=== PATIENT | male | born 1965 | race Caucasian/White ===

== ENCOUNTER → 2018-12-25 08:14 | Outpatient (CLI) | payer OTHER, MEDICAID, SELFPAY ==
--- NOTE | 2018-12-25 08:19 | DI.US.S_ITS ---
PROCEDURE: US ABDOMEN COMPLETE INDICATIONS: HEPATITIS C,CIRRHOSIS,CURRENT DRINKER,LIVER FUNCTI TECHNIQUE: Real-time scanning was performed of the abdominal and retroperitoneal organs, with image documentation. COMPARISON: None. FINDINGS: Liver: Liver is coarse in echotexture and slightly increased in echogenicity. There is mild irregularity of the hepatic capsule. Gallbladder: No gallstones identified. Normal gallbladder wall. No pericholecystic fluid. Negative sonographic Lee sign. Biliary ducts: Intrahepatic bile ducts are non-dilated. Extrahepatic bile duct caliber measures 5.7 mm. Normal is 6-7 mm or less in diameter, or 10 mm or less post-cholecystectomy. Pancreas: Visualized portions of the pancreas are sonographically normal. Spleen: Spleen is enlarged in size at 15.4 cm and homogeneous in echotexture. Kidneys: Kidneys are normal in size and echotexture. Right kidney measures 11.4 cm long; left kidney measures 10.5 cm long. No hydronephrosis or nephrolithiasis. No solid masses. Aorta: Visualized aorta is normal in caliber at less than 3 cm. Iliacs: Proximal common iliac arteries are normal in caliber at less than 2.5 cm. IVC: Intrahepatic inferior vena cava is patent. Miscellaneous: No free abdominal fluid. IMPRESSION: 1. Coarse appearance of the liver with increase in hepatic parenchymal echogenicity and mild irregularity of the hepatic capsule suggesting hepatic cirrhosis. Correlate clinically. 2. Sonographic splenomegaly. Portal hypertension cannot be excluded. Dictated by: Amrit MCRAE Interpreted: Dara Ulloa MD on 12/25/2018 at 13:05 Approved by: Dara Ulloa M.D. on 12/25/2018 at 14:01
[2018-12-25 12:29] LABS: Add Manual Diff / Slide Review NO; Basophils Absolute Auto 0 /uL (0-100); Basophils Percent Auto 0.6 % (0-2); Eosinophils Absolute Auto 100 /uL (0-450); Eosinophils Percent Auto 1.9 % (2-4); Hematocrit 41.7 % (41-53); Hemoglobin 14.1 g/dL (13.5-17.5); Lymphocytes Absolute Auto 2000 /uL (1100-4500); Lymphocytes Percent Auto 30.9 % (25-40); Mean Corpuscular HGB Conc 33.7 % (30-36); Mean Corpuscular Volume 97.7 fL (80-100); Monocytes Absolute Auto 700 /uL (0-900); Monocytes Percent Auto 11.5 % (3-14); Neutrophils Absolute Auto 3500 /uL (1500-7000); Neutrophils Percent Auto 55.1 % (50-75); Platelet Count 97 X10^3/uL (150-400); Red Blood Cell Count 4.27 X10^6/uL (4.5-5.9); Red Cell Distribution Width 14.9 % (11.6-14.8); White Blood Cell Count 6.4 X10^3/uL (4.5-11.0)
[2018-12-25 13:07] LABS: INR 1.2 (0.9-1.3); Prothrombin Time 13.5 SECONDS (10.1-12.7)
[2018-12-25 14:11] LABS: Alanine Aminotransferase 25 IU/L (21-72); Albumin 4.1 g/dL (3.5-5.0); Albumin Globulin Ratio 0.9 (1.0-2.8); Alkaline Phosphatase 95 U/L (38-126); Aspartate Aminotransferase 58 IU/L (17-59); BUN Creatinine Ratio 6.3 (6-22); Blood Urea Nitrogen 5 mg/dL (9-20); Carbon Dioxide 28 mmol/L (22-32); Chloride 107 mmol/L (98-107); Estimated Glomerular Filt Rate > 60.0 mL/min (>60); Globulin 4.4 g/dL (1.7-4.1); Glucose 103 mg/dL (70-100); HEMOLYSIS < 15 (0-50); Sodium 146 mmol/L (137-145); Total Protein 8.5 g/dL (6.3-8.2)
[2018-12-25 14:23] LABS: Potassium 4.2 mmol/L (3.4-5.1)
[2018-12-29 17:24] LABS: Alpha Fetoprotein 15.1 ng/mL (< 6.1)
== END ==
PROVIDERS: PCP Internal Medicine
DX: B18.2 Chronic viral hepatitis C (principal); K74.60 Unspecified cirrhosis of liver; R94.5 Abnormal results of liver function studies; R16.1 Splenomegaly, not elsewhere classified; D69.6 Thrombocytopenia, unspecified; Z72.89 Other problems related to lifestyle
CPT/HCPCS: 36415; 76700; 80053; 82105; 85025; 85610; 87522

== ENCOUNTER → 2019-11-28 12:33 | Outpatient (CLI) | payer OTHER, MEDICAID, SELFPAY ==
--- NOTE | 2019-11-28 13:38 | DI.CT.S_ITS ---
PROCEDURE: CT ABDOMEN PELVIS W CON INDICATIONS: Unspecified cirrhosis of liver TECHNIQUE: After the administration of oral and intravenous contrast, 5 mm thick sections acquired from the diaphragms to the symphysis. 5 mm thick coronal and sagittal reformats were performed. For radiation dose reduction, the following was used: automated exposure control, adjustment of mA and/or kV according to patient size. COMPARISON: None. FINDINGS: Image quality: Excellent. ABDOMEN: Lung bases: There is mild dependent atelectasis bilaterally. Heart size is normal. There is a small hiatal hernia. There are small gastroesophageal varices. Solid organs: The liver is nodular in contour with heterogeneity of hepatic parenchyma consistent with cirrhosis. No discrete hepatic mass is identified on this single phase of imaging. There is a small focal hyperdensity in the region of the gallbladder neck suggestive of a small gallstone. There is mild nonspecific gallbladder wall thickening and enhancement. No pericholecystic fluid. Biliary system is non-dilated. Pancreas enhances normally. Spleen is enlarged, measuring up to 14.6 cm. No adrenal nodules. Kidneys demonstrate hydronephrosis. Peritoneum and bowel: Stomach, small bowel, and colon loops are normal in caliber and wall thickness. No free fluid or air. Nodes and vessels: No retroperitoneal or mesenteric adenopathy. Aorta and inferior vena cava are normal in caliber. There is small splenic varices. Miscellaneous: No ventral hernias. PELVIS: Genitourinary: Bladder wall thickness is normal. Miscellaneous: No inguinal hernias or adenopathy. Bones: No suspicious bony lesions. No vertebral body compression fractures. IMPRESSION: 1. Cirrhotic liver demonstrated without a discrete mass identified on this single phase of imaging. If clinical concern persists, further evaluation may be obtained with a liver protocol MRI or CT. 2. Mild splenomegaly with small gastroesophageal and splenic varices suggestive of portal hypertension. 3. Suggestion of a small calcified gallstone in the gallbladder neck. Mild gallbladder wall thickening is also demonstrated. The findings are nonspecific in the context of cirrhosis and correlation is recommended clinically. Further evaluation may be obtained with ultrasound. Dictated by: Antonio Rand M.D. on 11/28/2019 at 16:58 Approved by: Antonio Rand M.D. on 11/28/2019 at 17:02
== END ==
PROVIDERS: PCP Internal Medicine; Referring Provider Internal Medicine Gastroenterology; Visit Provider Internal Medicine Gastroenterology
DX: K74.60 Unspecified cirrhosis of liver (principal); B18.2 Chronic viral hepatitis C; R94.5 Abnormal results of liver function studies; K44.9 Diaphragmatic hernia without obstruction or gangrene; J98.11 Atelectasis; I86.4 Gastric varices; I86.8 Varicose veins of other specified sites; R16.1 Splenomegaly, not elsewhere classified
CPT/HCPCS: 74177; Q9967

== ENCOUNTER → 2020-02-11 12:47 | Outpatient (CLI) | payer MEDICARE, SELFPAY | PROVIDERS: PCP Internal Medicine; Visit Provider Physician Assistant | DX: S91.302A Unspecified open wound, left foot, initial encounter (principal) | CPT/HCPCS: 87070; 87075; 87077; 87147; 87205 ==

== ENCOUNTER → 2020-02-15 10:41 | Outpatient (CLI) | payer MEDICARE, SELFPAY ==
--- NOTE | 2020-02-15 10:46 | DI.RAD.S_ITS ---
PROCEDURE: XR FOOT LT MIN 3V INDICATIONS: Pain and swelling. Clinical concern for osteomyelitis TECHNIQUE: 3 views of the foot were acquired. COMPARISON: None. FINDINGS: Bones: No fractures or dislocations. No suspicious bony lesions. Degenerative changes are seen, particularly involving the Lisfranc joint. Soft tissues: Generalized soft tissue swelling is seen, particularly distally. There is a potential radiopaque foreign body seen between the 3rd and 4th metatarsals measuring 6 mm. However, this may be simply related to artifact. IMPRESSION: Soft tissue swelling and degenerative changes, without a focal bony abnormality seen by plain film to suggest osteomyelitis. If there is strong suspicion for developing osteomyelitis, please consider a dedicated MRI without and with contrast for further evaluation (assuming that there is no contraindication to MRI). Dictated by: Jeremias Hi M.D. on 02/15/2020 at 10:09 Approved by: Jeremias Hi M.D. on 02/15/2020 at 10:11
== END ==
PROVIDERS: PCP Internal Medicine; Referring Provider Nurse Practitioner; Visit Provider Nurse Practitioner
DX: M79.672 Pain in left foot (principal); S91.302A Unspecified open wound, left foot, initial encounter; M79.89 Other specified soft tissue disorders
CPT/HCPCS: 73630

== ENCOUNTER → 2020-02-25 09:56 | Outpatient (CLI) | payer MEDICARE, SELFPAY | PROVIDERS: PCP Internal Medicine; Referring Provider Nurse Practitioner; Visit Provider Family Medicine | DX: I87.2 Venous insufficiency (chronic) (peripheral) (principal); L97.421 Non-pressure chronic ulcer of left heel and midfoot limited to breakdown of skin; F10.20 Alcohol dependence, uncomplicated; K74.60 Unspecified cirrhosis of liver | CPT/HCPCS: 11042; 87070; 87075; 87205; 93922; 99203; 99213 ==

== ENCOUNTER → 2020-02-27 11:51 | Outpatient (CLI) | payer MEDICARE, SELFPAY | PROVIDERS: PCP Internal Medicine; Referring Provider Internal Medicine; Visit Provider Family Medicine | DX: I87.2 Venous insufficiency (chronic) (peripheral) (principal); L97.421 Non-pressure chronic ulcer of left heel and midfoot limited to breakdown of skin | CPT/HCPCS: 29581 ==

== ENCOUNTER → 2020-03-05 08:50 | Outpatient (CLI) | payer MEDICARE, SELFPAY | PROVIDERS: PCP Internal Medicine; Referring Provider Internal Medicine; Visit Provider Family Medicine | DX: I87.2 Venous insufficiency (chronic) (peripheral) (principal); L97.421 Non-pressure chronic ulcer of left heel and midfoot limited to breakdown of skin; F10.20 Alcohol dependence, uncomplicated; K74.60 Unspecified cirrhosis of liver | CPT/HCPCS: 97597 ==

== ENCOUNTER → 2020-03-12 09:47 | Outpatient (CLI) | payer MEDICARE, SELFPAY | PROVIDERS: PCP Internal Medicine; Referring Provider Internal Medicine; Visit Provider Family Medicine | DX: I87.2 Venous insufficiency (chronic) (peripheral) (principal); L97.421 Non-pressure chronic ulcer of left heel and midfoot limited to breakdown of skin; F10.20 Alcohol dependence, uncomplicated; K74.60 Unspecified cirrhosis of liver; L08.9 Local infection of the skin and subcutaneous tissue, unspecified | CPT/HCPCS: 11042; 87070; 87075; 87077; 87147; 87186; 87205; 99214 ==

== ENCOUNTER → 2020-03-19 10:33 | Outpatient (CLI) | payer MEDICARE, SELFPAY | PROVIDERS: PCP Internal Medicine; Referring Provider Internal Medicine; Visit Provider Family Medicine | DX: I87.2 Venous insufficiency (chronic) (peripheral) (principal); L97.421 Non-pressure chronic ulcer of left heel and midfoot limited to breakdown of skin | CPT/HCPCS: 29581 ==

== ENCOUNTER → 2020-03-26 10:40 | Outpatient (CLI) | payer MEDICARE, SELFPAY | PROVIDERS: PCP Internal Medicine; Referring Provider Internal Medicine; Visit Provider Family Medicine | DX: I87.333 Chronic venous hypertension (idiopathic) with ulcer and inflammation of bilateral lower extremity (principal); L97.421 Non-pressure chronic ulcer of left heel and midfoot limited to breakdown of skin | CPT/HCPCS: 29581 ==

== ENCOUNTER → 2020-04-07 11:25 | Outpatient (CLI) | payer MEDICARE, SELFPAY | PROVIDERS: PCP Internal Medicine; Referring Provider Internal Medicine; Visit Provider Family Medicine | DX: I87.2 Venous insufficiency (chronic) (peripheral) (principal); L97.421 Non-pressure chronic ulcer of left heel and midfoot limited to breakdown of skin; F10.20 Alcohol dependence, uncomplicated; K74.60 Unspecified cirrhosis of liver; L08.9 Local infection of the skin and subcutaneous tissue, unspecified | CPT/HCPCS: 97597 ==

== ENCOUNTER → 2020-04-14 11:40 | Outpatient (CLI) | payer MEDICARE, SELFPAY | PROVIDERS: PCP Internal Medicine; Referring Provider Internal Medicine; Visit Provider Family Medicine | DX: I87.2 Venous insufficiency (chronic) (peripheral) (principal); L97.421 Non-pressure chronic ulcer of left heel and midfoot limited to breakdown of skin | CPT/HCPCS: 99213 ==

== ENCOUNTER → 2020-04-22 11:26 | Outpatient (CLI) | payer MEDICARE, SELFPAY | PROVIDERS: PCP Internal Medicine; Referring Provider Internal Medicine; Visit Provider Family Medicine | DX: I87.2 Venous insufficiency (chronic) (peripheral) (principal); F10.20 Alcohol dependence, uncomplicated; K74.60 Unspecified cirrhosis of liver; R60.0 Localized edema | CPT/HCPCS: 99213 ==

== ENCOUNTER → 2020-05-19 10:47 | Outpatient (CLI) | payer MEDICARE, SELFPAY ==
--- NOTE | 2020-05-19 | DI.US.S_ITS ---
PROCEDURE: US ABDOMEN COMPLETE INDICATIONS: CIRRHOSIS TECHNIQUE: Real-time scanning was performed of the abdominal and retroperitoneal organs, with image documentation. COMPARISON: [facility], US, US ABDOMEN COMPLETE, 12/25/2018, 9:07. FINDINGS: Liver: Liver is normal in size and homogeneous in echotexture, mildly coarse and echogenic likely reflecting a combination of reported cirrhosis and fatty infiltration. Gallbladder: The gallbladder appears normal Biliary ducts: 5.6 Pancreas: Visualized portions of the pancreas are sonographically normal. Spleen: Spleen is normal in size and homogeneous in echotexture. Kidneys: Kidneys are normal in size and echotexture. Right kidney measures 10.8 cm long; left kidney measures 12.0 cm long. No hydronephrosis or nephrolithiasis. No solid masses. Aorta: Visualized aorta is normal in caliber at less than 3 cm. Iliacs: Proximal common iliac arteries are normal in caliber at less than 2.5 cm. IVC: Intrahepatic inferior vena cava is patent. Miscellaneous: No free abdominal fluid. IMPRESSION: Increased echotexture of the liver, consistent with a combination of hepatic cirrhosis and mild fatty infiltration. No focal liver lesion seen. No biliary distension. No evidence of ascites or varices is found. Dictated by: Marco Anaya M.D. on 05/19/2020 at 12:27 Approved by: Marco Anaya M.D. on 05/19/2020 at 12:30
[2020-05-19 12:45] LABS: Hematocrit 41.5 % (41-53); Hemoglobin 14.5 g/dL (13.5-17.5); Mean Corpuscular Hemoglobin 34.4 PG (26-34); Mean Corpuscular Volume 98.5 fL (80-100); Red Blood Cell Count 4.21 X10^6/uL (4.5-5.9); Red Cell Distribution Width 13.8 % (11.6-14.8); White Blood Cell Count 4.2 X10^3/uL (4.5-11.0)
[2020-05-19 12:55] LABS: INR 1.2 (0.9-1.3)
[2020-05-19 13:05] LABS: Alanine Aminotransferase 71 IU/L (<50); Albumin 4.1 g/dL (3.5-5.0); Albumin Globulin Ratio 0.8 (1.0-2.8); Alkaline Phosphatase 172 U/L (38-126); Aspartate Aminotransferase 205 IU/L (17-59); BUN Creatinine Ratio 5.7 (6-22); Blood Urea Nitrogen 4 mg/dL (9-20); Carbon Dioxide 26 mmol/L (22-32); Chloride 102 mmol/L (98-107); Estimated Glomerular Filt Rate > 60.0 mL/min (>60); Globulin 5.4 g/dL (1.7-4.1); Glucose 124 mg/dL (70-100); HEMOLYSIS < 15 (0-50); Potassium 3.8 mmol/L (3.4-5.1); Sodium 138 mmol/L (137-145); Total Protein 9.5 g/dL (6.3-8.2)
[2020-05-19 13:22] LABS: Add Manual Diff / Slide Review YES; Platelet Count 35 X10^3/uL (150-400)
[2020-05-19 14:08] LABS: Neutrophils Absolute Manual 2142 /uL (3000-5900); Total Cells Counted 100
[2020-05-19 14:09] LABS: Platelet Estimate Decreased on smear; RBC Morphology Normal Morphology
== END ==
PROVIDERS: PCP Internal Medicine; Referring Provider Internal Medicine Gastroenterology; Visit Provider Internal Medicine Gastroenterology
DX: K74.60 Unspecified cirrhosis of liver (principal); B18.2 Chronic viral hepatitis C; R94.5 Abnormal results of liver function studies
CPT/HCPCS: 36415; 76700; 80053; 82105; 85007; 85025; 85610

== ENCOUNTER 2020-09-01 19:04 | Emergency (ER) | payer MEDICARE, SELFPAY ==
[2020-09-01] VITALS (9 sets, daily range): BP systolic 124–159; BP diastolic 60–93; PULSE 65–86; RESP 14–20; TEMP 35.9–36.9; O2SAT 93–97; BMI 39.0
--- NOTE | 2020-09-01 19:18 | ED_ITS ---
HPI - General Adult General Chief complaint: Fall Stated complaint: Fall, ankle injury Time Seen by Provider: 09/01/20 19:13 Source: patient Mode of arrival: EMS Limitations: no limitations History of Present Illness HPI narrative: Patient is a 55-year-old male who arrived by EMS for evaluation of alcohol intoxication, fall and left ankle deformity. Patient arrived in a cervical collar but not on a backboard. He did admit to drinking alcohol and having a couple shots and drinking marijuana. He is unsure exactly how he fell. A neighbor heard him calling out for help. Modified trauma called by EMS prior to arrival Related Data Home Medications Medication Instructions Recorded Confirmed cetirizine 10 mg capsule 10 mg PO DAILY 08/10/18 02/20/20 fluticasone propionate 50 1 spray NASAL DAILY 08/10/18 02/20/20 mcg/actuation nasal spray,suspension gabapentin 600 mg tablet 600 mg PO TID 11/30/18 02/20/20 naltrexone microspheres 380 mg 380 mg IM Q4W 11/30/18 02/20/20 intramuscular suspension,extended release Previous Rx's Medication Instructions Recorded ibuprofen 800 mg tablet 800 mg PO TID PRN #90 tab 12/25/18 mupirocin 2 % topical ointment 1 applic TOP BID #30 gram 02/11/20 ketorolac 10 mg tablet 5 mg PO BID PRN #4 tab 02/15/20 Allergies Allergy/AdvReac Type Severity Reaction Status Date / Time nadolol Allergy Verified 09/01/20 19:14 propranolol Allergy Verified 09/01/20 19:14 Review of Systems Constitutional Constitutional: Denies headache(s) ENT Ears, Nose, Mouth, and Throat: Denies headache(s) Cardiovascular Cardiovascular: Denies chest pain and Denies dyspnea Respiratory Respiratory: Denies dyspnea Gastrointestinal Gastrointestinal: Denies abdominal pain Musculoskeletal Comments: Left ankle pain Integumentary/Breasts Skin/Breast: Denies lesions and Denies rash Neurologic Neurologic: Reports confusion and Denies headache(s) Comments: Intoxicated Psychiatric Psychiatric: Reports confusion Hematologic/Lymphatic On Anticoagulants: No Allergic/Immunologic Allergic/Immunologic: Denies urticaria Patient History Medical History Alcoholism Ankle pain Anxiety Blindness Cataracts, bilateral Cirrhosis Foot pain H/O deep venous thrombosis Hearing loss Hepatitis C Peripheral vascular disease Shoulder pain Skin problem Sleep apnea Venous stasis Vertigo Vision disorder Wound infection Surgical History Anesthesia H/O neck surgery History of surgery History of surgery of liver (~2018) S/P cataract extraction Family History Mother Cancer Hyperlipidemia Grandfather CVA (cerebral vascular accident) Grandfather Cancer Father Heart disease Hypertension Brother Hyperlipidemia Grandmother Liver disease Social History Smoking Status: Current every day smoker quit status: not considering quitting alcohol intake: current (daily w/cirrhosis/hepatitis C) Smoking Status: Current every day smoker Exam Initial Vital Signs Initial Vital Signs: Vital Signs Pulse Rate 80 09/01/20 19:09 Pulse Oximetry 93 09/01/20 19:09 Const General: disheveled and No ill appearing Limitations: other limitations (Intoxicated) HENMT Head: normal to inspection and normocephalic Ears: hearing grossly normal bilaterally Eyes General: appearance normal, both eyes and all related structures Resp Effort & Inspection: normal respiratory effort Auscultation: clear to auscultation bilaterally Cardio Rate: regular rate Rhythm: regular rhythm Pulses: dorsalis pedis present on the left GI Inspection: non-distended Palpation: soft Back/Spine/Pelvis Cervical Spine: collar present Skin Lesions: no lesions Rashes: no rashes Neuro General: patient alert and patient awake Sensory Exam: no sensory deficits noted Extrem Other: No tenderness to palpation of the hips Left knee is unremarkable, does have tenderness to palpation along the proximal fibula. Has deformity left ankle. Psych Appearance: disheveled Procedures Orthopedic Fracture Reduction Fracture #1: Time Out Performed: No Side: left Fracture Reduction Location: other (Left ankle) Technique: direct manipulation Post Reduction X-rays Demonstrate: acceptable reduction Post-reduction neuro exam: intact Post-reduction vascular exam: intact Splint Applied: Yes Patient Tolerated Procedure: Well and No complications Orthopedic Splinting/Casting Injury #1: Side: left Lower Extremity Injury Location: ankle Lower Extremity Immobilizer: posterior splint and stirrup splint Other Orthopedic Equipment: crutches Post splinting neuro exam: no change Post splinting vascular exam: no change Placed by: Provider Scores Nexus Score for C-Spine Focal Neurologic deficit present: No Midline spinal tenderness present: Yes Altered level of conciousness present: No Intoxication present: Yes Distracting Injury Present: No Nexus Criteria for C-spine: 2 Course Orders Ordered: ED Orders 09/01/20 19:28 CT cervical spine wo con Stat CT head/brain wo con Stat XR ankle LT min 3V Stat XR tibia fibula LT 2V Stat 09/01/20 20:10 Basic Metabolic Panel Stat Complete Blood Count AUTO DIFF Stat Vital Signs Vital signs: Vital Signs - 8 hr 09/01/20 19:09 09/01/20 19:10 09/01/20 19:30 Temperature 96.6 F L Pulse Rate 80 75 69 Respiratory Rate 14 Blood Pressure 156/91 H Pulse Oximetry 93 93 96 09/01/20 19:31 09/01/20 19:48 09/01/20 20:00 Temperature Pulse Rate 65 70 73 Respiratory Rate Blood Pressure 154/76 H 159/93 H Pulse Oximetry 95 96 96 09/01/20 20:29 09/01/20 20:30 09/01/20 22:12 Temperature 98.4 F Pulse Rate 72 71 86 Respiratory Rate 16 20 Blood Pressure 150/91 H 140/89 124/60 Pulse Oximetry 97 97 96 Medical Decision Making Medical Records Medical records reviewed: Yes I reviewed the patient's medical records. Lab Data Lab results reviewed: Yes I reviewed the patient's lab results. Result diagrams: 09/01/20 20:10 09/01/20 20:10 Labs: Lab Results 09/01/20 09/01/20 Range/Units 20:10 20:10 WBC 4.6 (4.5-11.0) X10^3/uL RBC 3.87 L (4.5-5.9) X10^6/uL Hgb 13.9 (13.5-17.5) g/dL Hct 40.9 L (41-53) % MCV 105.7 H (80-100) fL MCH 35.8 H (26-34) PG MCHC 33.8 (30-36) % RDW 15.4 H (11.6-14.8) % Plt Count 42 L (150-400) X10^3/uL Neut % (Auto) 48.9 L (50-75) % Lymph % (Auto) 37.1 (25-40) % [place] % (Auto) 11.7 (3-14) % Eos % (Auto) 1.3 L (2-4) % Baso % (Auto) 1.0 (0-2) % Neut # (Auto) 2300 (2767-5404) /uL Lymph # (Auto) 1700 (2400-4401) /uL [place] # (Auto) 500 (0-900) /uL Eos # (Auto) 100 (0-450) /uL Baso # (Auto) 0 (0-100) /uL Sodium 138 (137-145) mmol/L Potassium 5.1 (3.4-5.1) mmol/L Chloride 104 (98-107) mmol/L Carbon Dioxide 23 (22-32) mmol/L BUN 4 L (9-20) mg/dL Creatinine 0.66 (0.66-1.25) mg/dL Estimated GFR > 60.0 (>60) mL/min BUN/Creatinine Ratio 6.1 (6-22) Glucose 127 H (70-100) mg/dL Calcium 8.7 (8.4-10.2) mg/dL Urine Dip Bedside Urine Glucose Negative Bedside Urine Bilirubin - Negative Bedside Urine Ketone - Negative Urine Specific [place] 1.015 Bedside Urine Occult Blood - Negative Bedside Urine pH 6 Bedside Urine Protein - Negative Bedside Urine Urobilinogen - Negative Bedside Urine Nitrite - Negative Bedside Urine Leukocytes - Negative Esterase Point of care testing: Urine Dip Bedside Urine Glucose Negative Bedside Urine Bilirubin - Negative Bedside Urine Ketone - Negative Urine Specific [place] 1.015 Bedside Urine Occult Blood - Negative Bedside Urine pH 6 Bedside Urine Protein - Negative Bedside Urine Urobilinogen - Negative Bedside Urine Nitrite - Negative Bedside Urine Leukocytes - Negative Esterase Imaging Data CT scan - head: Radiologist's Impression: [address] [id number] Scan ReportSigned Patient: Santi Colindres KMR#: [id number]: [id number]:[id number]/Sex: 55 / MDate of Service: 09/01/20Loc: EDAccession Number: [id number] Procedure: CT head/brain wo con Ordering Provider: Wayne Land D.O. PROCEDURE: CT HEAD/BRAIN WO CON INDICATIONS: fall and drunk TECHNIQUE: Noncontrast 4.5 mm thick angled axial sections acquired from the foramen magnum to the vertex, with coronal and sagittal reformats. For radiation dose reduction, the following was used: automated exposure control, adjustment of mA and/or kV according to patient size. COMPARISON: None. FINDINGS: Image quality: Excellent. CSF spaces: Basal cisterns are patent. No extra-axial fluid collections. Ventricles are normal in size and shape. Brain: No midline shift. No intracranial masses or hemorrhage. Diallo-white ma tter interface is normal. Skull and face: Calvarium is intact, without suspicious lesions. There is irregularity of the nasal bones without appreciable overlying edema. Sinuses: Visualized sinuses demonstrate a left maxillary sinus mucous retention cysts, with smaller similar foci noted within the right maxillary sinus. IMPRESSION: 1. No acute intracranial process. 2. Irregularity of the nasal bones as above. Chronicity is considered indeterminate and recommend correlation to point tenderness of pain as subacute fracture cannot be excluded given history of trauma. Dictated by: Dara Ulloa M.D. on 09/01/2020 at 20:20 Approved by: Dara Ulloa M.D. on 09/01/2020 at 20:21 CT - cervical spine: Radiologist's Impression: [address] [id number] Scan ReportSigned Patient: Santi Colindres R#: [id number]: 1965Acct:[id number]/Sex: 55 / MDate of Service: 09/01/20Loc: EDAccession Number: [id number] Procedure: CT cervical spine wo con Ordering Provider: Wayne Land D.O. PROCEDURE: CT CERVICAL SPINE WO CON INDICATIONS: fall and drunk TECHNIQUE: Noncontrast 3 mm thick sections acquired from the skull base to the T4 level. Sagittal and coronal reformats were then constructed. For radiation dose reduction, the following was used: automated exposure control, adjustment of mA and/or kV according to patient size. COMPARISON: None. FINDINGS: Image quality: Excellent. Bones: No fractures or dislocations. Visualized superior ribs are intact. Prominent multilevel degenerative changes are present. Soft tissues: Prevertebral soft tissues are normal in thickness. No paravertebral hematomas. No apical pneumothoraces. IMPRESSION: No visualized fracture. Dictated by: Dara Ulloa M.D. on 09/01/2020 at 20:18 Approved by: Daar Ulloa M.D. on 09/01/2020 at 20:20 X-ray tib-fib: Radiologist's Impression: [address] [id number] ReportSigned Patient: Santi Colindres R#: [id number]: 1965Acct:[id number]/Sex: 55 / MDate of Service: 09/01/20Loc: EDAccession Number: [id number] Procedure: XR tibia fibula LT 2V Ordering Provider: Wayne Land D.O. PROCEDURE: XR TIBIA FIBULA LT 2V INDICATIONS: fall and prox fibula tenderness TECHNIQUE: 2 views of the tibia and fibula were acquired. COMPARISON: [facility], CR, XR ANKLE LT MIN 3V, 09/01/2020, 19:29. FINDINGS: Bones: There is a mildly displaced distal fibular fracture. In addition, mildly displaced medial malleolar fracture is present. There is slight irregularity of the lateral cortical margin of the fibular head. Posterior malleolar fracture is present. Soft tissues: No suspicious soft tissue calcifications or masses. IMPRESSION: 1. Mildly displaced distal fibular fracture as well as medial malleolar fracture. Posterior malleolar fracture is present. 2. Irregularity of the cortex of the lateral fibular head suggestive of fracture. Dictated by: Dara Ulloa M.D. on 09/01/2020 at 20:16 Approved by: Dara Ulloa M.D. on 09/01/2020 at 20:17 X-ray ankle: Radiologist's Impression: [address] [id number] ReportSigned Patient: Santi Colindres R#: [id number]: 1965Acct:[id number]/Sex: 55 / MDate of Service: 09/01/20Loc: DANIEL ccession Number: [id number] Procedure: XR ankle LT min 3V Ordering Provider: Wayne Land D.O. PROCEDURE: XR ANKLE LT MIN 3V INDICATIONS: fall and deformity. has splint on TECHNIQUE: 3 views of the ankle were acquired. COMPARISON: [facility], CR, XR TIBIA FIBULA LT 2V, 09/01/2020, 19:29. FINDINGS: Bones: Mildly displaced distal fibular fracture. Mildly displaced medial malleolar fracture. Posterior malleolar fracture is also present. Soft tissues: Ankle effusion. Achilles tendon appears normal. IMPRESSION: Trimalleolar fracture. Dictated by: Dara Ulloa M.D. on 09/01/2020 at 20:18 Approved by: Dara Ulloa M.D. on 09/01/2020 at 20:18 [facility] Narrative Medical decision making narrative: Head CT and cervical spine CT were negative. Cervical spinous removed with a resulting negative C-spine CT. He is neurovascular intact his left lower extremity. Splint was placed as described above. X-rays do show a trimalleolar fracture. This is a closed fracture. I did discuss the case with Dr. Pelletier with orthopedics who stated that the patient could follow-up this week. Patient was given care instructions and return precautions with the splint. He was given crutches. He expressed understanding of this. He was picked up by his mother. He was given information to follow-up with orthopedics and also his primary provider. He expressed understanding and agreement. Discharge Plan Departure Patient Disposition: Home Clinical Impression: Ankle fracture, left, Alcohol intoxication Instructions: How to Use Crutches, DI for Ankle Fracture, How to Take Care of Your Splint Activity Restrictions/Additional Instructions: You do have a left ankle fracture. This means that the splint that was placed here in the emergency department needs to stay on an stay clean and stay dry. You need to treat it like a cast. Do not walk on your left leg. Use the crutches. Tomorrow I recommend you contact your primary provider for follow-up. I also recommend you contact the [facility] group at [phone]. The injury that you have sustained will require surgery. Keep your foot elevated as this will help with the discomfort and the swelling. Return to the emergency department for any new symptoms. Prescriptions: No Action mupirocin 2 % ointment 1 applic TOP BID Qty: 30 RF: 0 ketorolac 10 mg tablet 5 mg PO BID PRN (Reason: pain) Qty: 4 RF: 0 fluticasone propionate 50 mcg/actuation spray,suspension 1 spray NASAL DAILY RF: 0 cetirizine 10 mg capsule 10 mg PO DAILY RF: 0 gabapentin 600 mg tablet 600 mg PO TID RF: 0 Vivitrol 380 mg suspension,extended rel recon 380 mg IM Q4W RF: 0 ibuprofen 800 mg tablet 800 mg PO TID PRN (Reason: pain) Qty: 90 RF: 0 Referrals: Santi Chan MD [Primary Care Provider] - Guru Pelletier MD [Physician] -
--- NOTE | 2020-09-01 19:28 | DI.CT.S_ITS ---
PROCEDURE: CT CERVICAL SPINE WO CON INDICATIONS: fall and drunk TECHNIQUE: Noncontrast 3 mm thick sections acquired from the skull base to the T4 level. Sagittal and coronal reformats were then constructed. For radiation dose reduction, the following was used: automated exposure control, adjustment of mA and/or kV according to patient size. COMPARISON: None. FINDINGS: Image quality: Excellent. Bones: No fractures or dislocations. Visualized superior ribs are intact. Prominent multilevel degenerative changes are present. Soft tissues: Prevertebral soft tissues are normal in thickness. No paravertebral hematomas. No apical pneumothoraces. IMPRESSION: No visualized fracture. Dictated by: Dara Ulloa M.D. on 09/01/2020 at 20:18 Approved by: Dara Ulloa M.D. on 09/01/2020 at 20:20
--- NOTE | 2020-09-01 19:28 | DI.CT.S_ITS ---
PROCEDURE: CT HEAD/BRAIN WO CON INDICATIONS: fall and drunk TECHNIQUE: Noncontrast 4.5 mm thick angled axial sections acquired from the foramen magnum to the vertex, with coronal and sagittal reformats. For radiation dose reduction, the following was used: automated exposure control, adjustment of mA and/or kV according to patient size. COMPARISON: None. FINDINGS: Image quality: Excellent. CSF spaces: Basal cisterns are patent. No extra-axial fluid collections. Ventricles are normal in size and shape. Brain: No midline shift. No intracranial masses or hemorrhage. Diallo-white matter interface is normal. Skull and face: Calvarium is intact, without suspicious lesions. There is irregularity of the nasal bones without appreciable overlying edema. Sinuses: Visualized sinuses demonstrate a left maxillary sinus mucous retention cysts, with smaller similar foci noted within the right maxillary sinus. IMPRESSION: 1. No acute intracranial process. 2. Irregularity of the nasal bones as above. Chronicity is considered indeterminate and recommend correlation to point tenderness of pain as subacute fracture cannot be excluded given history of trauma. Dictated by: Dara Ulloa M.D. on 09/01/2020 at 20:20 Approved by: Dara Ulloa M.D. on 09/01/2020 at 20:21
--- NOTE | 2020-09-01 19:28 | DI.RAD.S_ITS ---
PROCEDURE: XR TIBIA FIBULA LT 2V INDICATIONS: fall and prox fibula tenderness TECHNIQUE: 2 views of the tibia and fibula were acquired. COMPARISON: [facility], CR, XR ANKLE LT MIN 3V, 09/01/2020, 19:29. FINDINGS: Bones: There is a mildly displaced distal fibular fracture. In addition, mildly displaced medial malleolar fracture is present. There is slight irregularity of the lateral cortical margin of the fibular head. Posterior malleolar fracture is present. Soft tissues: No suspicious soft tissue calcifications or masses. IMPRESSION: 1. Mildly displaced distal fibular fracture as well as medial malleolar fracture. Posterior malleolar fracture is present. 2. Irregularity of the cortex of the lateral fibular head suggestive of fracture. Dictated by: aDra Ulloa M.D. on 09/01/2020 at 20:16 Approved by: Dara Ulloa M.D. on 09/01/2020 at 20:17
--- NOTE | 2020-09-01 19:28 | DI.RAD.S_ITS ---
PROCEDURE: XR ANKLE LT MIN 3V INDICATIONS: fall and deformity. has splint on TECHNIQUE: 3 views of the ankle were acquired. COMPARISON: [facility], MICHAEL, XR TIBIA FIBULA LT 2V, 09/01/2020, 19:29. FINDINGS: Bones: Mildly displaced distal fibular fracture. Mildly displaced medial malleolar fracture. Posterior malleolar fracture is also present. Soft tissues: Ankle effusion. Achilles tendon appears normal. IMPRESSION: Trimalleolar fracture. Dictated by: Dara Ulloa M.D. on 09/01/2020 at 20:18 Approved by: Dara Ulloa M.D. on 09/01/2020 at 20:18
[2020-09-01 20:22] LABS: Add Manual Diff / Slide Review NO; Basophils Absolute Auto 0 /uL (0-100); Eosinophils Absolute Auto 100 /uL (0-450); Eosinophils Percent Auto 1.3 % (2-4); Hematocrit 40.9 % (41-53); Hemoglobin 13.9 g/dL (13.5-17.5); Lymphocytes Absolute Auto 1700 /uL (1100-4500); Lymphocytes Percent Auto 37.1 % (25-40); Mean Corpuscular HGB Conc 33.8 % (30-36); Mean Corpuscular Hemoglobin 35.8 PG (26-34); Mean Corpuscular Volume 105.7 fL (80-100); Monocytes Absolute Auto 500 /uL (0-900); Monocytes Percent Auto 11.7 % (3-14); Neutrophils Absolute Auto 2300 /uL (1500-7000); Neutrophils Percent Auto 48.9 % (50-75); Platelet Count 42 X10^3/uL (150-400); Red Blood Cell Count 3.87 X10^6/uL (4.5-5.9); Red Cell Distribution Width 15.4 % (11.6-14.8); White Blood Cell Count 4.6 X10^3/uL (4.5-11.0)
[2020-09-01 20:31] LABS: BUN Creatinine Ratio 6.1 (6-22); Blood Urea Nitrogen 4 mg/dL (9-20); Calcium 8.7 mg/dL (8.4-10.2); Carbon Dioxide 23 mmol/L (22-32); Chloride 104 mmol/L (98-107); Estimated Glomerular Filt Rate > 60.0 mL/min (>60); Glucose 127 mg/dL (70-100); Potassium 5.1 mmol/L (3.4-5.1); Sodium 138 mmol/L (137-145)
[2020-09-01 20:42] LABS: HEMOLYSIS 113 (0-50)
--- NOTE | 2020-09-01 20:59 | PC.NURSE ---
Addendum entered by Trisha Berry R.N. 09/01/20 21:14: RN tried to contact Praveen; this number does not work. Original Note: Pts friend Praveen called for an update; RN asked Praveen to assist in obtaining a ride home for the patient. Praveen's number is [phone]
--- NOTE | 2020-09-01 21:00 | PC.NURSE ---
Crutch training was challenging d/t patient's ams. He was uncooperative and uncoordinated. RN encouraged patient to remain seated to urinate and to remain in bed until his ride arrives.
--- NOTE | 2020-09-01 21:21 | PC.NURSE ---
Patient's mother is coming to pick him up @ 2200.
== END 2020-09-01 22:15 | disposition home or self-care (01) ==
PROVIDERS: Emergency Provider Emergency Medicine; PCP Internal Medicine
DX: S82.892A Other fracture of left lower leg, initial encounter for closed fracture (principal); F10.129 Alcohol abuse with intoxication, unspecified; S09.90XA Unspecified injury of head, initial encounter; R41.0 Disorientation, unspecified; W19.XXXA Unspecified fall, initial encounter
CPT/HCPCS: 27788; 29515; 36415; 70450; 72125; 73590; 73610; 80048; 81003; 85025; 99284

== ENCOUNTER → 2020-09-07 14:20 | Outpatient (CLI) | payer MEDICARE, SELFPAY ==
[2020-09-07 16:22] LABS: Add Manual Diff / Slide Review NO; Basophils Absolute Auto 0 /uL (0-100); Basophils Percent Auto 0.6 % (0-2); Eosinophils Absolute Auto 0 /uL (0-450); Eosinophils Percent Auto 0.6 % (2-4); Hematocrit 36.7 % (41-53); Hemoglobin 12.5 g/dL (13.5-17.5); Lymphocytes Absolute Auto 900 /uL (1100-4500); Mean Corpuscular Hemoglobin 36.8 PG (26-34); Monocytes Absolute Auto 1000 /uL (0-900); Monocytes Percent Auto 15.6 % (3-14); Neutrophils Absolute Auto 4500 /uL (1500-7000); Neutrophils Percent Auto 69.2 % (50-75); Platelet Count 50 X10^3/uL (150-400); Red Cell Distribution Width 15.2 % (11.6-14.8); White Blood Cell Count 6.4 X10^3/uL (4.5-11.0)
[2020-09-07 16:37] LABS: BUN Creatinine Ratio 16.3 (6-22); Blood Urea Nitrogen 13 mg/dL (9-20); Calcium 9.1 mg/dL (8.4-10.2); Carbon Dioxide 26 mmol/L (22-32); Chloride 102 mmol/L (98-107); Estimated Glomerular Filt Rate > 60.0 mL/min (>60); Glucose 107 mg/dL (70-100); HEMOLYSIS < 15 (0-50); Potassium 3.6 mmol/L (3.4-5.1); Sodium 135 mmol/L (137-145)
== END ==
PROVIDERS: PCP Internal Medicine; Referring Provider Orthopaedic Surgery; Visit Provider Orthopaedic Surgery
DX: Z01.818 Encounter for other preprocedural examination (principal); Z01.812 Encounter for preprocedural laboratory examination
CPT/HCPCS: 36415; 80048; 85025; 93005; 93010

== ENCOUNTER 2020-09-25 19:30 | Inpatient (IN) | payer MEDICARE, SELFPAY ==
[2020-09-25 19:35] VITALS: BP 126/85; PULSE 78; RESP 15; TEMP 36.9; O2SAT 99; BMI 32.8
[2020-09-25 20:09] VITALS: BP 171/81; PULSE 70; RESP 18; O2SAT 93
[2020-09-25 21:04] LABS: Add Manual Diff / Slide Review SLIDE REVIEW; Basophils Absolute Auto 100 /uL (0-100); Basophils Percent Auto 1.3 % (0-2); Eosinophils Absolute Auto 200 /uL (0-450); Eosinophils Percent Auto 5.3 % (2-4); Hematocrit 37.3 % (41-53); Lymphocytes Absolute Auto 1600 /uL (1100-4500); Lymphocytes Percent Auto 37.4 % (25-40); Mean Corpuscular HGB Conc 34.8 % (30-36); Mean Corpuscular Hemoglobin 36.8 PG (26-34); Mean Corpuscular Volume 105.8 fL (80-100); Monocytes Absolute Auto 600 /uL (0-900); Monocytes Percent Auto 13.2 % (3-14); Neutrophils Absolute Auto 1800 /uL (1500-7000); Neutrophils Percent Auto 42.8 % (50-75); Platelet Count 43 X10^3/uL (150-400); Red Blood Cell Count 3.53 X10^6/uL (4.5-5.9); White Blood Cell Count 4.2 X10^3/uL (4.5-11.0)
[2020-09-25 21:11] LABS: Alanine Aminotransferase 32 IU/L (<50); Albumin 3.4 g/dL (3.5-5.0); Albumin Globulin Ratio 0.7 (1.0-2.8); Alkaline Phosphatase 203 U/L (38-126); Aspartate Aminotransferase 93 IU/L (17-59); BUN Creatinine Ratio 6.6 (6-22); Bilirubin Total 1.6 mg/dL (0.2-1.3); Blood Urea Nitrogen 5 mg/dL (9-20); Calcium 8.6 mg/dL (8.4-10.2); Carbon Dioxide 28 mmol/L (22-32); Chloride 103 mmol/L (98-107); Estimated Glomerular Filt Rate > 60.0 mL/min (>60); Globulin 4.9 g/dL (1.7-4.1); Glucose 108 mg/dL (70-100); HEMOLYSIS < 15 (0-50); Potassium 4.1 mmol/L (3.4-5.1); Sodium 138 mmol/L (137-145); Total Protein 8.3 g/dL (6.3-8.2)
[2020-09-25 21:26] LABS: Macrocytosis 1+; Platelet Estimate Decreased on smear
--- NOTE | 2020-09-25 21:35 | ED_ITS ---
HPI - Wound/Laceration General Chief Complaint: Wound/Laceration Stated Complaint: left left surgery wound draining green stuff Time Seen by Provider: 09/25/20 21:35 Source: patient Mode of arrival: Wheelchair Limitations: no limitations History of Present Illness HPI narrative: 55-year-old male comes to the emergency department with concern for infection in his ankle. Patient states that Dr. Pelletier performed his surgery 3-4 weeks ago in [place]. By his description likely their outpatient surgical site. Patient states since then he followed up on Monday. He was told that they may need to take him to the OR for surgery to wash it out. They put him on Keflex orally. Patient comes in this evening, he states that there is a wound on the side of his foot that is been draining fluid. Patient denies fe vers, no chills. No chest pain or shortness of breath, no nausea or vomiting. No other GI or urinary symptoms. He is unclear if the redness of his lower extremity is increasing over time but I suspect it is. He states he did have a DVT in that lower extremity, he had an ultrasound in June which was negative of that area. He has some persistent numbness over the dorsum of his foot, he is unsure if that was immediately post surgical or new. He is able to wiggle his toes and has been weight-bearing in a walking boot. He has a wound on the inner foot, there is some drainage. Patient states he does continue to drink alcohol, he states he has been treated for his hepatitis-C and has been cured. Related Data Home Medications Medication Instructions Recorded Confirmed fluticasone propionate 50 1 spray NASAL DAILY 08/10/18 09/26/20 mcg/actuation nasal spray,suspension gabapentin 300 mg capsule 300 mg PO BID cap 09/21/20 09/26/20 ibuprofen 400 mg PO TID PRN 09/26/20 09/26/20 Allergies Allergy/AdvReac Type Severity Reaction Status Date / Time nadolol Allergy Verified 09/25/20 19:54 propranolol Allergy Verified 09/25/20 19:54 Review of Systems Review of Systems ROS Unobtainable: All systems reviewed & are unremarkable except as noted in HPI and below Patient History Medical History Alcoholism Ankle pain Anxiety Blindness Cataracts, bilateral Cirrhosis Closed left ankle fracture Foot pain H/O deep venous thrombosis Hearing loss Hepatitis C Peripheral vascular disease Postoperative wound infection Shoulder pain Skin problem Sleep apnea Venous stasis Vertigo Vision disorder Wound infection Surgical History Anesthesia H/O neck surgery History of surgery History of surgery of liver (~2018) S/P cataract extraction Family History Mother Cancer Hyperlipidemia Grandfather CVA (cerebral vascular accident) Grandfather Cancer Father Heart disease Hypertension Brother Hyperlipidemia Grandmother Liver disease Social History household members: significant other Smoking Status: Current every day smoker Tobacco: How many years used: 42 quit status: not considering quitting alcohol intake: current substance use type: does not use Smoking Status: Current every day smoker alcohol intake frequency: 3 or more drinks per day Substance Use Type: marijuana Exam Narrative Exam Narrative: GENERAL: Alert and oriented x three, male appearing older than stated age. HEENT: Head normocephalic, atraumatic, EOMI, pupils reactive, face symmetric, m oist mucous membranes NECK: Supple, full range of motion CARDIOVASCULAR: Regular rate and rhythm without murmurs, rubs or gallops. RESPIRATORY: Breath sounds equal bilaterally, no wheezes rales or rhonchi. ABDOMEN: Soft, nontender. Normoactive bowel sounds all 4 quadrants. No guarding or rebound, rigidity, no mass : No CVA tenderness EXTREMITIES: Normal range of motion. Patient has an incision on the medial ankle, shelley are still present. Wound Um does not have active drainage but does not appear well healed. There is a on the medial calcaneal region with yellowish drainage. Patient has erythema extending from the toes to just below the knee. Patient has some mild to moderate swelling. No acute tenderness with palpation. Neurovascularly intact NEUROLOGICAL: Cranial nerves II through XII grossly intact. Moving all extremities SKIN: Warm, dry, no petechiae, no rashes or lesions other than noted. Initial Vital Signs Initial Vital Signs: Vital Signs Temperature 98.5 F 09/25/20 19:35 Pulse Rate 78 09/25/20 19:35 Respiratory Rate 15 09/25/20 19:35 Blood Pressure 126/85 09/25/20 19:35 Pulse Oximetry 99 09/25/20 19:35 Course Orders Ordered: ED Orders 09/25/20 21:46 US periph venous low extrem lt Stat XR ankle LT min 3V Stat 09/25/20 21:48 Blood Culture Stat 09/25/20 22:15 COVID19 - ADMIT (OVEN STRIPPER swab/PCR) Stat Acetaminophen (Acetaminophen 325 Mg Tablet) 650 mg PO Q4HR PRN PRN Reason: Fever/Mild Pain (1-3) Docusate Sodium (Docusate 100 Mg Capsule) 100 mg PO BID [facility] Folic Acid (Folic Acid 1 Mg Tablet) 1 mg PO DAILY [facility] Gabapentin (Gabapentin 300 Mg Capsule) 300 mg PO BID [facility] Haloperidol (Haloperidol 5 Mg/Ml Vial) 5 mg IV Q1HR PRN PRN Reason: Hallucinations Sodium Chloride (Normal Saline 0.9%) 1,000 mls @ 100 mls/hr IV CONT [facility] Last Admin: 09/26/20 01:07 Dose: 100 mls/hr Documented by: CECILIA Vancomycin HCl/Dextrose (Vancomycin) 1,500 mg in 300 mls @ 150 mls/hr IV Q8H [facility] Lorazepam (Lorazepam 2 Mg/Ml Inj) 4 mg IV CIWAPRN PRN; Protocol PRN Reason: Alcohol Withdrawal Multivitamins (Multivitamin 1 Tablet) 1 tab PO DAILY [facility] Naloxone HCl (Naloxone 0.4 Mg/Ml Vial) 0.2 mg IV Q2MIN PRN PRN Reason: Opiate Reversal Ondansetron HCl (Ondansetron 4 Mg/2 Ml Inj) 4 mg IV Q6HR PRN PRN Reason: Nausea And Vomiting Pantoprazole Sodium (Pantoprazole 20 Mg Tablet) 20 mg PO 0600 [facility] Sennosides (Sennosides 8.6 Mg Tablet) 17.2 mg PO BEDTIME [facility] Thiamine HCl (Thiamine 100 Mg Tablet) 100 mg PO DAILY [facility] Stop: 09/29/20 09:01 Vancomycin HCl (Vancomycin Per Pharmacy) 1 request MISC NOW ONE Stop: 09/26/20 04:29 Discontinued Medications Haloperidol (Haloperidol 5 Mg/Ml Vial) 5 mg IV NOW ONE Stop: 09/25/20 23:40 Last Admin: 09/26/20 00:31 Dose: 5 mg Documented by: KARMEN Vancomycin HCl/Dextrose (Vancomycin) 1,500 mg in 300 mls @ 200 mls/hr IV NOW ONE Stop: 09/25/20 23:15 Last Infusion: 09/25/20 23:30 Dose: 0 mls/hr Documented by: Admin: 09/25/20 21:59 Dose: 200 mls/hr Documented by: PAOLA Ketorolac Tromethamine (Ketorolac 60 Mg/2 Ml Vial) 15 mg IV NOW ONE Stop: 09/25/20 21:49 Last Admin: 09/25/20 21:59 Dose: 15 mg Documented by: PAOLA Nicotine (Nicotine 21 Mg Patch) 21 mg TOP NOW ONE Stop: 09/25/20 22:58 Last Admin: 09/25/20 23:23 Dose: 21 mg Documented by: PAOLA Consultations Consultation #1: Dr. Yoon is happy to see patient but asks that we admit to medicine for help with inevitable withdrawl from alcohol. She plans for OR in the am. She was well aware of patient prior to his arrival in the ER. Time: 23:15 Consultation #2: DANA Byers accepts for admission. Patient is likely to go into withdrawl. We discussed Phenobarb but she elects to use Haldol and ativan for treatment. First dose of Haldol given in department. Time: 23:39 Vital Signs Vital signs: Vital Signs - 8 hr 09/25/20 19:35 09/25/20 20:09 Temperature 98.5 F Pulse Rate 78 70 Respiratory Rate 15 18 Blood Pressure 126/85 171/81 H Pulse Oximetry 99 93 MDM - Wound/Laceration Lab Data Attestation: I reviewed the patient's lab results. Result diagrams: 09/26/20 04:43 09/26/20 04:43 Labs: Lab Results 09/25/20 09/25/20 09/25/20 Range/Units 20:45 20:45 20:45 WBC 4.2 L (4.5-11.0) X10^3/uL RBC 3.53 L (4.5-5.9) X10^6/uL Hgb 13.0 L (13.5-17.5) g/dL Hct 37.3 L (41-53) % MCV 105.8 H (80-100) fL MCH 36.8 H (26-34) PG MCHC 34.8 (30-36) % RDW 14.0 (11.6-14.8) % Plt Count 43 L (150-400) X10^3/uL Neut % (Auto) 42.8 L (50-75) % Lymph % (Auto) 37.4 (25-40) % [place] % (Auto) 13.2 (3-14) % Eos % (Auto) 5.3 H (2-4) % Baso % (Auto) 1.3 (0-2) % Neut # (Auto) 1800 (9650-8329) /uL Lymph # (Auto) 1600 (5358-8196) /uL [place] # (Auto) 600 (0-900) /uL Eos # (Auto) 200 (0-450) /uL Baso # (Auto) 100 (0-100) /uL Platelet Estimate Decreased on smear RBC Morphology See below Macrocytosis 1+ H ESR 59 H (0-15) MM/HR Sodium 138 (137-145) mmol/L Potassium 4.1 (3.4-5.1) mmol/L Chloride 103 (98-107) mmol/L Carbon Dioxide 28 (22-32) mmol/L BUN 5 L (9-20) mg/dL Creatinine 0.76 (0.66-1.25) mg/dL Estimated GFR > 60.0 (>60) mL/min BUN/Creatinine Ratio 6.6 (6-22) Glucose 108 H (70-100) mg/dL Hemoglobin A1c (4.0-6.0) % Calcium 8.6 (8.4-10.2) mg/dL Phosphorus (2.5-4.5) mg/dL Magnesium (1.6-2.3) mg/dL Total Bilirubin 1.6 H (0.2-1.3) mg/dL AST 93 H (17-59) IU/L ALT 32 (<50) IU/L Alkaline Phosphatase 203 H (38-126) U/L Total Protein 8.3 H (6.3-8.2) g/dL Albumin 3.4 L (3.5-5.0) g/dL Globulin 4.9 H (1.7-4.1) g/dL Albumin/Globulin Ratio 0.7 L (1.0-2.8) Procalcitonin (<0.5) ng/mL SARS-CoV-2 (PCR) (Negative) 09/25/20 09/25/20 09/25/20 Range/Units 20:45 21:48 21:48 WBC (4.5-11.0) X10^3/uL RBC (4.5-5.9) X10^6/uL Hgb (13.5-17.5) g/dL Hct (41-53) % MCV (80-100) fL MCH (26-34) PG MCHC (30-36) % RDW (11.6-14.8) % Plt Count (150-400) X10^3/uL Neut % (Auto) (50-75) % Lymph % (Auto) (25-40) % [place] % (Auto) (3-14) % Eos % (Auto) (2-4) % Baso % (Auto) (0-2) % Neut # (Auto) (9187-7681) /uL Lymph # (Auto) (1179-5940) /uL [place] # (Auto) (0-900) /uL Eos # (Auto) (0-450) /uL Baso # (Auto) (0-100) /uL Platelet Estimate RBC Morphology Macrocytosis ESR (0-15) MM/HR Sodium (137-145) mmol/L Potassium (3.4-5.1) mmol/L Chloride (98-107) mmol/L Carbon Dioxide (22-32) mmol/L BUN (9-20) mg/dL Creatinine (0.66-1.25) mg/dL Estimated GFR (>60) mL/min BUN/Creatinine Ratio (6-22) Glucose (70-100) mg/dL Hemoglobin A1c 5.6 (4.0-6.0) % Calcium (8.4-10.2) mg/dL Phosphorus 3.8 (2.5-4.5) mg/dL Magnesium 1.7 (1.6-2.3) mg/dL Total Bilirubin (0.2-1.3) mg/dL AST (17-59) IU/L ALT (<50) IU/L Alkaline Phosphatase (38-126) U/L Total Protein (6.3-8.2) g/dL Albumin (3.5-5.0) g/dL Globulin (1.7-4.1) g/dL Albumin/Globulin Ratio (1.0-2.8) Procalcitonin 0.06 (<0.5) ng/mL SARS-CoV-2 (PCR) (Negative) 09/25/20 Range/Units 22:15 WBC (4.5-11.0) X10^3/uL RBC (4.5-5.9) X10^6/uL Hgb (13.5-17.5) g/dL Hct (41-53) % MCV (80-100) fL MCH (26-34) PG MCHC (30-36) % RDW (11.6-14.8) % Plt Count (150-400) X10^3/uL Neut % (Auto) (50-75) % Lymph % (Auto) (25-40) % [place] % (Auto) (3-14) % Eos % (Auto) (2-4) % Baso % (Auto) (0-2) % Neut # (Auto) (8593-8657) /uL Lymph # (Auto) (2829-3640) /uL [place] # (Auto) (0-900) /uL Eos # (Auto) (0-450) /uL Baso # (Auto) (0-100) /uL Platelet Estimate RBC Morphology Macrocytosis ESR (0-15) MM/HR Sodium (137-145) mmol/L Potassium (3.4-5.1) mmol/L Chloride (98-107) mmol/L Carbon Dioxide (22-32) mmol/L BUN (9-20) mg/dL Creatinine (0.66-1.25) mg/dL Estimated GFR (>60) mL/min BUN/Creatinine Ratio (6-22) Glucose (70-100) mg/dL Hemoglobin A1c (4.0-6.0) % Calcium (8.4-10.2) mg/dL Phosphorus (2.5-4.5) mg/dL Magnesium (1.6-2.3) mg/dL Total Bilirubin (0.2-1.3) mg/dL AST (17-59) IU/L ALT (<50) IU/L Alkaline Phosphatase (38-126) U/L Total Protein (6.3-8.2) g/dL Albumin (3.5-5.0) g/dL Globulin (1.7-4.1) g/dL Albumin/Globulin Ratio (1.0-2.8) Procalcitonin (<0.5) ng/mL SARS-CoV-2 (PCR) Negative (Negative) Imaging Data US - DVT: Radiologist's Impression: negative for DVT. Prominent morphologically normal left inguinal lymph nodes measuring 4.5 x 1.7 x 1.3 cm, probable reactive left inguinal lymph nodes. Left lower extremity soft tissue edema. Extremity x-ray #1: Radiologist's Impression: diffuse soft tissue swelling, which could be due to cellulitis. post surgical changes. status post distal fibula and medial malleolus ORIF. Hardware appears intact. Alignment in near anatomic. No acute fracture or dislocation, no visible cortical disruptino or periosteal reaction. medial and lateral skin shelley in place. MDM Narrative Medical decision making narrative: This is a 55-year-old male who had ORIF on his left ankle approximately 3-4 weeks ago. He was seen yesterday in the orthopedic office there was concern for infection he was started on oral antibiotics. Today he was encouraged to come to the emergency department to be admitted for surgical washout. Patient's left lower extremity does look infecte d, there is erythema extending all the way from the toes almost to the knee. There is warmth. There is swelling although both lower extremities have some swelling present. Patient shelley are still present and while at his wound has not dehisced it does not appear like the skin has been healing. He also has a wound on the medial portion of the heel. X-ray does not show obvious osteomyelitis although we discussed this is still a concern. He was given a dose of IV vancomycin here in the department. Labs are concerning for infection. He has a history of DVT so ultrasound was obtained which is negative he does have enlarged lymph nodes which are suspicious for being related to infection. Patient was very reluctant to be admitted likely about concern for withdrawals from alcohol as well as nicotine. I did discuss with him multiple times and eventually with the patient and his mother on speaker phone. His mother encouraged him to stay which is our recommendation and he acquiesced. Discussed with DANA Byers, plan is for OR in the morning but orthopedic surgery requests assistance in managing patient's likely alcohol withdrawals overnight. Patient was given Haldol as per [facility] protocol which seems to be quite helpful at this time. He also had a nicotine patch placed. Cultures was obtained prior to antibiotics from the ankle and blood culture was obtained. Discharge Plan Departure Patient Disposition: Admitted as Observation Clinical Impression: History of ankle surgery, Post-operative infection, Alcohol abuse Admit Date/Time: 09/25/20 23:46 Admit Provider: Daily Byers
--- NOTE | 2020-09-25 21:46 | DI.US.S_ITS ---
PROCEDURE: US PERIPH VENOUS LOW EXTREM LT INDICATIONS: hx dvt, s/p ankle surgery August. TECHNIQUE: Real-time imaging, as well as color and pulse Doppler interrogation, were performed of the lower extremity deep veins from the inguinal ligament to the popliteal fossa. COMPARISON: None. FINDINGS: The common femoral, femoral and popliteal veins are normally compressible, and free of intraluminal thrombus. Color and pulse Doppler demonstrate normal phasic intraluminal flow. There is normal augmentation response to distal compression maneuver. Multiple prominent morphologically normal lymph nodes are seen in the left groin condyle which are pathologically enlarged. The largest short axis measures 1.3 centimeter. There is soft tissue edema in the lower thigh. IMPRESSION: No evidence of deep venous thrombosis in the left lower extremity. Soft tissue edema. Dictated by: Jayme Burdick M.D. on 09/25/2020 at 23:36 Approved by: Jayme Burdick M.D. on 09/25/2020 at 23:37
--- NOTE | 2020-09-25 21:46 | DI.RAD.S_ITS ---
PROCEDURE: XR ANKLE LT MIN 3V INDICATIONS: s/p surgery, infected TECHNIQUE: Three views of the left ankle without weight-bearing COMPARISON: [facility], [facility], XR ANKLE LT MIN 3V, 09/01/2020, 19:29. FINDINGS: Bones: Open reduction internal fixation of the distal fibula and lateral malleolus. Distal fibular fracture is in near anatomic alignment currently. Additionally, the medial malleolar fracture is also in near anatomic alignment. Soft tissues: No tibiotalar joint effusion. Achilles tendon appears normal. Skin shelley overlie the ankle. IMPRESSION: Trimalleolar fracture, status post open reduction internal fixation of the fibula and medial malleolus. Dictated by: Jayme Burdick M.D. on 09/25/2020 at 23:26 Approved by: Jayme Burdick M.D. on 09/25/2020 at 23:29
[2020-09-25] MEDS: VANCOMYCIN 1,500 MG/300 ML PIGGYBACK 200 MG IV (21:59)
[2020-09-25] MEDS: KETOROLAC 60 MG/2 ML VIAL 15 MG IV (21:59)
[2020-09-25 22:24] LABS: Erythrocyte Sedimentation Rate 59 MM/HR (0-15)
[2020-09-25 22:28] LABS: Procalcitonin 0.06 ng/mL (<0.5)
[2020-09-25 23:07] LABS: COVID19 - ADMIT (NP swab/PCR) Negative (Negative)
[2020-09-25] MEDS: NICOTINE 21 MG PATCH TOP (23:23)
[2020-09-26] VITALS (14 sets, daily range): BP systolic 110–161; BP diastolic 62–81; PULSE 75–101; RESP 16–22; TEMP 36.3–38.3; O2SAT 95–97; BMI 35.2
[2020-09-26 00:25] LABS: Magnesium 1.7 mg/dL (1.6-2.3); Phosphorous 3.8 mg/dL (2.5-4.5)
[2020-09-26] MEDS: HALOPERIDOL 5 MG/ML VIAL IV (00:31)
[2020-09-26] MEDS: SODIUM CHLORIDE 0.9% 1,000 ML 100 ML IV (01:07)
[2020-09-26 01:26] LABS: Hemoglobin A1C% w Est Avg Glu 5.6 % (4.0-6.0)
--- NOTE | 2020-09-26 02:22 | PC.NURSE ---
Pt. admitted for left ankle wound infection. Pt. arrived to the unit via stretcher, able to transfer from stretcher to bed. Pt. is alert and oriented, c/o 7/10 left ankle pain, offered Tylenol but declined, stated they already took care of it downstairs. Noted left ankle incision with shelley and small amt. serous drainage to wound with dry flaky skin noted as well. Both legs are reddened and edematous with hemosiderin noted. Noted also bilateral thighs red with induration on left inner thigh and is tender to touch. Pictures taken. Informed pt. that he will be NPO for plan of wound washout in the morning and that he is also on seizure precaution for ETOH withdrawal. Instructed pt. not to get OOB without any assistance for safety. Urinal provided, bed alarm on, and call light within reach.
--- NOTE | 2020-09-26 02:42 | P.HP_ITS ---
History of Present Illness History of Present Illness Date Patient Seen: 09/26/20 Time Patient Seen: 00:09 Chief complaint: left left surgery wound draining green stuff Narrative: Patient is a 55-year-old male Santi Colindres presented to the ED with a chief complaint of infection in his ankle left ankle. Patient states that Dr. Pelletier performed his surgery 3-4 weeks ago in [place] left ankle fracture repair. By his description likely their outpatient surgical site. Patient states since then he followed up on Monday. He was told that they may need to take him to the OR for surgery to wash it out. They put him on Keflex orally. Patient comes in this evening, he states that there is a wound on the side of his foot that is been draining fluid. Patient denies fevers, body aches, chills, chest pain, shortness of breath, nausea vomiting. No other GI or urinary symptoms. He is unclear if the redness of his lower extremity is increasing over time but I suspect it is. He states he did have a DVT in that lower extremity, he had an ultrasound in June which was negative for DVT. He has some persistent numbness over the dorsum of his foot, he is unsure if that was immediately post surgical or new. He is able to wiggle his toes and has been weight-bearing in a walking boot. He has a wound on the inner foot, there is some drainage. Patient states he does continue to drink alcohol, he states he has been treated for his hepatitis-C and has been cured. Patient has a history bilateral cataracts, blindness, alcoholic cirrhosis, hep C-treated?, peripheral vascular disease, venous stasis, history of DVT and sleep apnea. Patient's vitals upon admit 98.5, BP 171/81, HR 70, RR is 18, 93% on room air. Labs WBC 4.2, RBC 3.53, HGB 13, HCT 37.3, PLT 43, +1 microcytosis, BUN 5, glucose 108, bili 1.6, AST 93, alk-phos 203, ESR 59, total protein 8.3, albumin 3.4. Vascular ultrasound:No evidence of deep venous thrombosis in the left lower extremity Soft tissue edema. Left ankle x-ray:Trimalleolar fracture, status post open reduction internal fixation of the fibula and medial malleolus. Patient History Medical History Alcoholism Ankle pain Anxiety Blindness Cataracts, bilateral Cirrhosis Closed left ankle fracture Foot pain H/O deep venous thrombosis Hearing loss Hepatitis C Peripheral vascular disease Postoperative wound infection Shoulder pain Skin problem Sleep apnea Venous stasis Vertigo Vision disorder Wound infection Surgical History Anesthesia H/O neck surgery History of surgery History of surgery of liver (~2017) S/P cataract extraction Family & Social History Family History Mother Cancer Hyperlipidemia Grandfather CVA (cerebral vascular accident) Grandfather Cancer Father Heart disease Hypertension Brother Hyperlipidemia Grandmother Liver disease Social History: household members significant other Prior Living Arrangements RV Safety & Behavioral: Feels Safe in Current Yes Environment Been Physically Hurt or No Threatened By a Person Suicidal Ideation Description None Suicide Plan Description No Plan Tobacco & Substance use: Tobacco type cigarettes Smoking Status Current every day smoker Smoking packs per day 1 alcohol intake current alcohol intake frequency 3 or more drinks per day Substance Use Type marijuana Meds Home Medications and Allergies Home Medications Medication Instructions Recorded Confirmed Type fluticasone propionate 50 1 spray NASAL DAILY 08/10/18 09/26/20 History mcg/actuation nasal spray,suspension gabapentin 300 mg capsule 300 mg PO BID cap 09/21/20 09/26/20 History ibuprofen 400 mg PO TID PRN 09/26/20 09/26/20 History Allergies Allergy/AdvReac Type Severity Reaction Status Date / Time nadolol Allergy Verified 09/25/20 19:54 propranolol Allergy Verified 09/25/20 19:54 Review of Systems Review of Systems ROS: Yes All systems reviewed with the patient and are negative except as otherwise documented Musculoskeletal Musculoskeletal: Reports abnormal gait, Reports arthralgias, Reports joint swelling, Reports limited range of motion and Reports numbness Neurologic Neurologic: Reports abnormal gait and Reports numbness Exam Vital Signs (past 8 hours): - 09/25/20 19:35 09/25/20 20:09 09/26/20 00:47 Temperature 98.5 F Pulse Rate 78 70 78 Respiratory Rate 15 18 16 Blood Pressure 126/85 171/81 H 110/66 Pulse Oximetry 99 93 96 09/26/20 01:19 09/26/20 02:09 Temperature 97.8 F Pulse Rate 76 Respiratory Rate 18 Blood Pressure 112/63 Pulse Oximetry 97 97 Oxygen Delivery Method Room Air Oxygen Flow Rate 0 Narrative Exam Narrative: General: Patient is a well-developed, appears poorly-nourished in no distress at this time. Heavy tobacco odorous HEENT: Normocephalic, atraumatic, extraocular muscles intact, oral pharynx is clear and mucous membranes are moist. Neck is supple and symmetric, trachea is midline, no adenopathy, no thyroid enlargement, nontender, no masses palpated. Negative for JVD Chest: Normal AP diameter and contour without kyphoscoliosis, no nasal flaring, retractions, or tachypneic labored Lungs: Auscultation of all lung bower gross diffuse wheezing throughout, lung sounds decrease the equal. Cardio: S1 & S2 with regular rate and rhythm without murmur, rubs, or gallops, no carotid bruit, no cardiac pulsations present. Abdomen: Soft nontender, negative for organomegaly, or masses. Bowel sounds are present in all 4 quadrants without guarding or rebound, no CVA tenderness. Musculoskeletal: Normal range of motion. Patient has an incision on the medial ankle, shelley are still present. Drainage noted, with delayed wound healing, increasing erythema/cellulitis from the patient's toes to induration up to the left inner thigh. There is a on the medial calcaneal region with yellowish drainage. Patient has some mild to moderate swelling. It should be noted that patient has longstanding bilateral peripheral edema, although gross advanced pigment changes are greater on the left in comparison to right, left has poor capillary refill and decreased pedal pulse. No acute tenderness with palpation. Neurovascularly intact. Neuro: Alert and orientated x3, strength is +5/5 in all extremities, sensation to touch intact, no gross deficits noted of cranial nerves. Psych: Patient has a poorly kept appearance, aggitated affect, mental status attitude thought context and judgment are inappropriate for situation. The patient in the ED was very agitated and asking to go home, and did not want p.m. admitted to address his infection, and delayed seeking advanced medical care after being instructed to do so by Orthopedics. Objective Labs Result Diagrams: 09/25/20 20:45 04/02/21 20:45 Labs: Laboratory Results - last 24 hr 09/25/20 09/25/20 09/25/20 20:45 20:45 20:45 WBC 4.2 L RBC 3.53 L Hgb 13.0 L Hct 37.3 L MCV 105.8 H MCH 36.8 H MCHC 34.8 RDW 14.0 Plt Count 43 L Neut % (Auto) 42.8 L Lymph % (Auto) 37.4 [place] % (Auto) 13.2 Eos % (Auto) 5.3 H Baso % (Auto) 1.3 Neut # (Auto) 1800 Lymph # (Auto) 1600 [place] # (Auto) 600 Eos # (Auto) 200 Baso # (Auto) 100 Platelet Estimate Decreased on smear RBC Morphology See below Macrocytosis 1+ H ESR 59 H Sodium 138 Potassium 4.1 Chloride 103 Carbon Dioxide 28 BUN 5 L Creatinine 0.76 Estimated GFR > 60.0 BUN/Creatinine Ratio 6.6 Glucose 108 H Hemoglobin A1c Calcium 8.6 Phosphorus Magnesium Total Bilirubin 1.6 H AST 93 H ALT 32 Alkaline Phosphatase 203 H Total Protein 8.3 H Albumin 3.4 L Globulin 4.9 H Albumin/Globulin Ratio 0.7 L Procalcitonin SARS-CoV-2 (PCR) 09/25/20 09/25/20 09/25/20 20:45 21:48 21:48 WBC RBC Hgb Hct MCV MCH MCHC RDW Plt Count Neut % (Auto) Lymph % (Auto) [place] % (Auto) Eos % (Auto) Baso % (Auto) Neut # (Auto) Lymph # (Auto) [place] # (Auto) Eos # (Auto) Baso # (Auto) Platelet Estimate RBC Morphology Macrocytosis ESR Sodium Potassium Chloride Carbon Dioxide BUN Creatinine Estimated GFR BUN/Creatinine Ratio Glucose Hemoglobin A1c 5.6 Calcium Phosphorus 3.8 Magnesium 1.7 Total Bilirubin AST ALT Alkaline Phosphatase Total Protein Albumin Globulin Albumin/Globulin Ratio Procalcitonin 0.06 SARS-CoV-2 (PCR) 09/25/20 22:15 WBC RBC Hgb Hct MCV MCH MCHC RDW Plt Count Neut % (Auto) Lymph % (Auto) [place] % (Auto) Eos % (Auto) Baso % (Auto) Neut # (Auto) Lymph # (Auto) [place] # (Auto) Eos # (Auto) Baso # (Auto) Platelet Estimate RBC Morphology Macrocytosis ESR Sodium Potassium Chloride Carbon Dioxide BUN Creatinine Estimated GFR BUN/Creatinine Ratio Glucose Hemoglobin A1c Calcium Phosphorus Magnesium Total Bilirubin AST ALT Alkaline Phosphatase Total Protein Albumin Globulin Albumin/Globulin Ratio Procalcitonin SARS-CoV-2 (PCR) Negative Assessment & Plan Assessment & Plan narrative: This patient requires acute care inpatient hospital management for post op ORIF repair with plate placement cellulitis, after failing to comply with outpatient management. The patient is at much higher risk for medical and surgical complications because of his chronic alcohol and tobacco abuse that has resulted in alcoholic cirrhosis and viral hepatitis which is also led to the development of patient's peripheral vascular disease and chronic venous stasis which ultimately resulted in a history of a DVT. These factors increase the difficulty and complexity of medical and surgical interventions and increases the chances of poor outcomes such as morbidity and mortality. The patient's tobacco abuse will impact his oxygenation, which will likely contribute to complications related to anesthesia for surgery and impaired Wound Healing. 1. Cellulitis of left ankle postop, acute, present on admission secondary to trimalleolar fracture with ORIF repair with plate placement on 09/09/2019. Patient was seen by Dr. Dumont at [facility] on 09/13/2020 and was informed that he would likely need a secondary surgical procedure to clean wash out the wound. ED Consult:Consultation #1: Dr. Yoon is happy to see patient but asks that we admit to medicine for help with inevitable withdrawl from alcohol. She plans for OR in the am. Patient's vitals upon admit 98.5, BP 171/81, HR 70, RR is 18, 93% on room air. Labs WBC 4.2, RBC 3.53, HGB 13, HCT 37.3, PLT 43, +1 microcytosis, BUN 5, glucose 108, bili 1.6, AST 93, alk-phos 203, ESR 59, total protein 8.3, albumin 3.4. Vascular ultrasound:No evidence of deep venous thrombosis in the left lower extremity Soft tissue edema. Left ankle x-ray:Trimalleolar fracture, status post open reduction internal fixation of the fibula and medial malleolus. -patient to be monitored on tele medicine, vital signs q.4 hours, intake and output monitored Q shift, weight measure daily, diet:NPO -labs ordered: CBC, CMP, PTT/PT INR daily -medications: Vancomycin -orthopedic surgery consult. Dr. Dumont and Dr. Yoon -consults ordered physical therapy, occupational therapy. 2. Alcoholic cirrhosis, acute on chronic, as evidence by patient's chronic alcohol abuse, present on admission, uncontrolled -bili 1.6, AST 93, alk-phos 203, HGB 13, HCT 37.3, PLT 43, albumin 3.4 albumin globulin 0.7, globulin 4.9 -patient admitted under CIWA protocol -medical risk factors of uncontrolled seizure which inhibits his ability to be medically cleared for surgery. CIWA 0 on admission to the floor -patient to be monitored on tele medicine, vital signs q.4 hours, intake and output monitored, seizure precaution -monitor patient for withdrawal symptoms -patient education regarding alcohol cessation 3. Peripheral vascular disease as evidence by venous stasis, resulting in chronic leg pain, acute on chronic, present on admission -continue patient's gabapentin 4. Tobacco abuse, acute on chronic, present on admission, uncontrolled -patient Education regarding smoking cessation Code status: Full Surrogate/plan of care:Mother COVID PCR: Negative VTE prophylaxis: Contraindicated due to OR tomorrow Quality VTE Deep Vein Thrombosis/Pulmonary Embolism Present on Admission: Yes
[2020-09-26 05:15] LABS: Add Manual Diff / Slide Review NO; Basophils Absolute Auto 0 /uL (0-100); Eosinophils Absolute Auto 100 /uL (0-450); Eosinophils Percent Auto 3.5 % (2-4); Hematocrit 32.9 % (41-53); Hemoglobin 11.2 g/dL (13.5-17.5); Lymphocytes Absolute Auto 1200 /uL (1100-4500); Lymphocytes Percent Auto 38.3 % (25-40); Mean Corpuscular Hemoglobin 35.9 PG (26-34); Mean Corpuscular Volume 105.7 fL (80-100); Monocytes Absolute Auto 400 /uL (0-900); Neutrophils Absolute Auto 1400 /uL (1500-7000); Neutrophils Percent Auto 45.2 % (50-75); Red Blood Cell Count 3.11 X10^6/uL (4.5-5.9); Red Cell Distribution Width 14.1 % (11.6-14.8); White Blood Cell Count 3.1 X10^3/uL (4.5-11.0)
[2020-09-26 05:16] LABS: INR 1.3 (0.9-1.3); Prothrombin Time 14.6 SECONDS (10.1-12.7)
[2020-09-26 05:19] LABS: PTT Partial Thromboplastin Tim 40 SECONDS (26.4-36.2)
[2020-09-26 05:21] LABS: Alanine Aminotransferase 25 IU/L (<50); Albumin 2.5 g/dL (3.5-5.0); Albumin Globulin Ratio 0.6 (1.0-2.8); Alkaline Phosphatase 159 U/L (38-126); Aspartate Aminotransferase 72 IU/L (17-59); BUN Creatinine Ratio 6.3 (6-22); Bilirubin Total 1.4 mg/dL (0.2-1.3); Blood Urea Nitrogen 4 mg/dL (9-20); Calcium 8.1 mg/dL (8.4-10.2); Carbon Dioxide 24 mmol/L (22-32); Chloride 109 mmol/L (98-107); Estimated Glomerular Filt Rate > 60.0 mL/min (>60); Globulin 4.1 g/dL (1.7-4.1); Glucose 95 mg/dL (70-100); HEMOLYSIS < 15 (0-50); Potassium 4.1 mmol/L (3.4-5.1); Sodium 139 mmol/L (137-145); Total Protein 6.6 g/dL (6.3-8.2)
[2020-09-26 05:24] LABS: Platelet Count 29 X10^3/uL (150-400)
--- NOTE | 2020-09-26 05:30 | PC.NURSE ---
Notified HILDA Byers of pt's low platelet count of 29.
[2020-09-26 06:23] LABS: Platelet Estimate Decreased on smear
[2020-09-26 06:24] LABS: Macrocytosis 1+
[2020-09-26] MEDS: VANCOMYCIN 1,500 MG/300 ML PIGGYBACK 150 MG IV (07:53)
--- NOTE | 2020-09-26 08:54 | P.HP_ITS ---
History of Present Illness History of Present Illness Date Patient Seen: 09/26/20 Time Patient Seen: 08:54 Chief complaint: left left surgery wound draining green stuff Narrative: This is that 55-year-old noncompliant alcoholic who fell and sustained a left ankle fracture. He had a grossly displaced and unstable left ankle fracture and underwent open reduction internal fixation of his left ankle by Dr. Pelletier. He has been seen in the clinic recently and was placed on oral antibiotics. He noted progressive worsening left ankle pain and increased drainage and was referred to the emergency room. He has a history of multiple DVTs in the left lower extremity. He had an ultrasound done through the emergency room which was negative for DVT. Patient History Medical History Alcoholism Ankle pain Anxiety Blindness Cataracts, bilateral Cirrhosis Closed left ankle fracture Foot pain H/O deep venous thrombosis Hearing loss Hepatitis C Peripheral vascular disease Postoperative wound infection Shoulder pain Skin problem Sleep apnea Venous stasis Vertigo Vision disorder Wound infection Surgical History Anesthesia H/O neck surgery History of surgery History of surgery of liver (~2017) S/P cataract extraction Family & Social History Family History Mother Cancer Hyperlipidemia Grandfather CVA (cerebral vascular accident) Grandfather Cancer Father Heart disease Hypertension Brother Hyperlipidemia Grandmother Liver disease Social History: household members significant other Prior Living Arrangements RV Safety & Behavioral: Feels Safe in Current Yes Environment Been Physically Hurt or No Threatened By a Person Suicidal Ideation Description None Suicide Plan Description No Plan Tobacco & Substance use: Tobacco type cigarettes Smoking Status Current every day smoker Smoking packs per day 1 alcohol intake current alcohol intake frequency 3 or more drinks per day Substance Use Type marijuana Meds Home Medications and Allergies Home Medications Medication Instructions Recorded Confirmed Type fluticasone propionate 50 1 spray NASAL DAILY 08/10/18 09/26/20 History mcg/actuation nasal spray,suspension gabapentin 300 mg capsule 300 mg PO BID cap 09/21/20 09/26/20 History ibuprofen 400 mg PO TID PRN 09/26/20 09/26/20 History Allergies Allergy/AdvReac Type Severity Reaction Status Date / Time nadolol Allergy Verified 09/25/20 19:54 propranolol Allergy Verified 09/25/20 19:54 Review of Systems Review of Systems Narrative: Denies recent chest pain shortness of breath or shortness of breath, he drinks every day and does have a history of withdrawal. Exam Vital Signs (past 8 hours): - 09/26/20 01:19 09/26/20 02:09 09/26/20 06:00 Temperature 97.8 F Pulse Rate 76 Respiratory Rate 18 Blood Pressure 112/63 Pulse Oximetry 97 97 95 09/26/20 06:15 09/26/20 08:00 Temperature 99.5 F 98.5 F Pulse Rate 75 88 Respiratory Rate 18 16 Blood Pressure 115/62 111/70 Pulse Oximetry 95 97 Oxygen Delivery Method Room Air Oxygen Flow Rate 0 Narrative Exam Narrative: He is alert he is appropriate he is not tremulous, abdomen is benign, lungs show occasional rhonchi cor is regular rate and rhythm, examination of his left lower extremity there is moderate erythema to the knee, he has retained shelley both medially and laterally as moderate to severe edema in his left lower extremity, careful palpation there is no focal collection or pus pocket. He can fire his toe flexors and extensors and has restricted range of motion in his ankle Objective Labs Result Diagrams: 09/26/20 04:43 09/26/20 04:43 Labs: Laboratory Results - last 24 hr 09/25/20 09/25/20 09/25/20 20:45 20:45 20:45 WBC 4.2 L RBC 3.53 L Hgb 13.0 L Hct 37.3 L MCV 105.8 H MCH 36.8 H MCHC 34.8 RDW 14.0 Plt Count 43 L Neut % (Auto) 42.8 L Lymph % (Auto) 37.4 [place] % (Auto) 13.2 Eos % (Auto) 5.3 H Baso % (Auto) 1.3 Neut # (Auto) 1800 Lymph # (Auto) 1600 [place] # (Auto) 600 Eos # (Auto) 200 Baso # (Auto) 100 Platelet Estimate Decreased on smear RBC Morphology See below Macrocytosis 1+ H ESR 59 H PT INR APTT Sodium 138 Potassium 4.1 Chloride 103 Carbon Dioxide 28 BUN 5 L Creatinine 0.76 Estimated GFR > 60.0 BUN/Creatinine Ratio 6.6 Glucose 108 H Hemoglobin A1c Calcium 8.6 Phosphorus Magnesium Total Bilirubin 1.6 H AST 93 H ALT 32 Alkaline Phosphatase 203 H Total Protein 8.3 H Albumin 3.4 L Globulin 4.9 H Albumin/Globulin Ratio 0.7 L Procalcitonin Nasal Screen MRSA (PCR) SARS-CoV-2 (PCR) 09/25/20 09/25/20 09/25/20 20:45 21:48 21:48 WBC RBC Hgb Hct MCV MCH MCHC RDW Plt Count Neut % (Auto) Lymph % (Auto) [place] % (Auto) Eos % (Auto) Baso % (Auto) Neut # (Auto) Lymph # (Auto) [place] # (Auto) Eos # (Auto) Baso # (Auto) Platelet Estimate RBC Morphology Macrocytosis ESR PT INR APTT Sodium Potassium Chloride Carbon Dioxide BUN Creatinine Estimated GFR BUN/Creatinine Ratio Glucose Hemoglobin A1c 5.6 Calcium Phosphorus 3.8 Magnesium 1.7 Total Bilirubin AST ALT Alkaline Phosphatase Total Protein Albumin Globulin Albumin/Globulin Ratio Procalcitonin 0.06 Nasal Screen MRSA (PCR) SARS-CoV-2 (PCR) 09/25/20 09/26/20 09/26/20 22:15 01:10 04:43 WBC 3.1 L RBC 3.11 L Hgb 11.2 L Hct 32.9 L MCV 105.7 H MCH 35.9 H MCHC 34.0 RDW 14.1 Plt Count 29 L* Neut % (Auto) 45.2 L Lymph % (Auto) 38.3 [place] % (Auto) 12.0 Eos % (Auto) 3.5 Baso % (Auto) 1.0 Neut # (Auto) 1400 L Lymph # (Auto) 1200 [place] # (Auto) 400 Eos # (Auto) 100 Baso # (Auto) 0 Platelet Estimate Decreased on smear RBC Morphology See below Macrocytosis 1+ H ESR PT INR APTT Sodium Potassium Chloride Carbon Dioxide BUN Creatinine Estimated GFR BUN/Creatinine Ratio Glucose Hemoglobin A1c Calcium Phosphorus Magnesium Total Bilirubin AST ALT Alkaline Phosphatase Total Protein Albumin Globulin Albumin/Globulin Ratio Procalcitonin Nasal Screen MRSA (PCR) Negative for mrsa SARS-CoV-2 (PCR) Negative 09/26/20 09/26/20 04:43 04:43 WBC RBC Hgb Hct MCV MCH MCHC RDW Plt Count Neut % (Auto) Lymph % (Auto) [place] % (Auto) Eos % (Auto) Baso % (Auto) Neut # (Auto) Lymph # (Auto) [place] # (Auto) Eos # (Auto) Baso # (Auto) Platelet Estimate RBC Morphology Macrocytosis ESR PT 14.6 H INR 1.3 APTT 40 H Sodium 139 Potassium 4.1 Chloride 109 H Carbon Dioxide 24 BUN 4 L Creatinine 0.64 L Estimated GFR > 60.0 BUN/Creatinine Ratio 6.3 Glucose 95 Hemoglobin A1c Calcium 8.1 L Phosphorus Magnesium Total Bilirubin 1.4 H AST 72 H ALT 25 Alkaline Phosphatase 159 H Total Protein 6.6 Albumin 2.5 L Globulin 4.1 Albumin/Globulin Ratio 0.6 L Procalcitonin Nasal Screen MRSA (PCR) SARS-CoV-2 (PCR) X-rays show left bimalleolar ankle fracture with retained internal fixation Assessment & Plan Assessment & Plan narrative: Left ankle cellulitis and probable early wound infection. There is no fluctuant pocket that requires operative management. He has failed oral antibiotics. He has multiple substantial medical problems including chronic liver failure and severe thrombocytopenia. He also has a history of several DVTs in the past. His ultrasound was negative for DVT. I do not see a problem that I can improve with operative management. I have recommended IV antibiotics and I will coordinate with medicine. He clearly needs careful monitoring for DVT prophylaxis, withdrawal prophylaxis, and careful monitoring of antibiotics due to his liver failure. He has a removable Western Walker they can be placed with partial weight-bearing when he gets out of bed. I anticipate he needs at least a few days of IV antibiotics but will as see how his cellulitis responds to the antibiotics. He should be 50 lb weight- bearing at most on the left lower extremity. Quality VTE Deep Vein Thrombosis/Pulmonary Embolism Present on Admission: Yes
[2020-09-26] MEDS: THIAMINE 100 MG TABLET PO (09:21)
[2020-09-26] MEDS: DOCUSATE 100 MG CAPSULE PO (09:21)
[2020-09-26] MEDS: GABAPENTIN 300 MG CAPSULE PO ×2 (09:21→20:56)
[2020-09-26] MEDS: MULTIVITAMIN 1 TABLET 1 TAB PO (09:21)
[2020-09-26] MEDS: FOLIC ACID 1 MG TABLET PO (09:21)
[2020-09-26] MEDS: CEFEPIME 2 GM in SODIUM CHLORIDE 0.9% 100 ML 200 ML IV ×2 (10:48→18:05)
--- NOTE | 2020-09-26 12:59 | PC.NURSE ---
Pt OOB without assistance to bathroom to have BM. Entered room upon hearing bed alarm and noted pt bearing full weight on LLE while ambulating to BR. Educated pt to WB status, need for AD/orthotic boot, fall risk, use of call light, and need to wait for staff to assist before getting OOB. He verbalizes understanding and is able to repeat back instruction. Pt sat up to chair for lunch and was then assisted back to bed with LLE elevated on pillows, seizure precautions, bed alarm. He is AO x4 and able to make his needs known. CIWA assessed at 4 due to bilateral hand tremors which pt states is baseline for him. He requests that I call his mother, Amara, and update her on the plan of care. Called and left voice message to return call.
--- NOTE | 2020-09-26 16:00 | PT.IIE ---
Surgical History (Last Reviewed 09/26/20 @ 08:56 by Poornima Yoon MD) Anesthesia H/O neck surgery History of surgery History of surgery of liver (~2018) S/P cataract extraction Medical History (Last Reviewed 09/26/20 @ 08:56 by Poornima Yoon MD) Alcoholism Ankle pain Anxiety Blindness Cataracts, bilateral Cirrhosis Closed left ankle fracture Foot pain H/O deep venous thrombosis Hearing loss Hepatitis C Peripheral vascular disease Postoperative wound infection Shoulder pain Skin problem Sleep apnea Venous stasis Vertigo Vision disorder Wound infection Physical Therapy Inpatient Evaluation/Re-Eval M1 PT/OT-IP Prior Functional Status Start: 09/26/20 17:54 Freq: NEEDED Status: Active Protocol: Document 09/26/20 16:00 AB (Rec: 09/26/20 18:24 AB [id number]) Medical Review Prior Functional Status Medical History Reviewed Yes Communication able to make needs known Mobility and Gait pt stated that he was indpeendent with all mobilities and ambulation without AD; pt had L ankle ORIF last september 08 and went home after surgery and stated that he has been using his crutches at home since then. Prior Functional Level (Other details) pt stated that he just had L ankle ORIF last September 08 and d /c home afterwards. Pt is back in the hospital for LLE cellulitis and currently receiving IV antibiotics. Social History Living Arrangements RV Number of Floors (Floors) One Floor Number of Stairs To Enter/Railing? 1 step to enter Home Environment Standard Height Toilet,Tub/ Shower Home Equipment Crutches,Hand Held Shower,Grab Bars In Shower Additional Social History Comment stated that his mom lives in the same property and can assist him M2 PT-IP Current Condition Start: 09/26/20 17:54 Freq: NEEDED Status: Active Protocol: Document 09/26/20 16:00 AB (Rec: 09/26/20 18:24 AB [id number]) Physical Therapy Current Condition Current Condition Evaluation Date 09/26/20 Treatment Diagnosis LLE cellulitis; s/p L ankle ORIF; difficulty in walking Onset Date 09/25/20 Precautions Brace LLE walker boot Other Precautions Per Dr. Yoon's note: pt can put weight on LLE with walker boot at most 50#PWB. Weight Bearing Status Weight Bearing Status Partial Weight Bearing Allowed Weight Bearing Amount (enter % LLE: 50# PWB or #) (%) M3 PT-IP Subjective Start: 09/26/20 17:54 Freq: NEEDED Status: Active Protocol: Document 09/26/20 16:00 AB (Rec: 09/26/20 18:24 AB [id number]) Subjective Physical Therapy Visit Type Type Initial Evaluation Visit Start Time 16:00 Visit Stop Time 16:30 Total Visit Minutes 30 Number of INDOOR LANDSCAPE ARCHITECT Visits 0 Physical Therapy Visit Comments Patient Comments agreeable to do PT Therapy Pain Assessment Pain When Pain Assessed At Rest Pain Present Pain Present Pain Reported Location Left Leg Scale Used pain sclae not sated M4 PT-IP Mobility and Gait Start: 09/26/20 17:54 Freq: NEEDED Status: Active Protocol: Document 09/26/20 16:00 AB (Rec: 09/26/20 18:24 AB [id number]) PT-Bed Mobility Assessment Supine to Sit Supine to Sit Standby Assistance Sit to Supine Sit to Supine Standby Assistance PT-Transfer Assessment Sit to and From Stand Sit to and from Stand Minimal Assistance,1 Person Assistance,Use of Upper Extremities Equipment Transfer Assistive Device Gait Belt,Axillary Crutches Orthotic/Prosthetic Devices or Brace: Yes Transfer Ability Level of Assist Contact Guard Assistance,1 Person Assistance,Use of Upper Extremities Comments Mobility Comments pt completed supine to sit SBA . able to sit on EOB SBA. assisted with donning of western boot. educated pt on use of axillary crutches and weight bearing restriction. pt completed sit to stand min A and max cues. pt is not compliant with weight bearing restriction. ambulated 15 ft using crutches and cued to do NWB at this time since pt cannot follow 50# weight bearing. pt continues to put too much weight on LLE. pt sat on EOB. PT adjusted crutches . pt educated again on how to be able to maintain NWB on LLE. continues to requiring min A for sit to stand and pt not maintain weight bearing restriction on LLE. ambulated again using crutches 15 ft x 2 and max cues CGA. pt able to do better with weight bearing restriction with succeeding ambulation but continue to require cues. pt requested to go back to bed. completed sit to supine SBA. assisted with taking western boot off. positioned pt in bed. call light and table placed within reach. Gait Assessment Gait Gait Assistance Required: Contact Guard Assist,1 Person Assist Distance (Feet) 15 Able to Maintain Weight Bearing Status Yes During Gait Assistive Devices Assistive Device Gait Belt,Axillary Crutches Orthotic/Prosthetic Devices or Brace: No Factors Limiting Gait Function Factors Limiting Gait Function Decreased Activity Tolerance, Decreased Strength,Difficulty Following Directions,Pain,Poor Balance,Poor Safety Awareness Comments Gait Comments pls refer to mobility section for details PT-Balance Assessment Sitting Balance and Reactions Static Sitting Balance Ability Good Dynamic Sitting Balance Ability Good Standing Balance and Reactions Static Standing Balance Ability Fair Dynamic Standing Balance Ability Poor Device Used crutches M5 PT-IP Objective Assessments Start: 09/26/20 17:54 Freq: NEEDED Status: Active Protocol: Document 09/26/20 16:00 AB (Rec: 09/26/20 18:24 AB [id number]) Orientation Orientation/Cognition Level of Alertness Alert Orientation Name,Situation Safety Awareness Decreased Safety Awareness Gross Range of Motion Lower Extremity ROM Assessment Left Impaired Impairments L ankle NT due to recent ORIF Strength Comments Strength Comments L ankle NT due to recent ORIF M6 PT-IP Treatment Start: 09/26/20 17:54 Freq: NEEDED Status: Active Protocol: Document 09/26/20 16:00 AB (Rec: 09/26/20 18:24 AB [id number]) Physical Therapy Treatment Education Education Provided Precautions,Weight Bearing Status,Safety M7 PT-IP Assessment and Plan Start: 09/26/20 17:54 Freq: NEEDED Status: Active Protocol: Document 09/26/20 16:00 AB (Rec: 09/26/20 18:24 AB [id number]) PT Summary Assessment and Plan Potential Rehabilitation Potential Fair Status of Condition at Evaluation Evolving Summary Impairments Pain,ROM,Strength,Balance, Coordination,Sensation,Tone, Cognition,Bed Mobility, Transfers,Gait,Activity Tolerance Progress Towards Goals Slow Progress due to Medical Issues,Slow Progress due to Activity Tolerance Assessment Summary pt requiring min A with sit to stand and CGA with ambulation using bilateral axillary crutches but pt is non compliant with weight bearing restriction. PT will continue to work on mobility and emphasizing on techniques to maintain weight bearing restriction but if pt continues to be not safe, may require a FWW and w/c for mobility. pt also has h/o alcohol use and affecting safety awarness. will continue to assess progress. Goals Bed Mobility Goal Independent Transfer Goal Independent,Crutches,Front Wheeled Walker Gait Goal Independent,Crutches,Front Wheel Walker Gait Distance 50 Other Goals up/down 1 steps using crutches / FWW SBA Days to Meet Goals 10 Frequency of Treatment Frequency Of Treatment Twice a Day Treatment Plan Physical Therapy Treatment Plan Bed Mobility Training,Transfer Training,Gait Training, Therapeutic Exercise,Balance Retraining,Post Op Education, Discharge Planning,Hot or Cold Pack,Neuromuscular Re-ed Precautions Brace LLE western walker boot Other Precautions Per Dr. Yoon's note: pt can put weight on LLE with walker boot at most 50#PWB. Recommendations To Nursing Amount of Assist Needed 1 Person Assist Discharge Recommendations PT Discharge Recommendations Home with 24/7 Assist Available,Home Health,SNF Rehab Other Discharge Recommendations depending on progress: SNF vs home with 24/7 assist and HHPT Transportation Needs at Discharge Private Vehicle,Wheelchair/ Cabulance
[2020-09-26] MEDS: ACETAMINOPHEN 325 MG TABLET 650 MG PO ×2 (19:08→23:56)
[2020-09-26] MEDS: SODIUM CHLORIDE 0.9% FLUSH 10 ML IV (20:56)
--- NOTE | 2020-09-26 22:09 | PC.NURSE ---
Pt alert, orientedx4, denies any unusual visual, tactile, or auditory sensations. Denies pain. Left leg elevated on 2 pillows, no drainage noted from incision on left ankle. Up to the BSC with 1 person assist, uses crutches poorly, PT adjusted crutches today and plans to work with him again tomorrow. IV to left forearm saline locked.
[2020-09-26 22:33] LABS: Vancomycin Trough 8.1 ug/mL (10-20)
[2020-09-27] VITALS (9 sets, daily range): BP systolic 124–138; BP diastolic 66–82; PULSE 68–81; RESP 14–18; TEMP 36.5–37.3; O2SAT 96–98
[2020-09-27] MEDS: CEFEPIME 2 GM in SODIUM CHLORIDE 0.9% 100 ML 200 ML IV (03:59)
[2020-09-27 05:08] LABS: INR 1.3 (0.9-1.3); Prothrombin Time 15.2 SECONDS (10.1-12.7)
[2020-09-27 05:11] LABS: PTT Partial Thromboplastin Tim 39 SECONDS (26.4-36.2)
[2020-09-27 05:22] LABS: Add Manual Diff / Slide Review NO; Basophils Absolute Auto 0 /uL (0-100); Basophils Percent Auto 0.8 % (0-2); Eosinophils Absolute Auto 100 /uL (0-450); Eosinophils Percent Auto 2.1 % (2-4); Hematocrit 34.4 % (41-53); Hemoglobin 11.7 g/dL (13.5-17.5); Lymphocytes Absolute Auto 800 /uL (1100-4500); Lymphocytes Percent Auto 20.2 % (25-40); Mean Corpuscular HGB Conc 34.1 % (30-36); Mean Corpuscular Hemoglobin 35.9 PG (26-34); Mean Corpuscular Volume 105.4 fL (80-100); Monocytes Absolute Auto 500 /uL (0-900); Neutrophils Absolute Auto 2400 /uL (1500-7000); Neutrophils Percent Auto 63.9 % (50-75); Red Blood Cell Count 3.27 X10^6/uL (4.5-5.9); Red Cell Distribution Width 13.8 % (11.6-14.8); White Blood Cell Count 3.7 X10^3/uL (4.5-11.0)
[2020-09-27 05:25] LABS: Platelet Count 23 X10^3/uL (150-400)
--- NOTE | 2020-09-27 05:32 | PC.NURSE ---
platelets reported at 23 by lab, provider notified at 0530 via phone call.
[2020-09-27 05:37] LABS: Alanine Aminotransferase 25 IU/L (<50); Albumin 2.5 g/dL (3.5-5.0); Albumin Globulin Ratio 0.6 (1.0-2.8); Alkaline Phosphatase 155 U/L (38-126); Aspartate Aminotransferase 71 IU/L (17-59); BUN Creatinine Ratio 12.9 (6-22); Bilirubin Total 2.3 mg/dL (0.2-1.3); Blood Urea Nitrogen 8 mg/dL (9-20); Calcium 8.4 mg/dL (8.4-10.2); Carbon Dioxide 26 mmol/L (22-32); Chloride 107 mmol/L (98-107); Estimated Glomerular Filt Rate > 60.0 mL/min (>60); Globulin 4.4 g/dL (1.7-4.1); Glucose 124 mg/dL (70-100); HEMOLYSIS < 15 (0-50); Potassium 3.9 mmol/L (3.4-5.1); Sodium 135 mmol/L (137-145); Total Protein 6.9 g/dL (6.3-8.2)
[2020-09-27 05:55] LABS: Macrocytosis 1+; Platelet Estimate Decreased on smear
[2020-09-27] MEDS: PANTOPRAZOLE 20 MG TABLET PO (07:12)
[2020-09-27] MEDS: GABAPENTIN 300 MG CAPSULE PO ×2 (08:21→20:56)
[2020-09-27] MEDS: SODIUM CHLORIDE 0.9% FLUSH 10 ML IV ×2 (08:21→20:56)
[2020-09-27] MEDS: THIAMINE 100 MG TABLET PO (08:21)
[2020-09-27] MEDS: FOLIC ACID 1 MG TABLET PO (08:21)
[2020-09-27] MEDS: DOCUSATE 100 MG CAPSULE PO ×2 (08:21→20:56)
[2020-09-27] MEDS: MULTIVITAMIN 1 TABLET 1 TAB PO (08:21)
[2020-09-27] MEDS: NICOTINE 14 PATCH 14 MG TOP (09:03)
[2020-09-27] MEDS: PIPERACILLIN-TAZO 4.5 GM/100 ML FROZ.PIGGY IV ×3 (10:05→20:55)
--- NOTE | 2020-09-27 10:17 | PT.IPTN ---
Physical Therapy Treatment Note M2 PT-IP Current Condition Start: 09/26/20 17:54 Freq: NEEDED Status: Active Protocol: Document 09/26/20 16:00 AB (Rec: 09/26/20 18:24 AB [id number]) Physical Therapy Current Condition Current Condition Evaluation Date 09/26/20 Treatment Diagnosis LLE cellulitis; s/p L ankle ORIF; difficulty in walking Onset Date 09/25/20 Precautions Brace LLE walker boot Other Precautions Per Dr. Yoon's note: pt can put weight on LLE with walker boot at most 50#PWB. Weight Bearing Status Weight Bearing Status Partial Weight Bearing Allowed Weight Bearing Amount (enter % LLE: 50# PWB or #) (%) M3 PT-IP Subjective Start: 09/26/20 17:54 Freq: NEEDED Status: Active Protocol: Document 09/27/20 10:16 AW (Rec: 09/27/20 10:29 AW [id number]) Subjective Physical Therapy Visit Type Type Treatment Note Visit Start Time 09:57 Visit Stop Time 10:13 Total Visit Minutes 20 Number of PATIENT CARE Visits 0 Physical Therapy Visit Comments Patient Comments Pt is willing to participate with PT. Therapy Pain Assessment Pain When Pain Assessed At Rest Pain Present Pain Present Pain Reported Location Left Leg Scale Used not quantified M4 PT-IP Mobility and Gait Start: 09/26/20 17:54 Freq: NEEDED Status: Active Protocol: Document 09/27/20 10:16 AW (Rec: 09/27/20 10:29 AW [id number]) PT-Bed Mobility Assessment Supine to Sit Supine to Sit Standby Assistance PT-Transfer Assessment Sit to and From Stand Sit to and from Stand Contact Guard Assistance, Minimal Assistance,1 Person Assistance,Use of Upper Extremities Equipment Transfer Assistive Device Gait Belt,Front Wheeled Walker ,Axillary Crutches Orthotic/Prosthetic Devices or Brace: No Transfer Ability Level of Assist Contact Guard Assistance,1 Person Assistance,Use of Upper Extremities Comments Mobility Comments Pt was lying in the bed with RN attending to skin tear as PT arrived. Once dressing was complete, pt completed supine to sit SBA and donned the western boot. Pt required education to properly fit the boot and fasten the straps. He stood from the bed with axillary crutches min A x 1. He ambulated around the room a total of 25 feet with axillary crutches CGA due to unsteadiness and needed cues for 50# PWB LLE. Pt returned to EOB and sat CGA. Pt agreed to try FWW. With cues to push off the bed surface, pt stood CGA and ambulated around the room 25 feet SBA using FWW. He transferred to the chair SBA but needed cues to keep the walker with him during the transition. Pt doffed the boot and was left with RN attending. Gait Assessment Gait Gait Assistance Required: Standby Assistance,Contact Guard Assist Distance (Feet) 25 Able to Maintain Weight Bearing Status Yes During Gait Assistive Devices Assistive Device Gait Belt,Front Wheeled Walker ,Axillary Crutches Orthotic/Prosthetic Devices or Brace: No Factors Limiting Gait Function Factors Limiting Gait Function Decreased Activity Tolerance, Decreased Strength,Difficulty Following Directions,Pain,Poor Balance,Poor Safety Awareness Comments Gait Comments Pls refer to mobility section for details. Pt agrees he is steadier with FWW and will continue to use it. Stair Climbing Assessment Evaluation Level of Assist On Stairs Contact Guard Assistance,1 Person Assistance Devices Stair Climbing Assistive Devices Front Wheel Walker Technique/Endurance Stair Climbing Direction Ascend and Descend Stair Climbing Technique Step to Step Number of Steps Climbed 1 Stair Climbing Set # Repetitions (reps) 2 Comments Stair Climbing Comments Educated pt on stair climbing strategy. He used the FWW on platform step CGA PT-Balance Assessment Sitting Balance and Reactions Static Sitting Balance Ability Good Dynamic Sitting Balance Ability Good Standing Balance and Reactions Static Standing Balance Ability Fair Dynamic Standing Balance Ability Fair Device Used FWW M5 PT-IP Objective Assessments Start: 09/26/20 17:54 Freq: NEEDED Status: Active Protocol: Document 09/26/20 16:00 AB (Rec: 09/26/20 18:24 AB [id number]) Orientation Orientation/Cognition Level of Alertness Alert Orientation Name,Situation Safety Awareness Decreased Safety Awareness Gross Range of Motion Lower Extremity ROM Assessment Left Impaired Impairments L ankle NT due to recent ORIF Strength Comments Strength Comments L ankle NT due to recent ORIF M6 PT-IP Treatment Start: 09/26/20 17:54 Freq: NEEDED Status: Active Protocol: Document 09/27/20 10:16 AW (Rec: 09/27/20 10:30 AW [id number]) Physical Therapy Treatment Education Education Provided Weight Bearing Status,Safety Brace Education Karma Grayson,Patient M7 PT-IP Assessment and Plan Start: 09/26/20 17:54 Freq: NEEDED Status: Active Protocol: Document 09/27/20 10:16 AW (Rec: 09/27/20 10:29 AW [id number]) PT Summary Assessment and Plan Summary Impairments Pain,ROM,Strength,Balance, Coordination,Sensation,Tone, Cognition,Bed Mobility, Transfers,Gait,Activity Tolerance Progress Towards Goals Slow Progress due to Medical Issues,Slow Progress due to Activity Tolerance Assessment Summary Pt agreed to trial FWW and was able to improve sit to stand from min assist to CGA and ambulation from CGA to SBA compared with crutches. Pt agrees to use FWW from now on. PT informed DCP who will seek order for same. Goals Bed Mobility Goal Independent Transfer Goal Independent,Crutches,Front Wheeled Walker Gait Goal Independent,Crutches,Front Wheel Walker Gait Distance 50 Other Goals up/down 1 steps using crutches / FWW SBA Days to Meet Goals 10 Frequency of Treatment Frequency Of Treatment Twice a Day Treatment Plan Physical Therapy Treatment Plan Bed Mobility Training,Transfer Training,Gait Training, Therapeutic Exercise,Balance Retraining,Post Op Education, Discharge Planning,Hot or Cold Pack,Neuromuscular Re-ed Precautions Brace LLE western walker boot Other Precautions Per Dr. Yoon's note: pt can put weight on LLE with walker boot at most 50#PWB. Recommendations To Nursing Amount of Assist Needed Standby Assistance Discharge Recommendations PT Discharge Recommendations Home with 24/7 Assist Available,Home Health,SNF Rehab Other Discharge Recommendations depending on progress: SNF vs home with 24/7 assist and HHPT Transportation Needs at Discharge Private Vehicle,Wheelchair/ Cabulance
--- NOTE | 2020-09-27 10:29 | PT.IPTN ---
Physical Therapy Treatment Note M2 PT-IP Current Condition Start: 09/26/20 17:54 Freq: NEEDED Status: Active Protocol: Document 09/26/20 16:00 AB (Rec: 09/26/20 18:24 AB [id number]) Physical Therapy Current Condition Current Condition Evaluation Date 09/26/20 Treatment Diagnosis LLE cellulitis; s/p L ankle ORIF; difficulty in walking Onset Date 09/25/20 Precautions Brace LLE walker boot Other Precautions Per Dr. Yono's note: pt can put weight on LLE with walker boot at most 50#PWB. Weight Bearing Status Weight Bearing Status Partial Weight Bearing Allowed Weight Bearing Amount (enter % LLE: 50# PWB or #) (%) M3 PT-IP Subjective Start: 09/26/20 17:54 Freq: NEEDED Status: Active Protocol: Document 09/27/20 10:16 AW (Rec: 09/27/20 10:29 AW [id number]) Subjective Physical Therapy Visit Type Type Treatment Note Visit Start Time 09:57 Visit Stop Time 10:13 Total Visit Minutes 20 Number of PRINTED CIRCUIT BOARD PANELS DEVELOPER Visits 0 Physical Therapy Visit Comments Patient Comments Pt is willing to participate with PT. Therapy Pain Assessment Pain When Pain Assessed At Rest Pain Present Pain Present Pain Reported Location Left Leg Scale Used not quantified M4 PT-IP Mobility and Gait Start: 09/26/20 17:54 Freq: NEEDED Status: Active Protocol: Document 09/27/20 10:16 AW (Rec: 09/27/20 10:29 AW [id number]) PT-Bed Mobility Assessment Supine to Sit Supine to Sit Standby Assistance PT-Transfer Assessment Sit to and From Stand Sit to and from Stand Contact Guard Assistance, Minimal Assistance,1 Person Assistance,Use of Upper Extremities Equipment Transfer Assistive Device Gait Belt,Front Wheeled Walker ,Axillary Crutches Orthotic/Prosthetic Devices or Brace: No Transfer Ability Level of Assist Contact Guard Assistance,1 Person Assistance,Use of Upper Extremities Comments Mobility Comments Pt was lying in the bed with RN attending to skin tear as PT arrived. Once dressing was complete, pt completed supine to sit SBA and donned the western boot. Pt required education to properly fit the boot and fasten the straps. He stood from the bed with axillary crutches min A x 1. He ambulated around the room a total of 25 feet with axillary crutches CGA due to unsteadiness and needed cues for 50# PWB LLE. Pt returned to EOB and sat CGA. Pt agreed to try FWW. With cues to push off the bed surface, pt stood CGA and ambulated around the room 25 feet SBA using FWW. He transferred to the chair SBA but needed cues to keep the walker with him during the transition. Pt doffed the boot and was left with RN attending. Gait Assessment Gait Gait Assistance Required: Standby Assistance,Contact Guard Assist Distance (Feet) 25 Able to Maintain Weight Bearing Status Yes During Gait Assistive Devices Assistive Device Gait Belt,Front Wheeled Walker ,Axillary Crutches Orthotic/Prosthetic Devices or Brace: No Factors Limiting Gait Function Factors Limiting Gait Function Decreased Activity Tolerance, Decreased Strength,Difficulty Following Directions,Pain,Poor Balance,Poor Safety Awareness Comments Gait Comments Pls refer to mobility section for details. Pt agrees he is steadier with FWW and will continue to use it. Stair Climbing Assessment Evaluation Level of Assist On Stairs Contact Guard Assistance,1 Person Assistance Devices Stair Climbing Assistive Devices Front Wheel Walker Technique/Endurance Stair Climbing Direction Ascend and Descend Stair Climbing Technique Step to Step Number of Steps Climbed 1 Stair Climbing Set # Repetitions (reps) 2 Comments Stair Climbing Comments Educated pt on stair climbing strategy. He used the FWW on platform step CGA PT-Balance Assessment Sitting Balance and Reactions Static Sitting Balance Ability Good Dynamic Sitting Balance Ability Good Standing Balance and Reactions Static Standing Balance Ability Fair Dynamic Standing Balance Ability Fair Device Used FWW M5 PT-IP Objective Assessments Start: 09/26/20 17:54 Freq: NEEDED Status: Active Protocol: Document 09/26/20 16:00 AB (Rec: 09/26/20 18:24 AB [id number]) Orientation Orientation/Cognition Level of Alertness Alert Orientation Name,Situation Safety Awareness Decreased Safety Awareness Gross Range of Motion Lower Extremity ROM Assessment Left Impaired Impairments L ankle NT due to recent ORIF Strength Comments Strength Comments L ankle NT due to recent ORIF M6 PT-IP Treatment Start: 09/26/20 17:54 Freq: NEEDED Status: Active Protocol: Document 09/26/20 16:00 AB (Rec: 09/26/20 18:24 AB [id number]) Physical Therapy Treatment Education Education Provided Precautions,Weight Bearing Status,Safety M7 PT-IP Assessment and Plan Start: 09/26/20 17:54 Freq: NEEDED Status: Active Protocol: Document 09/27/20 10:16 AW (Rec: 09/27/20 10:29 AW [id number]) PT Summary Assessment and Plan Summary Impairments Pain,ROM,Strength,Balance, Coordination,Sensation,Tone, Cognition,Bed Mobility, Transfers,Gait,Activity Tolerance Progress Towards Goals Slow Progress due to Medical Issues,Slow Progress due to Activity Tolerance Assessment Summary Pt agreed to trial FWW and was able to improve sit to stand from min assist to CGA and ambulation from CGA to SBA compared with crutches. Pt agrees to use FWW from now on. PT informed DCP who will seek order for same. Goals Bed Mobility Goal Independent Transfer Goal Independent,Crutches,Front Wheeled Walker Gait Goal Independent,Crutches,Front Wheel Walker Gait Distance 50 Other Goals up/down 1 steps using crutches / FWW SBA Days to Meet Goals 10 Frequency of Treatment Frequency Of Treatment Twice a Day Treatment Plan Physical Therapy Treatment Plan Bed Mobility Training,Transfer Training,Gait Training, Therapeutic Exercise,Balance Retraining,Post Op Education, Discharge Planning,Hot or Cold Pack,Neuromuscular Re-ed Precautions Brace LLE western walker boot Other Precautions Per Dr. Yoon's note: pt can put weight on LLE with walker boot at most 50#PWB. Recommendations To Nursing Amount of Assist Needed Standby Assistance Discharge Recommendations PT Discharge Recommendations Home with 24/7 Assist Available,Home Health,SNF Rehab Other Discharge Recommendations depending on progress: SNF vs home with 24/7 assist and HHPT Transportation Needs at Discharge Private Vehicle,Wheelchair/ Cabulance
--- NOTE | 2020-09-27 10:46 | PM.PN.1 ---
Subjective Subjective Date Patient Seen: 09/27/20 Time Patient Seen: 10:46 Interval history: This is a 55-year-old male with a past medical history of alcohol/hep C cirrhosis, peripheral vascular disease and venous stasis, active tobacco use who was sent in to the ER for a postoperative wound infection at the direction of Orthopedic surgery. Overnight he developed a fever to 101. Cultures growing enterococcus and 2 gram negative bacilli. Changed from cefepime to unasyn to cover both pseudomonas and enterococcus. He denies pain in his foot today, platelets have also fallen to 23 today, suspect in the setting of cirrhosis and likely active infection. He denies chest pain, cough, shortness of breath, palpitations, nausea, vomiting. Exam Vital Signs (past 8 hours): - 09/27/20 03:00 09/27/20 04:00 09/27/20 07:25 Temperature 98.3 F 97.7 F Pulse Rate 68 68 Respiratory Rate 18 14 Blood Pressure 134/79 138/77 Pulse Oximetry 96 98 97 09/27/20 08:00 Temperature Pulse Rate Respiratory Rate Blood Pressure Pulse Oximetry 97 Oxygen Delivery Method Room Air Oxygen Flow Rate 0 Narrative Exam Narrative: General: Patient is a well-developed male but appears older than his stated age. in no distress at this time HEENT: Normocephalic, atraumatic, extraocular muscles intact, oral pharynx is clear and mucous membranes are moist. Neck is supple and symmetric, trachea is midline, no adenopathy, no thyroid enlargement, nontender, no masses palpated. Chest: Normal AP diameter and contour without kyphoscoliosis, no nasal flaring, retractions, or tachypneic labored Lungs: Auscultation of all lung bower mild expiratory wheezing, no rhonchi or rales, lung sounds decreased bilaterally but equal. Cardio: S1 & S2 with regular rate and rhythm without murmur, rubs, or gallops, no carotid bruit, no cardiac pulsations present. Abdomen: Soft nontender, negative for organomegaly, or masses. Bowel sounds are present in all 4 quadrants without guarding or rebound, no CVA tenderness. Musculoskeletal: Normal range of motion. Patient has an incision on the medial ankle on the L, erythema/cellulitis from the patient's toes to induration up to the left inner thigh. Patient has some mild to moderate swelling. Longstanding bilateral peripheral edema and chronic venous stasis changes, although gross advanced pigment changes are greater on the left in comparison to right. Neuro: Alert and orientated x3, strength is +5/5 in all extremities, sensation to touch intact, no gross deficits noted of cranial nerves. Psych: Patient has a poorly kept appearance, but calm, cooperative, and stable behavior since arrival. Objective Labs Result Diagrams: 09/27/20 04:42 09/27/20 04:42 Labs: Laboratory Results - last 24 hr 09/26/20 09/27/20 09/27/20 21:35 04:42 04:42 WBC 3.7 L RBC 3.27 L Hgb 11.7 L Hct 34.4 L MCV 105.4 H MCH 35.9 H MCHC 34.1 RDW 13.8 Plt Count 23 L* Neut % (Auto) 63.9 Lymph % (Auto) 20.2 L [place] % (Auto) 13.0 Eos % (Auto) 2.1 Baso % (Auto) 0.8 Neut # (Auto) 2400 Lymph # (Auto) 800 L [place] # (Auto) 500 Eos # (Auto) 100 Baso # (Auto) 0 Platelet Estimate Decreased on smear RBC Morphology See below Macrocytosis 1+ H PT 15.2 H INR 1.3 APTT 39 H Sodium Potassium Chloride Carbon Dioxide BUN Creatinine Estimated GFR BUN/Creatinine Ratio Glucose Calcium Total Bilirubin AST ALT Alkaline Phosphatase Total Protein Albumin Globulin Albumin/Globulin Ratio Vancomycin Trough 8.1 L 09/27/20 04:42 WBC RBC Hgb Hct MCV MCH MCHC RDW Plt Count Neut % (Auto) Lymph % (Auto) [place] % (Auto) Eos % (Auto) Baso % (Auto) Neut # (Auto) Lymph # (Auto) [place] # (Auto) Eos # (Auto) Baso # (Auto) Platelet Estimate RBC Morphology Macrocytosis PT INR APTT Sodium 135 L Potassium 3.9 Chloride 107 Carbon Dioxide 26 BUN 8 L Creatinine 0.62 L Estimated GFR > 60.0 BUN/Creatinine Ratio 12.9 Glucose 124 H Calcium 8.4 Total Bilirubin 2.3 H AST 71 H ALT 25 Alkaline Phosphatase 155 H Total Protein 6.9 Albumin 2.5 L Globulin 4.4 H Albumin/Globulin Ratio 0.6 L Vancomycin Trough [facility] Medical History Alcoholism Ankle pain Anxiety Blindness Cataracts, bilateral Cirrhosis Closed left ankle fracture Foot pain H/O deep venous thrombosis Hearing loss Hepatitis C Peripheral vascular disease Postoperative wound infection Shoulder pain Skin problem Sleep apnea Venous stasis Vertigo Vision disorder Wound infection Surgical History Anesthesia H/O neck surgery History of surgery History of surgery of liver (~2018) S/P cataract extraction Family History Mother Cancer Hyperlipidemia Grandfather CVA (cerebral vascular accident) Grandfather Cancer Father Heart disease Hypertension Brother Hyperlipidemia Grandmother Liver disease Social History household members: significant other Smoking Status: Current every day smoker Tobacco: How many years used: 42 quit status: not considering quitting alcohol intake: current substance use type: does not use Assessment & Plan Assessment & Plan narrative: This is a 55-year-old male with a past medical history of alcohol/hep C cirrhosis, peripheral vascular disease and venous stasis, active tobacco use who was sent in to the ER for a postoperative wound infection at the direction of Orthopedic surgery. 1. Cellulitis of left ankle, acute, present on admission secondary to trimalleolar fracture with ORIF repair with plate placement on 09/09/2019, complication of the surgical procedure. -Patient was seen by Dr. Dumont at [facility] on 09/13/2020 and was informed that he would likely need a secondary surgical procedure to clean wash out the wound. Patient was seen and evaluated by Dr. Yoon of Orthopedic surgery who did not appear to see any drainable collection and instead recommended treatment with antibiotics. -Vascular ultrasound:No evidence of deep venous thrombosis in the left lower extremity Soft tissue edema. Left ankle x-ray:Trimalleolar fracture, status post open reduction internal fixation of the fibula and medial malleolus. -Wound culture taken in the ER growing multiple organisms, two gram negative bacilli and enterococcus. Pending further testing. Given entercoccus with change to zosyn today from cefepime to continue coverage for psuedomonas and enterococcus. -Patient was febrile overnight, consider CT imaging for further evaluation if he continues to have fevers despite change to cover enterococcus today. 2. Alcoholic cirrhosis, acute on chronic, as evidence by patient's chronic alcohol abuse, present on admission, uncontrolled -labs on admission, bili 1.6, AST 93, alk-phos 203, HGB 13, HCT 37.3, PLT 43, albumin 3.4 albumin globulin 0.7, globulin 4.9. Slightly worse bili and Plt today may be secondary to infection. Will continue to monitor. -continue CIWA protocol however patient with no history of severe withdrawal in the past, although he was treated with haldol in the ER. He admits to 2-3 beers per day, denies seizures or prior admission for EtOH withdrawal. 3. Peripheral vascular disease as evidence by venous stasis, resulting in chronic leg pain, acute on chronic, present on admission -continue patient's gabapentin 4. Tobacco abuse, acute on chronic, present on admission, uncontrolled -patient Education regarding smoking cessation, continue nicotine patch. 5. Thrombocytopenia, acute on chronic, present on admission - suspect secondary to cirrhosis and active infection for acute drop. No evidence of current bleeding. Continue to monitor. No schistocytes noted on CBC, DIC unlikely. 6. Alcohol withdrawal. - patient was showing evidence of alcohol withdrawal in the ER. Treated with haldol in the ER. Since arrival to the floor he has been stable. Continue ativan per CIWA protocol. Code status: Full Surrogate/plan of care:Mother COVID PCR: Negative VTE prophylaxis: Hold for thrombocytopenia. Dispo: admitted under inpatient status. Quality VTE Deep Vein Thrombosis/Pulmonary Embolism Present on Admission: Yes
--- NOTE | 2020-09-27 12:27 | PM.PN.1 ---
Subjective Subjective Date Patient Seen: 09/27/20 Time Patient Seen: 12:27 Interval history: He notes he is doing well his ankle pain is decreased some. The nurses offered to assist him to a shower and a brush his teeth and he said he wanted to wait until he gets home. He has been a little tremulous but has not formally gone into DTs. Exam Vital Signs (past 8 hours): - 09/27/20 07:25 09/27/20 08:00 09/27/20 12:00 Temperature 97.7 F Pulse Rate 68 Respiratory Rate 14 Blood Pressure 138/77 Pulse Oximetry 97 97 97 Oxygen Delivery Method Room Air Oxygen Flow Rate 0 Narrative Exam Narrative: Resting comfortably in bed, fire his toe flexors and extensors, mild drainage from his wounds bilaterally, decreased erythema and decreased edema in comparison to yesterday, Objective Labs Result Diagrams: 09/27/20 04:42 09/27/20 04:42 Labs: Laboratory Results - last 24 hr 09/26/20 09/27/20 09/27/20 21:35 04:42 04:42 WBC 3.7 L RBC 3.27 L Hgb 11.7 L Hct 34.4 L MCV 105.4 H MCH 35.9 H MCHC 34.1 RDW 13.8 Plt Count 23 L* Neut % (Auto) 63.9 Lymph % (Auto) 20.2 L [place] % (Auto) 13.0 Eos % (Auto) 2.1 Baso % (Auto) 0.8 Neut # (Auto) 2400 Lymph # (Auto) 800 L [place] # (Auto) 500 Eos # (Auto) 100 Baso # (Auto) 0 Platelet Estimate Decreased on smear RBC Morphology See below Macrocytosis 1+ H PT 15.2 H INR 1.3 APTT 39 H Sodium Potassium Chloride Carbon Dioxide BUN Creatinine Estimated GFR BUN/Creatinine Ratio Glucose Calcium Total Bilirubin AST ALT Alkaline Phosphatase Total Protein Albumin Globulin Albumin/Globulin Ratio Vancomycin Trough 8.1 L 09/27/20 04:42 WBC RBC Hgb Hct MCV MCH MCHC RDW Plt Count Neut % (Auto) Lymph % (Auto) [place] % (Auto) Eos % (Auto) Baso % (Auto) Neut # (Auto) Lymph # (Auto) [place] # (Auto) Eos # (Auto) Baso # (Auto) Platelet Estimate RBC Morphology Macrocytosis PT INR APTT Sodium 135 L Potassium 3.9 Chloride 107 Carbon Dioxide 26 BUN 8 L Creatinine 0.62 L Estimated GFR > 60.0 BUN/Creatinine Ratio 12.9 Glucose 124 H Calcium 8.4 Total Bilirubin 2.3 H AST 71 H ALT 25 Alkaline Phosphatase 155 H Total Protein 6.9 Albumin 2.5 L Globulin 4.4 H Albumin/Globulin Ratio 0.6 L Vancomycin Trough PFSH Medical History Alcoholism Ankle pain Anxiety Blindness Cataracts, bilateral Cirrhosis Closed left ankle fracture Foot pain H/O deep venous thrombosis Hearing loss Hepatitis C Peripheral vascular disease Postoperative wound infection Shoulder pain Skin problem Sleep apnea Venous stasis Vertigo Vision disorder Wound infection Surgical History Anesthesia H/O neck surgery History of surgery History of surgery of liver (~2018) S/P cataract extraction Family History Mother Cancer Hyperlipidemia Grandfather CVA (cerebral vascular accident) Grandfather Cancer Father Heart disease Hypertension Brother Hyperlipidemia Grandmother Liver disease Social History household members: significant other Smoking Status: Current every day smoker Tobacco: How many years used: 42 quit status: not considering quitting alcohol intake: current substance use type: does not use Assessment & Plan Assessment & Plan narrative: Improving left lower extremity cellulitis. His cultures are growing a bacillus and a total of 3 organisms. His antibiotics have been adjusted. We are waiting sensitivities. He will continue to elevate his left leg and stay on IV antibiotics anticipate possible discharge to home tomorrow if his cellulitis continues to improve. Quality VTE Deep Vein Thrombosis/Pulmonary Embolism Present on Admission: Yes
--- NOTE | 2020-09-27 13:21 | OT.IP.EVAL ---
Past Medical History (Last Reviewed 09/26/20 @ 08:56 by Poornima Yoon MD) Alcoholism Ankle pain Anxiety Blindness Cataracts, bilateral Cirrhosis Closed left ankle fracture Foot pain H/O deep venous thrombosis Hearing loss Hepatitis C Peripheral vascular disease Postoperative wound infection Shoulder pain Skin problem Sleep apnea Venous stasis Vertigo Vision disorder Wound infection Surgical History (Last Reviewed 09/26/20 @ 08:56 by Poornima Yoon MD) Anesthesia H/O neck surgery History of surgery History of surgery of liver (~2017) S/P cataract extraction Occupational Therapy Inpatient Evaluation/Re-Eval M1 PT/OT-IP Prior Functional Status Start: 09/26/20 17:54 Freq: NEEDED Status: Active Protocol: Document 09/27/20 16:25 CGR (Rec: 09/27/20 16:40 CGR [id number]) Medical Review Prior Functional Status Medical History Reviewed Yes Communication able to make needs known Mobility and Gait pt stated that he was indpeendent with all mobilities and ambulation without AD; pt had L ankle ORIF last september 08 and went home after surgery and stated that he has been using his crutches at home since then. Activities of Daily Living and IADL's Pt states that he was IND in all ADLs prior to admit. Prior Functional Level (Other details) pt stated that he just had L ankle ORIF last September 08 and d /c home afterwards. Pt is back in the hospital for LLE cellulitis and currently receiving IV antibiotics. Social History Household Members family Living Arrangements RV Number of Floors (Floors) One Floor Number of Stairs To Enter/Railing? 1 step to enter Home Environment Standard Height Toilet,Tub/ Shower Home Equipment Crutches,Hand Held Shower,Grab Bars In Shower Employment Status Unknown Additional Social History Comment Pt states that his RV is parked just down the [place] from his mothers house. M1 PT/OT-IP Prior Functional Status Start: 09/27/20 16:25 Freq: NEEDED Status: Active Protocol: Document 09/27/20 16:25 CGR (Rec: 09/27/20 16:40 CGR [id number]) Medical Review Prior Functional Status Medical History Reviewed Yes Communication able to make needs known Mobility and Gait pt stated that he was indpeendent with all mobilities and ambulation without AD; pt had L ankle ORIF last september 08 and went home after surgery and stated that he has been using his crutches at home since then. Activities of Daily Living and IADL's Pt states that he was IND in all ADLs prior to admit. Prior Functional Level (Other details) pt stated that he just had L ankle ORIF last September 08 and d /c home afterwards. Pt is back in the hospital for LLE cellulitis and currently receiving IV antibiotics. Social History Household Members family Living Arrangements RV Number of Floors (Floors) One Floor Number of Stairs To Enter/Railing? 1 step to enter Home Environment Standard Height Toilet,Tub/ Shower Home Equipment Crutches,Hand Held Shower,Grab Bars In Shower Employment Status Unknown Additional Social History Comment Pt states that his RV is parked just down the [place] from his mothers house. M2 OT-IP Current Condition Start: 09/27/20 16:25 Freq: Status: Active Protocol: Document 09/27/20 16:25 CGR (Rec: 09/27/20 16:40 CGR [id number]) Occupational Therapy Current Condition Current Condition Evaluation Date 09/27/20 Treatment Diagnosis post op wound infection s/p ORIF repair LLE with plate. Diagnosis Onset Date 09/25/20 Weight Bearing Status Weight Bearing Status Partial Weight Bearing Allowed Weight Bearing Amount (enter % 50 lbs with walking boot or #) (%) donned M3 OT- IP Subjective and Pain Start: 09/27/20 16:25 Freq: Status: Active Protocol: Document 09/27/20 16:25 CGR (Rec: 09/27/20 16:40 CGR [id number]) OT- Subjective Occupational Therapy Visit Type Type Initial Evaluation Visit Start Time 12:58 Visit Stop Time 13:21 Total Visit Minutes 23 OT Pain Assessment Pain When Pain Assessed At Rest Pain Present Pain Present Denied Pain M4 OT- IP ADL's Start: 09/27/20 16:25 Freq: Status: Active Protocol: Document 09/27/20 16:25 CGR (Rec: 09/27/20 16:40 CGR [id number]) OT [id number] General Evaluation Self-Feeding Ability Independent Comments OT Self-Feeding Comments Lunch OT ADL-Grooming Comments OT Grooming Comments Pt declined OT ADL-Oral Care Comments Oral Care Comments Pt declined OT ADL-Dressing General Eval Lower Body Dressing Ability Independent,Maximum Assistance Areas Needing Assistance Socks,Orthosis/Prosthesis Comments OT Dressing Comments IND to the LLE. Max a for donning walking boot OT ADL-Toileting General Evaluation Toileting Ability Standby Assistance Comments OT Toileting Comments Pt declined any assist in toileting but noted BM residue on underwear after toileting that was not there prior to toileting. Notified nursing. OT ADL-Bathing Comments OT Bathing Comments Pt declined M5 OT- IP IADL's Start: 09/27/20 16:25 Freq: Status: Active Protocol: Document 09/27/20 16:25 CGR (Rec: 09/27/20 16:40 CGR [id number]) OT-Instrumental Activities of Daily Living Deficits IADL Deficits Identified Deficits Home Safety Awareness Awareness of Need for Assistance at Home Decreased Awareness Ability to Problem Solve Emergency Unable to Problem Solve Situations Home Safety Comments pt with poor safety awareness and unable to maintain his WB without max vc and use of walker. Medication Management Medication Management Comments Concerns regarding pt's ability to perform safely Money Management Money Management Comments Concerns regarding pt's ability to perform safely Meal Preparation Meal Preparation Comments Concerns regarding pt's ability to perform safely Deli Cook Deli Cook Comments Concerns regarding pt's ability to perform safely Driving Driving Comments Concerns regarding pt's ability to perform safely M6 OT- IP Functional Cognition Start: 09/27/20 16:25 Freq: Status: Active Protocol: Document 09/27/20 16:25 CGR (Rec: 09/27/20 16:40 CGR [id number]) Cognitive Factors Limiting Selfcare Function Cognitive Ability Level of Alertness Alert Patient Orientation Name,Age,Birthday,Month,Date, Year,Day of Week,Place, Situation Attention Span Ability Capable of Focused Attention, Unable to Sustain Attention Ability to Follow Commands Able to Follow One Step Commands with Increased Time, Able to Follow One Step Commands with Repetition Cognitive Comments Cognitive Assessment Comments Pt would benefit from formal cog assessment OT- Vision and Hearing OT- Hearing Assessment OT- Hearing Assessment WFL OT- Vision Assessment Visual Attentiveness WFL Occular Pursuits WFL Visual Convergence WFL Vision Assessment Comments no glasses noted M7 OT- IP Mobility and Balance Start: 09/27/20 16:25 Freq: Status: Active Protocol: Document 09/27/20 16:25 CGR (Rec: 09/27/20 16:40 CGR [id number]) OT- Bed Mobility Assessment Supine to Sit Supine to Sit Assist Standby Assistance,1 Person Assistance,Head of Bed Elevated,Bedrails Scooting Scooting to Edge of Bed Standby Assistance,Head of Bed Elevated,Bedrails OT-Transfer Assessment Sit to and From Stand Sit to and from Stand Standby Assistance,1 Person Assistance Transfers Transfer Ability Minimal Assistance,1 Person Assistance Technique Transfer Destination Bed,Chair,Toilet Transfer Technique Stand Step Pivot Devices Transfer Assistive Devices Gait Belt,Front Wheeled Walker Comments Mobility Comments Pt needs assist for proper use of the walker and to maintain WB to the LLE. Pt needed step by step instructions repeated for proper use of the walker. OT- Balance Assessment Sitting Balance and Reactions Static Sitting Balance Ability Good Dynamic Sitting Balance Ability Good M8 OT- IP Objective Assessments Start: 09/27/20 16:25 Freq: Status: Active Protocol: Document 09/27/20 16:25 CGR (Rec: 09/27/20 16:40 CGR [id number]) OT Gross Range of Motion Upper Extremity Range of Motion Assessment Within Functional Limits OT Strength Upper Extremity Strength Assessment Within Functional Limits Comments Strength Comments 4+/5 OT- Coordination Assessment Upper Extremity Finger to Nose Test Within Functional Limits Finger Tapping Test Within Functional Limits OT-Muscle Tone Assessment Muscle Tone WNL Yes OT Sensation Assessment Edema Edema Absent M9 OT- IP Assessment and Plan Start: 09/27/20 16:25 Freq: Status: Active Protocol: Document 09/27/20 16:25 CGR (Rec: 09/27/20 16:40 CGR [id number]) OT Summary Assessment and Plan Potential Rehabilitation Potential Good Analytic Complexity at Evaluation Low Summary OT Impairments Balance,Functional Cognition, Functional Mobility,Grooming, Dressing,Toileting,Bathing, Toilet Transfers,Shower Transfers,Activity Tolerance Progress Towards Goals Slow Progress due to Medical Issues,Slow Progress due to Cognition Assessment Summary Pt presents as a low complexity evaluation s/p admit for post op wound infection after 09/08/20 ORIF repair with plate. Pt is unable to maintain his weight bearing restrictions without constant verbal cues on the correct use of the walker. Pt would benefit from SNF but per CM, pt is refusing and states that he will allow HH upon discharge home. Pt will continue to benefit from OT services while hospitalized. Goals Grooming Goal Independent Dressing Goal Independent Toileting Goal Independent Bathing Goal Independent Toilet Transfer Goal Independent Shower Transfer Goal Independent Days to Meet Goals 15 Frequency of Treatment Frequency Of Treatment Once a Day Treatment Plan OT Treatment Plan ADL Training,Functional Cognition Training,Functional Mobility,Patient/Family Education,Discharge Planning Other Treatment Recommendations and Next formal cog assessment, shower Treatment Focus Discharge Recommendations OT Discharge Recommendations SNF Rehab Home Equipment Needs tub transfer bench, fww, possibly w/c Transportation Needs at Discharge Private Vehicle
--- NOTE | 2020-09-27 14:03 | PT.IPTN ---
Physical Therapy Treatment Note M2 PT-IP Current Condition Start: 09/26/20 17:54 Freq: NEEDED Status: Active Protocol: Document 09/26/20 16:00 AB (Rec: 09/26/20 18:24 AB [id number]) Physical Therapy Current Condition Current Condition Evaluation Date 09/26/20 Treatment Diagnosis LLE cellulitis; s/p L ankle ORIF; difficulty in walking Onset Date 09/25/20 Precautions Brace LLE walker boot Other Precautions Per Dr. Yoon's note: pt can put weight on LLE with walker boot at most 50#PWB. Weight Bearing Status Weight Bearing Status Partial Weight Bearing Allowed Weight Bearing Amount (enter % LLE: 50# PWB or #) (%) M3 PT-IP Subjective Start: 09/26/20 17:54 Freq: NEEDED Status: Active Protocol: Document 09/27/20 14:03 AW (Rec: 09/27/20 14:12 AW [id number]) Subjective Physical Therapy Visit Type Type Treatment Note Visit Start Time 13:32 Visit Stop Time 13:50 Total Visit Minutes 18 Number of DEVIL TENDER Visits 0 Physical Therapy Visit Comments Patient Comments Pt is willing to participate with PT. Therapy Pain Assessment Pain When Pain Assessed At Rest Pain Present Pain Present Denied Pain Location Left Leg Scale Used not quantified M4 PT-IP Mobility and Gait Start: 09/26/20 17:54 Freq: NEEDED Status: Active Protocol: Document 09/27/20 14:03 AW (Rec: 09/27/20 14:12 AW [id number]) PT-Transfer Assessment Sit to and From Stand Sit to and from Stand Standby Assistance,Contact Guard Assistance,1 Person Assistance,Use of Upper Extremities Equipment Transfer Assistive Device Gait Belt,Front Wheeled Walker Orthotic/Prosthetic Devices or Brace: Yes Transfers Transfer Destination Chair Transfer Technique Stand Step Pivot Transfer Ability Level of Assist Contact Guard Assistance,1 Person Assistance,Use of Upper Extremities Comments Mobility Comments Pt was sitting up in the chair as PT arrived. He scooted forward and stood from the chair CGA and cues to use BUE on chair arms for push off. Pt stood and placed his LLE on a scale, confirming that he was putting ~100 pounds on the LLE. Pt reduced weight on LLE to 50 pounds for education. He attempted to ambulate around the room with 50# PWB in the boot but was unable to maintain WB restriction. Pt sat on the chair and PT demonstrated NWB LLE with FWW. Pt agreed to attempt. He stood and ambulated around the room with FWW NWB LLE SBA to CGA. Pt transferred back to the chair with cues to keep the walker with him during the transition. Pt was left with RN to prep for shower. Gait Assessment Gait Gait Assistance Required: Standby Assistance,Contact Guard Assist Distance (Feet) 25 Assistive Devices Assistive Device Gait Belt,Front Wheeled Walker Orthotic/Prosthetic Devices or Brace: Yes Gait Deviations General Gait Pattern Antalgic,Decreased Stride Length,Decreased Feet Clearance,Flexed Trunk,Step-to Gait Factors Limiting Gait Function Factors Limiting Gait Function Decreased Activity Tolerance, Decreased Strength,Difficulty Following Directions,Pain,Poor Balance,Poor Safety Awareness Comments Gait Comments Pt agreed to attempt NWB LLE in order to maintain PWB restriction. See mobility comments PT-Balance Assessment Sitting Balance and Reactions Static Sitting Balance Ability Good Dynamic Sitting Balance Ability Good Standing Balance and Reactions Static Standing Balance Ability Fair Dynamic Standing Balance Ability Fair Device Used FWW M5 PT-IP Objective Assessments Start: 09/26/20 17:54 Freq: NEEDED Status: Active Protocol: Document 09/26/20 16:00 AB (Rec: 09/26/20 18:24 AB [id number]) Orientation Orientation/Cognition Level of Alertness Alert Orientation Name,Situation Safety Awareness Decreased Safety Awareness Gross Range of Motion Lower Extremity ROM Assessment Left Impaired Impairments L ankle NT due to recent ORIF Strength Comments Strength Comments L ankle NT due to recent ORIF M6 PT-IP Treatment Start: 09/26/20 17:54 Freq: NEEDED Status: Active Protocol: Document 09/27/20 14:03 AW (Rec: 09/27/20 14:12 AW [id number]) Physical Therapy Treatment Education Education Provided Weight Bearing Status,Safety Brace Education [place],Patient M7 PT-IP Assessment and Plan Start: 09/26/20 17:54 Freq: NEEDED Status: Active Protocol: Document 09/27/20 14:03 AW (Rec: 09/27/20 14:12 AW [id number]) PT Summary Assessment and Plan Summary Impairments Pain,ROM,Strength,Balance, Coordination,Sensation,Tone, Cognition,Bed Mobility, Transfers,Gait,Activity Tolerance Progress Towards Goals Slow Progress due to Medical Issues,Slow Progress due to Activity Tolerance Assessment Summary Reinforced pt education on WB status and used a bathroom scale for further input. Pt was unable to maintain 50# PWB LLE during transfer or gait so agreed to attempt NWB LLE. Pt required SBA to CGA for short distance gait with FWW NWB LLE. Pt states he is open to HH but would not consider SNF rehab. Goals Bed Mobility Goal Independent Transfer Goal Independent,Crutches,Front Wheeled Walker Gait Goal Independent,Crutches,Front Wheel Walker Gait Distance 50 Other Goals up/down 1 steps using crutches / FWW SBA Days to Meet Goals 10 Frequency of Treatment Frequency Of Treatment Twice a Day Treatment Plan Physical Therapy Treatment Plan Bed Mobility Training,Transfer Training,Gait Training, Therapeutic Exercise,Balance Retraining,Post Op Education, Discharge Planning,Hot or Cold Pack,Neuromuscular Re-ed Other Recommendations and Next Treatment continue gait training with Focus NWB LLE Precautions Brace LLE western walker boot Other Precautions Per Dr. Yoon's note: pt can put weight on LLE with walker boot at most 50#PWB. Recommendations To Nursing Amount of Assist Needed Standby Assistance,1 Person Assist Discharge Recommendations PT Discharge Recommendations Home with 24/7 Assist Available,Home Health,SNF Rehab Other Discharge Recommendations depending on progress: SNF vs home with 24/7 assist and HHPT Transportation Needs at Discharge Private Vehicle,Wheelchair/ Cabulance
[2020-09-27] MEDS: SENNOSIDES 8.6 MG TABLET 17.2 MG PO (20:56)
[2020-09-28] VITALS (10 sets, daily range): BP systolic 115–137; BP diastolic 78–83; PULSE 72–79; RESP 18; TEMP 36.6–37.8; O2SAT 94–98
[2020-09-28] MEDS: PIPERACILLIN-TAZO 4.5 GM/100 ML FROZ.PIGGY IV ×2 (04:12→09:03)
[2020-09-28] MEDS: SODIUM CHLORIDE 0.9% FLUSH 10 ML IV ×3 (04:13→21:45)
[2020-09-28] MEDS: ACETAMINOPHEN 325 MG TABLET 650 MG PO ×3 (04:22→22:21)
[2020-09-28 05:23] LABS: INR 1.4 (0.9-1.3); Prothrombin Time 15.6 SECONDS (10.1-12.7)
[2020-09-28 05:29] LABS: Alanine Aminotransferase 23 IU/L (<50); Albumin 2.5 g/dL (3.5-5.0); Albumin Globulin Ratio 0.6 (1.0-2.8); Alkaline Phosphatase 153 U/L (38-126); Aspartate Aminotransferase 64 IU/L (17-59); BUN Creatinine Ratio 10.5 (6-22); Bilirubin Total 1.9 mg/dL (0.2-1.3); Bilirubin Unconjugated 1.4 mg/dL (0.0-1.1); Blood Urea Nitrogen 8 mg/dL (9-20); Calcium 8.5 mg/dL (8.4-10.2); Carbon Dioxide 25 mmol/L (22-32); Chloride 106 mmol/L (98-107); Estimated Glomerular Filt Rate > 60.0 mL/min (>60); Globulin 4.3 g/dL (1.7-4.1); Glucose 106 mg/dL (70-100); HEMOLYSIS < 15 (0-50); Magnesium 1.6 mg/dL (1.6-2.3); Potassium 3.4 mmol/L (3.4-5.1); Sodium 134 mmol/L (137-145); Total Protein 6.8 g/dL (6.3-8.2)
[2020-09-28 05:30] LABS: Add Manual Diff / Slide Review NO; Basophils Absolute Auto 0 /uL (0-100); Basophils Percent Auto 0.5 % (0-2); Eosinophils Absolute Auto 200 /uL (0-450); Eosinophils Percent Auto 4.6 % (2-4); Hematocrit 33.5 % (41-53); Hemoglobin 11.7 g/dL (13.5-17.5); Lymphocytes Absolute Auto 1100 /uL (1100-4500); Lymphocytes Percent Auto 25.1 % (25-40); Mean Corpuscular HGB Conc 34.9 % (30-36); Mean Corpuscular Hemoglobin 36.9 PG (26-34); Mean Corpuscular Volume 105.8 fL (80-100); Monocytes Absolute Auto 500 /uL (0-900); Neutrophils Absolute Auto 2600 /uL (1500-7000); Neutrophils Percent Auto 57.8 % (50-75); Red Blood Cell Count 3.16 X10^6/uL (4.5-5.9); White Blood Cell Count 4.5 X10^3/uL (4.5-11.0)
[2020-09-28 05:33] LABS: Platelet Count 22 X10^3/uL (150-400)
[2020-09-28] MEDS: PANTOPRAZOLE 20 MG TABLET PO (06:15)
[2020-09-28 06:16] LABS: Macrocytosis 1+; Platelet Estimate Decreased on smear
--- NOTE | 2020-09-28 07:42 | PM.PN.1 ---
Subjective Subjective Date Patient Seen: 09/28/20 Time Patient Seen: 07:42 Exam Vital Signs (past 8 hours): - 09/27/20 23:44 09/28/20 00:00 09/28/20 04:20 Temperature 99.2 F Pulse Rate 80 Respiratory Rate 18 Blood Pressure 124/66 Pulse Oximetry 96 96 96 09/28/20 04:22 09/28/20 04:28 Temperature 100.0 F H 100.0 F H Pulse Rate 78 Respiratory Rate 18 Blood Pressure 137/78 Pulse Oximetry 94 Oxygen Delivery Method Room Air Oxygen Flow Rate 0 Objective Labs Result Diagrams: 09/28/20 04:57 09/28/20 04:57 Labs: Laboratory Results - last 24 hr 09/25/20 09/28/20 09/28/20 20:45 04:57 04:57 WBC 4.5 RBC 3.16 L Hgb 11.7 L Hct 33.5 L MCV 105.8 H MCH 36.9 H MCHC 34.9 RDW 14.0 Plt Count 22 L* Neut % (Auto) 57.8 Lymph % (Auto) 25.1 [place] % (Auto) 12.0 Eos % (Auto) 4.6 H Baso % (Auto) 0.5 Neut # (Auto) 2600 Lymph # (Auto) 1100 [place] # (Auto) 500 Eos # (Auto) 200 Baso # (Auto) 0 Platelet Estimate Decreased on smear RBC Morphology See below Macrocytosis 1+ H PT 15.6 H INR 1.4 H Sodium Potassium Chloride Carbon Dioxide BUN Creatinine Estimated GFR BUN/Creatinine Ratio Glucose Calcium Magnesium Total Bilirubin Conjugated Bilirubin Unconjugated Bilirubin AST ALT Alkaline Phosphatase C-Reactive Protein 1.0 Total Protein Albumin Globulin Albumin/Globulin Ratio 09/28/20 04:57 WBC RBC Hgb Hct MCV MCH MCHC RDW Plt Count Neut % (Auto) Lymph % (Auto) [place] % (Auto) Eos % (Auto) Baso % (Auto) Neut # (Auto) Lymph # (Auto) [place] # (Auto) Eos # (Auto) Baso # (Auto) Platelet Estimate RBC Morphology Macrocytosis PT INR Sodium 134 L Potassium 3.4 Chloride 106 Carbon Dioxide 25 BUN 8 L Creatinine 0.76 Estimated GFR > 60.0 BUN/Creatinine Ratio 10.5 Glucose 106 H Calcium 8.5 Magnesium 1.6 Total Bilirubin 1.9 H Conjugated Bilirubin 0.0 Unconjugated Bilirubin 1.4 H AST 64 H ALT 23 Alkaline Phosphatase 153 H C-Reactive Protein Total Protein 6.8 Albumin 2.5 L Globulin 4.3 H Albumin/Globulin Ratio 0.6 L PFSH Medical History Alcoholism Ankle pain Anxiety Blindness Cataracts, bilateral Cirrhosis Closed left ankle fracture Foot pain H/O deep venous thrombosis Hearing loss Hepatitis C Peripheral vascular disease Postoperative wound infection Shoulder pain Skin problem Sleep apnea Venous stasis Vertigo Vision disorder Wound infection Surgical History Anesthesia H/O neck surgery History of surgery History of surgery of liver (~2017) S/P cataract extraction Family History Mother Cancer Hyperlipidemia Grandfather CVA (cerebral vascular accident) Grandfather Cancer Father Heart disease Hypertension Brother Hyperlipidemia Grandmother Liver disease Social History household members: family Smoking Status: Current every day smoker Tobacco: How many years used: 42 quit status: not considering quitting alcohol intake: current substance use type: does not use Quality VTE Deep Vein Thrombosis/Pulmonary Embolism Present on Admission: Yes
[2020-09-28] MEDS: DOCUSATE 100 MG CAPSULE PO ×2 (09:02→20:54)
[2020-09-28] MEDS: GABAPENTIN 300 MG CAPSULE PO ×2 (09:03→20:54)
[2020-09-28] MEDS: MULTIVITAMIN 1 TABLET 1 TAB PO (09:03)
[2020-09-28] MEDS: NICOTINE 14 PATCH 14 MG TOP (09:03)
[2020-09-28] MEDS: FOLIC ACID 1 MG TABLET PO (09:03)
[2020-09-28] MEDS: THIAMINE 100 MG TABLET PO (09:03)
--- NOTE | 2020-09-28 09:35 | PC.NURSE ---
Addendum entered by Nemo Alonso R.N. 09/28/20 09:41: Seizure pads remain intact. Bed alarm on. Original Note: Patient A/O x 4. Reports pain 3/10 in L ankle, LLE warm, tight, edematous. Pulses equal, pain with palpitation, shelley intact medially and laterally. LLE elevated. Patient temp 99.1 this AM, denies diaphoresis or chills. No tremors noted, denies auditory or visual hallucinations or anxiety. No N/V. Patient on room air, expiratory wheezing noted. Intermittent non productive cough noted. HR and RR WNL. Patient denies SOB or increased WOB. Patient saline locked in L FA, receiving IV ABX, IV patent. Patient voiding in urinal, last BM 09/27, patients abd is soft, nontender, mildly distended. Call light in reach.
--- NOTE | 2020-09-28 10:17 | PT.IPTN ---
Current Diagnoses Cellulitis of left lower limb (09/25/20) Physical Therapy Treatment Note M2 PT-IP Current Condition Start: 09/26/20 17:54 Freq: NEEDED Status: Active Protocol: Document 09/26/20 16:00 AB (Rec: 09/26/20 18:24 AB [id number]) Physical Therapy Current Condition Current Condition Evaluation Date 09/26/20 Treatment Diagnosis LLE cellulitis; s/p L ankle ORIF; difficulty in walking Onset Date 09/25/20 Precautions Brace LLE walker boot Other Precautions Per Dr. Yoon's note: pt can put weight on LLE with walker boot at most 50#PWB. 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 Therapy Pain Assessment Pain When Pain Assessed At Rest Pain Present Pain Present Pain Reported M4 PT-IP Mobility and Gait Start: 09/26/20 17:54 Freq: NEEDED Status: Active Protocol: Document 09/28/20 10:17 AW (Rec: 09/28/20 12:42 AW [id number]) PT-Bed Mobility Assessment Supine to Sit Supine to Sit Standby Assistance PT-Transfer Assessment Sit to and From Stand Sit to and from Stand Contact Guard Assistance,1 Person Assistance,Use of Upper Extremities Equipment Transfer Assistive Device Gait Belt,Front Wheeled Walker Orthotic/Prosthetic Devices or Brace: Yes Transfers Transfer Destination Chair,Toilet Transfer Technique Stand Step Pivot Transfer Ability Level of Assist Contact Guard Assistance,1 Person Assistance Comments Mobility Comments Pt was reclined in the bed as PT arrived. He completed supine to sit SBA and required assist to don own boot RLE. He stood from the bed CGA and ambulated around the foot of the bed and to the chair with FWW CGA with NWB LLE. Pt fatigued quickly and required a seated rest break. BP 133/88 HR 84. Assisted pt to don western boot LLE for ambulation with PWB to the toilet. Unclear if pt is able to maintain PWB during gait and transfer. Pt then ambulated back to the chair with FWW CGA and was left with call light and all needs in reach. Gait Assessment Gait Gait Assistance Required: Standby Assistance,Contact Guard Assist Distance (Feet) 20 Assistive Devices Assistive Device Gait Belt,Front Wheeled Walker Orthotic/Prosthetic Devices or Brace: Yes Gait Deviations General Gait Pattern Antalgic,Decreased Stride Length,Decreased Feet Clearance,Flexed Trunk,Step-to Gait Factors Limiting Gait Function Factors Limiting Gait Function Decreased Activity Tolerance, Decreased Strength,Difficulty Following Directions,Pain,Poor Balance,Poor Safety Awareness Comments Gait Comments Unclear if pt is able to maintain PWB LLE with boot on. Pt is able to maintain NWB LLE without the boot but requires CGA due to unsteadiness. Stair Climbing Assessment Comments Stair Climbing Comments Per OT, pt has more than one step into RV. Will need to verify and plan for home entry accordingly with possible update in goals PT-Balance Assessment Sitting Balance and Reactions Static Sitting Balance Ability Good Dynamic Sitting Balance Ability Good Standing Balance and Reactions Static Standing Balance Ability Fair Dynamic Standing Balance Ability Fair Device Used FWW M5 PT-IP Objective Assessments Start: 09/26/20 17:54 Freq: NEEDED Status: Active Protocol: Document 09/26/20 16:00 AB (Rec: 09/26/20 18:24 AB [id number]) Orientation Orientation/Cognition Level of Alertness Alert Orientation Name,Situation Safety Awareness Decreased Safety Awareness Gross Range of Motion Lower Extremity ROM Assessment Left Impaired Impairments L ankle NT due to recent ORIF Strength Comments Strength Comments L ankle NT due to recent ORIF M6 PT-IP Treatment Start: 09/26/20 17:54 Freq: NEEDED Status: Active Protocol: Document 09/28/20 10:17 AW (Rec: 09/28/20 12:42 AW [id number]) Physical Therapy Treatment Education Education Provided Weight Bearing Status,Safety Brace Education [place],Patient M7 PT-IP Assessment and Plan Start: 09/26/20 17:54 Freq: NEEDED Status: Active Protocol: Document 09/28/20 10:17 AW (Rec: 09/28/20 12:42 AW [id number]) PT Summary Assessment and Plan Summary Impairments Pain,ROM,Strength,Balance, Coordination,Sensation,Tone, Cognition,Bed Mobility, Transfers,Gait,Activity Tolerance Progress Towards Goals Slow Progress due to Medical Issues,Slow Progress due to Activity Tolerance Assessment Summary Pt is able to ambulate short distance with NWB LLE without western boot. With boot on, pt is likely not maintaining 50# PWB. He is requiring CGA for gait while NWB. Pt will require more stair training if going home as he likely has more than one stair. Goals Bed Mobility Goal Independent Transfer Goal Independent,Crutches,Front Wheeled Walker Gait Goal Independent,Crutches,Front Wheel Walker Gait Distance 50 Other Goals up/down 1 steps using crutches / FWW SBA Days to Meet Goals 10 Frequency of Treatment Frequency Of Treatment Twice a Day Treatment Plan Physical Therapy Treatment Plan Bed Mobility Training,Transfer Training,Gait Training, Therapeutic Exercise,Balance Retraining,Post Op Education, Discharge Planning,Hot or Cold Pack,Neuromuscular Re-ed Other Recommendations and Next Treatment continue gait training with Focus NWB LLE; verify stair set up at home Precautions Brace LLE western walker boot Other Precautions Per Dr. Yoon's note: pt can put weight on LLE with walker boot at most 50#PWB. Recommendations To Nursing Amount of Assist Needed 1 Person Assist Discharge Recommendations PT Discharge Recommendations Home with 24/7 Assist Available,Home Health,SNF Rehab Other Discharge Recommendations depending on progress: SNF vs home with 24/7 assist and HHPT
--- NOTE | 2020-09-28 11:24 | P.PN_ITS ---
Subjective Subjective Date Patient Seen: 09/28/20 Time Patient Seen: 11:26 Interval history: The patient reports that he is feeling better. He has been able to elevate his leg while he has been hospitalized. Exam Vital Signs (past 8 hours): - 09/28/20 04:20 09/28/20 04:22 09/28/20 04:28 Temperature 100.0 F H 100.0 F H Pulse Rate 78 Respiratory Rate 18 Blood Pressure 137/78 Pulse Oximetry 96 94 09/28/20 08:00 Temperature 99.1 F Pulse Rate 72 Respiratory Rate 18 Blood Pressure 134/83 Pulse Oximetry 96 Oxygen Delivery Method Room Air Oxygen Flow Rate 0 Narrative Exam Narrative: Left leg is currently elevated in the recliner. The patient has chronic venous stasis changes widespread throughout the lower extremity. Skin lines are present today indicating less swelling than previously. Both the medial and lateral wounds are draining moderate amounts of purulent fluid. There is no surrounding erythema. Objective Labs Result Diagrams: 09/28/20 04:57 09/28/20 04:57 Labs: Laboratory Results - last 24 hr 09/25/20 09/28/20 09/28/20 20:45 04:57 04:57 WBC 4.5 RBC 3.16 L Hgb 11.7 L Hct 33.5 L MCV 105.8 H MCH 36.9 H MCHC 34.9 RDW 14.0 Plt Count 22 L* Neut % (Auto) 57.8 Lymph % (Auto) 25.1 [place] % (Auto) 12.0 Eos % (Auto) 4.6 H Baso % (Auto) 0.5 Neut # (Auto) 2600 Lymph # (Auto) 1100 [place] # (Auto) 500 Eos # (Auto) 200 Baso # (Auto) 0 Platelet Estimate Decreased on smear RBC Morphology See below Macrocytosis 1+ H PT 15.6 H INR 1.4 H Sodium Potassium Chloride Carbon Dioxide BUN Creatinine Estimated GFR BUN/Creatinine Ratio Glucose Calcium Magnesium Total Bilirubin Conjugated Bilirubin Unconjugated Bilirubin AST ALT Alkaline Phosphatase C-Reactive Protein 1.0 Total Protein Albumin Globulin Albumin/Globulin Ratio 09/28/20 04:57 WBC RBC Hgb Hct MCV MCH MCHC RDW Plt Count Neut % (Auto) Lymph % (Auto) [place] % (Auto) Eos % (Auto) Baso % (Auto) Neut # (Auto) Lymph # (Auto) [place] # (Auto) Eos # (Auto) Baso # (Auto) Platelet Estimate RBC Morphology Macrocytosis PT INR Sodium 134 L Potassium 3.4 Chloride 106 Carbon Dioxide 25 BUN 8 L Creatinine 0.76 Estimated GFR > 60.0 BUN/Creatinine Ratio 10.5 Glucose 106 H Calcium 8.5 Magnesium 1.6 Total Bilirubin 1.9 H Conjugated Bilirubin 0.0 Unconjugated Bilirubin 1.4 H AST 64 H ALT 23 Alkaline Phosphatase 153 H C-Reactive Protein Total Protein 6.8 Albumin 2.5 L Globulin 4.3 H Albumin/Globulin Ratio 0.6 L PFSH Medical History Alcoholism Ankle pain Anxiety Blindness Cataracts, bilateral Cirrhosis Closed left ankle fracture Foot pain H/O deep venous thrombosis Hearing loss Hepatitis C Peripheral vascular disease Postoperative wound infection Shoulder pain Skin problem Sleep apnea Venous stasis Vertigo Vision disorder Wound infection Surgical History Anesthesia H/O neck surgery History of surgery History of surgery of liver (~2017) S/P cataract extraction Family History Mother Cancer Hyperlipidemia Grandfather CVA (cerebral vascular accident) Grandfather Cancer Father Heart disease Hypertension Brother Hyperlipidemia Grandmother Liver disease Social History household members: family Smoking Status: Current every day smoker Tobacco: How many years used: 42 quit status: not considering quitting alcohol intake: current substance use type: does not use Assessment & Plan Assessment & Plan narrative: The patient is 3 weeks status post open reduction internal fixation of a left ankle fracture. Comorbidities include chronic venous stasis after prior deep venous thrombosis and alcoholism with likely poor nutrition. He has cellulitis with wound infection. His plate cannot be removed until after his fracture has healed. Microbiology results are reviewed today. He has a polymicrobial infection as noted in the microbiology section of the chart. All 3 of the bacteria currently appear to be susceptible to Bactrim DS. It does not appear that this is listed on the patient's allergies. He has been training on a walker with physical therapy. At this point it would be appropriate if he is cleared by his medical physician for discharge on p.o. antibiotics over the next 2-6 weeks. Quality VTE Deep Vein Thrombosis/Pulmonary Embolism Present on Admission: Yes
--- NOTE | 2020-09-28 11:43 | OT.IP.TRT ---
Current Diagnoses Cellulitis of left lower limb (09/25/20) Occupational Therapy Treatment Note M2 OT-IP Current Condition Start: 09/27/20 16:25 Freq: Status: Active Protocol: Document 09/27/20 16:25 CGR (Rec: 09/27/20 16:40 CGR [id number]) Occupational Therapy Current Condition Current Condition Evaluation Date 09/27/20 Treatment Diagnosis post op wound infection s/p ORIF repair LLE with plate. Diagnosis Onset Date 09/25/20 Weight Bearing Status Weight Bearing Status Partial Weight Bearing Allowed Weight Bearing Amount (enter % 50 lbs with walking boot or #) (%) donned M3 OT- IP Subjective and Pain Start: 09/27/20 16:25 Freq: Status: Active Protocol: Document 09/28/20 13:43 CGR (Rec: 09/28/20 14:02 CGR [id number]) OT- Subjective Occupational Therapy Visit Type Type Progress Note Visit Start Time 11:20 Visit Stop Time 11:43 Total Visit Minutes 23 OT Pain Assessment Pain When Pain Assessed At Rest Pain Present Pain Present Pain Reported Location Left Leg Intensity 2 Scale Used Numeric (0 - 10) Management Techniques Elevation,Modification of Treatment,Re-positioning, Timing of Activity with Medications M4 OT- IP ADL's Start: 09/27/20 16:25 Freq: Status: Active Protocol: Document 09/28/20 13:43 CGR (Rec: 09/28/20 14:02 CGR [id number]) OT [id number] Comments OT Self-Feeding Comments Not meal time OT ADL-Grooming General Evaluation Grooming Ability Standby Assistance Comments OT Grooming Comments Standing at sink pt washed hands. Pt educated on safe use of walker at sinkside. OT ADL-Oral Care Comments Oral Care Comments Not performed, pt states he already performed OT ADL-Dressing Comments OT Dressing Comments Not performed OT ADL-Toileting General Evaluation Toileting Ability Standby Assistance Devices Toileting Assistive Devices Grab Bars Comments OT Toileting Comments Pt performed simulated toielting with SBA using GB for transfer OT ADL-Bathing Comments OT Bathing Comments Not performed, pt states he got into the shower yesterday with nursing. M5 OT- IP IADL's Start: 09/27/20 16:25 Freq: Status: Active Protocol: Document 04/04/21 16:25 CGR (Rec: 09/27/20 16:40 CGR [id number]) OT-Instrumental Activities of Daily Living Deficits IADL Deficits Identified Deficits Home Safety Awareness Awareness of Need for Assistance at Home Decreased Awareness Ability to Problem Solve Emergency Unable to Problem Solve Situations Home Safety Comments pt with poor safety awareness and unable to maintain his WB without max vc and use of walker. Medication Management Medication Management Comments Concerns regarding pt's ability to perform safely Money Management Money Management Comments Concerns regarding pt's ability to perform safely Meal Preparation Meal Preparation Comments Concerns regarding pt's ability to perform safely Gauntlet Pairer Gauntlet Pairer Comments Concerns regarding pt's ability to perform safely Driving Driving Comments Concerns regarding pt's ability to perform safely M6 OT- IP Functional Cognition Start: 09/27/20 16:25 Freq: Status: Active Protocol: Document 09/28/20 13:43 CGR (Rec: 09/28/20 14:02 CGR [id number]) Cognitive Factors Limiting Selfcare Function Cognitive Ability Level of Alertness Alert Patient Orientation Name,Age,Birthday,Month,Date, Year,Day of Week,Place, Situation Cognitive Tests SLUMS Pt performed SLUMS on this date. Pt scored a 16/30. Pt was able to state the day, the year, and the state. He was able to perform simple addition and subtraction, state 12 animals in 1 minute ( 15+ for full points), remembered 3 of the 5 STM items, was able to place an X in the triangle and identify the largest object. Pt missed 2 of the 5 STM items, lost a point for naming less than 15 animals in one minute, was able to do backwards sequencing on 3 numbers but unable for 4 numbers, was unable to correctly lable or set the time on a clock, and was only able to answer one of the 4 listening comprehension questions. Pt states he had difficulty hearing the story but was able to answer other questions in this assessment without difficulty. Cognitive Comments Cognitive Assessment Comments A score of 16/30 on the SLUMS indicates that the pt is demonstrating dementia like cognition. OT- Vision and Hearing OT- Hearing Assessment OT- Hearing Assessment Hearing Impaired OT- Vision Assessment Visual Attentiveness WFL Occular Pursuits WFL Visual Convergence WFL Vision Assessment Comments no glasses noted M7 OT- IP Mobility and Balance Start: 09/27/20 16:25 Freq: Status: Active Protocol: Document 09/28/20 13:43 CGR (Rec: 09/28/20 14:02 CGR [id number]) OT-Transfer Assessment Sit to and From Stand Sit to and from Stand Contact Guard Assistance Transfers Transfer Ability Contact Guard Assistance Technique Transfer Destination Chair,Toilet Transfer Technique Stand Step Pivot Devices Transfer Assistive Devices Gait Belt,Front Wheeled Walker Comments Mobility Comments Pt was able to follow directions to use the walker and maintained NWB for all mobility. OT- Balance Assessment Sitting Balance and Reactions Static Sitting Balance Ability Good Dynamic Sitting Balance Ability Fair M8 OT- IP Objective Assessments Start: 09/27/20 16:25 Freq: Status: Active Protocol: Document 09/27/20 16:25 CGR (Rec: 09/27/20 16:40 CGR [id number]) OT Gross Range of Motion Upper Extremity Range of Motion Assessment Within Functional Limits OT Strength Upper Extremity Strength Assessment Within Functional Limits Comments Strength Comments 4+/5 OT- Coordination Assessment Upper Extremity Finger to Nose Test Within Functional Limits Finger Tapping Test Within Functional Limits OT-Muscle Tone Assessment Muscle Tone WNL Yes OT Sensation Assessment Edema Edema Absent M9 OT- IP Assessment and Plan Start: 09/27/20 16:25 Freq: Status: Active Protocol: Document 09/28/20 13:43 CGR (Rec: 09/28/20 14:02 CGR [id number]) OT Summary Assessment and Plan Potential Rehabilitation Potential Good Analytic Complexity at Evaluation Low Summary OT Impairments Balance,Functional Cognition, Functional Mobility,Grooming, Dressing,Toileting,Bathing, Toilet Transfers,Shower Transfers,Activity Tolerance Progress Towards Goals Slow Progress due to Medical Issues,Slow Progress due to Cognition Assessment Summary Pt presents as a low complexity evaluation s/p admit for post op wound infection after 09/08/20 ORIF repair with plate. Pt was able to follow commands for NWB but shows signs of fatigue using the walker with NWB. Pt participated in SLUMS assessment scoring 16/30. Pt states his hearing loss made the assessment difficult which may have played a factor in his score. Pt will continue to benefit from OT services. Recommend d/c to SNF but pt is refusing any option but d/c home. Goals Grooming Goal Independent Dressing Goal Independent Toileting Goal Independent Bathing Goal Independent Toilet Transfer Goal Independent Shower Transfer Goal Independent Days to Meet Goals 15 Frequency of Treatment Frequency Of Treatment Once a Day Treatment Plan OT Treatment Plan ADL Training,Functional Cognition Training,Functional Mobility,Patient/Family Education,Discharge Planning Other Treatment Recommendations and Next formal cog assessment, shower Treatment Focus Discharge Recommendations OT Discharge Recommendations SNF Rehab Home Equipment Needs tub transfer bench, fww, possibly w/c Transportation Needs at Discharge Private Vehicle
--- NOTE | 2020-09-28 11:44 | P.PN_ITS ---
Subjective Subjective Date Patient Seen: 09/28/20 Time Patient Seen: 11:44 Interval history: This is a 55-year-old male with a past medical history of alcohol/hep C cirrhosis, peripheral vascular disease and venous stasis, active tobacco use who was sent in to the ER for a postoperative wound infection at the direction of Orthopedic surgery. The patient has no complaints this morning and thinks that his swelling has improved. He denies any chest pain, shortness of breath, nausea, vomiting, or abdominal pain. This morning he had a low-grade temperature to 100.0, but no overt fevers since transition to Zosyn yesterday. His cultures have resulted showing a pansensitive E coli, mostly sensitive Acinetobacter baumanii, and ampicillin sensitive Enterococcus faecalis. I did discuss the case via phone with Infectious Disease today, who recommended a change to Unasyn for the Acinetobacter primarily as sometimes Zosyn is ineffective in practice though cultures show sensitivity. If his cellulitis continues to improve, they recommended close follow-up with outpatient orthopedic surgery and continuing on Augmentin and Bactrim as an outpatient until his cellulitis resolves. Exam Vital Signs (past 8 hours): - 09/28/20 04:20 09/28/20 04:22 09/28/20 04:28 Temperature 100.0 F H 100.0 F H Pulse Rate 78 Respiratory Rate 18 Blood Pressure 137/78 Pulse Oximetry 96 94 09/28/20 08:00 Temperature 99.1 F Pulse Rate 72 Respiratory Rate 18 Blood Pressure 134/83 Pulse Oximetry 96 Oxygen Delivery Method Room Air Oxygen Flow Rate 0 Narrative Exam Narrative: General: Patient is a well-developed male but appears older than his stated age. in no distress at this time HEENT: Normocephalic, atraumatic, extraocular muscles intact, oral pharynx is clear and mucous membranes are moist. Neck is supple and symmetric, trachea is midline, no adenopathy, no thyroid enlargement, nontender, no masses palpated. Chest: Normal AP diameter and contour without kyphoscoliosis, no nasal flaring, retractions, or tachypneic labored Lungs: Auscultation of all lung bower mild expiratory wheezing, no rhonchi or rales, lung sounds decreased bilaterally but equal. Cardio: S1 & S2 with regular rate and rhythm without murmur, rubs, or gallops, no carotid bruit, no cardiac pulsations present. Abdomen: Soft nontender, negative for organomegaly, or masses. Bowel sounds are present in all 4 quadrants without guarding or rebound, no CVA tenderness. Musculoskeletal: Patient has an incision on the medial ankle on the L, with improved erythema, induration and swelling. Now fairly minimal and predominantly chronic venous stasis changes. Neuro: Alert and orientated x3, strength is +5/5 in all extremities, sensation to touch intact, no gross deficits noted of cranial nerves. Psych: Patient has a poorly kept appearance, but calm, cooperative, and stable behavior since arrival. Objective Labs Result Diagrams: 09/28/20 04:57 09/28/20 04:57 Labs: Laboratory Results - last 24 hr 09/25/20 09/28/20 09/28/20 20:45 04:57 04:57 WBC 4.5 RBC 3.16 L Hgb 11.7 L Hct 33.5 L MCV 105.8 H MCH 36.9 H MCHC 34.9 RDW 14.0 Plt Count 22 L* Neut % (Auto) 57.8 Lymph % (Auto) 25.1 [place] % (Auto) 12.0 Eos % (Auto) 4.6 H Baso % (Auto) 0.5 Neut # (Auto) 2600 Lymph # (Auto) 1100 [place] # (Auto) 500 Eos # (Auto) 200 Baso # (Auto) 0 Platelet Estimate Decreased on smear RBC Morphology See below Macrocytosis 1+ H PT 15.6 H INR 1.4 H Sodium Potassium Chloride Carbon Dioxide BUN Creatinine Estimated GFR BUN/Creatinine Ratio Glucose Calcium Magnesium Total Bilirubin Conjugated Bilirubin Unconjugated Bilirubin AST ALT Alkaline Phosphatase C-Reactive Protein 1.0 Total Protein Albumin Globulin Albumin/Globulin Ratio 09/28/20 04:57 WBC RBC Hgb Hct MCV MCH MCHC RDW Plt Count Neut % (Auto) Lymph % (Auto) [place] % (Auto) Eos % (Auto) Baso % (Auto) Neut # (Auto) Lymph # (Auto) [place] # (Auto) Eos # (Auto) Baso # (Auto) Platelet Estimate RBC Morphology Macrocytosis PT INR Sodium 134 L Potassium 3.4 Chloride 106 Carbon Dioxide 25 BUN 8 L Creatinine 0.76 Estimated GFR > 60.0 BUN/Creatinine Ratio 10.5 Glucose 106 H Calcium 8.5 Magnesium 1.6 Total Bilirubin 1.9 H Conjugated Bilirubin 0.0 Unconjugated Bilirubin 1.4 H AST 64 H ALT 23 Alkaline Phosphatase 153 H C-Reactive Protein Total Protein 6.8 Albumin 2.5 L Globulin 4.3 H Albumin/Globulin Ratio 0.6 L PFSH Medical History Alcoholism Ankle pain Anxiety Blindness Cataracts, bilateral Cirrhosis Closed left ankle fracture Foot pain H/O deep venous thrombosis Hearing loss Hepatitis C Peripheral vascular disease Postoperative wound infection Shoulder pain Skin problem Sleep apnea Venous stasis Vertigo Vision disorder Wound infection Surgical History Anesthesia H/O neck surgery History of surgery History of surgery of liver (~2018) S/P cataract extraction Family History Mother Cancer Hyperlipidemia Grandfather CVA (cerebral vascular accident) Grandfather Cancer Father Heart disease Hypertension Brother Hyperlipidemia Grandmother Liver disease Social History household members: family Smoking Status: Current every day smoker Tobacco: How many years used: 42 quit status: not considering quitting alcohol intake: current substance use type: does not use Assessment & Plan Assessment & Plan narrative: This is a 55-year-old male with a past medical history of alcohol/hep C cirrhosis, peripheral vascular disease and venous stasis, active tobacco use who was sent in to the ER for a postoperative wound infection at the direction of Orthopedic surgery. 1. Cellulitis of left ankle, acute, present on admission secondary to trimalleolar fracture with ORIF repair with plate placement on 09/09/2019, com plication of the surgical procedure. -Patient was seen by Dr. Dumont at [facility] on 09/13/2020 and was informed that he would likely need a secondary surgical procedure to clean wash out the wound. Patient was seen and evaluated by Dr. Yoon of Orthopedic surgery who did not appear to see any drainable collection and instead recommended treatment with antibiotics. -Vascular ultrasound:No evidence of deep venous thrombosis in the left lower extremity Soft tissue edema. Left ankle x-ray:Trimalleolar fracture, status post open reduction internal fixation of the fibula and medial malleolus. -His cultures from the emergency room have resulted showing a pansensitive E coli, mostly sensitive Acinetobacter baumanii, and ampicillin sensitive Enterococcus faecalis. I did discuss the case via phone with Infectious Disease at [facility] today, who recommended a change to Unasyn for the Acinetobacter primarily as sometimes Zosyn is ineffective in practice though cultures show sensitivity. If he continues to improve, they recommended discharge on Bactrim and Augmentin, with exact timing unclear but best determined clinically when he follows up with Orthopedic surgery. Per their documentation today they recommended between 2 and 6 weeks. Would probably discharge with 2 weeks of a Augmentin and Bactrim as noted above with plan to possibly continue longer depending on evaluation in the orthopedic clinic. -consider CT imaging if the patient again spikes fevers 2. Alcoholic cirrhosis, acute on chronic, as evidence by patient's chronic al cohol abuse, present on admission, uncontrolled -labs on admission, bili 1.6, AST 93, alk-phos 203, HGB 13, HCT 37.3, PLT 43, albumin 3.4 albumin globulin 0.7, globulin 4.9. stable thus far with slight decrease in plt as noted below. Will continue to monitor. -continue CIWA protocol however patient with no history of severe withdrawal in the past, although he was treated with haldol in the ER. He admits to 2-3 beers per day, denies seizures or prior admission for EtOH withdrawal. 3. Peripheral vascular disease as evidence by venous stasis, resulting in chronic leg pain, acute on chronic, present on admission -continue patient's gabapentin 4. Tobacco abuse, acute on chronic, present on admission, uncontrolled -patient Education regarding smoking cessation, continue nicotine patch. 5. Thrombocytopenia, acute on chronic, present on admission - suspect secondary to cirrhosis and active infection for acute drop, although now down to 22K today. No evidence of current bleeding. Continue to monitor. No schistocytes noted on CBC, DIC unlikely. If platelets begin to increase he can likely be discharged home. 6. Alcohol withdrawal. - patient was showing evidence of alcohol withdrawal in the ER. Treated with haldol in the ER. Since arrival to the floor he has been stable. Continue ativan per CIWA protocol. Code status: Full Surrogate/plan of care:Mother COVID PCR: Negative VTE prophylaxis: Hold for thrombocytopenia. Dispo: admitted under inpatient status, possible discharge home tomorrow on above antibiotics if thrombocytopenia improves, no further fevers, and cellulitis continues to improve as well. Quality VTE Deep Vein Thrombosis/Pulmonary Embolism Present on Admission: Yes
[2020-09-28] MEDS: AMPICILLIN/SULBACTAM 3 GM 3 GM in SODIUM CHLORIDE 0.9% 100 ML IV ×2 (14:23→22:58)
--- NOTE | 2020-09-28 14:46 | CM.DANOTE ---
DCP: Case received, EMR reviewed and met with patient. Introduced self and role. Was able to obtain some information from patient regarding his baseline activity status prior to hospitalization, as well as his current living situation. DCP assessment completed with information currently available. Patient is a 55 year old male who admitted on 09/25 to the care of the hospitalist team. PCP: Dr. Miller. Payer: confirmed: [facility]. Patient came to the hospital via private vehicle, patient drove himself here. He came in due to having some drainage to his post left surgical wound. Patient was here for a recent surgery. Patient diagnosed with post surgical infection. He has history of alcoholism, as well as hepatitis C, and cirrhosis of the liver. Discussed patient during team rounds with Dr. Benitez, who stated that he would be contacting infectious disease MD to ensure that due to bacteria growing, could go home with oral antibiotics. Patient is continuing to work with [facility] [employer] [facility]. Confirmed with him that he does live in an RV. Asked him if he resides on his parent's property, for initially, he stated that he was staying with his parents. He indicated that he is on his parent's property. Asked him about driving and baseline activity since his recent surgery. He indicated that he is driving, his truck is outside, and that he has a step getting into his RV, but is unclear. Patient has flat effect during conversation, but answers questions appropriately. He mentioned that he has been using his crutches to get around. P: DCP to continue to follow. Plan is for home, he will not go to a rehab facility. He should be able to go home with oral antibiotics. Will also see if home health is an option. Val Falcon RN/Road [employer]
--- NOTE | 2020-09-28 14:52 | PT.IPTN ---
Current Diagnoses Cellulitis of left lower limb (09/25/20) Physical Therapy Treatment Note M2 PT-IP Current Condition Start: 09/26/20 17:54 Freq: NEEDED Status: Active Protocol: Document 09/26/20 16:00 AB (Rec: 09/26/20 18:24 AB [id number]) Physical Therapy Current Condition Current Condition Evaluation Date 09/26/20 Treatment Diagnosis LLE cellulitis; s/p L ankle ORIF; difficulty in walking Onset Date 09/25/20 Precautions Brace LLE walker boot Other Precautions Per Dr. Yoon's note: pt can put weight on LLE with walker boot at most 50#PWB. Weight Bearing Status Weight Bearing Status Partial Weight Bearing Allowed Weight Bearing Amount (enter % LLE: 50# PWB or #) (%) M3 PT-IP Subjective Start: 09/26/20 17:54 Freq: NEEDED Status: Active Protocol: Document 09/28/20 14:52 AW (Rec: 09/28/20 17:29 AW [id number]) Subjective Physical Therapy Visit Type Type Treatment Note Visit Start Time 14:32 Visit Stop Time 14:52 Total Visit Minutes 20 Physical Therapy Visit Comments Patient Comments Pt is willing to participate with PT. Therapy Pain Assessment Pain When Pain Assessed At Rest Pain Present Pain Present Denied Pain M4 PT-IP Mobility and Gait Start: 09/26/20 17:54 Freq: NEEDED Status: Active Protocol: Document 09/28/20 14:52 AW (Rec: 09/28/20 17:29 AW [id number]) PT-Transfer Assessment Sit to and From Stand Sit to and from Stand Standby Assistance,Use of Upper Extremities Equipment Transfer Assistive Device Gait Belt,Front Wheeled Walker Orthotic/Prosthetic Devices or Brace: No Transfers Transfer Destination Chair,Toilet Transfer Ability Level of Assist Contact Guard Assistance,Use of Upper Extremities Comments Mobility Comments Pt was sitting up in the chair as PT arrived. Pt donned the western boot LLE without assist and was able to achieve good fit without cues. PT assisted pt to don his boot RLE. He stood from the chair SBA and used FWW to ambulate toward the platform step set up in the room. Pt now states there are two stairs to get into his RV and he has been using crutches to get in. Pt required CGA to min assist using B axillary crutches to get up and over the platform step x 2. He returned to the chair with FWW but impulsively left the walker on his side as he swung his hips around to the chair. PT instructed pt to keep the walker with him during transitions. Pt removed boots and then requested to use the toilet. He agreed to walk in to the bathroom with LLE NWB. Pt needed SBA to [facility] to ambulate with FWW NWB LLE. He transferred CGA and cues to use the grab bar. Pt stood from the toilet CGA and ambulated back to the chair SBA with NWB LLE. Pt was left with call light and all needs in reach. Gait Assessment Gait Gait Assistance Required: Standby Assistance,Contact Guard Assist Distance (Feet) 20 Assistive Devices Assistive Device Gait Belt,Front Wheeled Walker Orthotic/Prosthetic Devices or Brace: Yes Gait Deviations General Gait Pattern Antalgic,Decreased Stride Length,Decreased Feet Clearance,Flexed Trunk,Step-to Gait Factors Limiting Gait Function Factors Limiting Gait Function Decreased Activity Tolerance, Decreased Strength,Difficulty Following Directions,Limited Range of Motion,Pain,Poor Balance,Poor Safety Awareness Comments Gait Comments Pt able to ambulate PWB LLE with western boot. Alternatively, he is able to ambulate NWB LLE without the boot. Both conditions require SBA to [facility]. Stair Climbing Assessment Evaluation Level of Assist On Stairs Minimal Assistance,1 Person Assistance Devices Stair Climbing Assistive Devices Axillary Crutches Technique/Endurance Stair Climbing Direction Ascend and Descend Stair Climbing Technique Step to Step Number of Steps Climbed 1 Stair Climbing Set # Repetitions (reps) 2 Comments Stair Climbing Comments Pt will need further stair training and would benefit from caregiver training for safe entry to . PT-Balance Assessment Sitting Balance and Reactions Static Sitting Balance Ability Good Dynamic Sitting Balance Ability Fair Standing Balance and Reactions Static Standing Balance Ability Fair Dynamic Standing Balance Ability Fair Device Used FWW, crutches M5 PT-IP Objective Assessments Start: 09/26/20 17:54 Freq: NEEDED Status: Active Protocol: Document 09/26/20 16:00 AB (Rec: 09/26/20 18:24 AB [id number]) Orientation Orientation/Cognition Level of Alertness Alert Orientation Name,Situation Safety Awareness Decreased Safety Awareness Gross Range of Motion Lower Extremity ROM Assessment Left Impaired Impairments L ankle NT due to recent ORIF Strength Comments Strength Comments L ankle NT due to recent ORIF M6 PT-IP Treatment Start: 09/26/20 17:54 Freq: NEEDED Status: Active Protocol: Document 09/28/20 14:52 AW (Rec: 09/28/20 17:29 AW [id number]) Physical Therapy Treatment Education Education Provided Weight Bearing Status,Safety Brace Education [place],Patient M7 PT-IP Assessment and Plan Start: 09/26/20 17:54 Freq: NEEDED Status: Active Protocol: Document 09/28/20 14:52 AW (Rec: 09/28/20 17:29 AW [id number]) PT Summary Assessment and Plan Summary Impairments Pain,ROM,Strength,Balance, Coordination,Sensation,Tone, Cognition,Bed Mobility, Transfers,Gait,Activity Tolerance Progress Towards Goals Slow Progress due to Medical Issues,Slow Progress due to Activity Tolerance Assessment Summary Pt able to ambulate short distances with FWW - PWB LLE in the western boot. He can also ambulate short distance without boot NWB LLE. He requires min assist to get up and down one step with crutches. Pt states his parents will be picking him up tomorrow but is unclear on timing and will not commit to parent coming in for training. Will need to follow up in the AM for possible coordination of caregiver training. Of note , pt lives in an RV on his parents' property. They are nearby and pt states they will assist as needed. Goals Bed Mobility Goal Independent Transfer Goal Independent,Crutches,Front Wheeled Walker Gait Goal Independent,Crutches,Front Wheel Walker Gait Distance 50 Other Goals up/down 1 steps using crutches / FWW SBA Days to Meet Goals 10 Frequency of Treatment Frequency Of Treatment Twice a Day Treatment Plan Physical Therapy Treatment Plan Bed Mobility Training,Transfer Training,Gait Training, Therapeutic Exercise,Balance Retraining,Post Op Education, Discharge Planning,Hot or Cold Pack,Neuromuscular Re-ed Other Recommendations and Next Treatment continue gait training with Focus NWB LLE; attempt to coordinate caregiver training Precautions Brace LLE western walker boot Other Precautions Per Dr. Yoon's note: pt can put weight on LLE with walker boot at most 50#PWB. Recommendations To Nursing Amount of Assist Needed 1 Person Assist Discharge Recommendations PT Discharge Recommendations Home with 16/01 Assist Available,Home Health,SNF Rehab Other Discharge Recommendations depending on progress: SNF vs home with 24/7 assist and HHPT ; pt is refusing SNF Equipment Needed for Home Before FWW Discharge Transportation Needs at Discharge Private Vehicle
--- NOTE | 2020-09-28 16:03 | DIET.PN ---
Dietary Progress Note Assessment: Mr. Colindres is a 55-year-old male with a past medical history of alcohol/hep C cirrhosis, peripheral vascular disease and venous stasis, active tobacco use who was sent in to the ER for a postoperative wound infection. He endorses usual appetite with no complaints of N/V/D/C. He reports eating mostly home cooked meals including HT: WT: UBW: BMI: Labs: MNA: Dor[place]: Nutrition Diagnosis: Interventions: Diet Order: EER: Monitoring/Evaluations:
--- NOTE | 2020-09-28 16:07 | DIET.PN ---
Dietary Progress Note Assessment: Mr. Colindres is a 55-year-old male with a past medical history of alcohol/hep C cirrhosis, peripheral vascular disease and venous stasis, active tobacco use who was sent in to the ER for a postoperative wound infection. He endorses usual appetite with no complaints of N/V/D/C. He reports eating mostly home cooked meals including chicken, steak, greens. Enjoys hiking for exercise when he can. HT: 177.8cm WT: 103.9kg UBW: no change BMI: 35.4 Labs: on admission, bili 1.6, AST 93, alk-phos 203, HGB 13, HCT 37.3, PLT 43, albumin 3.4 albumin globulin 0.7, globulin 4.9 MNA: 14 Doroteo: 20 Nutrition Diagnosis: no nutrition diagnosis Interventions: 1. Discussed food habits. Recommended pt try to eat on a schedule and try some meal prepping to create a routine. 2. Discussed importance of protein with each meal. 3. Recommended pt limit sugar, caffeine, and alcohol. 4. Discussed the importance of regular exercise to improve mood and maintain a healthy weight. 5. Recommended planned snacks to avoid over eating or snacking on unhealthy items. Diet Order: General EER: 2000 hira (20cal/kg); 100-120g Pro (1.0-1.2) Monitoring/Evaluations: weight, PO's, labs
[2020-09-28] MEDS: SENNOSIDES 8.6 MG TABLET 17.2 MG PO (20:54)
[2020-09-29] VITALS (8 sets, daily range): BP systolic 123–134; BP diastolic 63–80; PULSE 67–88; RESP 15–18; TEMP 36.7–37.4; O2SAT 95–98
[2020-09-29] MEDS: AMPICILLIN/SULBACTAM 3 GM 3 GM in SODIUM CHLORIDE 0.9% 100 ML IV ×2 (03:19→09:01)
[2020-09-29 05:51] LABS: Add Manual Diff / Slide Review NO; Alanine Aminotransferase 23 IU/L (<50); Albumin 2.6 g/dL (3.5-5.0); Albumin Globulin Ratio 0.6 (1.0-2.8); Alkaline Phosphatase 157 U/L (38-126); Aspartate Aminotransferase 61 IU/L (17-59); BUN Creatinine Ratio 17.1 (6-22); Basophils Absolute Auto 0 /uL (0-100); Basophils Percent Auto 0.7 % (0-2); Bilirubin Total 1.6 mg/dL (0.2-1.3); Blood Urea Nitrogen 12 mg/dL (9-20); Calcium 8.6 mg/dL (8.4-10.2); Carbon Dioxide 25 mmol/L (22-32); Chloride 108 mmol/L (98-107); Eosinophils Absolute Auto 300 /uL (0-450); Eosinophils Percent Auto 5.2 % (2-4); Estimated Glomerular Filt Rate > 60.0 mL/min (>60); Globulin 4.5 g/dL (1.7-4.1); Glucose 104 mg/dL (70-100); HEMOLYSIS < 15 (0-50); Hematocrit 34.7 % (41-53); Hemoglobin 11.5 g/dL (13.5-17.5); Lymphocytes Absolute Auto 1200 /uL (1100-4500); Lymphocytes Percent Auto 24.5 % (25-40); Magnesium 1.7 mg/dL (1.6-2.3); Mean Corpuscular HGB Conc 33.3 % (30-36); Mean Corpuscular Hemoglobin 35.4 PG (26-34); Mean Corpuscular Volume 106.5 fL (80-100); Monocytes Absolute Auto 600 /uL (0-900); Monocytes Percent Auto 12.1 % (3-14); Neutrophils Absolute Auto 2800 /uL (1500-7000); Neutrophils Percent Auto 57.5 % (50-75); Potassium 3.7 mmol/L (3.4-5.1); Red Blood Cell Count 3.26 X10^6/uL (4.5-5.9); Red Cell Distribution Width 13.9 % (11.6-14.8); Sodium 137 mmol/L (137-145); Total Protein 7.1 g/dL (6.3-8.2); White Blood Cell Count 4.9 X10^3/uL (4.5-11.0)
[2020-09-29 05:56] LABS: Platelet Count 27 X10^3/uL (150-400)
[2020-09-29 06:22] LABS: Platelet Estimate Decreased on smear
[2020-09-29] MEDS: PANTOPRAZOLE 20 MG TABLET PO (06:22)
[2020-09-29 06:23] LABS: Macrocytosis 1+; Polychromasia 1+
[2020-09-29] MEDS: GABAPENTIN 300 MG CAPSULE PO (09:03)
[2020-09-29] MEDS: DOCUSATE 100 MG CAPSULE PO (09:03)
[2020-09-29] MEDS: FOLIC ACID 1 MG TABLET PO (09:03)
[2020-09-29] MEDS: SODIUM CHLORIDE 0.9% FLUSH 10 ML IV (09:03)
[2020-09-29] MEDS: THIAMINE 100 MG TABLET PO (09:03)
[2020-09-29] MEDS: NICOTINE 14 PATCH 14 MG TOP (09:03)
[2020-09-29] MEDS: MULTIVITAMIN 1 TABLET 1 TAB PO (09:03)
--- NOTE | 2020-09-29 11:28 | CM.DPC ---
Addendum entered by Val Falcon R.N. 09/29/20 12:33: Patient is willing to accept a FWW from the hospital. Went ahead and placed order and printed out order along with face sheet and gave to Deana Pineda. Mother is also here for caregiver training. Original Note: DCP Cont: Met with patient during team rounds. Confirmed that patient will be discharging home with oral antibiotics. Mentioned home health to patient, and he refused. Hospitalist had also asked patient, due to his post surgical wound, but patient indicated, as long as I have the supplies, I can take care of it myself. Patient plans to drive home. Went ahead and gave him a copy of his IMM. P: Patient is to discharge home today. He will be following up with Dr. Pelletier in his clinkc. Val Falcon RN/Manager Philosophy
--- NOTE | 2020-09-29 11:49 | P.PN_ITS ---
Subjective Subjective Date Patient Seen: 09/29/20 Time Patient Seen: 11:49 Interval history: No issues reported overnight. Patient reports that his pain is under better control. He verbalized understanding that he has nonweightbearing restrictions on his left lower extremity. Plans to follow up at the surgery clinic for staple removal. Exam Vital Signs (past 8 hours): - 09/29/20 04:00 09/29/20 08:00 09/29/20 08:30 Temperature 98.6 F Pulse Rate 88 Respiratory Rate 15 Blood Pressure 123/76 Pulse Oximetry 97 97 97 09/29/20 11:46 Temperature 98.1 F Pulse Rate 86 Respiratory Rate 16 Blood Pressure 125/63 Pulse Oximetry 97 Oxygen Delivery Method Room Air Oxygen Flow Rate 0 Narrative Exam Narrative: Left leg is currently elevated in the recliner with dressing & boot in place. Alert and oriented in no apparent distress. Regular heart rate and normal inspiratory effort. The patient has chronic venous stasis changes widespread throughout the lower extremity. There is no surrounding erythema. He is able to move and feel his toes which are warm. The contralateral side is negative for signs or symptoms of DVT. Objective Labs Result Diagrams: 09/29/20 05:20 09/29/20 05:20 Labs: Laboratory Results - last 24 hr 09/29/20 09/29/20 05:20 05:20 WBC 4.9 RBC 3.26 L Hgb 11.5 L Hct 34.7 L MCV 106.5 H MCH 35.4 H MCHC 33.3 RDW 13.9 Plt Count 27 L* Neut % (Auto) 57.5 Lymph % (Auto) 24.5 L [place] % (Auto) 12.1 Eos % (Auto) 5.2 H Baso % (Auto) 0.7 Neut # (Auto) 2800 Lymph # (Auto) 1200 [place] # (Auto) 600 Eos # (Auto) 300 Baso # (Auto) 0 Platelet Estimate Decreased on smear RBC Morphology See below Polychromasia 1+ H Macrocytosis 1+ H Sodium 137 Potassium 3.7 Chloride 108 H Carbon Dioxide 25 BUN 12 Creatinine 0.70 Estimated GFR > 60.0 BUN/Creatinine Ratio 17.1 Glucose 104 H Calcium 8.6 Magnesium 1.7 Total Bilirubin 1.6 H Conjugated Bilirubin 0.0 Unconjugated Bilirubin 1.0 AST 61 H ALT 23 Alkaline Phosphatase 157 H Total Protein 7.1 Albumin 2.6 L Globulin 4.5 H Albumin/Globulin Ratio 0.6 L PFSH Medical History Alcoholism Ankle pain Anxiety Blindness Cataracts, bilateral Cirrhosis Closed left ankle fracture Foot pain H/O deep venous thrombosis Hearing loss Hepatitis C Peripheral vascular disease Postoperative wound infection Shoulder pain Skin problem Sleep apnea Venous stasis Vertigo Vision disorder Wound infection Surgical History Anesthesia H/O neck surgery History of surgery History of surgery of liver (~2018) S/P cataract extraction Family History Mother Cancer Hyperlipidemia Grandfather CVA (cerebral vascular accident) Grandfather Cancer Father Heart disease Hypertension Brother Hyperlipidemia Grandmother Liver disease Social History household members: family Smoking Status: Current every day smoker Tobacco: How many years used: 42 quit status: not considering quitting alcohol intake: current substance use type: does not use Assessment & Plan Assessment & Plan narrative: 55-year-old male with surgical wound infection approximately 3 weeks status post ORIF left ankle fracture. He has multiple comorbidities including but not limited to chronic peripheral vascular disease with venous stasis and history of prior DVT as well as poor nutrition and alcoholism. The patient developed cellulitis with his wound infection. Dr. Pelletier evaluated the patient stating that the plate could not be removed until t he fracture is healed. He recommended Bactrim for at least 2-6 weeks and absolutely no weight-bearing on his right lower extremity. Patient has shown improvement with his related local infection and may discharge from a surgical standpoint following up as planned for re-evaluation in clinic and possible staple removal. Quality VTE Deep Vein Thrombosis/Pulmonary Embolism Present on Admission: Yes
--- NOTE | 2020-09-29 12:00 | OT.IP.TRT ---
Current Diagnoses Cellulitis of left lower limb (09/25/20) Occupational Therapy Treatment Note M2 OT-IP Current Condition Start: 09/27/20 16:25 Freq: Status: Active Protocol: Document 09/27/20 16:25 CGR (Rec: 09/27/20 16:40 CGR [id number]) Occupational Therapy Current Condition Current Condition Evaluation Date 09/27/20 Treatment Diagnosis post op wound infection s/p ORIF repair LLE with plate. Diagnosis Onset Date 09/25/20 Weight Bearing Status Weight Bearing Status Partial Weight Bearing Allowed Weight Bearing Amount (enter % 50 lbs with walking boot or #) (%) donned M3 OT- IP Subjective and Pain Start: 09/27/20 16:25 Freq: Status: Active Protocol: Document 09/29/20 12:07 [facility] (Rec: 09/29/20 12:12 [facility] [id number]) OT- Subjective Occupational Therapy Visit Type Type Treatment Note Visit Start Time 11:50 Visit Stop Time 12:00 Total Visit Minutes 10 Occupational Therapy Visit Comments Patient Comments Pt not wanting to get dressed at this time and wanting to go home. Patient/Caregiver Goals TO go home. OT Pain Assessment Pain When Pain Assessed At Rest Pain Present Pain Present Pain Reported M4 OT- IP ADL's Start: 09/27/20 16:25 Freq: Status: Active Protocol: Document 09/29/20 12:07 [facility] (Rec: 09/29/20 12:12 [facility] [id number]) OT ADL-Bathing Comments OT Bathing Comments Suggested pt get a tub bench however pt states to just sponge off for now. M5 OT- IP IADL's Start: 09/27/20 16:25 Freq: Status: Active Protocol: Document 09/27/20 16:25 CGR (Rec: 09/27/20 16:40 CGR [id number]) OT-Instrumental Activities of Daily Living Deficits IADL Deficits Identified Deficits Home Safety Awareness Awareness of Need for Assistance at Home Decreased Awareness Ability to Problem Solve Emergency Unable to Problem Solve Situations Home Safety Comments pt with poor safety awareness and unable to maintain his WB without max vc and use of walker. Medication Management Medication Management Comments Concerns regarding pt's ability to perform safely Money Management Money Management Comments Concerns regarding pt's ability to perform safely Meal Preparation Meal Preparation Comments Concerns regarding pt's ability to perform safely Congressional Representative Congressional Representative Comments Concerns regarding pt's ability to perform safely Driving Driving Comments Concerns regarding pt's ability to perform safely M6 OT- IP Functional Cognition Start: 09/27/20 16:25 Freq: Status: Active Protocol: Document 09/29/20 12:07 [facility] (Rec: 09/29/20 12:12 [facility] [id number]) Cognitive Factors Limiting Selfcare Function Cognitive Comments Cognitive Assessment Comments Pt insistent that he will be able to care for himself and that hisparents will help if needed. Pt not open to getting a FWW here and to just get one from [facility]. M7 OT- IP Mobility and Balance Start: 09/27/20 16:25 Freq: Status: Active Protocol: Document 09/28/20 13:43 CGR (Rec: 09/28/20 14:02 CGR [id number]) OT-Transfer Assessment Sit to and From Stand Sit to and from Stand Contact Guard Assistance Transfers Transfer Ability Contact Guard Assistance Technique Transfer Destination Chair,Toilet Transfer Technique Stand Step Pivot Devices Transfer Assistive Devices Gait Belt,Front Wheeled Walker Comments Mobility Comments Pt was able to follow directions to use the walker and maintained NWB for all mobility. OT- Balance Assessment Sitting Balance and Reactions Static Sitting Balance Ability Good Dynamic Sitting Balance Ability Fair M8 OT- IP Objective Assessments Start: 09/27/20 16:25 Freq: Status: Active Protocol: Document 09/27/20 16:25 CGR (Rec: 09/27/20 16:40 CGR [id number]) OT Gross Range of Motion Upper Extremity Range of Motion Assessment Within Functional Limits OT Strength Upper Extremity Strength Assessment Within Functional Limits Comments Strength Comments 4+/5 OT- Coordination Assessment Upper Extremity Finger to Nose Test Within Functional Limits Finger Tapping Test Within Functional Limits OT-Muscle Tone Assessment Muscle Tone WNL Yes OT Sensation Assessment Edema Edema Absent M9 OT- IP Assessment and Plan Start: 09/27/20 16:25 Freq: Status: Active Protocol: Document 09/29/20 12:12 [facility] (Rec: 09/29/20 12:15 [facility] [id number]) OT Summary Assessment and Plan Potential Rehabilitation Potential Good Analytic Complexity at Evaluation Low Summary OT Impairments Balance,Functional Cognition, Functional Mobility,Grooming, Dressing,Toileting,Bathing, Toilet Transfers,Shower Transfers,Activity Tolerance Progress Towards Goals Slow Progress due to Medical Issues,Slow Progress due to Cognition Assessment Summary Pt has questionable insight to his needs and states, I will be okay at home otherwise i will just come back to the hospital. Pt able to say will just sponge bath for now and open to taking a urinal home. Continue to recommend SNF, but pt insistent on going home. Goals Grooming Goal Independent Dressing Goal Independent Toileting Goal Independent Bathing Goal Independent Toilet Transfer Goal Independent Shower Transfer Goal Independent Days to Meet Goals 15 Frequency of Treatment Frequency Of Treatment Once a Day Discharge Recommendations OT Discharge Recommendations SNF Rehab Home Equipment Needs tub transfer bench, fww, possibly w/c Transportation Needs at Discharge Private Vehicle
--- NOTE | 2020-09-29 12:48 | PT.IPTN ---
Current Diagnoses Cellulitis of left lower limb (09/25/20) Physical Therapy Treatment Note M2 PT-IP Current Condition Start: 09/26/20 17:54 Freq: NEEDED Status: Discharge Protocol: Document 09/26/20 16:00 AB (Rec: 09/26/20 18:24 AB [id number]) Physical Therapy Current Condition Current Condition Evaluation Date 09/26/20 Treatment Diagnosis LLE cellulitis; s/p L ankle ORIF; difficulty in walking Onset Date 09/25/20 Precautions Brace LLE walker boot Other Precautions Per Dr. Yoon's note: pt can put weight on LLE with walker boot at most 50#PWB. Weight Bearing Status Weight Bearing Status Partial Weight Bearing Allowed Weight Bearing Amount (enter % LLE: 50# PWB or #) (%) M3 PT-IP Subjective Start: 09/26/20 17:54 Freq: NEEDED Status: Discharge Protocol: Document 09/29/20 12:23 SP (Rec: 09/29/20 15:25 SP [id number]) Subjective Physical Therapy Visit Type Type Treatment Note Visit Start Time 12:23 Visit Stop Time 12:48 Total Visit Minutes 25 Number of ALTERATIONS TAILOR Visits 1 Physical Therapy Visit Comments Patient Comments Pt willing to work with therapy use of dispensed FWW pre DC. Therapy Pain Assessment Pain Present Pain Present Denied Pain M4 PT-IP Mobility and Gait Start: 09/26/20 17:54 Freq: NEEDED Status: Discharge Protocol: Document 09/29/20 12:23 SP (Rec: 09/29/20 15:25 SP [id number]) PT-Transfer Assessment Sit to and From Stand Sit to and from Stand Standby Assistance,Use of Upper Extremities Equipment Transfer Assistive Device Gait Belt,Front Wheeled Walker Orthotic/Prosthetic Devices or Brace: Yes Transfers Transfer Destination Chair Transfer Technique Pt ambulated using FWW Transfer Ability Level of Assist Standby Assistance,Use of Upper Extremities Comments Mobility Comments Pt was sitting up in chair when arrived. Pt donned boot self with no cuing for proper fit. Mother in room completed donning gait belt and caregiver training, sit<>stand sBA, gait w/ FWW SBA around room and back to chair approx 30 ft maintaining NWB LLE. Cued slow pacing for awarness of stability of FWW and backing up fWW fully prior to sitting for ease of UE transition. Pt refused further stair trng with use of crutches I will do fine and my mom can help, have been doing well self before coming here. ALTERATIONS TAILOR discussed and provided education of safety with pt and mom sequencing of crutches in RUE and use of L HR ascending with mom behind using GB for support required and staying in front descending. Gait Assessment Gait Gait Assistance Required: Standby Assistance Distance (Feet) 20 Able to Maintain Weight Bearing Status Yes During Gait Assistive Devices Assistive Device Gait Belt,Front Wheeled Walker Orthotic/Prosthetic Devices or Brace: Yes Gait Deviations General Gait Pattern Antalgic,Decreased Stride Length,Decreased Feet Clearance,Flexed Trunk,Step-to Gait Factors Limiting Gait Function Factors Limiting Gait Function Decreased Activity Tolerance, Decreased Strength,Limited Range of Motion,Poor Balance, Poor Safety Awareness Comments Gait Comments See mobility comments for details. Stair Climbing Assessment Comments Stair Climbing Comments Pt refused further stair mgt training this tx with his mother to assist pre DC. PT-Balance Assessment Sitting Balance and Reactions Static Sitting Balance Ability Good Dynamic Sitting Balance Ability Fair Standing Balance and Reactions Static Standing Balance Ability Fair Dynamic Standing Balance Ability Fair Device Used FWW M5 PT-IP Objective Assessments Start: 09/26/20 17:54 Freq: NEEDED Status: Discharge Protocol: Document 09/26/20 16:00 AB (Rec: 09/26/20 18:24 AB [id number]) Orientation Orientation/Cognition Level of Alertness Alert Orientation Name,Situation Safety Awareness Decreased Safety Awareness Gross Range of Motion Lower Extremity ROM Assessment Left Impaired Impairments L ankle NT due to recent ORIF Strength Comments Strength Comments L ankle NT due to recent ORIF M6 PT-IP Treatment Start: 09/26/20 17:54 Freq: NEEDED Status: Discharge Protocol: Document 09/29/20 12:23 SP (Rec: 09/29/20 15:25 SP [id number]) Physical Therapy Treatment Education Education Provided Weight Bearing Status,Safety Brace Education Karma Grayson,Patient M7 PT-IP Assessment and Plan Start: 09/26/20 17:54 Freq: NEEDED Status: Discharge Protocol: Document 09/29/20 12:23 SP (Rec: 09/29/20 15:25 SP [id number]) PT Summary Assessment and Plan Summary Impairments Pain,ROM,Strength,Balance, Coordination,Sensation,Tone, Cognition,Bed Mobility, Transfers,Gait,Activity Tolerance Progress Towards Goals Progressing Toward Goals,Slow Progress due to Activity Tolerance Assessment Summary Pt refused futher stair mgt training this tx I will be fine I have been doing this for while, completed healthcare marketer training with pt and mother on transfers, gait using dispensed FWW SBA. Provided safety education on proper sequencing stairs mgt with use of crutches and HR with gait belt. Pt is ok to discharge to home with 247 assistance available of his mother. Recommending HHPT for improving strength and functional mobility. Goals Bed Mobility Goal Independent Transfer Goal Independent,Crutches,Front Wheeled Walker Gait Goal Independent,Crutches,Front Wheel Walker Gait Distance 50 Other Goals up/down 1 steps using crutches / FWW SBA Days to Meet Goals 10 Frequency of Treatment Frequency Of Treatment Twice a Day Treatment Plan Physical Therapy Treatment Plan Bed Mobility Training,Transfer Training,Gait Training, Therapeutic Exercise,Balance Retraining,Post Op Education, Discharge Planning,Hot or Cold Pack,Neuromuscular Re-ed Other Recommendations and Next Treatment Continue gait training use of Focus FWW NWB LLE. Precautions Brace LLE western walker boot Other Precautions Per Dr. Yoon's note: pt can put weight on LLE with walker boot at most 50#PWB. Recommendations To Nursing Amount of Assist Needed Standby Assistance Discharge Recommendations PT Discharge Recommendations Home with 24/ Assist Available,Home Health Equipment Needed for Home Before Dispensed FWW this tx. Discharge Transportation Needs at Discharge Private Vehicle
--- NOTE | 2020-09-29 13:28 | PC.NURSE ---
Pt discharge education given, discussed- activity, weight measures, medications, s/s of infection, f/u appts, s/s of stroke, reasons to seek medical attention. Went over when to start prescribed medications. IV removed, intact, tolerated well. All questions answered. Pt packed all belongings and dressed with assistance of MANUSCRIPTS ARCHIVIST. Left via w/c to POV in Emergency parking lot.
--- NOTE | 2020-09-29 21:10 | P.DS_ITS ---
History of Present Illness History of Present Illness Chief complaint: left left surgery wound draining green stuff Narrative: per Daily [facility]ers H and P on 09/26/20: Patient is a 55-year-old male Santi Colindres presented to the ED with a chief complaint of infection in his ankle left ankle. Patient states that Dr. Pelletier performed his surgery 3-4 weeks ago in [place] left ankle fracture repair. By his description likely their outpatient surgical site. Patient states since then he followed up on Monday. He was told that they may need to take him to the OR for surgery to wash it out. They put him on Keflex orally. Patient comes in this evening, he states that there is a wound on the side of his foot that is been draining fluid. Patient denies fevers, body aches, chills, chest pain, shortness of breath, nausea vomiting. No other GI or urinary symptoms. He is unclear if the redness of his lower extremity is increasing over time but I suspect it is. He states he did have a DVT in that lower extremity, he had an ultrasound in June which was negative for DVT. He has some persistent numbness over the dorsum of his foot, he is unsure if that was immediately post surgical or new. He is able to wiggle his toes and has been weight-bearing in a walking boot. He has a wound on the inner foot, there is some drainage. Patient states he does continue to drink alcohol, he states he has been treated for his hepatitis-C and has been cured. Patient has a history bilateral cataracts, blindness, alcoholic cirrhosis, hep C-treated?, peripheral vascular disease, venous stasis, history of DVT and sleep apnea. Patient's vitals upon admit 98.5, BP 171/81, HR 70, RR is 18, 93% on room air. Labs WBC 4.2, RBC 3.53, HGB 13, HCT 37.3, PLT 43, +1 microcytosis, BUN 5, glucose 108, bili 1.6, AST 93, alk-phos 203, ESR 59, total protein 8.3, albumin 3.4. Vascular ultrasound:No evidence of deep venous thrombosis in the left lower extremity Soft tissue edema. Left ankle x-ray:Trimalleolar fracture, status post open reduction internal fixation of the fibula and medial malleolus. Discharge Providers Provider Date of admission: 09/25/20 23:46 Discharge Date: 09/29/20 Primary care physician: Mert Miller DO Consults: 09/25/20 23:52 Consult to Dietitian, Adult Routine Comment: Reason For Exam: Alcohol abuse 09/26/20 04:29 Consult to Orthopedic Surgery Routine Comment: Consulting Provider: Antonio Dumont Reason for consultation: Postop cellulitis Has provider been notified: No 09/26/20 04:31 Consult to Orthopedic Surgery Routine Comment: Consulting Provider: Poornima Yoon Reason for consultation: Postop ORIF cellulitis Has provider been notified: Yes 09/26/20 09:18 Consult to Physical Therapy Evaluate & Treat Comment: use walker boot, 50lbs left lower extremity Physician Instructions: Evaluate and Treat 09/27/20 10:36 Consult to Occupational Therapy Evaluate & Treat Comment: Physician Instructions: Evaluate and treat 09/27/20 10:44 Consult to Discharge Planning Routine Comment: per PT: pt needs a FWW at d/c 09/29/20 12:31 Consult to Physical Therapy Evaluate & Treat Comment: Physician Instructions: FWW for home use Discharge provider: Justin Lujan MD Summary Hospital Course Discharge Diagnosis: 1. Cellulitis of left ankle 2. Alcoholic cirrhosis 3. Chronic alcohol abuse 4. Peripheral vascular disease 5. Tobacco abuse 6. Thrombocytopenia 7. Alcohol withdrawal Hospital Course: Mr. Kirby was admitted after a recent ORIF repair for a trimalleolar fracture, surgery on 09/08 with plate placement. He was found to have a wound infection with cultures growing E. coli, Acinetobacter, and Enterococcus. Discussion was had with ID who recommended Bactrim and Augmentin for coverage for which he will need at least 2 weeks antibiotics, but may need 6 weeks and will need close orthopedic follow for possible washout of the wound and consideration of plate removal. He was also noted to have thrombocytopenia with platelets down to 23, no evidence of bleeding. It was thought secondary to his cirrhosis and active infection, and it was rising to 27 on discharge. This should be followed as an outpatient for further monitoring. He was offered home health services for wound care or PT and he declined. His other medical issues remained stable, he did received education for alcohol and tobacco abuse. Status at Discharge Cognitive/behavioral status at discharge: oriented Functional status at discharge: uses cane/walker Overall status at discharge: patient is progressing back to baseline Time Spent with Patient Time spent: Greater than 30 minutes Time spent discussing smoking cessation with patient: 3 to 10 minutes Exam Vital Signs (past 8 hours): Oxygen Delivery Method Room Air Oxygen Flow Rate 0 Narrative Exam Narrative: General: ppears older than his stated age. in no distress at this time HEENT: Normocephalic, atraumatic, extraocular muscles intact, oral pharynx is clear and mucous membranes are moist. Neck is supple and symmetric, trachea is midline, nontender, no masses palpated. Chest: Normal AP diameter and contour without kyphoscoliosis, no nasal flaring, retractions, or tachypneic labored Lungs: Auscultation of all lung bower mild expiratory wheezing, no rhonchi or rales, lung sounds decreased bilaterally but equal. Cardio: S1 & S2 with regular rate and rhythm without murmur, rubs, or gallops, no carotid bruit, no cardiac pulsations present. Abdomen: Soft nontender, negative for organomegaly, or masses. Bowel sounds are present in all 4 quadrants without guarding or rebound, no CVA tenderness. Musculoskeletal: Patient has an incision on the medial ankle on the L, with improved erythema, induration and swelling. Now fairly minimal and predominantly chronic venous stasis changes. Neuro: Alert and orientated x3, strength is +5/5 in all extremities, sensation to touch intact, no gross deficits noted of cranial nerves. Psych: Patient has a poorly kept appearance, but calm, cooperative, and stable behavior since arrival. Objective Labs Result Diagrams: 09/29/20 05:20 09/29/20 05:20 Labs: Laboratory Results - last 24 hr 09/29/20 09/29/20 05:20 05:20 WBC 4.9 RBC 3.26 L Hgb 11.5 L Hct 34.7 L MCV 106.5 H MCH 35.4 H MCHC 33.3 RDW 13.9 Plt Count 27 L* Neut % (Auto) 57.5 Lymph % (Auto) 24.5 L Clayton % (Auto) 12.1 Eos % (Auto) 5.2 H Baso % (Auto) 0.7 Neut # (Auto) 2800 Lymph # (Auto) 1200 Clayton # (Auto) 600 Eos # (Auto) 300 Baso # (Auto) 0 Platelet Estimate Decreased on smear RBC Morphology See below Polychromasia 1+ H Macrocytosis 1+ H Sodium 137 Potassium 3.7 Chloride 108 H Carbon Dioxide 25 BUN 12 Creatinine 0.70 Estimated GFR > 60.0 BUN/Creatinine Ratio 17.1 Glucose 104 H Calcium 8.6 Magnesium 1.7 Total Bilirubin 1.6 H Conjugated Bilirubin 0.0 Unconjugated Bilirubin 1.0 AST 61 H ALT 23 Alkaline Phosphatase 157 H Total Protein 7.1 Albumin 2.6 L Globulin 4.5 H Albumin/Globulin Ratio 0.6 L PFSH Medical History Alcoholism Ankle pain Anxiety Blindness Cataracts, bilateral Cirrhosis Closed left ankle fracture Foot pain H/O deep venous thrombosis Hearing loss Hepatitis C Peripheral vascular disease Postoperative wound infection Shoulder pain Skin problem Sleep apnea Venous stasis Vertigo Vision disorder Wound infection Surgical History Anesthesia H/O neck surgery History of surgery History of surgery of liver (~2017) S/P cataract extraction Family History Mother Cancer Hyperlipidemia Grandfather CVA (cerebral vascular accident) Grandfather Cancer Father Heart disease Hypertension Brother Hyperlipidemia Grandmother Liver disease Social History household members: family Smoking Status: Current every day smoker Tobacco: How many years used: 42 quit status: not considering quitting alcohol intake: current substance use type: does not use Discharge Plan Discharge Plan Patient Disposition: Home Provider Discharge Comment: Mr. Kirby was admitted with an infection of his foot at a recent surgery site. He had evaluation by surgery who determined he did not need any surgery. He was recommended to be on at least two weeks of antibiotics, for which he was given Augmentin and Bactrim, for an infection with multiple bacteria. He should follow up with his surgeon and PCP and he may need to be on antibiotics for a longer time period depending on his follow up. Discharge orders & Medications Prescriptions: New folic acid 1 mg Tablet 1 mg PO DAILY Qty: 30 RF: 0 multivitamin with folic acid [Tab-A-Gretchen] 400 mcg Tablet 1 tab PO DAILY Qty: 30 RF: 0 amoxicillin-pot clavulanate [Augmentin] 875-125 mg tablet 1 tab PO Q12H Qty: 14 RF: 0 sulfamethoxazole-trimethoprim [Bactrim DS] 800-160 mg tablet 1 tab PO Q12H Qty: 14 RF: 0 Continued fluticasone propionate 50 mcg/actuation spray,suspension 1 spray NASAL DAILY RF: 0 gabapentin 300 mg capsule 300 mg PO BID RF: 0 ibuprofen 800 mg tablet 400 mg PO TID PRN (Reason: pain) RF: 0 Follow up/Referrals: Mert Miller, [Primary Care Provider] - Discharge Health Status Multidrug resistant organism: No MDRO Diet/Activity/Treatments Diet: Regular Visit Report/Discharge Packet Instructions: Surgical Site Infection Discharge Data Primary Care Provider: Mert Miller Quality VTE Deep Vein Thrombosis/Pulmonary Embolism Present on Admission: Yes
== END 2020-09-29 13:29 | disposition home or self-care (01) | DRG 863 ==
LOC: ED 23:42 → ICU 09-26 14:41 → AC 09-27 11:11 → ICU 09-27 11:11 → AC 09-28 06:06
PROVIDERS: Internal Medicine; Admitting Provider Nurse Practitioner Family; Emergency Provider Emergency Medicine; PCP Family Medicine; Referring Provider Orthopaedic Surgery; Visit Provider Nurse Practitioner Family
DX: T81.41XA Infection following a procedure, superficial incisional surgical site, initial encounter (principal); L03.116 Cellulitis of left lower limb; F10.239 Alcohol dependence with withdrawal, unspecified; K70.30 Alcoholic cirrhosis of liver without ascites; D69.59 Other secondary thrombocytopenia; I87.8 Other specified disorders of veins; G89.29 Other chronic pain; M79.606 Pain in leg, unspecified; I73.9 Peripheral vascular disease, unspecified; B95.2 Enterococcus as the cause of diseases classified elsewhere; B96.20 Unspecified Escherichia coli [E. coli] as the cause of diseases classified elsewhere; B96.89 Other specified bacterial agents as the cause of diseases classified elsewhere; Z71.3 Dietary counseling and surveillance
CPT/HCPCS: 36415; 36592; 73610; 80048; 80053; 80076; 80202; 83036; 83735; 84100; 84145; 85025; 85610; 85651; 85730; 86140; 86900; 86901; 87040; 87070; 87075; 87077; 87186; 87205; 87635; 87797; 93971; 96365; 96366; 96375; 97116; 97129; 97162; 97165; 97530; 97535; 99284; 99406; J0295; J0692; J1630; J1885; J2543

== ENCOUNTER → 2020-12-02 10:27 | Outpatient (CLI) | payer MEDICARE, SELFPAY ==
[2020-09-26 00:24] VITALS: BMI 35.2
[2020-12-02 11:15] LABS: Add Manual Diff / Slide Review NO; Basophils Absolute Auto 0 /uL (0-100); Basophils Percent Auto 1.2 % (0-2); Eosinophils Absolute Auto 100 /uL (0-450); Eosinophils Percent Auto 2.3 % (2-4); Hemoglobin 11.9 g/dL (13.5-17.5); Lymphocytes Absolute Auto 900 /uL (1100-4500); Lymphocytes Percent Auto 24.8 % (25-40); Mean Corpuscular HGB Conc 34.1 % (30-36); Mean Corpuscular Hemoglobin 35.7 PG (26-34); Mean Corpuscular Volume 104.9 fL (80-100); Monocytes Absolute Auto 700 /uL (0-900); Neutrophils Absolute Auto 1800 /uL (1500-7000); Neutrophils Percent Auto 52.7 % (50-75); Platelet Count 47 X10^3/uL (150-400); Red Blood Cell Count 3.33 X10^6/uL (4.5-5.9); Red Cell Distribution Width 16.3 % (11.6-14.8); White Blood Cell Count 3.5 X10^3/uL (4.5-11.0)
[2020-12-02 11:25] LABS: Alanine Aminotransferase 61 IU/L (<50); Albumin 3.4 g/dL (3.5-5.0); Albumin Globulin Ratio 0.7 (1.0-2.8); Alkaline Phosphatase 248 U/L (38-126); Aspartate Aminotransferase 164 IU/L (17-59); BUN Creatinine Ratio 9.1 (6-22); Bilirubin Total 2.1 mg/dL (0.2-1.3); Blood Urea Nitrogen 8 mg/dL (9-20); Carbon Dioxide 24 mmol/L (22-32); Chloride 105 mmol/L (98-107); Estimated Glomerular Filt Rate > 60.0 mL/min (>60); Globulin 5.2 g/dL (1.7-4.1); Glucose 123 mg/dL (70-100); HEMOLYSIS < 15 (0-50); Potassium 4.6 mmol/L (3.4-5.1); Sodium 136 mmol/L (137-145); Total Protein 8.6 g/dL (6.3-8.2)
== END ==
PROVIDERS: PCP Family Medicine; Referring Provider Family Medicine; Visit Provider Family Medicine
DX: D69.6 Thrombocytopenia, unspecified (principal); I73.9 Peripheral vascular disease, unspecified; T81.49XA Infection following a procedure, other surgical site, initial encounter
CPT/HCPCS: 36415; 80053; 85025

== ENCOUNTER → 2020-12-23 13:48 | Outpatient (CLI) | payer MEDICARE, OTHER, MEDICAID, SELFPAY ==
[2020-09-26 00:24] VITALS: BMI 35.2
--- NOTE | 2020-12-23 | DI.CT.S_ITS ---
PROCEDURE: CT ABDOMEN WO/W CON INDICATIONS: Alcoholic cirrhosis of liver without ascites TECHNIQUE: 4 phase scanning was performed. Non-contrast 5 mm axial sections acquired from the diaphragm to the iliac crests. Following the administration of intravenous contrast, 5 mm thick arterial-phase, portal venous-phase, and 5-minute delayed phase images were acquired through the liver. 5 mm thick coronal and sagittal reformats were performed. For radiation dose reduction, the following was used: automated exposure control, adjustment of mA and/or kV according to patient size. COMPARISON: [facility], CT, CT ABDOMEN PELVIS W CON, 11/28/2019, 13:28. FINDINGS: Image quality: Excellent. Lung bases: Lung bases are clear. Heart size is normal. Liver: There is asymmetric morphology at the liver, with asymmetric enlargement of the left hepatic lobe and relatively small right hepatic lobe with capsular margination that is nodular involving both the right and left liver. A hepatic mass lesion has not developed. Mild increased varices along the liver margins appear present. Other solid organs: Gallbladder the gallbladder is not found to contain identifiable calcific gallstones at this time. Bile ducts are not distended. The superior mesenteric vein appears mildly prominent likely indicating a degree of portal hypertension. Varices are found within the retroperitoneum with mild retroperitoneal edema to a slightly greater degree than previously present in November.. Biliary system is non dilated. Pancreas is normal in morphology. Spleen is mildly enlarged in size at 15 cm craniocaudad and enhancement. No adrenal nodules. Both kidneys demonstrate normal size and enhancement, without hydronephrosis or nephrolithiasis. Nodes and vessels: No retroperitoneal or mesenteric adenopathy by size criteria. Aorta and inferior vena cava are normal in size. Bowel and peritoneum: Unenhanced bowel loops are normal in caliber. No free fluid or air. Bones: No suspicious bony lesions. No vertebral body compression fractures. Miscellaneous: No ventral hernias. IMPRESSION: Cirrhosis with evidence of early portal hypertensio 15 cm. n, but without ascites at this time. Retroperitoneal varices are present, slightly more prominent than on the prior study from November of , and the current examination shows a small degree of interval increased retroperitoneal varices. There is no sign of pancreatitis or biliary obstruction. Mild splenomegaly with a craniocaudad length of the liver Dictated by: Marco Anaya M.D. on 12/23/2020 at 16:33 Approved by: Marco Anaya M.D. on 12/23/2020 at 16:39
[2020-12-23 14:35] LABS: Blood Urea Nitrogen 6 mg/dL (9-20); Estimated Glomerular Filt Rate > 60.0 mL/min (>60)
== END ==
PROVIDERS: PCP Family Medicine; Referring Provider Internal Medicine Gastroenterology; Visit Provider Internal Medicine Gastroenterology
DX: K70.30 Alcoholic cirrhosis of liver without ascites (principal); R77.2 Abnormality of alphafetoprotein; R16.1 Splenomegaly, not elsewhere classified
CPT/HCPCS: 36415; 74170; 82565; 84520; Q9967

== ENCOUNTER → 2021-03-04 14:13 | Outpatient (CLI) | payer MEDICARE, MEDICAID, SELFPAY ==
[2020-09-26 00:24] VITALS: BMI 35.2
[2021-03-05 06:07] LABS: Alpha Fetoprotein 10.1 ng/mL (0.0-8.3)
== END ==
PROVIDERS: PCP Family Medicine; Referring Provider Internal Medicine Gastroenterology; Visit Provider Internal Medicine Gastroenterology
DX: R77.2 Abnormality of alphafetoprotein (principal)
CPT/HCPCS: 36415; 82105

== ENCOUNTER → 2021-03-05 13:59 | Outpatient (CLI) | payer MEDICARE, MEDICAID, SELFPAY ==
[2021-03-04 14:05] VITALS: BMI 35.2
[2021-03-05 14:26] LABS: Add Manual Diff / Slide Review NO; Basophils Absolute Auto 100 /uL (0-100); Basophils Percent Auto 2.5 % (0-2); Eosinophils Absolute Auto 100 /uL (0-450); Eosinophils Percent Auto 2.8 % (2-4); Hematocrit 38.7 % (41-53); Lymphocytes Absolute Auto 1000 /uL (1100-4500); Lymphocytes Percent Auto 30.5 % (25-40); Mean Corpuscular HGB Conc 33.6 % (30-36); Mean Corpuscular Hemoglobin 35.4 PG (26-34); Mean Corpuscular Volume 105.3 fL (80-100); Monocytes Absolute Auto 400 /uL (0-900); Neutrophils Absolute Auto 1800 /uL (1500-7000); Neutrophils Percent Auto 52.2 % (50-75); Red Blood Cell Count 3.68 X10^6/uL (4.5-5.9); Red Cell Distribution Width 13.7 % (11.6-14.8); White Blood Cell Count 3.4 X10^3/uL (4.5-11.0)
[2021-03-05 14:34] LABS: Platelet Count 45 X10^3/uL (150-400)
[2021-03-05 14:37] LABS: INR 1.3 (0.9-1.3); Prothrombin Time 14.8 SECONDS (10.1-12.7)
[2021-03-05 14:47] LABS: Alanine Aminotransferase 44 IU/L (<50); Albumin 3.7 g/dL (3.5-5.0); Albumin Globulin Ratio 0.7 (1.0-2.8); Alkaline Phosphatase 160 U/L (38-126); Amylase 84 U/L (30-110); Aspartate Aminotransferase 155 IU/L (17-59); BUN Creatinine Ratio 5.9 (6-22); Bilirubin Total 2.5 mg/dL (0.2-1.3); Bilirubin Unconjugated 1.2 mg/dL (0.0-1.1); Blood Urea Nitrogen 5 mg/dL (9-20); Carbon Dioxide 28 mmol/L (22-32); Chloride 107 mmol/L (98-107); Estimated Glomerular Filt Rate > 60.0 mL/min (>60); Globulin 5.1 g/dL (1.7-4.1); Glucose 116 mg/dL (70-100); HEMOLYSIS < 15 (0-50); Lipase 214 U/L (23-300); Potassium 3.9 mmol/L (3.4-5.1); Sodium 145 mmol/L (137-145); Total Protein 8.8 g/dL (6.3-8.2)
== END ==
PROVIDERS: Nurse Practitioner Family; PCP Family Medicine; Referring Provider Family Medicine; Visit Provider Family Medicine
DX: F10.10 Alcohol abuse, uncomplicated (principal); K74.60 Unspecified cirrhosis of liver
CPT/HCPCS: 36415; 80053; 80076; 82150; 83690; 85025; 85610

== ENCOUNTER → 2021-03-09 10:00 | Outpatient (CLI) | payer MEDICARE, MEDICAID, SELFPAY ==
[2021-03-04 14:05] VITALS: BMI 35.2
[2021-03-11 10:49] LABS: Vitamin B12 Reflex MMA if <400 968 pg/mL (239-931)
== END ==
PROVIDERS: PCP Family Medicine; Visit Provider Nurse Practitioner Family
DX: R77.9 Abnormality of plasma protein, unspecified (principal); D53.9 Nutritional anemia, unspecified; F10.10 Alcohol abuse, uncomplicated
CPT/HCPCS: 82607

== ENCOUNTER → 2021-03-10 11:44 | Outpatient (CLI) | payer MEDICARE, MEDICAID, SELFPAY ==
[2021-03-04 14:05] VITALS: BMI 35.2
[2021-03-10 13:57] LABS: Alanine Aminotransferase 36 IU/L (<50); Albumin 3.2 g/dL (3.5-5.0); Albumin Globulin Ratio 0.6 (1.0-2.8); Alkaline Phosphatase 132 U/L (38-126); Aspartate Aminotransferase 106 IU/L (17-59); BUN Creatinine Ratio 10.7 (6-22); Bilirubin Total 4.9 mg/dL (0.2-1.3); Blood Urea Nitrogen 8 mg/dL (9-20); Carbon Dioxide 27 mmol/L (22-32); Chloride 105 mmol/L (98-107); Estimated Glomerular Filt Rate > 60.0 mL/min (>60); Glucose 144 mg/dL (70-100); HEMOLYSIS < 15 (0-50); Potassium 3.8 mmol/L (3.4-5.1); Sodium 138 mmol/L (137-145); Total Protein 8.2 g/dL (6.3-8.2)
== END ==
PROVIDERS: PCP Family Medicine; Referring Provider Nurse Practitioner Family; Visit Provider Nurse Practitioner Family
DX: F10.10 Alcohol abuse, uncomplicated (principal); Z91.89 Other specified personal risk factors, not elsewhere classified
CPT/HCPCS: 36415; 80053

== ENCOUNTER → 2021-03-16 12:03 | Outpatient (CLI) | payer MEDICARE, MEDICAID, SELFPAY ==
[2021-03-04 14:05] VITALS: BMI 35.2
--- NOTE | 2021-03-16 12:04 | DI.US.S_ITS ---
PROCEDURE: US PERIPH VENOUS LOW EXTREM BI INDICATIONS: LEG SWELLING TECHNIQUE: Real-time imaging, as well as color and pulse Doppler interrogation, were performed of the deep veins of both legs from the inguinal ligament to the popliteal fossa. COMPARISON: None. FINDINGS: Right: The common femoral, femoral and popliteal veins are normally compressible, and free of intraluminal thrombus. Color and pulse Doppler demonstrate normal phasic intravascular flow. There is normal augmentation response to distal compression maneuver. Possible superficial venous insufficiency. Left: The common femoral, femoral and popliteal veins are normally compressible, and free of intraluminal thrombus. Color and pulse Doppler demonstrate normal phasic intravascular flow. There is normal augmentation response to distal compression maneuver. Possible superficial venous insufficiency. Left Angelo's cyst measuring up to 3.9 cm. Multiple left groin lymph nodes, largest measuring up to 1.0 cm. IMPRESSION: No deep venous thrombosis identified within either the left or right lower extremities. Possible superficial venous reflux. If indicated, venous reflux duplex examination could be performed. Angelo's cyst measuring up to 3.9 cm on the left. Mildly enlarged left groin lymph nodes with the largest measuring up to 1.0 cm. Recommend clinical correlation and management. Dictated by: Amrit Marsh [facility] Interpreted: Dara Ulloa MD on 03/16/2021 at 12:59 Transcribed by: ALBERTO on 03/16/2021 at 13:02 Approved by: Dara Ulloa M.D. on 03/16/2021 at 13:30
== END ==
PROVIDERS: PCP Family Medicine; Referring Provider Nurse Practitioner Family; Visit Provider Nurse Practitioner Family
DX: R60.0 Localized edema (principal); M71.22 Synovial cyst of popliteal space [Baker], left knee; R59.0 Localized enlarged lymph nodes
CPT/HCPCS: 93970

== ENCOUNTER → 2021-04-26 11:48 | Outpatient (CLI) | payer MEDICARE, MEDICAID, SELFPAY ==
[2021-03-04 14:05] VITALS: BMI 35.2
[2021-04-26 12:35] LABS: Add Manual Diff / Slide Review NO; Basophils Absolute Auto 0 /uL (0-100); Basophils Percent Auto 0.5 % (0-2); Eosinophils Absolute Auto 100 /uL (0-450); Eosinophils Percent Auto 1.6 % (2-4); Hematocrit 36.1 % (41-53); Hemoglobin 12.5 g/dL (13.5-17.5); Lymphocytes Absolute Auto 800 /uL (1100-4500); Lymphocytes Percent Auto 17.2 % (25-40); Mean Corpuscular HGB Conc 34.5 % (30-36); Mean Corpuscular Hemoglobin 36.9 PG (26-34); Mean Corpuscular Volume 107.1 fL (80-100); Monocytes Absolute Auto 800 /uL (0-900); Monocytes Percent Auto 16.4 % (3-14); Neutrophils Absolute Auto 3000 /uL (1500-7000); Neutrophils Percent Auto 64.3 % (50-75); Platelet Count 56 X10^3/uL (150-400); Red Blood Cell Count 3.37 X10^6/uL (4.5-5.9); Red Cell Distribution Width 15.4 % (11.6-14.8); White Blood Cell Count 4.7 X10^3/uL (4.5-11.0)
[2021-04-26 12:39] LABS: INR 1.8 (0.9-1.3); Prothrombin Time 20.6 SECONDS (10.1-12.7)
[2021-04-26 12:48] LABS: Alanine Aminotransferase 39 IU/L (<50); Albumin 3.6 g/dL (3.5-5.0); Albumin Globulin Ratio 0.7 (1.0-2.8); Alkaline Phosphatase 161 U/L (38-126); Aspartate Aminotransferase 105 IU/L (17-59); BUN Creatinine Ratio 15.6 (6-22); Bilirubin Total 7.6 mg/dL (0.2-1.3); Blood Urea Nitrogen 12 mg/dL (9-20); Carbon Dioxide 25 mmol/L (22-32); Chloride 101 mmol/L (98-107); Estimated Glomerular Filt Rate > 60.0 mL/min (>60); Globulin 5.3 g/dL (1.7-4.1); Glucose 102 mg/dL (70-100); HEMOLYSIS < 15 (0-50); Potassium 3.5 mmol/L (3.4-5.1); Sodium 136 mmol/L (137-145); Total Protein 8.9 g/dL (6.3-8.2)
== END ==
PROVIDERS: PCP Family Medicine; Referring Provider Internal Medicine Gastroenterology; Visit Provider Internal Medicine Gastroenterology
DX: K42.9 Umbilical hernia without obstruction or gangrene (principal); I85.00 Esophageal varices without bleeding; R18.8 Other ascites; K70.30 Alcoholic cirrhosis of liver without ascites
CPT/HCPCS: 36415; 80053; 85025; 85610

== ENCOUNTER → 2021-05-10 12:34 | Outpatient (CLI) | payer MEDICARE, MEDICAID, SELFPAY ==
[2021-03-04 14:05] VITALS: BMI 35.2
--- NOTE | 2021-05-10 | DI.US.S_ITS ---
PROCEDURE: US ABDOMEN COMPLETE INDICATIONS: CIRRHOSIS TECHNIQUE: Real-time scanning was performed of the abdominal and retroperitoneal organs, with image documentation. COMPARISON: None. FINDINGS: Liver: Liver is normal in size and homogeneous in echotexture. Liver is diffusely echogenic. Liver has nodular margins. No focal nodules identified within the hepatic parenchyma. There is severe hepatic architectural distortion. No flow is identified within the main portal vein. Gallbladder: Gallbladder is sonographically normal. No gallstones. No gallbladder wall thickening. No pericholecystic fluid. No sonographic Lee sign. Biliary ducts: Intrahepatic bile ducts are non-dilated. Extrahepatic bile duct caliber measures 4.1 mm. Normal is 6-7 mm or less in diameter, or 10 mm or less post-cholecystectomy. Pancreas: Obscured by bowel gas and cannot be evaluated. Spleen: Spleen is normal in size and homogeneous in echotexture. Kidneys: Kidneys are normal in size and echotexture. Right kidney measures 11.7 cm long; left kidney measures 11.9 cm long. No hydronephrosis or nephrolithiasis. No solid masses. Aorta: Not visualized due to bowel gas and cannot be evaluated. Iliacs: Not visualized due to bowel gas and cannot be evaluated IVC: Intrahepatic inferior vena cava is patent. Miscellaneous: Moderate amount of ascites. IMPRESSION: 1. Hepatic cirrhosis. 2. Moderate amount of ascites. 3. Absence of flow in the main portal vein highly suspicious for thrombosis. Findings telephoned to Dr. Misael Nunes on the 05/10/2021 at 3:53 p.m.. Dictated by: Nori Henson MD, PhD on 05/10/2021 at 16:00 Approved by: Nori Henson MD, PhD on 05/10/2021 at 16:05
== END ==
PROVIDERS: PCP Family Medicine; Referring Provider Internal Medicine Gastroenterology; Visit Provider Internal Medicine Gastroenterology
DX: K70.31 Alcoholic cirrhosis of liver with ascites (principal)
CPT/HCPCS: 76700

== ENCOUNTER → 2021-05-17 13:00 | Outpatient (CLI) | payer MEDICARE, MEDICAID, SELFPAY ==
[2021-03-04 14:05] VITALS: BMI 35.2
--- NOTE | 2021-05-17 | DI.US.S_ITS ---
PROCEDURE: PERIP VENOUS LOW EXTREM LT INDICATIONS: RULE OUT DVT TECHNIQUE: Real-time imaging, as well as color and pulse Doppler interrogation, were performed of the lower extremity deep veins from the inguinal ligament to the popliteal fossa. COMPARISON: [facility], [facility] VENOUS LOW EXTREM BI, 03/16/2021, 12:22. [facility], PERIP VENOUS LOW EXTREM LT, 09/25/2020, 22:30. FINDINGS: The common femoral, femoral and popliteal veins are normally compressible, and free of intraluminal thrombus. Color and pulse Doppler demonstrate normal phasic intraluminal flow. There is normal augmentation response to distal compression maneuver. IMPRESSION: No deep venous thrombosis. Dictated by: Dara Ulloa M.D. on 05/17/2021 at 14:51 Approved by: Dara Ulloa M.D. on 05/17/2021 at 15:25
== END ==
PROVIDERS: PCP Family Medicine; Referring Provider Physician Assistant Medical; Visit Provider Physician Assistant Medical
DX: M79.662 Pain in left lower leg (principal); S82.852D Displaced trimalleolar fracture of left lower leg, subsequent encounter for closed fracture with routine healing; M79.89 Other specified soft tissue disorders
CPT/HCPCS: 93971

== ENCOUNTER → 2021-05-31 11:41 | Outpatient (CLI) | payer MEDICARE, MEDICAID, SELFPAY ==
[2021-03-04 14:05] VITALS: BMI 35.2
[2021-05-31 14:24] LABS: COVID19 -Nasal RAPID Negative (Negative)
== END ==
PROVIDERS: PCP Family Medicine; Referring Provider Nurse Practitioner Family; Visit Provider Nurse Practitioner Family
DX: Z20.822 Contact with and (suspected) exposure to COVID-19 (principal)
CPT/HCPCS: 87635; C9803

== ENCOUNTER 2021-06-01 06:30 | Day surgery (SDC) | payer MEDICARE, MEDICAID, SELFPAY ==
[2021-03-04 14:05] VITALS: BMI 35.2
[2021-06-01] VITALS (8 sets, daily range): BP systolic 116–147; BP diastolic 73–94; PULSE 78–94; RESP 15–20; TEMP 36.4–36.7; O2SAT 97–100; BMI 35.9
[2021-06-01] MEDS: SODIUM CHLORIDE 0.9% 1,000 ML 84 ML IV (07:24)
--- NOTE | 2021-06-01 07:58 | PM.HP.1 ---
History of Present Illness History of Present Illness Date Patient Seen: 06/01/21 Time Patient Seen: 07:58 Chief complaint: [facility] Patient History Medical History Alcoholism Ankle pain Anxiety Blindness Cataracts, bilateral Cirrhosis Closed left ankle fracture Elevated serum protein level Esophageal varices Foot pain GERD (gastroesophageal reflux disease) H/O deep venous thrombosis Hearing loss Hepatitis C Lower extremity edema Macrocytic anemia Peripheral vascular disease Portal vein thrombosis Postoperative wound infection Shoulder pain Skin problem Sleep apnea Thrombocytopenia Umbilical hernia Venous stasis Vertigo Vision disorder Wound infection Surgical History Anesthesia H/O neck surgery History of surgery History of surgery of liver (~2017) S/P cataract extraction Family & Social History Family History Mother Cancer Hyperlipidemia Grandfather CVA (cerebral vascular accident) Grandfather Cancer Father Heart disease Hypertension Brother Hyperlipidemia Grandmother Liver disease Social History: household members family Tobacco & Substance use: Tobacco type cigarettes Smoking Status Current every day smoker alcohol intake current alcohol intake frequency 3 or more drinks per day Substance Use Type marijuana Meds Home Medications and Allergies Home Medications Medication Instructions Recorded Confirmed Type fluticasone propionate 50 1 spray NASAL DAILY 08/10/18 06/01/21 History mcg/actuation nasal spray,suspension ibuprofen 800 mg tablet 400 mg PO TID PRN #90 tab 01/07/21 06/01/21 Rx omeprazole 20 mg capsule,delayed 20 mg PO DAILY cap 03/10/21 06/01/21 History release gabapentin 300 mg capsule 300 mg PO TID #100 cap 04/16/21 06/01/21 Rx furosemide 20 mg tablet 20 mg PO DAILY #30 tab 05/07/21 06/01/21 Rx multivitamin with folic acid 400 1 tab PO DAILY #30 tab 05/07/21 06/01/21 Rx mcg tablet (Tab-A-Gretchen) spironolactone 50 mg tablet 50 mg PO DAILY #30 tab 05/07/21 05/25/21 Rx Allergies Allergy/AdvReac Type Severity Reaction Status Date / Time nadolol Allergy Mild Hives Verified 05/25/21 09:02 propranolol Allergy Mild Hives Verified 05/25/21 09:02 Review of Systems Review of Systems ROS: Yes All systems reviewed with the patient and are negative except as otherwise documented Exam Vital Signs (past 8 hours): - 06/01/21 07:07 Temperature 97.6 F Pulse Rate 94 H Respiratory Rate 16 Blood Pressure 147/89 H Pulse Oximetry 98 Oxygen Delivery Method Room Air Const General: cooperative and comfortable Orientation: alert HENMT Head: normocephalic Ears: external ears normal Nose: external nose normal Face and sinus: normal facial exam Mouth: oral mucosae normal Eyes General: appearance normal, both eyes and all related structures Neck Neck: normal visual inspection Chest Chest: normal inspection of the chest Resp Effort & Inspection: normal respiratory effort Cardio Rate: regular rate GI Inspection: distended Palpation: soft and No tender Skin General: no rashes or lesions noted and No jaundice Neuro General: patient alert and moves all extremities Cognition: normal cognition Speech: speech normal Extrem General: edema Psych Appearance: grossly normal Assessment & Plan Time Spent With Patient Critical Care time: I spent a total of [] minutes of critical care time on this patient's care today; this time is exclusive of procedural time.
--- NOTE | 2021-06-01 08:01 | PM.PREOP ---
Pre-operative Note COVID-19 COVID-19 status: Negative Result date/Date tested (Pos, Neg/Pending): 05/31/21 Interval Note History & Physical reviewed/Exam performed by Physician: Yes Changes to H&P: No ASA Class (for procedural sedation): III
--- NOTE | 2021-06-01 08:28 | PM.OP.EGD ---
Operative Date/Time/Diagnoses Date of procedure: 06/01/21 Time of procedure: 08:28 Pre-op diagnosis: Esophageal varices Post-op diagnosis: same Procedure & Clinicians Study performed: EGD with esophageal varix banding x2 Same procedure as scheduled: Yes Indications: Esophageal varices Surgeon: Misael Nunes Procedure Notes SCOAP/Timeout: Done Procedure in detail: After the risks and benefits were explained, written and verbal informed consent was obtained. The patient was brought into the procedure room and placed into the left lateral decubitus position. Please see nurse patrol guard sedation notes. The scope was introduced into the mouth through the bite block and advanced under direct visualization to the 2nd portion of the duodenum. The scope was slowly withdrawn carefully examining the mucosa for any defects or lesions. Retroflexed views were accomplished in the stomach. The stomach was decompressed, the scope was then removed from the patient who tolerated the procedure well. Sedation minutes: 22 Specimen(s): none sent Complications: none Impression: 1. Duodenum: There were some scattered erosions no ulcers no mass lesions. Again these were throughout the bulb and into the 2nd portion. I suspect these were related to his ibuprofen use. 2. 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 No ulcers no mass lesions no outlet obstruction. Obvious portal hypertensive gastropathy was noted but no gastric varices appreciated in retroflexed views or elsewhere. 3. Esophagus: GE junction was at approximately 39 cm from the incisors. There were no stigmata of recent bleeding no high-risk areas in the. I felt that for the most part the variceal questions flattened out with air insufflation. In the in the 3:00 a.m. column there however was still room for further banding as these would be at least grade 2 in size. We connected the [employer] banding device then readvanced the scope into position and on 2nd look with the customer experience professional in place the 9:00 in the very distal esophagus looked as though it would also accept a band. I therefore placed a band in the 9:00 a.m. position most distally and then in the 3 o'clock position slightly more proximally. The remainder of the esophagus did not appear to be indicated for banding. Endoscopic diagnosis 1. Portal hypertensive gastropathy 2. Erosive gastroduodenoscopy 3. Grade 2 distal esophageal varices status post banding x2 Post-procedure Plan for aftercare: 1. Avoid ibuprofen 2. Repeat EGD in 2 weeks 3. Increase Lasix to 40 mg and Aldactone to 100 mg per day number next repeat CBC PT INR CMP in 1 week. 4. Full liquid diet today soft diet for the next 72 hours then advance to a 2 g sodium diet thereafter. Disposition: PACU
[2021-06-01] MEDS: ALBUTEROL/IPRATROPIUM 3 ML AMPUL INH (08:44)
--- NOTE | 2021-06-01 08:53 | SUR.PHASEI ---
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
--- NOTE | 2021-06-01 09:07 | SUR.PHASEI ---
Breathing treatment completed; removed off simple face mask; oxygen saturation maintaining at 98% on room air; patient denies any pain at this time. Speaking in full sentences; offered beverage; patient declines at this time.
== END 2021-06-01 09:27 | disposition home or self-care (01) ==
PROVIDERS: PCP Family Medicine; Referring Provider Internal Medicine Gastroenterology; Visit Provider Internal Medicine Gastroenterology
PROC: 0DJ08ZZ Inspection of Upper Intestinal Tract, Via Natural or Artificial Opening Endoscopic (ICD-10-PCS; CPT 43235; principal; 2021-06-01 08:00)
DX: I85.00 Esophageal varices without bleeding (principal); K76.6 Portal hypertension; K31.89 Other diseases of stomach and duodenum; K70.30 Alcoholic cirrhosis of liver without ascites; B19.20 Unspecified viral hepatitis C without hepatic coma; F10.20 Alcohol dependence, uncomplicated; K21.9 Gastro-esophageal reflux disease without esophagitis; D69.6 Thrombocytopenia, unspecified; K42.9 Umbilical hernia without obstruction or gangrene; I73.9 Peripheral vascular disease, unspecified; F17.210 Nicotine dependence, cigarettes, uncomplicated
CPT/HCPCS: 43244; J2704

== ENCOUNTER → 2021-06-14 09:36 | Outpatient (CLI) | payer MEDICARE, MEDICAID, SELFPAY ==
[2021-03-04 14:05] VITALS: BMI 35.2
[2021-06-14 12:38] LABS: COVID19 -Nasal RAPID Negative (Negative)
== END ==
PROVIDERS: PCP Family Medicine; Visit Provider Physician Assistant
DX: Z20.822 Contact with and (suspected) exposure to COVID-19 (principal)
CPT/HCPCS: 87635; C9803

== ENCOUNTER 2021-06-15 12:29 | Day surgery (SDC) | payer MEDICARE, MEDICAID, SELFPAY ==
[2021-03-04 14:05] VITALS: BMI 35.2
[2021-06-15 13:23] VITALS: BP 140/94; PULSE 97; RESP 16; TEMP 36.6; O2SAT 99; BMI 33.5
[2021-06-15] MEDS: SODIUM CHLORIDE 0.9% 1,000 ML 84 ML IV (13:45)
--- NOTE | 2021-06-15 14:30 | PM.HP.1 ---
History of Present Illness History of Present Illness Date Patient Seen: 06/15/21 Time Patient Seen: 14:31 Chief complaint: EGD W/POSS BX Narrative: Had banding 2 weeks ago he returns for surveillance today. No concerning symptoms in the interim. He does state that the diuretic seem to be working and he feels that his abdomen is decreasing in size. Unfortunately he is not completely cut out all alcohol. He is attempting to get into a substance abuse program but secondary to the concerns over coronavirus this seems to be quite difficult from an inpatient standpoint at this time. Patient History Medical History Alcoholism Ankle pain Anxiety Blindness Cataracts, bilateral Cirrhosis Closed left ankle fracture Elevated serum protein level Esophageal varices Foot pain GERD (gastroesophageal reflux disease) H/O deep venous thrombosis Hearing loss Hepatitis C Lower extremity edema Macrocytic anemia Peripheral vascular disease Portal vein thrombosis Postoperative wound infection Shoulder pain Skin problem Sleep apnea Thrombocytopenia Umbilical hernia Venous stasis Vertigo Vision disorder Wound infection Surgical History Anesthesia H/O neck surgery History of surgery History of surgery of liver (~2017) S/P cataract extraction Family & Social History Family History Mother Cancer Hyperlipidemia Grandfather CVA (cerebral vascular accident) Grandfather Cancer Father Heart disease Hypertension Brother Hyperlipidemia Grandmother Liver disease Social History: household members none Tobacco & Substance use: Tobacco type cigarettes Smoking Status Current every day smoker alcohol intake current alcohol intake frequency 3 or more drinks per day Substance Use Type marijuana Meds Home Medications and Allergies Home Medications Medication Instructions Recorded Confirmed Type fluticasone propionate 50 1 spray NASAL DAILY 08/10/18 06/15/21 History mcg/actuation nasal spray,suspension omeprazole 20 mg capsule,delayed 20 mg PO DAILY cap 03/10/21 06/15/21 History release gabapentin 300 mg capsule 300 mg PO TID #100 cap 04/16/21 06/15/21 Rx furosemide 20 mg tablet 20 mg PO DAILY #30 tab 05/07/21 06/15/21 Rx multivitamin with folic acid 400 1 tab PO DAILY #30 tab 05/07/21 06/15/21 Rx mcg tablet (Tab-A-Gretchen) spironolactone 50 mg tablet 50 mg PO DAILY #30 tab 11/12/21 12/21/21 Rx Allergies Allergy/AdvReac Type Severity Reaction Status Date / Time nadolol Allergy Mild Hives Verified 05/25/21 09:02 propranolol Allergy Mild Hives Verified 05/25/21 09:02 Review of Systems Review of Systems ROS: Yes All systems reviewed with the patient and are negative except as otherwise documented Exam Vital Signs (past 8 hours): - 06/15/21 13:23 Temperature 97.9 F Pulse Rate 97 H Respiratory Rate 16 Blood Pressure 140/94 H Pulse Oximetry 99 Oxygen Delivery Method Room Air Const General: cooperative and comfortable Orientation: alert HENMT Head: normocephalic Ears: external ears normal Nose: external nose normal Face and sinus: normal facial exam Mouth: oral mucosae normal Eyes General: appearance normal, both eyes and all related structures Neck Neck: normal visual inspection Chest Chest: normal inspection of the chest Resp Effort & Inspection: normal respiratory effort Cardio Rate: regular rate GI Inspection: normal to inspection and distended Palpation: soft and No tender Skin General: no rashes or lesions noted and No jaundice Neuro General: patient alert and moves all extremities Cognition: normal cognition Speech: speech normal Extrem General: edema Psych Appearance: grossly normal Assessment & Plan Assessment & Plan narrative: 55-year-old with alcoholic cirrhosis and esophageal varices here for surveillance. EGD is pursued today. Time Spent With Patient Critical Care time: I spent a total of [] minutes of critical care time on this patient's care today; this time is exclusive of procedural time.
--- NOTE | 2021-06-15 14:33 | PM.PREOP ---
Pre-operative Note COVID-19 COVID-19 status: Negative Result date/Date tested (Pos, Neg/Pending): 06/14/21 Interval Note History & Physical reviewed/Exam performed by Physician: Yes Changes to H&P: Yes H&P completed within 30 days and has changed as indicated here:: Today ASA Class (for procedural sedation): III
--- NOTE | 2021-06-15 15:34 | P.OP.EGD_ITS ---
Operative Date/Time/Diagnoses Date of procedure: 06/15/21 Time of procedure: 15:35 Pre-op diagnosis: Esophageal varices Post-op diagnosis: same Procedure & Clinicians Study performed: EGD Same procedure as scheduled: Yes Indications: Esophageal varices status post recent banding 2 weeks ago Surgeon: Misael Nunes Procedure Notes SCOAP/Timeout: Done Procedure in detail: After the risks and benefits were explained, written and verbal informed consent was obtained. The patient was brought into the procedure room and placed into the left lateral decubitus position. Please see nurse twister frame tender notes for sedation details. The scope was introduced into the mouth through the bite block and advanced under direct visualization to the 2nd portion of the duodenum. The scope was slowly withdrawn carefully examining the mucosa for any defects or lesions. Retroflexed views were accomplished in the stomach. The stomach was decompressed, the scope was then removed from the patient who tolerated the procedure well. Sedation minutes: 6 Specimen(s): none sent Complications: none Impression: 1. Duodenum: No significant anomaly was appreciated throughout from bulb through to the 2nd portion. I did not appreciate any erosions as was the case last time. 2. Stomach: The patient had a diffuse portal hypertensive gastropathy as seen before. No sign of bleeding. No gastric varices. No outlet obstruction no ulcers. 3. Esophagus: The GE junction was at 39 cm from the incisors. The prior 2 locations where bands had been applied demonstrated obvious ulceration and ongoing mucosal healing. In the 9 o'clock position looked like there was some hair stuck in the location of the exudate where the band site was healing. Multiple photographs were taken. Generally speaking with air insufflation the distal esophagus appeared to sufficiently flatten out and I did not identify an obvious location where further banding should be applied. Endoscopic diagnosis 1. Portal gastropathy 2. Healing prior esophageal band sites 3. Esophageal varices appears sufficiently obliterated Post-procedure Plan for aftercare: 1. Repeat EGD in 6 months for surveillance. 2. Patient is to be on 40 mg of Lasix and 100 mg spironolactone daily. 3. He needs to continue 2 g sodium diet. 4. Repeat abdominal ultrasound with Doppler imaging 5. Should portal venous thrombosis persist the patient may be indicated for a trial of anticoagulation. 6. Complete alcohol abstinence. 7. Continue omeprazole Disposition: PACU
[2021-06-15 15:37] VITALS: BP 112/73; PULSE 83; RESP 18; TEMP 36.1; O2SAT 98
[2021-06-15 15:42] VITALS: BP 107/71; PULSE 82; RESP 17; O2SAT 99
[2021-06-15 15:47] VITALS: BP 112/73; PULSE 82; RESP 17; O2SAT 99
[2021-06-15 16:00] VITALS: BP 103/72; PULSE 96; RESP 16; TEMP 36.6; O2SAT 99
[2021-06-15 16:10] VITALS: BP 114/76; PULSE 84; RESP 18; O2SAT 99
== END 2021-06-15 16:25 | disposition home or self-care (01) ==
LOC: ENDO 12:33
PROVIDERS: PCP Family Medicine; Referring Provider Internal Medicine Gastroenterology; Visit Provider Internal Medicine Gastroenterology
PROC: 0DJ08ZZ Inspection of Upper Intestinal Tract, Via Natural or Artificial Opening Endoscopic (ICD-10-PCS; CPT 43235; principal; 2021-06-15 15:30)
DX: Z09 Encounter for follow-up examination after completed treatment for conditions other than malignant neoplasm (principal); Z87.19 Personal history of other diseases of the digestive system; K76.6 Portal hypertension; K31.89 Other diseases of stomach and duodenum
CPT/HCPCS: 43235; J2250; J2704

== ENCOUNTER → 2021-07-15 12:08 | Outpatient (CLI) | payer MEDICARE, MEDICAID, SELFPAY ==
[2021-03-04 14:05] VITALS: BMI 35.2
--- NOTE | 2021-07-15 | DI.US.S_ITS ---
PROCEDURE: US ABDOMEN LIMITED INDICATIONS: Portal vein thrombosis TECHNIQUE: Real-time scanning was performed of the abdominal and retroperitoneal organs, with image documentation. Color and pulse Doppler interrogation was also performed of the hepatic and splenic vessels, or of the lesion of interest. COMPARISON: [facility], US, US ABDOMEN COMPLETE, 05/10/2021, 13:05. FINDINGS: Liver: Nodular contour of the liver, compatible with cirrhotic change. Doppler: Slow flow in the portal vein. The hepatic veins are not well seen. Gallbladder: Wall thickening, with partially related to ascites. Cholelithiasis. Biliary ducts: No intrahepatic biliary ductal dilatation. Extrahepatic bile duct is 6.5 mm in caliber. Normal biliary caliber is 6-7 mm or less, or 10 mm or less post-cholecystectomy. Pancreas: Not well seen. Miscellaneous: Prominent ascites. IMPRESSION: 1. Slow flow within the portal vein. 2. Cirrhotic change of the liver. 3. Cholelithiasis. Dictated by: Santosh Amor M.D. on 07/15/2021 at 13:22 Approved by: Santosh Amor M.D. on 07/15/2021 at 13:24
== END ==
PROVIDERS: PCP Family Medicine; Referring Provider Internal Medicine Gastroenterology; Visit Provider Internal Medicine Gastroenterology
DX: I81 Portal vein thrombosis (principal); K80.20 Calculus of gallbladder without cholecystitis without obstruction
CPT/HCPCS: 76705

== ENCOUNTER → 2021-07-30 11:53 | Outpatient (CLI) | payer MEDICARE, MEDICAID, SELFPAY ==
[2021-03-04 14:05] VITALS: BMI 35.2
[2021-07-30 14:32] LABS: BUN Creatinine Ratio 8.8 (6-22); Blood Urea Nitrogen 7 mg/dL (9-20); Estimated Glomerular Filt Rate > 60.0 mL/min (>60)
== END ==
PROVIDERS: PCP Family Medicine; Referring Provider Internal Medicine Gastroenterology; Visit Provider Internal Medicine Gastroenterology
DX: K70.30 Alcoholic cirrhosis of liver without ascites (principal)
CPT/HCPCS: 36415; 82565; 84520

== ENCOUNTER → 2021-08-03 09:54 | Outpatient (CLI) | payer MEDICARE, MEDICAID, SELFPAY ==
[2021-03-04 14:05] VITALS: BMI 35.2
--- NOTE | 2021-08-03 10:01 | DI.CT.S_ITS ---
PROCEDURE: CT ABDOMEN WWO PELVIS W INDICATIONS: Alcoholic cirrhosis of liver without ascites TECHNIQUE: After the administration of oral contrast, 5 mm thick sections acquired from the diaphragms to the iliac crests. After the administration of intravenous contrast, 5 mm thick sections acquired from the diaphragms to the symphysis. 5 mm thick coronal and sagittal reformats were acquired. For radiation dose reduction, the following was used: automated exposure control, adjustment of mA and/or kV according to patient size. COMPARISON: [facility], US, US ABDOMEN LIMITED, 07/15/2021, 12:22. [facility], CT, CT ABDOMEN WO/W CON, 12/23/2020, 14:41. FINDINGS: Image quality: Excellent. ABDOMEN: Lung bases: Lung bases are clear. Small right pleural effusion. Heart size is normal. Solid organs: Cirrhotic morphology. Probable hepatic steatosis. No arterial hyperenhancing observations. No washout observations. Gallbladder is not significantly distended. Biliary system is non-dilated. Pancreas enhances normally. Spleen is mildly enlarged. Measures 6 cm and craniocaudal dimension. No adrenal nodules. Both kidneys are normal in size. No hydronephrosis or nephrolithiasis. No hydroureter. Bowel and peritoneum: No small bowel obstruction. Diverticulosis. Large volume of ascites. No pneumoperitoneum. Nodes and vessels: No retroperitoneal or mesenteric adenopathy by size criteria. Aorta and inferior vena are normal in caliber. Mild calcified atherosclerotic plaque. Recannulization of the periumbilical vein. Small upper abdominal varices. Small paraesophageal varices. Miscellaneous: Umbilical hernia containing ascites fluid. PELVIS: Genitourinary: Unremarkable. Miscellaneous: No inguinal hernias or adenopathy. Bones: No suspicious bony lesions. T10 compression fracture, new compared to 12/23/2020. IMPRESSION: 1. No LR 4 or LR 5 observations to suggest HCC. 2. Cirrhotic liver morphology. Splenomegaly. Small varices. Large volume of ascites. 3. T10 compression fracture new compared to CT from 2020. 4. Small right pleural effusion. Dictated by: Rk Sánchez M.D. on 08/03/2021 at 12:18 Approved by: Rk Sánchez M.D. on 08/03/2021 at 12:29
== END ==
PROVIDERS: PCP Family Medicine; Referring Provider Internal Medicine Gastroenterology; Visit Provider Internal Medicine Gastroenterology
DX: K70.31 Alcoholic cirrhosis of liver with ascites (principal); I81 Portal vein thrombosis; R16.1 Splenomegaly, not elsewhere classified; J90 Pleural effusion, not elsewhere classified; M48.54XA Collapsed vertebra, not elsewhere classified, thoracic region, initial encounter for fracture
CPT/HCPCS: 74178

== ENCOUNTER → 2021-08-16 14:18 | Outpatient (CLI) | payer MEDICARE, MEDICAID, SELFPAY ==
[2021-03-04 14:05] VITALS: BMI 35.2
[2021-08-16 15:17] LABS: INR 1.5 (0.9-1.3); Prothrombin Time 16.7 SECONDS (10.1-12.7)
[2021-08-16 15:30] LABS: Add Manual Diff / Slide Review NO; Basophils Absolute Auto 0 /uL (0-100); Basophils Percent Auto 0.8 % (0-2); Eosinophils Absolute Auto 100 /uL (0-450); Eosinophils Percent Auto 1.6 % (2-4); Hematocrit 34.1 % (41-53); Hemoglobin 11.6 g/dL (13.5-17.5); Lymphocytes Absolute Auto 900 /uL (1100-4500); Lymphocytes Percent Auto 22.4 % (25-40); Mean Corpuscular Hemoglobin 37.4 PG (26-34); Monocytes Absolute Auto 600 /uL (0-900); Monocytes Percent Auto 16.6 % (3-14); Neutrophils Absolute Auto 2300 /uL (1500-7000); Neutrophils Percent Auto 58.6 % (50-75); Platelet Count 65 X10^3/uL (150-400); Red Cell Distribution Width 14.9 % (11.6-14.8); White Blood Cell Count 3.8 X10^3/uL (4.5-11.0)
[2021-08-16 15:36] LABS: Alanine Aminotransferase 25 IU/L (<50); Albumin 3.7 g/dL (3.5-5.0); Alkaline Phosphatase 129 U/L (38-126); Aspartate Aminotransferase 78 IU/L (17-59); BUN Creatinine Ratio 13.3 (6-22); Bilirubin Total 3.6 mg/dL (0.2-1.3); Blood Urea Nitrogen 11 mg/dL (9-20); Calcium 9.2 mg/dL (8.4-10.2); Carbon Dioxide 29 mmol/L (22-32); Chloride 100 mmol/L (98-107); Estimated Glomerular Filt Rate > 60.0 mL/min (>60); Glucose 104 mg/dL (70-100); HEMOLYSIS < 15 (0-50); Potassium 3.8 mmol/L (3.4-5.1); Sodium 135 mmol/L (137-145)
[2021-08-16 15:45] LABS: Albumin Globulin Ratio 0.6 (1.0-2.8); Globulin 6.6 g/dL (1.7-4.1)
[2021-08-16 15:48] LABS: Total Protein 10.3 g/dL (6.3-8.2)
== END ==
PROVIDERS: PCP Family Medicine; Referring Provider Family Medicine; Visit Provider Family Medicine
DX: D69.6 Thrombocytopenia, unspecified (principal); I81 Portal vein thrombosis; F10.10 Alcohol abuse, uncomplicated; I85.00 Esophageal varices without bleeding
CPT/HCPCS: 36415; 80053; 85025; 85610

== ENCOUNTER 2021-08-21 13:36 | Inpatient (IN) | payer MEDICARE, MEDICAID, SELFPAY ==
[2021-03-04 14:05] VITALS: BMI 35.2
[2021-08-21] VITALS (33 sets, daily range): BP systolic 94–164; BP diastolic 58–90; PULSE 86–117; RESP 15–41; TEMP 36.1–38.3; O2SAT 90–98; BMI 30.4
--- NOTE | 2021-08-21 | PATH_ITS ---
[facility] Accession Number: [id number] . 01 Material submitted: . small bowel - SMALL BOWEL . 02 Diagnosis: Small Bowel, Segmental Resection: Acute ischemic enteritis with ulceration. Serositis. Margin with acute ischemica-type changes. Negative for features of vasculitis, dysplasia or malignancy. MRV 08/26/2021 1753 Local . 02 Electronically signed: . Cassi Thurman MD, Pathologist NPI- [id number] . 01 Gross description: . The specimen is received in formalin, labeled with the patient's name and small bowel is composed of a portion of bowel, received unoriented and stapled at both ends. The fragment of bowel measures 9.0 cm in length by 2.5 cm in diameter. The attached adipose tissue measures 6.5 x 2.5 cm. The serosal surface of the bowel is dark red and hemorrhagic. An apparent perforation is not identified. The attached adipose tissue is yellow, smooth, and glistening. The bowel is opened to reveal a diffusely hemorrhagic, dark red mucosa. The lumen is filled with dark red material. The wall thickness is 0.1 cm. A discrete mass is not identified. [employer] sections are submitted. . Summary of Sections: A1 - Margin, en face. A2-A4 - [employer] sections of the hemorrhagic bowel mucosa with underlying adipose tissue. A5 - Attached adipose tissue. ([id number]) /MRV 08/24/2021 1157 Local . 02 Pathologist provided ICD-10: K55.9 . 02 CPT . 281737 Specimen Comment: A courtesy copy of this report has been sent to [phone] Performed at: 01 [facility] [address] [place] [id number] MD Antonio Florentino MD Phone: [phone] Performed at: 02 [facility] [id number] [place] [address] [id number] MD Cassi Thurman MD Phone: [phone]
--- NOTE | 2021-08-21 13:56 | ED.SEPSIS ---
HPI - Sepsis General Chief Complaint: Abdominal Pain Mode of arrival: Wheelchair Source: patient and family (mother) Limitations: no limitations Evaluation Sepsis Infection Criteria Present: Suspected New Infection Narrative: This is a 56-year-old male comes emergency department with complaint of umbilical hernia that is reducible, increasing pain. Patient states it has been present since last Monday or 6 days. Patient denies any constipation he states he has been stooling regularly with normal stools that are not diarrheal. He states that his hernia has become more painful. He has had nausea and vomiting for the past 5 days. He is febrile here. Patient states the umbilical hernia has been present for at least a few months. He was seen by general surgery who felt patient needed medical clearance prior to surgery based on his alcohol, esophageal varices a past medical history. Patient has had esophageal banding which he state was done by Gastroenterology locally. He states he is on 2 diuretics, gabapentin and omeprazole. He has had multiple surgeries on his lower extremity for persistent blood clots. He is not anticoagulated at this time. Patient is allergic to nadolol and propranolol and gets hives. Patient does use tobacco, states his last alcoholic drink was 6 days ago Monday. He states he was drinking a 6 pack nightly at that time. Denies illicit. He is accompanied by his mother who also helps him coordinate his medical care. They have been trying to set up inpatient rehab as well. Review of Systems Review of Systems ROS Unobtainable: All systems reviewed & are unremarkable except as noted in HPI and below Patient History Medical History Alcoholism Ankle pain Anxiety Blindness Cataracts, bilateral Cirrhosis Closed left ankle fracture Elevated serum protein level Esophageal varices Foot pain GERD (gastroesophageal reflux disease) H/O deep venous thrombosis Hearing loss Hepatitis C Lower extremity edema Macrocytic anemia Peripheral vascular disease Portal vein thrombosis Postoperative wound infection Shoulder pain Skin problem Sleep apnea Thrombocytopenia Umbilical hernia Venous stasis Vertigo Vision disorder Wound infection Surgical History Anesthesia H/O neck surgery History of surgery History of surgery of liver (~2018) S/P cataract extraction Family History Mother Cancer Hyperlipidemia Grandfather CVA (cerebral vascular accident) Grandfather Cancer Father Heart disease Hypertension Brother Hyperlipidemia Grandmother Liver disease Social History household members: none Smoking Status: Current every day smoker Tobacco: How many years used: 42 quit status: not considering quitting alcohol intake: current substance use type: does not use Smoking Status: Current every day smoker alcohol intake frequency: 3 or more drinks per day Substance Use Type: marijuana Exam Narrative Exam Narrative: GENERAL: Alert and oriented, male in moderate distress with jaundice HEENT: Head normocephalic, atraumatic, EOMI, scleral icterus, pupils reactive, face symmetric, moist mucous membranes NECK: Supple, full range of motion CARDIOVASCULAR: Regular rate and rhythm without murmurs, rubs or gallops. RESPIRATORY: Breath sounds equal bilaterally, no wheezes rales or rhonchi. ABDOMEN: Soft, distended but not tight. Patient has a large umbilical hernia that is approximately baseball sized, not reducible, tender, skin on palpation feels thickened but there is no erythema or warmth, I do not appreciate any necrosis but there is some discoloration darkening of the skin. Sounds all 4 quadrants. No guarding or rebound, rigidity, no mass. : No CVA tenderness EXTREMITIES: Normal range of motion, no clubbing or edema. Neurovascularly intact NEUROLOGICAL: Cranial nerves II through XII grossly intact. Moving all extremities SKIN: Warm, dry, no petechiae, no rashes or lesions otherwise noted. Initial Vital Signs Initial Vital Signs: Vital Signs Pulse Rate 117 H 08/21/21 13:46 Respiratory Rate 41 H 08/21/21 13:46 Pulse Oximetry 97 08/21/21 13:46 Course Orders Ordered: ED Orders 08/21/21 13:40 Urinalysis and Microscopic Stat Urine Drug Screen, Rapid Stat 08/21/21 13:55 Ammonia (NH3) Stat Complete Blood Count AUTO DIFF Stat Comprehensive Metabolic Panel Stat ETOH [Ethanol (ETOH)] Stat Lactate (Lactic Acid) Stat Lipase Stat Partial Thromboplastin Time Stat Procalcitonin Stat Prothrombin Time INR Stat Troponin & CK Cardiac Panel Stat 08/21/21 14:00 Blood Culture Stat 08/21/21 14:05 CT abdomen pelvis w con Stat 08/21/21 14:09 COVID19 -Nasal swab/Pre-Proc Stat 08/21/21 17:06 Ictotest Urine Stat Hydromorphone HCl (Hydromorphone 1 Mg Inj) 0.5 mg IV Q6HR PRN PRN Reason: Pain, Mild (1-3) Dextrose/Sodium Chloride (Dextrose 5%-0.9% Ns) 1,000 mls @ 100 mls/hr IV CONT MO Naloxone HCl (Naloxone 0.4 Mg/Ml Vial) 0.2 mg IV Q2MIN PRN PRN Reason: Opiate Reversal Discontinued Medications Piperacillin Sod/Tazobactam (Sod 4.5 gm/ Sodium Chloride) 100 mls @ 200 mls/hr IV NOW ONE Stop: 08/21/21 14:06 Last Infusion: 08/21/21 15:07 Dose: 0 mls/hr Documented by: Admin: 08/21/21 14:24 Dose: 200 mls/hr Documented by: HILARIA Lactated Ringer's (Lactated Ringers) 2,190 mls @ 730 mls/hr 30 ml/kg infuse over 3 hr (2190 ml) IV NOW ONE Stop: 08/21/21 17:04 Last Admin: 08/21/21 14:23 Dose: 730 mls/hr Documented by: HILARIA Ketorolac Tromethamine (Ketorolac 30 Mg/Ml Vial) 15 mg IV NOW ONE Stop: 08/21/21 14:19 Last Admin: 08/21/21 14:51 Dose: 15 mg Documented by: HILARIA Morphine Sulfate (Morphine 4 Mg/Ml Inj) 4 mg IV NOW ONE Stop: 08/21/21 14:10 Last Admin: 08/21/21 14:24 Dose: 4 mg Documented by: HILARIA Ondansetron HCl (Ondansetron 4 Mg/2 Ml Inj) 4 mg IV NOW ONE Stop: 08/21/21 14:10 Last Admin: 08/21/21 14:25 Dose: 4 mg Documented by: HILARIA Consultations Consultation #1: Dr. Lieberman, do not have the formal report the patient appears to have bowel obstruction with a incarcerated periumbilical hernia. Septic with this the most likely source. Based on patient's liver failure he recommends transfer but is this can be significantly delayed secondary to region wide lack of beds will recontact Dr. Lieberman if we cannot transfer in a timely manner. Time: 15:01 Consultation #2: Dr. Hi, small-bowel obstruction at. Bili call level of hernia, increased size of pleural effusion, liver lesion consistent with possible hepatocellular carcinoma. Consultation #3: Dr. Lieberman, plan for OR shortly and asks for admit to Medicine for medical management with still plan for transfer. We discussed that [facility], , [place] have also had no, patient is currently weight listed [facility] but [facility] but have not had any availability so far. Time: 17:07 Additional Consultation(s): Dr. Sarmiento, hospitalist. Discussed surgery requests admit to medicine still with goal for transfer. Vital Signs Vital signs: Vital Signs - 8 hr 08/21/21 13:46 08/21/21 13:47 08/21/21 14:00 Temperature Pulse Rate 117 H 116 H 117 H Respiratory Rate 41 H 29 H 27 H Blood Pressure 129/79 Pulse Oximetry 97 98 97 08/21/21 14:01 08/21/21 14:11 08/21/21 14:15 Temperature 101 F H Pulse Rate 116 H 113 H 115 H Respiratory Rate 18 27 H 26 H Blood Pressure 129/79 124/75 Pulse Oximetry 98 94 94 08/21/21 14:39 08/21/21 14:40 08/21/21 14:44 Temperature Pulse Rate 105 H 105 H 104 H Respiratory Rate 26 H 19 23 Blood Pressure 161/88 H Pulse Oximetry 90 L 91 91 08/21/21 14:45 08/21/21 14:51 08/21/21 15:00 Temperature 100.1 F H Pulse Rate 106 H 103 H Respiratory Rate 18 18 Blood Pressure 164/90 H 158/71 H Pulse Oximetry 92 96 08/21/21 15:15 08/21/21 15:30 08/21/21 15:45 Temperature Pulse Rate 104 H 103 H 98 H Respiratory Rate 20 22 16 Blood Pressure 135/61 135/65 128/58 L Pulse Oximetry 94 94 94 08/21/21 16:00 08/21/21 16:15 08/21/21 16:30 Temperature Pulse Rate 94 H 93 H 89 Respiratory Rate 16 16 15 Blood Pressure 127/65 130/60 125/61 Pulse Oximetry 95 95 95 08/21/21 16:45 08/21/21 17:04 Temperature Pulse Rate 86 100 H Respiratory Rate 23 Blood Pressure 126/60 Pulse Oximetry 95 Sepsis Guideline Criteria Level 1 - Infection Sepsis Infection Criteria Present: Suspected New Infection Treatment Initiated Antibiotics:: IV antimicrobials will be initiated as soon as possible after recognition of sepsis state and within one hour for both sepsis and septic shock. MDM - Sepsis Lab Data Result diagrams: 08/21/21 13:55 08/21/21 13:55 Labs: Lab Results 08/21/21 08/21/21 08/21/21 Range/Units 13:55 13:55 13:55 WBC 13.1 H (4.5-11.0) X10^3/uL RBC 3.58 L (4.5-5.9) X10^6/uL Hgb 13.3 L (13.5-17.5) g/dL Hct 39.3 L (41-53) % MCV 109.6 H (80-100) fL MCH 37.2 H (26-34) PG MCHC 33.9 (30-36) % RDW 15.0 H (11.6-14.8) % Plt Count 88 L (150-400) X10^3/uL Neut % (Auto) 88.6 H (50-75) % Lymph % (Auto) 3.1 L (25-40) % [place] % (Auto) 8.2 (3-14) % Eos % (Auto) 0.0 L (2-4) % Baso % (Auto) 0.1 (0-2) % Neut # (Auto) 86790 H (4952-0419) /uL Lymph # (Auto) 400 L (0580-3524) /uL [place] # (Auto) 1100 H (0-900) /uL Eos # (Auto) 0 (0-450) /uL Baso # (Auto) 0 (0-100) /uL PT 16.2 H (10.1-12.7) SECONDS INR 1.4 H (0.9-1.3) APTT 32 D (26.4-36.2) SECONDS Sodium 135 L (137-145) mmol/L Potassium 4.0 (3.4-5.1) mmol/L Chloride 97 L (98-107) mmol/L Carbon Dioxide 25 (22-32) mmol/L BUN 17 (9-20) mg/dL Creatinine 0.84 (0.66-1.25) mg/dL Estimated GFR > 60.0 (>60) mL/min BUN/Creatinine Ratio 20.2 (6-22) Glucose 149 H (70-100) mg/dL Lactate (0.7-2.1) mmol/L Calcium 10.1 (8.4-10.2) mg/dL Total Bilirubin 6.0 H (0.2-1.3) mg/dL AST 101 H (17-59) IU/L ALT 35 (<50) IU/L Alkaline Phosphatase 150 H (38-126) U/L Ammonia (9-30) umol/L Total Creatine Kinase 39 L (55-170) U/L CK-MB (CK-2) TNP CK-MB (CK-2) Rel Index TNP Troponin I < 0.012 (0.01-0.034) ng/mL Total Protein 11.1 H* (6.3-8.2) g/dL Albumin 4.1 (3.5-5.0) g/dL Globulin 7.0 H (1.7-4.1) g/dL Albumin/Globulin Ratio 0.6 L (1.0-2.8) Lipase 133 (23-300) U/L Procalcitonin 0.15 (<0.5) ng/mL Ethyl Alcohol ( - 10) mg/dL SARS-CoV-2 (PCR) (Negative) 08/21/21 08/21/21 08/21/21 Range/Units 13:55 13:55 13:55 WBC (4.5-11.0) X10^3/uL RBC (4.5-5.9) X10^6/uL Hgb (13.5-17.5) g/dL Hct (41-53) % MCV (80-100) fL MCH (26-34) PG MCHC (30-36) % RDW (11.6-14.8) % Plt Count (150-400) X10^3/uL Neut % (Auto) (50-75) % Lymph % (Auto) (25-40) % [place] % (Auto) (3-14) % Eos % (Auto) (2-4) % Baso % (Auto) (0-2) % Neut # (Auto) (4161-3817) /uL Lymph # (Auto) (5647-9444) /uL [place] # (Auto) (0-900) /uL Eos # (Auto) (0-450) /uL Baso # (Auto) (0-100) /uL PT (10.1-12.7) SECONDS INR (0.9-1.3) APTT (26.4-36.2) SECONDS Sodium (137-145) mmol/L Potassium (3.4-5.1) mmol/L Chloride (98-107) mmol/L Carbon Dioxide (22-32) mmol/L BUN (9-20) mg/dL Creatinine (0.66-1.25) mg/dL Estimated GFR (>60) mL/min BUN/Creatinine Ratio (6-22) Glucose (70-100) mg/dL Lactate 4.2 H* (0.7-2.1) mmol/L Calcium (8.4-10.2) mg/dL Total Bilirubin (0.2-1.3) mg/dL AST (17-59) IU/L ALT (<50) IU/L Alkaline Phosphatase (38-126) U/L Ammonia 111 H (9-30) umol/L Total Creatine Kinase (55-170) U/L CK-MB (CK-2) CK-MB (CK-2) Rel Index Troponin I (0.01-0.034) ng/mL Total Protein (6.3-8.2) g/dL Albumin (3.5-5.0) g/dL Globulin (1.7-4.1) g/dL Albumin/Globulin Ratio (1.0-2.8) Lipase (23-300) U/L Procalcitonin (<0.5) ng/mL Ethyl Alcohol < 10 ( - 10) mg/dL SARS-CoV-2 (PCR) (Negative) 08/21/21 08/21/21 Range/Units 14:09 16:13 WBC (4.5-11.0) X10^3/uL RBC (4.5-5.9) X10^6/uL Hgb (13.5-17.5) g/dL Hct (41-53) % MCV (80-100) fL MCH (26-34) PG MCHC (30-36) % RDW (11.6-14.8) % Plt Count (150-400) X10^3/uL Neut % (Auto) (50-75) % Lymph % (Auto) (25-40) % [place] % (Auto) (3-14) % Eos % (Auto) (2-4) % Baso % (Auto) (0-2) % Neut # (Auto) (8209-0779) /uL Lymph # (Auto) (5320-7705) /uL [place] # (Auto) (0-900) /uL Eos # (Auto) (0-450) /uL Baso # (Auto) (0-100) /uL PT (10.1-12.7) SECONDS INR (0.9-1.3) APTT (26.4-36.2) SECONDS Sodium (137-145) mmol/L Potassium (3.4-5.1) mmol/L Chloride (98-107) mmol/L Carbon Dioxide (22-32) mmol/L BUN (9-20) mg/dL Creatinine (0.66-1.25) mg/dL Estimated GFR (>60) mL/min BUN/Creatinine Ratio (6-22) Glucose (70-100) mg/dL Lactate 2.8 H (0.7-2.1) mmol/L Calcium (8.4-10.2) mg/dL Total Bilirubin (0.2-1.3) mg/dL AST (17-59) IU/L ALT (<50) IU/L Alkaline Phosphatase (38-126) U/L Ammonia (9-30) umol/L Total Creatine Kinase (55-170) U/L CK-MB (CK-2) CK-MB (CK-2) Rel Index Troponin I (0.01-0.034) ng/mL Total Protein (6.3-8.2) g/dL Albumin (3.5-5.0) g/dL Globulin (1.7-4.1) g/dL Albumin/Globulin Ratio (1.0-2.8) Lipase (23-300) U/L Procalcitonin (<0.5) ng/mL Ethyl Alcohol ( - 10) mg/dL SARS-CoV-2 (PCR) Negative (Negative) Imaging Data CT scan - abdomen/pelvis: Radiologist's Impression: [address] [address] [address] Scan Report Signed Patient: Santi Colindres MR#: [id number] : 1965 Acct:[id number] Age/Sex: 56 / M Date of Service: 08/21/21 Loc: ED Accession Number: [id number] ?? Procedure: CT abdomen pelvis w con Ordering Provider: Abby Bose D.O. PROCEDURE:? CT ABDOMEN PELVIS W CON ? INDICATIONS:? umbilical hernia ? TECHNIQUE:? Scanning is performed with Valsalva maneuver.? After the administration of IV contrast, axial sections were acquired from the lung bases to the pubic symphysis.? Coronal and sagittal reformats were performed.? For radiation dose reduction, the following was used: ?automated exposure control, adjustment of mA and/or kV according to patient size. ? COMPARISON:? [facility], CT, CT ABDOMEN WO/W CON, 12/23/2020, 14:41.? [facility], CT, CT ABDOMEN PELVIS W CON, 11/28/2019, 13:28.? [facility], CT, CT ABDOMEN WWO PELVIS W, 08/03/2021, 9:59. ? FINDINGS:? Image quality:? Excellent.? ? Lung bases:? There is a moderately sized right-sided pleural effusion, which is clearly increased in size compared to the prior. Heart:? No significant findings. ? ? ABDOMEN: Liver:? A cirrhotic appearing liver is seen.? There is a poorly defined area of low enhancement seen within the right liver dome measuring approximately 6 cm.? There is a recanalized umbilical vein. Gallbladder:? Unremarkable.? ? Biliary ducts:? Unremarkable.? ? Pancreas:? Unremarkable.? ? Spleen:? The spleen is enlarged measuring 15 cm craniocaudal. Adrenal Glands:? Unremarkable.? ? Kidneys and Ureters:? Unremarkable.? ? ? Stomach and Bowel:? Dilated loops of fluid-filled small bowel are seen, which measure up to 3.8 cm.? The site of transition is within the periumbilical hernia, with the decompressed small bowel loop seen beyond this point.? No significant colonic abnormality is seen. Peritoneum:? There is mild ascites.? No free air.? ? Ventral Wall:? There is a periumbilical hernia seen, which contains small bowel.? This is the site of bowel obstruction, with a dilated loop of small bowel going in and a decompressed loop of bowel coming out of the hernia. Abdominal Nodes:? Borderline prominent retroperitoneal and mesenteric lymph nodes are seen. Vessels:? Aorta and inferior vena cava are normal in size.? ? PELVIS: Pelvic Organs:? Unremarkable.? ? Bladder:? Unremarkable.? ? Pelvic Nodes: No enlarged lymph nodes.? Miscellaneous:? A mild fat containing left inguinal hernia is seen. ? Bones:? There is a remote appearing T10 anterior wedge deformity.? Focal lumbosacral degenerative change is seen, with milder degenerative changes elsewhere. ? ? IMPRESSION:? ? Small-bowel obstruction seen at the site of the periumbilical hernia. ? Urgent surgical consultation is recommended. ? Cirrhotic liver, with a recanalized umbilical vein.? There is also mild splenomegaly. ? Within the liver, there is a 6 cm focus of poor enhancement.? Differential diagnosis includes HCC.? When clinically appropriate, please consider a liver protocol? (without and with contrast) MRI for further evaluation (assuming that there is no contraindication).? ? There is a mildly sized right-sided pleural effusion, which has increased in size compared to the prior.? ? A mild amount of ascites is seen.? Incidental note is made of: Remote appearing T10 anterior wedge deformity Focal lumbosacral degenerative change ? ? Note: Findings and recommendations discussed by telephone with Dr. Bose at 2:08 p.m. [place] time on August 21, 2021.? ? Dictated by: Jeremias Hi M.D. on 08/21/2021 at 14:02 ? ? Approved by: Jeremias Hi M.D. on 08/21/2021 at 14:12?? MDM Narrative Medical decision making narrative: This is a 56-year-old chronic alcoholic with known liver disease an umbilical hernia who presents with persistently enlarged and pace full hernia for the past 5 days. Patient appears septic he is febrile, tachycardic and has an elevated lactate. He has not been hypotensive his O2 did drop after narcotics but he also has a pleural effusion which appears increased in size from past. Patient also has a noted new lesion that could be hepatic cellular carcinoma with mild ascites on CT. Patient case was discussed with our general surgeon, Dr. Lieberman. He would like patient to be transferred if possible secondary to his liver failure but we did discuss that timely transfer may be impossible depending on bed availability and plan to recontact after evaluating the regional bed situation. [facility], [facility] are not taking patients at this time, [facility] and [facility] in [place] have been contacted. Will call back to Dr. Lieberman with update within the hour. Spoke with Dr. Lieberman, with plan for OR today night. They are currently finishing a case and plan to take the patient shortly. Patient's tachycardia has improved. His lactate repeat is improved. They would still like transfer they are to call back. I spoke with Dr. Sarmiento who accepts with goal to transfer. I did speak with Dr. Reilly at [facility]. She asks to callback after OR for re-evaluation and if they would still like to transfer will have plan to talk with SICU and transfer when bed available. Surgery updated. Critical Care Time Critical Care Time Critical Care Time: Yes Total Critical Care Time: 45 Attestation: The high probability of a clinically significant, sudden or life threatening deterioration of the [cardiac, pulm] system(s) required my full and direct attention, intervention and personal management. The aggregate critical care time was [45] minutes. This time is in addition to time spent performing reported procedures but includes the following: [x] Data Review and interpretation [x] Patient assessment and monitoring of vital signs [x] Documentation [x] Medication orders and management Discharge Plan Departure Patient Disposition: Admitted As Inpatient Clinical Impression: Sepsis, Strangulated umbilical hernia Admit Date/Time: 08/21/21 17:04 Admit Provider: Vandana Sarmiento
--- NOTE | 2021-08-21 14:05 | DI.CT.S_ITS ---
PROCEDURE: CT ABDOMEN PELVIS W CON INDICATIONS: umbilical hernia TECHNIQUE: Scanning is performed with Valsalva maneuver. After the administration of IV contrast, axial sections were acquired from the lung bases to the pubic symphysis. Coronal and sagittal reformats were performed. For radiation dose reduction, the following was used: automated exposure control, adjustment of mA and/or kV according to patient size. COMPARISON: [facility], CT, CT ABDOMEN WO/W CON, 12/23/2020, 14:41. [facility], CT, CT ABDOMEN PELVIS W CON, 11/28/2019, 13:28. [facility], CT, CT ABDOMEN WWO PELVIS W, 08/03/2021, 9:59. FINDINGS: Image quality: Excellent. Lung bases: There is a moderately sized right-sided pleural effusion, which is clearly increased in size compared to the prior. Heart: No significant findings. ABDOMEN: Liver: A cirrhotic appearing liver is seen. There is a poorly defined area of low enhancement seen within the right liver dome measuring approximately 6 cm. There is a recanalized umbilical vein. Gallbladder: Unremarkable. Biliary ducts: Unremarkable. Pancreas: Unremarkable. Spleen: The spleen is enlarged measuring 15 cm craniocaudal. Adrenal Glands: Unremarkable. Kidneys and Ureters: Unremarkable. Stomach and Bowel: Dilated loops of fluid-filled small bowel are seen, which measure up to 3.8 cm. The site of transition is within the periumbilical hernia, with the decompressed small bowel loop seen beyond this point. No significant colonic abnormality is seen. Peritoneum: There is mild ascites. No free air. Ventral Wall: There is a periumbilical hernia seen, which contains small bowel. This is the site of bowel obstruction, with a dilated loop of small bowel going in and a decompressed loop of bowel coming out of the hernia. Abdominal Nodes: Borderline prominent retroperitoneal and mesenteric lymph nodes are seen. Vessels: Aorta and inferior vena cava are normal in size. PELVIS: Pelvic Organs: Unremarkable. Bladder: Unremarkable. Pelvic Nodes: No enlarged lymph nodes. Miscellaneous: A mild fat containing left inguinal hernia is seen. Bones: There is a remote appearing T10 anterior wedge deformity. Focal lumbosacral degenerative change is seen, with milder degenerative changes elsewhere. IMPRESSION: Small-bowel obstruction seen at the site of the periumbilical hernia. Urgent surgical consultation is recommended. Cirrhotic liver, with a recanalized umbilical vein. There is also mild splenomegaly. Within the liver, there is a 6 cm focus of poor enhancement. Differential diagnosis includes HCC. When clinically appropriate, please consider a liver protocol (without and with contrast) MRI for further evaluation (assuming that there is no contraindication). There is a mildly sized right-sided pleural effusion, which has increased in size compared to the prior. A mild amount of ascites is seen. Incidental note is made of: Remote appearing T10 anterior wedge deformity Focal lumbosacral degenerative change Note: Findings and recommendations discussed by telephone with Dr. Bose at 2:08 p.m. [place] time on August 21, 2021. Dictated by: Jeremias Hi M.D. on 08/21/2021 at 14:02 Approved by: Jeremias Hi M.D. on 08/21/2021 at 14:12
[2021-08-21 14:16] LABS: INR 1.4 (0.9-1.3); Prothrombin Time 16.2 SECONDS (10.1-12.7)
[2021-08-21 14:18] LABS: Add Manual Diff / Slide Review NO; Basophils Absolute Auto 0 /uL (0-100); Basophils Percent Auto 0.1 % (0-2); Eosinophils Absolute Auto 0 /uL (0-450); Hematocrit 39.3 % (41-53); Hemoglobin 13.3 g/dL (13.5-17.5); Lymphocytes Absolute Auto 400 /uL (1100-4500); Lymphocytes Percent Auto 3.1 % (25-40); Mean Corpuscular HGB Conc 33.9 % (30-36); Mean Corpuscular Hemoglobin 37.2 PG (26-34); Mean Corpuscular Volume 109.6 fL (80-100); Monocytes Absolute Auto 1100 /uL (0-900); Monocytes Percent Auto 8.2 % (3-14); Neutrophils Absolute Auto 11600 /uL (1500-7000); Neutrophils Percent Auto 88.6 % (50-75); Platelet Count 88 X10^3/uL (150-400); Red Blood Cell Count 3.58 X10^6/uL (4.5-5.9); White Blood Cell Count 13.1 X10^3/uL (4.5-11.0)
[2021-08-21 14:19] LABS: PTT Partial Thromboplastin Tim 32 SECONDS (26.4-36.2)
[2021-08-21 14:20] LABS: Ethanol (ETOH) < 10 mg/dL
[2021-08-21 14:21] LABS: Albumin 4.1 g/dL (3.5-5.0); Alkaline Phosphatase 150 U/L (38-126); Aspartate Aminotransferase 101 IU/L (17-59); BUN Creatinine Ratio 20.2 (6-22); Blood Urea Nitrogen 17 mg/dL (9-20); Calcium 10.1 mg/dL (8.4-10.2); Carbon Dioxide 25 mmol/L (22-32); Chloride 97 mmol/L (98-107); Creatine Kinase 39 U/L (55-170); Estimated Glomerular Filt Rate > 60.0 mL/min (>60); Glucose 149 mg/dL (70-100); HEMOLYSIS 21 (0-50); Lipase 133 U/L (23-300); Sodium 135 mmol/L (137-145)
[2021-08-21] MEDS: LACTATED RINGERS 2,190 ML 730 ML IV (14:23)
[2021-08-21] MEDS: PIPERACILLIN/TAZO 4.5 GM in SODIUM CHLORIDE 0.9% 100 ML 200 ML IV (14:24)
[2021-08-21] MEDS: MORPHINE 4 MG/ML INJ IV (14:24)
[2021-08-21] MEDS: ONDANSETRON 4 MG/2 ML INJ IV ×2 (14:25→20:22)
[2021-08-21 14:28] LABS: Alanine Aminotransferase 35 IU/L (<50); Ammonia (NH3) 111 umol/L (9-30)
[2021-08-21 14:29] LABS: Albumin Globulin Ratio 0.6 (1.0-2.8)
[2021-08-21 14:30] LABS: Total Protein 11.1 g/dL (6.3-8.2)
[2021-08-21 14:31] LABS: COVID19 -Nasal RAPID Negative (Negative)
[2021-08-21 14:33] LABS: Troponin I < 0.012 ng/mL (0.01-0.034)
[2021-08-21 14:34] LABS: Lactate (Lactic Acid) 4.2 mmol/L (0.7-2.1)
[2021-08-21 14:37] LABS: Procalcitonin 0.15 ng/mL (<0.5)
[2021-08-21] MEDS: KETOROLAC 30 MG/ML VIAL 15 MG IV (14:51)
[2021-08-21 16:11] LABS: Reflexed Lactate in 2 Hours Y
[2021-08-21 16:56] LABS: Lactate 2HR (Lactic Acid Rflx) 2.8 mmol/L (0.7-2.1)
--- NOTE | 2021-08-21 17:30 | PM.HP.1 ---
History of Present Illness History of Present Illness Date Patient Seen: 08/21/21 Time Patient Seen: 17:30 Chief complaint: no sleep in 5 days, hernia, severe pain, vomiting Narrative: This is a 56-year-old male with end-stage alcoholic liver disease, recurrent ascites, alcoholism, esophageal varices, peripheral vascular disease and anxiety who presents to the emergency department with an incarcerated umbilical hernia causing a small bowel obstruction. This umbilical hernia has been present for at least the last year and has been consistently reducible when he lies down but in the last 4 days it has become incarcerated and he has been unable to reduce it. He has been vomiting and becoming weaker. His most recent medical interaction was for esophageal banding which went well, with Dr. Nunes. He lives in a trailer on his parent's property. His mother comes in with him today. He had just seen Dr. Miller for this a week ago and they had made plans to defer surgery while he underwent alcohol dependency treatment as his hernia was still reducible. He now presents with a lactic acid level of 4 dropping to 2.8 with IV fluid resuscitation. The ALT is 35 with an AST of 101. The white blood count is 13.1 with an ammonia level of 111 and a protein level of 11.1. His alcohol level is less than 10. He is mildly jaundiced. His ascites is unremarkably good control currently, likely due to the decreased oral intake of his bowel obstruction. He is normally on spironolactone and furosemide. His MCV is 109. The CT scan shows a possible hepatocellular carcinoma with a 6 cm dome of the liver lesion and a mild sized right pleural effusion. He also has a relatively new T10 compression fracture. Patient History Medical History Alcoholism Ankle pain Anxiety Blindness Cataracts, bilateral Cirrhosis Closed left ankle fracture Elevated serum protein level Esophageal varices Foot pain GERD (gastroesophageal reflux disease) H/O deep venous thrombosis Hearing loss Hepatitis C Lower extremity edema Macrocytic anemia Peripheral vascular disease Portal vein thrombosis Postoperative wound infection Shoulder pain Skin problem Sleep apnea Thrombocytopenia Umbilical hernia Venous stasis Vertigo Vision disorder Wound infection Surgical History Anesthesia H/O neck surgery History of surgery History of surgery of liver (~2018) S/P cataract extraction Family & Social History Family History Mother Cancer Hyperlipidemia Grandfather CVA (cerebral vascular accident) Grandfather Cancer Father Heart disease Hypertension Brother Hyperlipidemia Grandmother Liver disease Social History: household members none Safety & Behavioral: Feels Safe in Current Yes Environment Been Physically Hurt or No Threatened By a Person Tobacco & Substance use: Tobacco type cigarettes Smoking Status Current every day smoker alcohol intake current alcohol intake frequency 3 or more drinks per day Substance Use Type marijuana Comment: His mother is his backup decisionmaker. Meds Home Medications and Allergies Home Medications Medication Instructions Recorded Confirmed Type omeprazole 20 mg capsule,delayed 20 mg PO DAILY cap 03/10/21 08/16/21 History release gabapentin 300 mg capsule 300 mg PO TID #100 cap 04/16/21 08/16/21 Rx furosemide 20 mg tablet 20 mg PO DAILY #30 tab 05/07/21 08/16/21 Rx multivitamin with folic acid 400 1 tab PO DAILY #30 tab 05/07/21 08/16/21 Rx mcg tablet (Tab-A-Gretchen) spironolactone 50 mg tablet 50 mg PO DAILY #30 tab 05/07/21 08/16/21 Rx fluticasone propionate 50 1 spray NASAL DAILY #16 g 08/04/21 08/16/21 Rx mcg/actuation nasal spray,suspension Allergies Allergy/AdvReac Type Severity Reaction Status Date / Time nadolol Allergy Mild Hives Verified 08/16/21 13:42 propranolol Allergy Mild Hives Verified 08/16/21 13:42 Review of Systems Review of Systems Narrative: Positive for abdominal distention, abdominal pain, vomiting. Negative for fevers, chills, sweats, chest pain, coughing, shortness of breath, seizures, rashes, new allergies, sore throat, dysuria, bleeding. Exam Vital Signs (past 8 hours): - 08/21/21 13:46 08/21/21 13:47 08/21/21 14:00 Temperature Pulse Rate 117 H 116 H 117 H Respiratory Rate 41 H 29 H 27 H Blood Pressure 129/79 Pulse Oximetry 97 98 97 08/21/21 14:01 08/21/21 14:11 08/21/21 14:15 Temperature 101 F H Pulse Rate 116 H 113 H 115 H Respiratory Rate 18 27 H 26 H Blood Pressure 129/79 124/75 Pulse Oximetry 98 94 94 08/21/21 14:39 08/21/21 14:40 08/21/21 14:44 Temperature Pulse Rate 105 H 105 H 104 H Respiratory Rate 26 H 19 23 Blood Pressure 161/88 H Pulse Oximetry 90 L 91 91 08/21/21 14:45 08/21/21 14:51 08/21/21 15:00 Temperature 100.1 F H Pulse Rate 106 H 103 H Respiratory Rate 18 18 Blood Pressure 164/90 H 158/71 H Pulse Oximetry 92 96 08/21/21 15:15 08/21/21 15:30 08/21/21 15:45 Temperature Pulse Rate 104 H 103 H 98 H Respiratory Rate 20 22 16 Blood Pressure 135/61 135/65 128/58 L Pulse Oximetry 94 94 94 08/21/21 16:00 08/21/21 16:15 08/21/21 16:30 Temperature Pulse Rate 94 H 93 H 89 Respiratory Rate 16 16 15 Blood Pressure 127/65 130/60 125/61 Pulse Oximetry 95 95 95 08/21/21 16:45 08/21/21 17:04 08/21/21 17:05 Temperature Pulse Rate 86 100 H 94 H Respiratory Rate 23 23 Blood Pressure 126/60 139/71 Pulse Oximetry 95 96 Oxygen Delivery Method Nasal Cannula Oxygen Flow Rate 4 Narrative Exam Narrative: He is alert and oriented x3. Moderate distress is present. Sclerae are mildly jaundice. Pupils are equally round reactive to light and accommodation. Extraocular muscles are intact Throat looks normal No lymph nodes are felt head, neck, supraclavicular area JVD is less than 6 cm No carotid bruits are heard There is no thyromegaly Heart is regular rate and rhythm without murmur Lungs are clear to auscultation bilaterally Abdomen is soft, mildly tender, is no organomegaly palpable The umbilical skin is protruding in a dome shape about 4 cm off the abdominal surface. This area is slightly reddened and tender. Skin has no rash but there is mild jaundice Neurologic exam: No asterixis. Cranial nerves 2-12 test intact Motor function is 3/5 throughout. Objective Labs Result Diagrams: 08/21/21 13:55 08/21/21 13:55 Labs: Laboratory Results - last 24 hr 08/21/21 08/21/21 08/21/21 13:55 13:55 13:55 WBC 13.1 H RBC 3.58 L Hgb 13.3 L Hct 39.3 L MCV 109.6 H MCH 37.2 H MCHC 33.9 RDW 15.0 H Plt Count 88 L Neut % (Auto) 88.6 H Lymph % (Auto) 3.1 L [place] % (Auto) 8.2 Eos % (Auto) 0.0 L Baso % (Auto) 0.1 Neut # (Auto) 62988 H Lymph # (Auto) 400 L [place] # (Auto) 1100 H Eos # (Auto) 0 Baso # (Auto) 0 PT 16.2 H INR 1.4 H APTT 32 D Sodium 135 L Potassium 4.0 Chloride 97 L Carbon Dioxide 25 BUN 17 Creatinine 0.84 Estimated GFR > 60.0 BUN/Creatinine Ratio 20.2 Glucose 149 H Lactate Calcium 10.1 Total Bilirubin 6.0 H AST 101 H ALT 35 Alkaline Phosphatase 150 H Ammonia Total Creatine Kinase 39 L CK-MB (CK-2) TNP CK-MB (CK-2) Rel Index TNP Troponin I < 0.012 Total Protein 11.1 H* Albumin 4.1 Globulin 7.0 H Albumin/Globulin Ratio 0.6 L Lipase 133 Procalcitonin 0.15 Ethyl Alcohol SARS-CoV-2 (PCR) 08/21/21 08/21/21 08/21/21 13:55 13:55 13:55 WBC RBC Hgb Hct MCV MCH MCHC RDW Plt Count Neut % (Auto) Lymph % (Auto) [place] % (Auto) Eos % (Auto) Baso % (Auto) Neut # (Auto) Lymph # (Auto) [place] # (Auto) Eos # (Auto) Baso # (Auto) PT INR APTT Sodium Potassium Chloride Carbon Dioxide BUN Creatinine Estimated GFR BUN/Creatinine Ratio Glucose Lactate 4.2 H* Calcium Total Bilirubin AST ALT Alkaline Phosphatase Ammonia 111 H Total Creatine Kinase CK-MB (CK-2) CK-MB (CK-2) Rel Index Troponin I Total Protein Albumin Globulin Albumin/Globulin Ratio Lipase Procalcitonin Ethyl Alcohol < 10 SARS-CoV-2 (PCR) 08/21/21 08/21/21 14:09 16:13 WBC RBC Hgb Hct MCV MCH MCHC RDW Plt Count Neut % (Auto) Lymph % (Auto) [place] % (Auto) Eos % (Auto) Baso % (Auto) Neut # (Auto) Lymph # (Auto) [place] # (Auto) Eos # (Auto) Baso # (Auto) PT INR APTT Sodium Potassium Chloride Carbon Dioxide BUN Creatinine Estimated GFR BUN/Creatinine Ratio Glucose Lactate 2.8 H Calcium Total Bilirubin AST ALT Alkaline Phosphatase Ammonia Total Creatine Kinase CK-MB (CK-2) CK-MB (CK-2) Rel Index Troponin I Total Protein Albumin Globulin Albumin/Globulin Ratio Lipase Procalcitonin Ethyl Alcohol SARS-CoV-2 (PCR) Negative Assessment & Plan Assessment & Plan narrative: This is a 56-year-old male with an incarcerated umbilical hernia. He is at high risk for strangulation/gangrene and will be going for surgery tonight either here or at a tertiary center if that can be arranged. He also has alcoholic cirrhosis/end-stage liver disease, a possible hepatocellular carcinoma, alcoholism and peripheral vascular disease. Incarcerated umbilical hernia, present on admission. Active. -ammonia level 111, lactic acid level 2.8, white blood count 13.1. -continue NPO, pending surgery with Dr. Lieberman or referral to a tertiary center if that can be arranged either pre op or postop. -admit to intensive care unit for level of nursing need Small-bowel obstruction caused by incarcerated umbilical hernia, present on admission. Active. -keep NPO, use IV fluid to support and arrange surgery likely with Dr. Lieberman here as no tertiary center has been found so far to accept him. End-stage liver disease secondary to alcoholism, present on admission. Active. -no significant ascites on exam or on CT scan -holding spironolactone and furosemide pending resumption of oral intake Alcoholism, present on admission. Active. -alcohol level less than 10. Abdominal ascites, present on admission. Active. Prior CT scan 1 month ago showed a more significant level of ascites than the current CT scan. This is likely related to decreased oral intake of acute bowel obstruction. Right pleural effusion, present on admission. Active. Likely a reaction to the cirrhosis and current bowel obstruction symptoms. Esophageal varices, present on admission. Chronic. -Recent successful banding with GI Peripheral vascular disease, present on admission. Chronic. -the patient describes a vascular graft in the left leg ?to treat a big DVT. ? I am not familiar with venous grafts but that is what he seems to think he has. Enoxaparin is contraindicated due to pending surgery. Sequential compressions devices will be used to prevent DVT His mother is his designated backup decision maker Time Spent With Patient Critical Care time: I spent a total of [] minutes of critical care time on this patient's care today; this time is exclusive of procedural time.
[2021-08-21 17:32] LABS: UR Morphine/Opiate cutoff 300 Negative (Negative); Ur Creatinine Normal (Normal); Ur Specific Gravity Normal (Normal); Urine Amphetamines Negative (Negative); Urine Barbiturates Negative (Negative); Urine Benzodiazepines Negative (Negative); Urine Cocaine Negative (Negative); Urine MDMA Negative (Negative); Urine Methadone Negative (Negative); Urine Methamphetamines Negative (Negative); Urine Oxycodone Negative (Negative); Urine Phencyclidine Negative (Negative); Urine Tetrahydrocannabinol Positive (Negative); Urine Tricyclic Antidepressant Positive (Negative); Urine pH Normal (Normal)
[2021-08-21 17:40] LABS: Appearance Urine UA CLEAR; Bilirubin Urine UA 2+ (NEGATIVE); Glucose Urine UA TRACE g/dL (Negative); Ketones Urine UA TRACE (NEGATIVE); Leukocyte Esterase Urine UA NEGATIVE (NEGATIVE); Nitrite Urine UA NEGATIVE (Negative); Occult Blood Urine UA NEGATIVE (Negative); Protein Urine UA 1+ (Negative); Specific Gravity Urine UA <=1.005 (1.000-1.035)
[2021-08-21 17:43] LABS: Color Urine UA Amber
--- NOTE | 2021-08-21 18:16 | PM.CN ---
History of Present Illness Consult details Date Patient Seen: 08/21/21 Chief complaint: no sleep in 5 days, hernia, severe pain, vomiting Narrative: 56-year-old man with end-stage liver disease, Child class B, meld 19 with a small-bowel obstruction secondary to incarcerated umbilical hernia. He has esophageal varices, ascites history of alcoholism and hepatitis C. For the past several days he has had a incarcerated umbilical hernia with associated nausea vomiting inability to pass flatus. He presented to the emergency department today afebrile, normotensive. CT abdomen pelvis demonstrates small bowel obstruction transition point is within the umbilical hernia. The admission WBC 13, hematocrit 39, platelets 88, INR 1.4 not on anticoagulation, sodium 135 creatinine 0.8 total bilirubin 6.0, albumin 4.1. Initial lactic acid 4.1 corrected to 2.8 after fluid resuscitation. History of alcoholism incidental note on CT of a 6 cm liver lesion. Meds Home Medications and Allergies Home Medications Medication Instructions Recorded Confirmed Type omeprazole 20 mg capsule,delayed 20 mg PO DAILY cap 03/10/21 08/16/21 History release gabapentin 300 mg capsule 300 mg PO TID #100 cap 04/16/21 08/16/21 Rx furosemide 20 mg tablet 20 mg PO DAILY #30 tab 05/07/21 08/16/21 Rx multivitamin with folic acid 400 1 tab PO DAILY #30 tab 05/07/21 08/16/21 Rx mcg tablet (Tab-A-Gretchen) spironolactone 50 mg tablet 50 mg PO DAILY #30 tab 05/07/21 08/16/21 Rx fluticasone propionate 50 1 spray NASAL DAILY #16 g 08/04/21 08/16/21 Rx mcg/actuation nasal spray,suspension Allergies Allergy/AdvReac Type Severity Reaction Status Date / Time nadolol Allergy Mild Hives Verified 08/16/21 13:42 propranolol Allergy Mild Hives Verified 08/16/21 13:42 Exam Vital Signs (past 8 hours): - 08/21/21 13:46 08/21/21 13:47 08/21/21 14:00 Temperature Pulse Rate 117 H 116 H 117 H Respiratory Rate 41 H 29 H 27 H Blood Pressure 129/79 Pulse Oximetry 97 98 97 08/21/21 14:01 08/21/21 14:11 08/21/21 14:15 Temperature 101 F H Pulse Rate 116 H 113 H 115 H Respiratory Rate 18 27 H 26 H Blood Pressure 129/79 124/75 Pulse Oximetry 98 94 94 08/21/21 14:39 08/21/21 14:40 08/21/21 14:44 Temperature Pulse Rate 105 H 105 H 104 H Respiratory Rate 26 H 19 23 Blood Pressure 161/88 H Pulse Oximetry 90 L 91 91 08/21/21 14:45 08/21/21 14:51 08/21/21 15:00 Temperature 100.1 F H Pulse Rate 106 H 103 H Respiratory Rate 18 18 Blood Pressure 164/90 H 158/71 H Pulse Oximetry 92 96 08/21/21 15:15 08/21/21 15:30 08/21/21 15:45 Temperature Pulse Rate 104 H 103 H 98 H Respiratory Rate 20 22 16 Blood Pressure 135/61 135/65 128/58 L Pulse Oximetry 94 94 94 08/21/21 16:00 08/21/21 16:15 08/21/21 16:30 Temperature Pulse Rate 94 H 93 H 89 Respiratory Rate 16 16 15 Blood Pressure 127/65 130/60 125/61 Pulse Oximetry 95 95 95 08/21/21 16:45 08/21/21 17:04 08/21/21 17:05 Temperature Pulse Rate 86 100 H 94 H Respiratory Rate 23 23 Blood Pressure 126/60 139/71 Pulse Oximetry 95 96 08/21/21 17:40 Temperature 99.1 F Pulse Rate 92 H Respiratory Rate 24 Blood Pressure 116/69 Pulse Oximetry 95 Oxygen Delivery Method Room Air Oxygen Flow Rate 4 Narrative Exam Narrative: General jaundice adult man alert oriented not in distress Chest mildly labored respirations with audible wheeze Abdomen extremely tender 8 cm umbilical hernia non reducible, skin erythematous. Ascites on exam Extremities warm edematous Objective Labs Result Diagrams: 08/21/21 13:55 08/21/21 13:55 Labs: Laboratory Results - last 24 hr 08/21/21 08/21/21 08/21/21 13:55 13:55 13:55 WBC 13.1 H RBC 3.58 L Hgb 13.3 L Hct 39.3 L MCV 109.6 H MCH 37.2 H MCHC 33.9 RDW 15.0 H Plt Count 88 L Neut % (Auto) 88.6 H Lymph % (Auto) 3.1 L [place] % (Auto) 8.2 Eos % (Auto) 0.0 L Baso % (Auto) 0.1 Neut # (Auto) 21247 H Lymph # (Auto) 400 L [place] # (Auto) 1100 H Eos # (Auto) 0 Baso # (Auto) 0 PT 16.2 H INR 1.4 H APTT 32 D Sodium 135 L Potassium 4.0 Chloride 97 L Carbon Dioxide 25 BUN 17 Creatinine 0.84 Estimated GFR > 60.0 BUN/Creatinine Ratio 20.2 Glucose 149 H Lactate Calcium 10.1 Total Bilirubin 6.0 H AST 101 H ALT 35 Alkaline Phosphatase 150 H Ammonia Total Creatine Kinase 39 L CK-MB (CK-2) TNP CK-MB (CK-2) Rel Index TNP Troponin I < 0.012 Total Protein 11.1 H* Albumin 4.1 Globulin 7.0 H Albumin/Globulin Ratio 0.6 L Lipase 133 Procalcitonin 0.15 Urine Color Urine Appearance Urine pH Ur Specific [place] Urine Protein Urine Glucose (UA) Urine Ketones Urine Occult Blood Urine Nitrate Urine Bilirubin Urine Urobilinogen Ur Leukocyte Esterase U Opiates 300ng/mL cut Ur Oxycodone Screen Urine Methadone Screen Ur Barbiturates Screen U Tricyclic Antidepress Ur Phencyclidine Scrn Ur Amphetamines Screen U Methamphetamines Scrn Ur MDMA Scrn (Ecstasy) U Benzodiazepines Scrn Urine Cocaine Screen U Marijuana (THC) Screen Ethyl Alcohol SARS-CoV-2 (PCR) 08/21/21 08/21/21 08/21/21 13:55 13:55 13:55 WBC RBC Hgb Hct MCV MCH MCHC RDW Plt Count Neut % (Auto) Lymph % (Auto) [place] % (Auto) Eos % (Auto) Baso % (Auto) Neut # (Auto) Lymph # (Auto) [place] # (Auto) Eos # (Auto) Baso # (Auto) PT INR APTT Sodium Potassium Chloride Carbon Dioxide BUN Creatinine Estimated GFR BUN/Creatinine Ratio Glucose Lactate 4.2 H* Calcium Total Bilirubin AST ALT Alkaline Phosphatase Ammonia 111 H Total Creatine Kinase CK-MB (CK-2) CK-MB (CK-2) Rel Index Troponin I Total Protein Albumin Globulin Albumin/Globulin Ratio Lipase Procalcitonin Urine Color Urine Appearance Urine pH Ur Specific [place] Urine Protein Urine Glucose (UA) Urine Ketones Urine Occult Blood Urine Nitrate Urine Bilirubin Urine Urobilinogen Ur Leukocyte Esterase U Opiates 300ng/mL cut Ur Oxycodone Screen Urine Methadone Screen Ur Barbiturates Screen U Tricyclic Antidepress Ur Phencyclidine Scrn Ur Amphetamines Screen U Methamphetamines Scrn Ur MDMA Scrn (Ecstasy) U Benzodiazepines Scrn Urine Cocaine Screen U Marijuana (THC) Screen Ethyl Alcohol < 10 SARS-CoV-2 (PCR) 08/21/21 08/21/21 08/21/21 14:09 16:13 17:06 WBC RBC Hgb Hct MCV MCH MCHC RDW Plt Count Neut % (Auto) Lymph % (Auto) [place] % (Auto) Eos % (Auto) Baso % (Auto) Neut # (Auto) Lymph # (Auto) [place] # (Auto) Eos # (Auto) Baso # (Auto) PT INR APTT Sodium Potassium Chloride Carbon Dioxide BUN Creatinine Estimated GFR BUN/Creatinine Ratio Glucose Lactate 2.8 H Calcium Total Bilirubin AST ALT Alkaline Phosphatase Ammonia Total Creatine Kinase CK-MB (CK-2) CK-MB (CK-2) Rel Index Troponin I Total Protein Albumin Globulin Albumin/Globulin Ratio Lipase Procalcitonin Urine Color [place] Urine Appearance Clear Urine pH 5.0 Ur Specific [place] <=1.005 Urine Protein 1+ H Urine Glucose (UA) Trace H Urine Ketones Trace H Urine Occult Blood Negative Urine Nitrate Negative Urine Bilirubin 2+ H Urine Urobilinogen 2.0 H Ur Leukocyte Esterase Negative U Opiates 300ng/mL cut Ur Oxycodone Screen Urine Methadone Screen Ur Barbiturates Screen U Tricyclic Antidepress Ur Phencyclidine Scrn Ur Amphetamines Screen U Methamphetamines Scrn Ur MDMA Scrn (Ecstasy) U Benzodiazepines Scrn Urine Cocaine Screen U Marijuana (THC) Screen Ethyl Alcohol SARS-CoV-2 (PCR) Negative 08/21/21 17:06 WBC RBC Hgb Hct MCV MCH MCHC RDW Plt Count Neut % (Auto) Lymph % (Auto) [place] % (Auto) Eos % (Auto) Baso % (Auto) Neut # (Auto) Lymph # (Auto) [place] # (Auto) Eos # (Auto) Baso # (Auto) PT INR APTT Sodium Potassium Chloride Carbon Dioxide BUN Creatinine Estimated GFR BUN/Creatinine Ratio Glucose Lactate Calcium Total Bilirubin AST ALT Alkaline Phosphatase Ammonia Total Creatine Kinase CK-MB (CK-2) CK-MB (CK-2) Rel Index Troponin I Total Protein Albumin Globulin Albumin/Globulin Ratio Lipase Procalcitonin Urine Color Urine Appearance Urine pH Ur Specific [place] Urine Protein Urine Glucose (UA) Urine Ketones Urine Occult Blood Urine Nitrate Urine Bilirubin Urine Urobilinogen Ur Leukocyte Esterase U Opiates 300ng/mL cut Negative Ur Oxycodone Screen Negative Urine Methadone Screen Negative Ur Barbiturates Screen Negative U Tricyclic Antidepress Positive H Ur Phencyclidine Scrn Negative Ur Amphetamines Screen Negative U Methamphetamines Scrn Negative Ur MDMA Scrn (Ecstasy) Negative U Benzodiazepines Scrn Negative Urine Cocaine Screen Negative U Marijuana (THC) Screen Positive H Ethyl Alcohol SARS-CoV-2 (PCR) PFSH Medical History Alcoholism Ankle pain Anxiety Blindness Cataracts, bilateral Cirrhosis Closed left ankle fracture Elevated serum protein level Esophageal varices Foot pain GERD (gastroesophageal reflux disease) H/O deep venous thrombosis Hearing loss Hepatitis C Lower extremity edema Macrocytic anemia Peripheral vascular disease Portal vein thrombosis Postoperative wound infection Shoulder pain Skin problem Sleep apnea Thrombocytopenia Umbilical hernia Venous stasis Vertigo Vision disorder Wound infection Surgical History Anesthesia H/O neck surgery History of surgery History of surgery of liver (~2018) S/P cataract extraction Family History Mother Cancer Hyperlipidemia Grandfather CVA (cerebral vascular accident) Grandfather Cancer Father Heart disease Hypertension Brother Hyperlipidemia Grandmother Liver disease Social History household members: none Tobacco & Substance Use Smoking Status: Current every day smoker Tobacco: How many years used: 42 quit status: not considering quitting alcohol intake: current substance use type: does not use Assessment & Plan Assessment and plan (1) Strangulated umbilical hernia: Status: Acute Assessment & Plan narrative: 56-year-old man with end-stage liver disease, Child class B with a strangulated umbilical hernia causing a small-bowel obstruction. Will proceed with an exploratory laparotomy possible bowel resection and repair of hernia. I explained to the patient that he has significant liver disease with an acute abdominal process. I explained the technical part nature of the operation. We discussed risks which include bleeding infection nonhealing wound anastomotic leak and a mortality risk of at least 30% secondary to the status of his liver disease. Questions have been answered he is in agreement with this plan Time Spent With Patient Critical Care time: I spent a total of [] minutes of critical care time on this patient's care today; this time is exclusive of procedural time.
[2021-08-21 18:21] LABS: Bacteria Urine None Seen; Culture Indicated Urine Cult Not Indicated; Ictotest Urine Negative (Negative); RBC Urine None Seen (0-5/HPF); WBC Urine None Seen (0-5/HPF)
[2021-08-21] MEDS: CEFAZOLIN 2 GM/20 ML SYRINGE IV (18:52)
--- NOTE | 2021-08-21 19:14 | SUR.OPER ---
Supine on padded OR bed, head on pillow, arms secured on padded arm boards at <90 degrees abduction, legs uncrossed, safety belt at thigh, tape over blanket over lower legs.
[2021-08-21] MEDS: BUPIVACAINE 0.25% (PF) VIAL 30 ML INJ (19:34)
--- NOTE | 2021-08-21 20:04 | PM.OP.1 ---
Operative Date/Time/Diagnoses Date of procedure: 08/21/21 Time of procedure: 20:04 Pre-op diagnosis: Strangulated umbilical hernia Small-bowel obstruction End-stage liver disease Post-op diagnosis: same Procedure & Clinicians Procedure: Exploratory laparotomy Small-bowel resection Same procedure as scheduled: Yes Indications: 56-year-old man End stage liver disease Child Class B, acute strangulation of umbilical hernia with secondary small bowel obstruction Surgeon: Pedro Lieberman Anesthesia Type: General Operative Notes Findings: large volume ascities necrotic small bowel 8 inches Specimen(s): other (small bowel ) Estimated Blood Loss (mL): 100 Procedure in detail: Patient was brought to the operating room placed supine on table. He received Ancef prior to skin incision. General anesthesia induced intubated with endotracheal tube. Reeves catheter sterilely placed. Prepped draped sterile fashion. Time-out performed. Upper midline incision was made just above the umbilicus. The abdomen was entered atraumatically. There was a large volume of approximately 1.5L ascites that was suctioned out of the abdomen. The small bowel was seen to enter the umbilical hernia and could not be manually reduced. The hernia sac was sharply incised and the small bowel segment was then released. The mid small bowel had an area of bautista necrosis extending for approximately 8 inches which did not improve after it was removed from the incarceration. Small-bowel resection was then performed. A window within the mesentery was made and the small bowel was divided with the YURIDIA stapler. The mesentery to the specimen was divided between silk ties. A [id number] functional and end anastomosis was formed, an enterotomy was made in both limbs of the small bowel and a 3rd firing of the staple load to create the common channel. The channel was inspected it was grossly hemostatic and without stenosis. The common opening was closed with 3-0 PDS suture in running fashion. The suture line was then imbricated with interrupted silk suture. The mesenteric defect was closed with interrupted silk suture. A silk suture was then put at the crotch of the anastomosis for reinforcement. Content moved easily across the anastomosis it was well perfused and without sign of leak. The small bowel was then returned to the abdomen. The hernia sac was then excised and the fascia was closed with interrupted Ethibond suture in [id number] fashion subcutaneous tissue closed with Vicryl the skin closed with shelley. Patient tolerated the operation well was transferred to recovery in stable condition. Complications: none Post-operative Condition: stable Disposition: Acute Care
--- NOTE | 2021-08-21 20:14 | SUR.PHASEI ---
Patient to recovery in stable condition with OR nurse and Anesthesia; placed on cardiac monitor technician; oxygen saturation 78% on room air on arrival; no distress noted but placed patient on oxygen at 4 liters via nasal cannula and started duoneb due to expiratory wheezing. Patient had audible wheezing prior to OR procedure. Abdomen with large mid-line dressing clean, dry and intact. No abdominal drains noted. Reeves catheter draining dark, cinthya colored urine.
[2021-08-21] MEDS: ALBUTEROL/IPRATROPIUM 3 ML AMPUL INH (20:15)
[2021-08-21] MEDS: HYDROMORPHONE 2 MG INJ IV (20:22)
[2021-08-21] MEDS: LACTATED RINGERS 1,000 ML 42 ML IV ×2 (20:27)
[2021-08-21] MEDS: SODIUM CHLORIDE 0.9% 1,000 ML 125 ML IV (22:30)
[2021-08-21] MEDS: PIPERACILLIN/TAZO 3.375 GM in SODIUM CHLORIDE 0.9% 100 ML 25 ML IV (22:58)
--- NOTE | 2021-08-21 23:01 | PM.CN.EICU ---
History of Present Illness Consult details Chief complaint: no sleep in 5 days, hernia, severe pain, vomiting :: This patient was seen in the Intensive Care Unit via real time interactive two-way audiovisual telecommunication. Narrative: Patient is a 56M with a PMH ETOH Cirrhosis c/b recurrent ascites and esophageal varices, peripheral vascular disease and anxiety who presented to the ER earlier today with abdominal pain, found to have a strangulated hernia with associated small bowel obstruction. Taken to the OR where patient underwent a hernia repair and small bowel resection. He was extubated post-operatively with occasional episodes of desaturations noted, now on NC at 1-2L. He has received Zosyn and been started on mIVF with NS @ 125/hour. Of note, his admission CT also noted a 6cm liver lesion c/f HCC and a moderate right pleural effusion. Post-operatively, patient notes mild abdominal pain but otherwise states he feels well. Denies shortness of breath or chest pain. Reports mild cough. Patient states he is a daily drinker, last drink was Monday. [facility] Medical History Alcoholism Ankle pain Anxiety Blindness Cataracts, bilateral Cirrhosis Closed left ankle fracture Elevated serum protein level Esophageal varices Foot pain GERD (gastroesophageal reflux disease) H/O deep venous thrombosis Hearing loss Hepatitis C Lower extremity edema Macrocytic anemia Peripheral vascular disease Portal vein thrombosis Postoperative wound infection Shoulder pain Skin problem Sleep apnea Thrombocytopenia Umbilical hernia Venous stasis Vertigo Vision disorder Wound infection Surgical History Anesthesia H/O neck surgery History of surgery History of surgery of liver (~2017) S/P cataract extraction Family History Mother Cancer Hyperlipidemia Grandfather CVA (cerebral vascular accident) Grandfather Cancer Father Heart disease Hypertension Brother Hyperlipidemia Grandmother Liver disease Social History household members: none Smoking Status: Current every day smoker Tobacco: How many years used: 42 quit status: not considering quitting alcohol intake: current substance use type: does not use Current Medications Current Medications Medications: Home Medications omeprazole 20 mg capsule,delayed release 20 mg PO DAILY cap 03/10/21 [History Confirmed 08/16/21] gabapentin 300 mg capsule 300 mg PO TID #100 cap 04/16/21 [Rx Confirmed 08/16/21] furosemide 20 mg tablet 20 mg PO DAILY #30 tab 05/07/21 [Rx Confirmed 08/16/21] multivitamin with folic acid 400 mcg tablet (Tab-A-Gretchen) 1 tab PO DAILY #30 tab 05/07/21 [Rx Confirmed 08/16/21] spironolactone 50 mg tablet 50 mg PO DAILY #30 tab 05/07/21 [Rx Confirmed 08/16/21] fluticasone propionate 50 mcg/actuation nasal spray,suspension 1 spray NASAL DAILY #16 g 08/04/21 [Rx Confirmed 08/16/21] Visit Medications (administered) Generic Name Dose Route Start Last Admin Trade Name Freq PRN Reason Stop Dose Admin Lactated Ringer's 1,000 mls @ 42 mls/hr 08/21/21 20:30 08/21/21 20:27 Lactated Ringers IV 42 mls/hr CONT MO Administration Sodium Chloride 1,000 mls @ 125 mls/hr 08/21/21 21:30 08/21/21 22:30 Normal Saline 0.9% IV 125 mls/hr CONT MO Administration Exam Vital Signs (past 8 hours): - 08/21/21 15:15 08/21/21 15:30 08/21/21 15:45 Temperature Pulse Rate 104 H 103 H 98 H Respiratory Rate 20 22 16 Blood Pressure 135/61 135/65 128/58 L Pulse Oximetry 94 94 94 08/21/21 16:00 08/21/21 16:15 08/21/21 16:30 Temperature Pulse Rate 94 H 93 H 89 Respiratory Rate 16 16 15 Blood Pressure 127/65 130/60 125/61 Pulse Oximetry 95 95 95 08/21/21 16:45 08/21/21 17:04 08/21/21 17:05 Temperature Pulse Rate 86 100 H 94 H Respiratory Rate 23 23 Blood Pressure 126/60 139/71 Pulse Oximetry 95 96 08/21/21 17:40 08/21/21 20:10 08/21/21 20:12 Temperature 99.1 F 99.6 F Pulse Rate 92 H 113 H 100 H Respiratory Rate 24 18 15 Blood Pressure 116/69 110/80 110/73 Pulse Oximetry 95 95 95 08/21/21 20:16 08/21/21 20:21 08/21/21 20:26 Temperature Pulse Rate 89 102 H 94 H Respiratory Rate 22 22 18 Blood Pressure 105/68 105/70 94/64 Pulse Oximetry 94 92 93 08/21/21 20:32 08/21/21 20:36 08/21/21 21:00 Temperature 99.1 F Pulse Rate 98 H 101 H 92 H Respiratory Rate 19 24 20 Blood Pressure 105/69 100/65 102/60 Pulse Oximetry 96 92 94 08/21/21 21:30 08/21/21 22:00 Temperature 98.6 F 99.4 F Pulse Rate 92 H 92 H Respiratory Rate 19 18 Blood Pressure 108/71 99/65 Pulse Oximetry 92 92 Oxygen Delivery Method Nasal Cannula Oxygen Flow Rate 1.5 Narrative Exam Narrative: Awake, laying in bed watching television Eyes Other: Mild icterus Resp Other: No increased WOB. NC @ 1L. Per RN, lungs sound clear bilaterally. Cardio Other: Regular rate. Trace LE edema GI Other: Dressing in place. Not distended Neuro Other: Alert, oriented, follows commands Objective Labs Result Diagrams: 08/21/21 13:55 08/21/21 13:55 Labs: Laboratory Results - last 24 hr 08/21/21 08/21/21 08/21/21 13:55 13:55 13:55 WBC 13.1 H RBC 3.58 L Hgb 13.3 L Hct 39.3 L MCV 109.6 H MCH 37.2 H MCHC 33.9 RDW 15.0 H Plt Count 88 L Neut % (Auto) 88.6 H Lymph % (Auto) 3.1 L [place] % (Auto) 8.2 Eos % (Auto) 0.0 L Baso % (Auto) 0.1 Neut # (Auto) 52518 H Lymph # (Auto) 400 L [place] # (Auto) 1100 H Eos # (Auto) 0 Baso # (Auto) 0 PT 16.2 H INR 1.4 H APTT 32 D Sodium 135 L Potassium 4.0 Chloride 97 L Carbon Dioxide 25 BUN 17 Creatinine 0.84 Estimated GFR > 60.0 BUN/Creatinine Ratio 20.2 Glucose 149 H Lactate Calcium 10.1 Total Bilirubin 6.0 H AST 101 H ALT 35 Alkaline Phosphatase 150 H Ammonia Total Creatine Kinase 39 L CK-MB (CK-2) TNP CK-MB (CK-2) Rel Index TNP Troponin I < 0.012 Total Protein 11.1 H* Albumin 4.1 Globulin 7.0 H Albumin/Globulin Ratio 0.6 L Lipase 133 Procalcitonin 0.15 Urine Color Urine Appearance Urine pH Ur Specific [place] Urine Protein Urine Glucose (UA) Urine Ketones Urine Occult Blood Urine Nitrate Urine Bilirubin Ur Bilirubin Confirm Urine Urobilinogen Ur Leukocyte Esterase Urine RBC Urine WBC Urine Bacteria Ur Culture Indicated? U Opiates 300ng/mL cut Ur Oxycodone Screen Urine Methadone Screen Ur Barbiturates Screen U Tricyclic Antidepress Ur Phencyclidine Scrn Ur Amphetamines Screen U Methamphetamines Scrn Ur MDMA Scrn (Ecstasy) U Benzodiazepines Scrn Urine Cocaine Screen U Marijuana (THC) Screen Ethyl Alcohol SARS-CoV-2 (PCR) 08/21/21 08/21/21 08/21/21 13:55 13:55 13:55 WBC RBC Hgb Hct MCV MCH MCHC RDW Plt Count Neut % (Auto) Lymph % (Auto) [place] % (Auto) Eos % (Auto) Baso % (Auto) Neut # (Auto) Lymph # (Auto) [place] # (Auto) Eos # (Auto) Baso # (Auto) PT INR APTT Sodium Potassium Chloride Carbon Dioxide BUN Creatinine Estimated GFR BUN/Creatinine Ratio Glucose Lactate 4.2 H* Calcium Total Bilirubin AST ALT Alkaline Phosphatase Ammonia 111 H Total Creatine Kinase CK-MB (CK-2) CK-MB (CK-2) Rel Index Troponin I Total Protein Albumin Globulin Albumin/Globulin Ratio Lipase Procalcitonin Urine Color Urine Appearance Urine pH Ur Specific [place] Urine Protein Urine Glucose (UA) Urine Ketones Urine Occult Blood Urine Nitrate Urine Bilirubin Ur Bilirubin Confirm Urine Urobilinogen Ur Leukocyte Esterase Urine RBC Urine WBC Urine Bacteria Ur Culture Indicated? U Opiates 300ng/mL cut Ur Oxycodone Screen Urine Methadone Screen Ur Barbiturates Screen U Tricyclic Antidepress Ur Phencyclidine Scrn Ur Amphetamines Screen U Methamphetamines Scrn Ur MDMA Scrn (Ecstasy) U Benzodiazepines Scrn Urine Cocaine Screen U Marijuana (THC) Screen Ethyl Alcohol < 10 SARS-CoV-2 (PCR) 08/21/21 08/21/21 08/21/21 14:09 16:13 17:06 WBC RBC Hgb Hct MCV MCH MCHC RDW Plt Count Neut % (Auto) Lymph % (Auto) [place] % (Auto) Eos % (Auto) Baso % (Auto) Neut # (Auto) Lymph # (Auto) [place] # (Auto) Eos # (Auto) Baso # (Auto) PT INR APTT Sodium Potassium Chloride Carbon Dioxide BUN Creatinine Estimated GFR BUN/Creatinine Ratio Glucose Lactate 2.8 H Calcium Total Bilirubin AST ALT Alkaline Phosphatase Ammonia Total Creatine Kinase CK-MB (CK-2) CK-MB (CK-2) Rel Index Troponin I Total Protein Albumin Globulin Albumin/Globulin Ratio Lipase Procalcitonin Urine Color [place] Urine Appearance Clear Urine pH 5.0 Ur Specific [place] <=1.005 Urine Protein 1+ H Urine Glucose (UA) Trace H Urine Ketones Trace H Urine Occult Blood Negative Urine Nitrate Negative Urine Bilirubin 2+ H Ur Bilirubin Confirm Negative Urine Urobilinogen 2.0 H Ur Leukocyte Esterase Negative Urine RBC None seen Urine WBC None seen Urine Bacteria None seen Ur Culture Indicated? Cult not indicated U Opiates 300ng/mL cut Ur Oxycodone Screen Urine Methadone Screen Ur Barbiturates Screen U Tricyclic Antidepress Ur Phencyclidine Scrn Ur Amphetamines Screen U Methamphetamines Scrn Ur MDMA Scrn (Ecstasy) U Benzodiazepines Scrn Urine Cocaine Screen U Marijuana (THC) Screen Ethyl Alcohol SARS-CoV-2 (PCR) Negative 08/21/21 17:06 WBC RBC Hgb Hct MCV MCH MCHC RDW Plt Count Neut % (Auto) Lymph % (Auto) [place] % (Auto) Eos % (Auto) Baso % (Auto) Neut # (Auto) Lymph # (Auto) [place] # (Auto) Eos # (Auto) Baso # (Auto) PT INR APTT Sodium Potassium Chloride Carbon Dioxide BUN Creatinine Estimated GFR BUN/Creatinine Ratio Glucose Lactate Calcium Total Bilirubin AST ALT Alkaline Phosphatase Ammonia Total Creatine Kinase CK-MB (CK-2) CK-MB (CK-2) Rel Index Troponin I Total Protein Albumin Globulin Albumin/Globulin Ratio Lipase Procalcitonin Urine Color Urine Appearance Urine pH Ur Specific [place] Urine Protein Urine Glucose (UA) Urine Ketones Urine Occult Blood Urine Nitrate Urine Bilirubin Ur Bilirubin Confirm Urine Urobilinogen Ur Leukocyte Esterase Urine RBC Urine WBC Urine Bacteria Ur Culture Indicated? U Opiates 300ng/mL cut Negative Ur Oxycodone Screen Negative Urine Methadone Screen Negative Ur Barbiturates Screen Negative U Tricyclic Antidepress Positive H Ur Phencyclidine Scrn Negative Ur Amphetamines Screen Negative U Methamphetamines Scrn Negative Ur MDMA Scrn (Ecstasy) Negative U Benzodiazepines Scrn Negative Urine Cocaine Screen Negative U Marijuana (THC) Screen Positive H Ethyl Alcohol SARS-CoV-2 (PCR) Assessment & Plan Assessment & Plan narrative: 1. Strangulated Umbilical Hernia s/p small bowel resection and repair - Would repeat lactate, ensure clearance - NPO/diet per surgery recs - Cautious with mIVF in setting of Cirrhosis and volume overload, goal euvolemia in the post-operative setting - Agreed with empiric Zosyn, follow up ascitic fluid studies/cultures - Would start PPI IV given patient is on Omeprazole at home 2. Alcohol Cirrhosis c/b ascites, esophageal varices. Liver lesion noted on CT, at risk for HCC - Home Spironolactone/Lasix held in setting of OR, may need to resume in coming days - Would monitor LFTs/coags daily - If AMS develops, consider hepatic encephalopathy (ammonia elevated) - Recommend further workup of liver lesion, likely as an outpatient 3. Right pleural effusion, noted on admission CT of abdomen. Most likely hepatic hydrothorax. - Volume overload management - Recommend CXR to further assess/establish baseline 4. History of Alcohol Abuse, last drink was 5 days ago - Monitor for e/o withdrawal. If concerning symptoms, would initiate CIWA Protocol Initiate VTE med prophylaxis when cleared by surgery. Monitor platelets in the setting of cirrhosis Time Spent With Patient Critical Care time: I spent a total of [] minutes of critical care time on this patient's care today; this time is exclusive of procedural time.
[2021-08-22] VITALS (10 sets, daily range): BP systolic 97–118; BP diastolic 59–72; PULSE 63–89; RESP 16–20; TEMP 36.5–37.2; O2SAT 92–96
[2021-08-22] MEDS: ALBUTEROL 2.5 MG/3 ML NEB (ADULT) INH (02:13)
[2021-08-22 05:40] LABS: Basophils Absolute Auto 200 /uL (0-100); Basophils Percent Auto 1.9 % (0-2); Eosinophils Absolute Auto 0 /uL (0-450); Eosinophils Percent Auto 0.2 % (2-4); Hematocrit 28.3 % (41-53); Hemoglobin 9.6 g/dL (13.5-17.5); Lymphocytes Absolute Auto 400 /uL (1100-4500); Lymphocytes Percent Auto 4.8 % (25-40); Mean Corpuscular HGB Conc 33.7 % (30-36); Mean Corpuscular Hemoglobin 37.4 PG (26-34); Mean Corpuscular Volume 110.8 fL (80-100); Monocytes Absolute Auto 400 /uL (0-900); Neutrophils Absolute Auto 7700 /uL (1500-7000); Neutrophils Percent Auto 88.1 % (50-75); Red Blood Cell Count 2.56 X10^6/uL (4.5-5.9); Red Cell Distribution Width 14.9 % (11.6-14.8); White Blood Cell Count 8.7 X10^3/uL (4.5-11.0)
[2021-08-22 05:44] LABS: Add Manual Diff / Slide Review SLIDE REVIEW
[2021-08-22 05:45] LABS: BUN Creatinine Ratio 23.8 (6-22); Blood Urea Nitrogen 24 mg/dL (9-20); Calcium 8.7 mg/dL (8.4-10.2); Carbon Dioxide 27 mmol/L (22-32); Chloride 102 mmol/L (98-107); Estimated Glomerular Filt Rate > 60.0 mL/min (>60); Glucose 184 mg/dL (70-100); HEMOLYSIS < 15 (0-50); Potassium 4.2 mmol/L (3.4-5.1); Sodium 134 mmol/L (137-145)
[2021-08-22] MEDS: PIPERACILLIN/TAZO 3.375 GM in SODIUM CHLORIDE 0.9% 100 ML 25 ML IV ×3 (06:22→21:14)
[2021-08-22 06:58] LABS: Hypochromasia 1+; Macrocytosis 2+; Platelet Count 48 X10^3/uL (150-400); Platelet Estimate Decreased on smear
--- NOTE | 2021-08-22 09:13 | PM.PN.1 ---
Subjective Subjective Date Patient Seen: 08/22/21 Interval history: He is seen in his room here today to follow-up his umbilical hernia incarceration repair, his nicotine addiction and his anemia. He is also suffering from end-stage liver disease caused by alcoholism. He had significant ascites present on opening of his abdomen with about 1.5 L of ascites fluid found. His bilirubin level was 6.0 yesterday. The MCV is 110.8. The white blood count is 8.7 with a hemoglobin of 9.6. The creatinine is 1.01. His blood pressure is 101/59. Exam Vital Signs (past 8 hours): - 08/22/21 02:13 08/22/21 04:00 08/22/21 07:56 Temperature 97.7 F 97.8 F Pulse Rate 74 74 63 Respiratory Rate 17 17 18 Blood Pressure 97/65 101/59 L Pulse Oximetry 95 95 94 Oxygen Delivery Method Nasal Cannula Oxygen Flow Rate 2 Narrative Exam Narrative: He is alert and oriented x3. No apparent distress. Heart is regular rate and rhythm without murmur Lungs are clear to auscultation bilaterally Extremities have no ankle edema Abdomen has a large dressing over the umbilical area. He has the appropriate amount of postoperative tenderness. There is no drainage or dehiscence visible. Ascites appears to be moderate. Objective Labs Result Diagrams: 08/22/21 05:20 08/22/21 05:20 Labs: Laboratory Results - last 24 hr 08/21/21 08/21/21 08/21/21 13:55 13:55 13:55 WBC 13.1 H RBC 3.58 L Hgb 13.3 L Hct 39.3 L MCV 109.6 H MCH 37.2 H MCHC 33.9 RDW 15.0 H Plt Count 88 L Neut % (Auto) 88.6 H Lymph % (Auto) 3.1 L [place] % (Auto) 8.2 Eos % (Auto) 0.0 L Baso % (Auto) 0.1 Neut # (Auto) 13850 H Lymph # (Auto) 400 L [place] # (Auto) 1100 H Eos # (Auto) 0 Baso # (Auto) 0 Platelet Estimate RBC Morphology Hypochromasia Macrocytosis PT 16.2 H INR 1.4 H APTT 32 D Sodium 135 L Potassium 4.0 Chloride 97 L Carbon Dioxide 25 BUN 17 Creatinine 0.84 Estimated GFR > 60.0 BUN/Creatinine Ratio 20.2 Glucose 149 H Lactate Calcium 10.1 Total Bilirubin 6.0 H AST 101 H ALT 35 Alkaline Phosphatase 150 H Ammonia Total Creatine Kinase 39 L CK-MB (CK-2) TNP CK-MB (CK-2) Rel Index TNP Troponin I < 0.012 Total Protein 11.1 H* Albumin 4.1 Globulin 7.0 H Albumin/Globulin Ratio 0.6 L Lipase 133 Procalcitonin 0.15 Urine Color Urine Appearance Urine pH Ur Specific [place] Urine Protein Urine Glucose (UA) Urine Ketones Urine Occult Blood Urine Nitrate Urine Bilirubin Ur Bilirubin Confirm Urine Urobilinogen Ur Leukocyte Esterase Urine RBC Urine WBC Urine Bacteria Ur Culture Indicated? Nasal Screen MRSA (PCR) U Opiates 300ng/mL cut Ur Oxycodone Screen Urine Methadone Screen Ur Barbiturates Screen U Tricyclic Antidepress Ur Phencyclidine Scrn Ur Amphetamines Screen U Methamphetamines Scrn Ur MDMA Scrn (Ecstasy) U Benzodiazepines Scrn Urine Cocaine Screen U Marijuana (THC) Screen Ethyl Alcohol SARS-CoV-2 (PCR) Blood Type Antibody Screen 08/21/21 08/21/21 08/21/21 13:55 13:55 13:55 WBC RBC Hgb Hct MCV MCH MCHC RDW Plt Count Neut % (Auto) Lymph % (Auto) [place] % (Auto) Eos % (Auto) Baso % (Auto) Neut # (Auto) Lymph # (Auto) [place] # (Auto) Eos # (Auto) Baso # (Auto) Platelet Estimate RBC Morphology Hypochromasia Macrocytosis PT INR APTT Sodium Potassium Chloride Carbon Dioxide BUN Creatinine Estimated GFR BUN/Creatinine Ratio Glucose Lactate 4.2 H* Calcium Total Bilirubin AST ALT Alkaline Phosphatase Ammonia 111 H Total Creatine Kinase CK-MB (CK-2) CK-MB (CK-2) Rel Index Troponin I Total Protein Albumin Globulin Albumin/Globulin Ratio Lipase Procalcitonin Urine Color Urine Appearance Urine pH Ur Specific [place] Urine Protein Urine Glucose (UA) Urine Ketones Urine Occult Blood Urine Nitrate Urine Bilirubin Ur Bilirubin Confirm Urine Urobilinogen Ur Leukocyte Esterase Urine RBC Urine WBC Urine Bacteria Ur Culture Indicated? Nasal Screen MRSA (PCR) U Opiates 300ng/mL cut Ur Oxycodone Screen Urine Methadone Screen Ur Barbiturates Screen U Tricyclic Antidepress Ur Phencyclidine Scrn Ur Amphetamines Screen U Methamphetamines Scrn Ur MDMA Scrn (Ecstasy) U Benzodiazepines Scrn Urine Cocaine Screen U Marijuana (THC) Screen Ethyl Alcohol < 10 SARS-CoV-2 (PCR) Blood Type Antibody Screen 08/21/21 08/21/21 08/21/21 14:09 16:13 17:06 WBC RBC Hgb Hct MCV MCH MCHC RDW Plt Count Neut % (Auto) Lymph % (Auto) [place] % (Auto) Eos % (Auto) Baso % (Auto) Neut # (Auto) Lymph # (Auto) [place] # (Auto) Eos # (Auto) Baso # (Auto) Platelet Estimate RBC Morphology Hypochromasia Macrocytosis PT INR APTT Sodium Potassium Chloride Carbon Dioxide BUN Creatinine Estimated GFR BUN/Creatinine Ratio Glucose Lactate 2.8 H Calcium Total Bilirubin AST ALT Alkaline Phosphatase Ammonia Total Creatine Kinase CK-MB (CK-2) CK-MB (CK-2) Rel Index Troponin I Total Protein Albumin Globulin Albumin/Globulin Ratio Lipase Procalcitonin Urine Color [place] Urine Appearance Clear Urine pH 5.0 Ur Specific [place] <=1.005 Urine Protein 1+ H Urine Glucose (UA) Trace H Urine Ketones Trace H Urine Occult Blood Negative Urine Nitrate Negative Urine Bilirubin 2+ H Ur Bilirubin Confirm Negative Urine Urobilinogen 2.0 H Ur Leukocyte Esterase Negative Urine RBC None seen Urine WBC None seen Urine Bacteria None seen Ur Culture Indicated? Cult not indicated Nasal Screen MRSA (PCR) U Opiates 300ng/mL cut Ur Oxycodone Screen Urine Methadone Screen Ur Barbiturates Screen U Tricyclic Antidepress Ur Phencyclidine Scrn Ur Amphetamines Screen U Methamphetamines Scrn Ur MDMA Scrn (Ecstasy) U Benzodiazepines Scrn Urine Cocaine Screen U Marijuana (THC) Screen Ethyl Alcohol SARS-CoV-2 (PCR) Negative Blood Type Antibody Screen 08/21/21 08/21/21 08/21/21 17:06 17:50 21:57 WBC RBC Hgb Hct MCV MCH MCHC RDW Plt Count Neut % (Auto) Lymph % (Auto) [place] % (Auto) Eos % (Auto) Baso % (Auto) Neut # (Auto) Lymph # (Auto) [place] # (Auto) Eos # (Auto) Baso # (Auto) Platelet Estimate RBC Morphology Hypochromasia Macrocytosis PT INR APTT Sodium Potassium Chloride Carbon Dioxide BUN Creatinine Estimated GFR BUN/Creatinine Ratio Glucose Lactate Calcium Total Bilirubin AST ALT Alkaline Phosphatase Ammonia Total Creatine Kinase CK-MB (CK-2) CK-MB (CK-2) Rel Index Troponin I Total Protein Albumin Globulin Albumin/Globulin Ratio Lipase Procalcitonin Urine Color Urine Appearance Urine pH Ur Specific [place] Urine Protein Urine Glucose (UA) Urine Ketones Urine Occult Blood Urine Nitrate Urine Bilirubin Ur Bilirubin Confirm Urine Urobilinogen Ur Leukocyte Esterase Urine RBC Urine WBC Urine Bacteria Ur Culture Indicated? Nasal Screen MRSA (PCR) Negative for mrsa U Opiates 300ng/mL cut Negative Ur Oxycodone Screen Negative Urine Methadone Screen Negative Ur Barbiturates Screen Negative U Tricyclic Antidepress Positive H Ur Phencyclidine Scrn Negative Ur Amphetamines Screen Negative U Methamphetamines Scrn Negative Ur MDMA Scrn (Ecstasy) Negative U Benzodiazepines Scrn Negative Urine Cocaine Screen Negative U Marijuana (THC) Screen Positive H Ethyl Alcohol SARS-CoV-2 (PCR) Blood Type A Negative Antibody Screen Negative 08/22/21 08/22/21 05:20 05:20 WBC 8.7 RBC 2.56 L Hgb 9.6 L Hct 28.3 L MCV 110.8 H MCH 37.4 H MCHC 33.7 RDW 14.9 H Plt Count 48 L Neut % (Auto) 88.1 H Lymph % (Auto) 4.8 L [place] % (Auto) 5.0 Eos % (Auto) 0.2 L Baso % (Auto) 1.9 Neut # (Auto) 7700 H Lymph # (Auto) 400 L [place] # (Auto) 400 Eos # (Auto) 0 Baso # (Auto) 200 H Platelet Estimate Decreased on smear RBC Morphology See below Hypochromasia 1+ H Macrocytosis 2+ H PT INR APTT Sodium 134 L Potassium 4.2 Chloride 102 Carbon Dioxide 27 BUN 24 H Creatinine 1.01 Estimated GFR > 60.0 BUN/Creatinine Ratio 23.8 H Glucose 184 H Lactate Calcium 8.7 Total Bilirubin AST ALT Alkaline Phosphatase Ammonia Total Creatine Kinase CK-MB (CK-2) CK-MB (CK-2) Rel Index Troponin I Total Protein Albumin Globulin Albumin/Globulin Ratio Lipase Procalcitonin Urine Color Urine Appearance Urine pH Ur Specific [place] Urine Protein Urine Glucose (UA) Urine Ketones Urine Occult Blood Urine Nitrate Urine Bilirubin Ur Bilirubin Confirm Urine Urobilinogen Ur Leukocyte Esterase Urine RBC Urine WBC Urine Bacteria Ur Culture Indicated? Nasal Screen MRSA (PCR) U Opiates 300ng/mL cut Ur Oxycodone Screen Urine Methadone Screen Ur Barbiturates Screen U Tricyclic Antidepress Ur Phencyclidine Scrn Ur Amphetamines Screen U Methamphetamines Scrn Ur MDMA Scrn (Ecstasy) U Benzodiazepines Scrn Urine Cocaine Screen U Marijuana (THC) Screen Ethyl Alcohol SARS-CoV-2 (PCR) Blood Type Antibody Screen [facility] Medical History Alcoholism Ankle pain Anxiety Blindness Cataracts, bilateral Cirrhosis Closed left ankle fracture Elevated serum protein level Esophageal varices Foot pain GERD (gastroesophageal reflux disease) H/O deep venous thrombosis Hearing loss Hepatitis C Lower extremity edema Macrocytic anemia Peripheral vascular disease Portal vein thrombosis Postoperative wound infection Shoulder pain Skin problem Sleep apnea Thrombocytopenia Umbilical hernia Venous stasis Vertigo Vision disorder Wound infection Surgical History Anesthesia H/O neck surgery History of surgery History of surgery of liver (~2018) S/P cataract extraction Family History Mother Cancer Hyperlipidemia Grandfather CVA (cerebral vascular accident) Grandfather Cancer Father Heart disease Hypertension Brother Hyperlipidemia Grandmother Liver disease Social History household members: family and none Smoking Status: Current every day smoker Tobacco: How many years used: 42 quit status: not considering quitting alcohol intake: current substance use type: does not use Assessment & Plan Assessment & Plan narrative: This is a 56-year-old male with an incarcerated umbilical hernia.? He is at high risk for strangulation/gangrene so was taken for emergent surgery on the day of admission. He also has alcoholic cirrhosis/end-stage liver disease, a possible hepatocellular carcinoma, alcoholism and peripheral vascular disease. Incarcerated umbilical hernia, present on admission.? Active.? -ammonia level 111, lactic acid level 2.8, white blood count 13.1.? -umbilical hernia surgery with resection of ischemic area small bowel done on 08/[address] Lieberman. -he has been in the intensive care unit for the 1st postoperative day and has done very well. Small-bowel obstruction caused by incarcerated umbilical hernia, present on admission.? Active.? -status post umbilical hernia repair with excision of ischemic small bowel section. -keep NPO with IVF pending clearance to take orals from surgery End-stage liver disease secondary to alcoholism, present on admission.? Active.? -no significant ascites on exam or on CT scan but 1.5 L was found on opening of his abdomen. -holding spironolactone and furosemide pending resumption of oral intake Alcoholism, present on admission.? Active.? -alcohol level less than 10. Abdominal ascites, present on admission.? Active.? -Prior CT scan 1 month ago showed a more significant level of ascites than the current CT scan.? This is likely related to decreased oral intake of acute bowel obstruction.? -despite the CT findings of only mild ascites 1.5 L was found on opening of his abdomen Right pleural effusion, present on admission.? Active.? -Likely a reaction to the cirrhosis and current bowel obstruction symptoms.? Esophageal varices, present on admission.? Chronic.? -Recent successful banding with GI Peripheral vascular disease, present on admission.? Chronic.? -the patient describes a vascular graft in the left leg ?to treat a big DVT. ?? I am not familiar with venous grafts but that is what he seems to think he has.? Nicotine addiction, present on admission. Chronic. -requesting nicotine patch of 21 mg to manage his 2 pack per day addiction. Continue SCD and begin enoxaparin when risk of bleeding from surgery is reasonable. His mother is his designated backup decision maker Time Spent With Patient Critical Care time: I spent a total of [] minutes of critical care time on this patient's care today; this time is exclusive of procedural time.
[2021-08-22] MEDS: SODIUM CHLORIDE 0.9% 1,000 ML 125 ML IV ×2 (09:45→17:11)
--- NOTE | 2021-08-22 09:58 | P.PN_ITS ---
Subjective Subjective Date Patient Seen: 08/22/21 Time Patient Seen: 09:58 Interval history: No acute overnight events. No nausea vomiting or flatus. Exam Vital Signs (past 8 hours): - 08/22/21 02:13 08/22/21 04:00 08/22/21 07:56 Temperature 97.7 F 97.8 F Pulse Rate 74 74 63 Respiratory Rate 17 17 18 Blood Pressure 97/65 101/59 L Pulse Oximetry 95 95 94 Oxygen Delivery Method Nasal Cannula Oxygen Flow Rate 2 Narrative Exam Narrative: General adult male alert oriented no acute distress Chest nonlabored respirations Abdomen soft moderately distended. Appropriately tender to palpation. Some ascites leakage onto the dressings as expected Objective Labs Result Diagrams: 08/22/21 05:20 08/22/21 05:20 Labs: Laboratory Results - last 24 hr 08/21/21 08/21/21 08/21/21 13:55 13:55 13:55 WBC 13.1 H RBC 3.58 L Hgb 13.3 L Hct 39.3 L MCV 109.6 H MCH 37.2 H MCHC 33.9 RDW 15.0 H Plt Count 88 L Neut % (Auto) 88.6 H Lymph % (Auto) 3.1 L [place] % (Auto) 8.2 Eos % (Auto) 0.0 L Baso % (Auto) 0.1 Neut # (Auto) 98124 H Lymph # (Auto) 400 L [place] # (Auto) 1100 H Eos # (Auto) 0 Baso # (Auto) 0 Platelet Estimate RBC Morphology Hypochromasia Macrocytosis PT 16.2 H INR 1.4 H APTT 32 D Sodium 135 L Potassium 4.0 Chloride 97 L Carbon Dioxide 25 BUN 17 Creatinine 0.84 Estimated GFR > 60.0 BUN/Creatinine Ratio 20.2 Glucose 149 H Lactate Calcium 10.1 Total Bilirubin 6.0 H AST 101 H ALT 35 Alkaline Phosphatase 150 H Ammonia Total Creatine Kinase 39 L CK-MB (CK-2) TNP CK-MB (CK-2) Rel Index TNP Troponin I < 0.012 Total Protein 11.1 H* Albumin 4.1 Globulin 7.0 H Albumin/Globulin Ratio 0.6 L Lipase 133 Procalcitonin 0.15 Urine Color Urine Appearance Urine pH Ur Specific [place] Urine Protein Urine Glucose (UA) Urine Ketones Urine Occult Blood Urine Nitrate Urine Bilirubin Ur Bilirubin Confirm Urine Urobilinogen Ur Leukocyte Esterase Urine RBC Urine WBC Urine Bacteria Ur Culture Indicated? Nasal Screen MRSA (PCR) U Opiates 300ng/mL cut Ur Oxycodone Screen Urine Methadone Screen Ur Barbiturates Screen U Tricyclic Antidepress Ur Phencyclidine Scrn Ur Amphetamines Screen U Methamphetamines Scrn Ur MDMA Scrn (Ecstasy) U Benzodiazepines Scrn Urine Cocaine Screen U Marijuana (THC) Screen Ethyl Alcohol SARS-CoV-2 (PCR) Blood Type Antibody Screen 08/21/21 08/21/21 08/21/21 13:55 13:55 13:55 WBC RBC Hgb Hct MCV MCH MCHC RDW Plt Count Neut % (Auto) Lymph % (Auto) [place] % (Auto) Eos % (Auto) Baso % (Auto) Neut # (Auto) Lymph # (Auto) [place] # (Auto) Eos # (Auto) Baso # (Auto) Platelet Estimate RBC Morphology Hypochromasia Macrocytosis PT INR APTT Sodium Potassium Chloride Carbon Dioxide BUN Creatinine Estimated GFR BUN/Creatinine Ratio Glucose Lactate 4.2 H* Calcium Total Bilirubin AST ALT Alkaline Phosphatase Ammonia 111 H Total Creatine Kinase CK-MB (CK-2) CK-MB (CK-2) Rel Index Troponin I Total Protein Albumin Globulin Albumin/Globulin Ratio Lipase Procalcitonin Urine Color Urine Appearance Urine pH Ur Specific [place] Urine Protein Urine Glucose (UA) Urine Ketones Urine Occult Blood Urine Nitrate Urine Bilirubin Ur Bilirubin Confirm Urine Urobilinogen Ur Leukocyte Esterase Urine RBC Urine WBC Urine Bacteria Ur Culture Indicated? Nasal Screen MRSA (PCR) U Opiates 300ng/mL cut Ur Oxycodone Screen Urine Methadone Screen Ur Barbiturates Screen U Tricyclic Antidepress Ur Phencyclidine Scrn Ur Amphetamines Screen U Methamphetamines Scrn Ur MDMA Scrn (Ecstasy) U Benzodiazepines Scrn Urine Cocaine Screen U Marijuana (THC) Screen Ethyl Alcohol < 10 SARS-CoV-2 (PCR) Blood Type Antibody Screen 08/21/21 08/21/21 08/21/21 14:09 16:13 17:06 WBC RBC Hgb Hct MCV MCH MCHC RDW Plt Count Neut % (Auto) Lymph % (Auto) [place] % (Auto) Eos % (Auto) Baso % (Auto) Neut # (Auto) Lymph # (Auto) [place] # (Auto) Eos # (Auto) Baso # (Auto) Platelet Estimate RBC Morphology Hypochromasia Macrocytosis PT INR APTT Sodium Potassium Chloride Carbon Dioxide BUN Creatinine Estimated GFR BUN/Creatinine Ratio Glucose Lactate 2.8 H Calcium Total Bilirubin AST ALT Alkaline Phosphatase Ammonia Total Creatine Kinase CK-MB (CK-2) CK-MB (CK-2) Rel Index Troponin I Total Protein Albumin Globulin Albumin/Globulin Ratio Lipase Procalcitonin Urine Color [place] Urine Appearance Clear Urine pH 5.0 Ur Specific [place] <=1.005 Urine Protein 1+ H Urine Glucose (UA) Trace H Urine Ketones Trace H Urine Occult Blood Negative Urine Nitrate Negative Urine Bilirubin 2+ H Ur Bilirubin Confirm Negative Urine Urobilinogen 2.0 H Ur Leukocyte Esterase Negative Urine RBC None seen Urine WBC None seen Urine Bacteria None seen Ur Culture Indicated? Cult not indicated Nasal Screen MRSA (PCR) U Opiates 300ng/mL cut Ur Oxycodone Screen Urine Methadone Screen Ur Barbiturates Screen U Tricyclic Antidepress Ur Phencyclidine Scrn Ur Amphetamines Screen U Methamphetamines Scrn Ur MDMA Scrn (Ecstasy) U Benzodiazepines Scrn Urine Cocaine Screen U Marijuana (THC) Screen Ethyl Alcohol SARS-CoV-2 (PCR) Negative Blood Type Antibody Screen 08/21/21 08/21/21 08/21/21 17:06 17:50 21:57 WBC RBC Hgb Hct MCV MCH MCHC RDW Plt Count Neut % (Auto) Lymph % (Auto) [place] % (Auto) Eos % (Auto) Baso % (Auto) Neut # (Auto) Lymph # (Auto) [place] # (Auto) Eos # (Auto) Baso # (Auto) Platelet Estimate RBC Morphology Hypochromasia Macrocytosis PT INR APTT Sodium Potassium Chloride Carbon Dioxide BUN Creatinine Estimated GFR BUN/Creatinine Ratio Glucose Lactate Calcium Total Bilirubin AST ALT Alkaline Phosphatase Ammonia Total Creatine Kinase CK-MB (CK-2) CK-MB (CK-2) Rel Index Troponin I Total Protein Albumin Globulin Albumin/Globulin Ratio Lipase Procalcitonin Urine Color Urine Appearance Urine pH Ur Specific [place] Urine Protein Urine Glucose (UA) Urine Ketones Urine Occult Blood Urine Nitrate Urine Bilirubin Ur Bilirubin Confirm Urine Urobilinogen Ur Leukocyte Esterase Urine RBC Urine WBC Urine Bacteria Ur Culture Indicated? Nasal Screen MRSA (PCR) Negative for mrsa U Opiates 300ng/mL cut Negative Ur Oxycodone Screen Negative Urine Methadone Screen Negative Ur Barbiturates Screen Negative U Tricyclic Antidepress Positive H Ur Phencyclidine Scrn Negative Ur Amphetamines Screen Negative U Methamphetamines Scrn Negative Ur MDMA Scrn (Ecstasy) Negative U Benzodiazepines Scrn Negative Urine Cocaine Screen Negative U Marijuana (THC) Screen Positive H Ethyl Alcohol SARS-CoV-2 (PCR) Blood Type A Negative Antibody Screen Negative 08/22/21 08/22/21 05:20 05:20 WBC 8.7 RBC 2.56 L Hgb 9.6 L Hct 28.3 L MCV 110.8 H MCH 37.4 H MCHC 33.7 RDW 14.9 H Plt Count 48 L Neut % (Auto) 88.1 H Lymph % (Auto) 4.8 L [place] % (Auto) 5.0 Eos % (Auto) 0.2 L Baso % (Auto) 1.9 Neut # (Auto) 7700 H Lymph # (Auto) 400 L [place] # (Auto) 400 Eos # (Auto) 0 Baso # (Auto) 200 H Platelet Estimate Decreased on smear RBC Morphology See below Hypochromasia 1+ H Macrocytosis 2+ H PT INR APTT Sodium 134 L Potassium 4.2 Chloride 102 Carbon Dioxide 27 BUN 24 H Creatinine 1.01 Estimated GFR > 60.0 BUN/Creatinine Ratio 23.8 H Glucose 184 H Lactate Calcium 8.7 Total Bilirubin AST ALT Alkaline Phosphatase Ammonia Total Creatine Kinase CK-MB (CK-2) CK-MB (CK-2) Rel Index Troponin I Total Protein Albumin Globulin Albumin/Globulin Ratio Lipase Procalcitonin Urine Color Urine Appearance Urine pH Ur Specific [place] Urine Protein Urine Glucose (UA) Urine Ketones Urine Occult Blood Urine Nitrate Urine Bilirubin Ur Bilirubin Confirm Urine Urobilinogen Ur Leukocyte Esterase Urine RBC Urine WBC Urine Bacteria Ur Culture Indicated? Nasal Screen MRSA (PCR) U Opiates 300ng/mL cut Ur Oxycodone Screen Urine Methadone Screen Ur Barbiturates Screen U Tricyclic Antidepress Ur Phencyclidine Scrn Ur Amphetamines Screen U Methamphetamines Scrn Ur MDMA Scrn (Ecstasy) U Benzodiazepines Scrn Urine Cocaine Screen U Marijuana (THC) Screen Ethyl Alcohol SARS-CoV-2 (PCR) Blood Type Antibody Screen [facility] Medical History Alcoholism Ankle pain Anxiety Blindness Cataracts, bilateral Cirrhosis Closed left ankle fracture Elevated serum protein level Esophageal varices Foot pain GERD (gastroesophageal reflux disease) H/O deep venous thrombosis Hearing loss Hepatitis C Lower extremity edema Macrocytic anemia Peripheral vascular disease Portal vein thrombosis Postoperative wound infection Shoulder pain Skin problem Sleep apnea Thrombocytopenia Umbilical hernia Venous stasis Vertigo Vision disorder Wound infection Surgical History Anesthesia H/O neck surgery History of surgery History of surgery of liver (~2018) S/P cataract extraction Family History Mother Cancer Hyperlipidemia Grandfather CVA (cerebral vascular accident) Grandfather Cancer Father Heart disease Hypertension Brother Hyperlipidemia Grandmother Liver disease Social History household members: none Smoking Status: Current every day smoker Tobacco: How many years used: 42 quit status: not considering quitting alcohol intake: current substance use type: does not use Assessment & Plan Post-op Postoperative Procedures: Procedures Operation Date: 08/21/21 17:30 Actual Procedure Side Surgeon p Exploratory Laparotomy GEN with small bowel resection Pedro Lieberman MD Postoperative plan narrative: 56-year-old man with end-stage liver disease postoperative day 1 status post exploratory laparotomy and small-bowel resection for a strangulated umbilical hernia. -Trial of clears today -Thrombocytopenia, plt 48 today hematocrit 28 down from 39 yesterday. Discuss with ICU team whether platelet transfusion would be appropriate in this setting. Remains hemodynamically stable, doubt there is significant hemorrhage but there is likely ongoing oozing given his liver disease. -daily coags and LFTs -SCDs only. No chemical prophylaxis at this point
[2021-08-22] MEDS: MORPHINE 4 MG/ML INJ IV ×2 (11:33→19:39)
[2021-08-22] MEDS: NICOTINE 21 MG PATCH TOP (11:33)
--- NOTE | 2021-08-22 12:14 | PM.PN.EICU ---
Subjective Subjective :: This patient was seen in the Intensive Care Unit via real time interactive two-way audiovisual telecommunication. patient doing well post op. plt trending down, but no bleeding Current Medications Current Medications Medications: Home Medications omeprazole 20 mg capsule,delayed release 20 mg PO DAILY cap 03/10/21 [History Confirmed 08/22/21] gabapentin 300 mg capsule 300 mg PO TID #100 cap 04/16/21 [Rx Confirmed 08/22/21] multivitamin with folic acid 400 mcg tablet (Tab-A-Gretchen) 1 tab PO DAILY #30 tab 05/07/21 [Rx Confirmed 08/22/21] fluticasone propionate 50 mcg/actuation nasal spray,suspension 1 spray NASAL DAILY #16 g 08/04/21 [Rx Confirmed 08/22/21] furosemide 40 mg tablet 40 mg PO DAILY 08/22/21 [History Confirmed 08/22/21] spironolactone 100 mg tablet 100 mg PO DAILY 08/22/21 [History Confirmed 08/22/21] Visit Medications (administered) Generic Name Dose Route Start Last Admin Trade Name Freq PRN Reason Stop Dose Admin Albuterol 2.5 mg 08/21/21 21:29 08/22/21 02:13 Albuterol 2.5 Mg/3 Ml Neb (Adult) INH 2.5 mg [id number] PRN Administration Shortness Of Breath Piperacillin Sod/Tazobactam 100 mls @ 25 mls/hr 08/21/21 22:00 08/22/21 10:28 Sod 3.375 gm/ Sodium Chloride IV Infused Q8H MO Infusion Sodium Chloride 1,000 mls @ 125 mls/hr 08/21/21 21:30 08/22/21 09:45 Normal Saline 0.9% IV 125 mls/hr CONT MO Administration Morphine Sulfate 4 mg 08/21/21 21:29 08/22/21 11:33 Morphine 4 Mg/Ml Inj IV 4 mg Q6HR PRN Administration Pain, Severe (7-10) Nicotine 21 mg 08/22/21 11:15 08/22/21 11:33 Nicotine 21 Mg Patch TOP 21 mg DAILY MO Administration Objective Labs Result Diagrams: 08/22/21 05:20 08/22/21 05:20 Labs: Laboratory Results - last 24 hr 08/21/21 08/21/21 08/21/21 13:55 13:55 13:55 WBC 13.1 H RBC 3.58 L Hgb 13.3 L Hct 39.3 L MCV 109.6 H MCH 37.2 H MCHC 33.9 RDW 15.0 H Plt Count 88 L Neut % (Auto) 88.6 H Lymph % (Auto) 3.1 L [place] % (Auto) 8.2 Eos % (Auto) 0.0 L Baso % (Auto) 0.1 Neut # (Auto) 06685 H Lymph # (Auto) 400 L [place] # (Auto) 1100 H Eos # (Auto) 0 Baso # (Auto) 0 Platelet Estimate RBC Morphology Hypochromasia Macrocytosis PT 16.2 H INR 1.4 H APTT 32 D Sodium 135 L Potassium 4.0 Chloride 97 L Carbon Dioxide 25 BUN 17 Creatinine 0.84 Estimated GFR > 60.0 BUN/Creatinine Ratio 20.2 Glucose 149 H Lactate Calcium 10.1 Total Bilirubin 6.0 H AST 101 H ALT 35 Alkaline Phosphatase 150 H Ammonia Total Creatine Kinase 39 L CK-MB (CK-2) TNP CK-MB (CK-2) Rel Index TNP Troponin I < 0.012 Total Protein 11.1 H* Albumin 4.1 Globulin 7.0 H Albumin/Globulin Ratio 0.6 L Lipase 133 Procalcitonin 0.15 Urine Color Urine Appearance Urine pH Ur Specific [place] Urine Protein Urine Glucose (UA) Urine Ketones Urine Occult Blood Urine Nitrate Urine Bilirubin Ur Bilirubin Confirm Urine Urobilinogen Ur Leukocyte Esterase Urine RBC Urine WBC Urine Bacteria Ur Culture Indicated? Nasal Screen MRSA (PCR) U Opiates 300ng/mL cut Ur Oxycodone Screen Urine Methadone Screen Ur Barbiturates Screen U Tricyclic Antidepress Ur Phencyclidine Scrn Ur Amphetamines Screen U Methamphetamines Scrn Ur MDMA Scrn (Ecstasy) U Benzodiazepines Scrn Urine Cocaine Screen U Marijuana (THC) Screen Ethyl Alcohol SARS-CoV-2 (PCR) Blood Type Antibody Screen 08/21/21 08/21/21 08/21/21 13:55 13:55 13:55 WBC RBC Hgb Hct MCV MCH MCHC RDW Plt Count Neut % (Auto) Lymph % (Auto) [place] % (Auto) Eos % (Auto) Baso % (Auto) Neut # (Auto) Lymph # (Auto) [place] # (Auto) Eos # (Auto) Baso # (Auto) Platelet Estimate RBC Morphology Hypochromasia Macrocytosis PT INR APTT Sodium Potassium Chloride Carbon Dioxide BUN Creatinine Estimated GFR BUN/Creatinine Ratio Glucose Lactate 4.2 H* Calcium Total Bilirubin AST ALT Alkaline Phosphatase Ammonia 111 H Total Creatine Kinase CK-MB (CK-2) CK-MB (CK-2) Rel Index Troponin I Total Protein Albumin Globulin Albumin/Globulin Ratio Lipase Procalcitonin Urine Color Urine Appearance Urine pH Ur Specific [place] Urine Protein Urine Glucose (UA) Urine Ketones Urine Occult Blood Urine Nitrate Urine Bilirubin Ur Bilirubin Confirm Urine Urobilinogen Ur Leukocyte Esterase Urine RBC Urine WBC Urine Bacteria Ur Culture Indicated? Nasal Screen MRSA (PCR) U Opiates 300ng/mL cut Ur Oxycodone Screen Urine Methadone Screen Ur Barbiturates Screen U Tricyclic Antidepress Ur Phencyclidine Scrn Ur Amphetamines Screen U Methamphetamines Scrn Ur MDMA Scrn (Ecstasy) U Benzodiazepines Scrn Urine Cocaine Screen U Marijuana (THC) Screen Ethyl Alcohol < 10 SARS-CoV-2 (PCR) Blood Type Antibody Screen 08/21/21 08/21/21 08/21/21 14:09 16:13 17:06 WBC RBC Hgb Hct MCV MCH MCHC RDW Plt Count Neut % (Auto) Lymph % (Auto) [place] % (Auto) Eos % (Auto) Baso % (Auto) Neut # (Auto) Lymph # (Auto) [place] # (Auto) Eos # (Auto) Baso # (Auto) Platelet Estimate RBC Morphology Hypochromasia Macrocytosis PT INR APTT Sodium Potassium Chloride Carbon Dioxide BUN Creatinine Estimated GFR BUN/Creatinine Ratio Glucose Lactate 2.8 H Calcium Total Bilirubin AST ALT Alkaline Phosphatase Ammonia Total Creatine Kinase CK-MB (CK-2) CK-MB (CK-2) Rel Index Troponin I Total Protein Albumin Globulin Albumin/Globulin Ratio Lipase Procalcitonin Urine Color [place] Urine Appearance Clear Urine pH 5.0 Ur Specific [place] <=1.005 Urine Protein 1+ H Urine Glucose (UA) Trace H Urine Ketones Trace H Urine Occult Blood Negative Urine Nitrate Negative Urine Bilirubin 2+ H Ur Bilirubin Confirm Negative Urine Urobilinogen 2.0 H Ur Leukocyte Esterase Negative Urine RBC None seen Urine WBC None seen Urine Bacteria None seen Ur Culture Indicated? Cult not indicated Nasal Screen MRSA (PCR) U Opiates 300ng/mL cut Ur Oxycodone Screen Urine Methadone Screen Ur Barbiturates Screen U Tricyclic Antidepress Ur Phencyclidine Scrn Ur Amphetamines Screen U Methamphetamines Scrn Ur MDMA Scrn (Ecstasy) U Benzodiazepines Scrn Urine Cocaine Screen U Marijuana (THC) Screen Ethyl Alcohol SARS-CoV-2 (PCR) Negative Blood Type Antibody Screen 08/21/21 08/21/21 08/21/21 17:06 17:50 21:57 WBC RBC Hgb Hct MCV MCH MCHC RDW Plt Count Neut % (Auto) Lymph % (Auto) [place] % (Auto) Eos % (Auto) Baso % (Auto) Neut # (Auto) Lymph # (Auto) [place] # (Auto) Eos # (Auto) Baso # (Auto) Platelet Estimate RBC Morphology Hypochromasia Macrocytosis PT INR APTT Sodium Potassium Chloride Carbon Dioxide BUN Creatinine Estimated GFR BUN/Creatinine Ratio Glucose Lactate Calcium Total Bilirubin AST ALT Alkaline Phosphatase Ammonia Total Creatine Kinase CK-MB (CK-2) CK-MB (CK-2) Rel Index Troponin I Total Protein Albumin Globulin Albumin/Globulin Ratio Lipase Procalcitonin Urine Color Urine Appearance Urine pH Ur Specific [place] Urine Protein Urine Glucose (UA) Urine Ketones Urine Occult Blood Urine Nitrate Urine Bilirubin Ur Bilirubin Confirm Urine Urobilinogen Ur Leukocyte Esterase Urine RBC Urine WBC Urine Bacteria Ur Culture Indicated? Nasal Screen MRSA (PCR) Negative for mrsa U Opiates 300ng/mL cut Negative Ur Oxycodone Screen Negative Urine Methadone Screen Negative Ur Barbiturates Screen Negative U Tricyclic Antidepress Positive H Ur Phencyclidine Scrn Negative Ur Amphetamines Screen Negative U Methamphetamines Scrn Negative Ur MDMA Scrn (Ecstasy) Negative U Benzodiazepines Scrn Negative Urine Cocaine Screen Negative U Marijuana (THC) Screen Positive H Ethyl Alcohol SARS-CoV-2 (PCR) Blood Type A Negative Antibody Screen Negative 08/22/21 08/22/21 05:20 05:20 WBC 8.7 RBC 2.56 L Hgb 9.6 L Hct 28.3 L MCV 110.8 H MCH 37.4 H MCHC 33.7 RDW 14.9 H Plt Count 48 L Neut % (Auto) 88.1 H Lymph % (Auto) 4.8 L [place] % (Auto) 5.0 Eos % (Auto) 0.2 L Baso % (Auto) 1.9 Neut # (Auto) 7700 H Lymph # (Auto) 400 L [place] # (Auto) 400 Eos # (Auto) 0 Baso # (Auto) 200 H Platelet Estimate Decreased on smear RBC Morphology See below Hypochromasia 1+ H Macrocytosis 2+ H PT INR APTT Sodium 134 L Potassium 4.2 Chloride 102 Carbon Dioxide 27 BUN 24 H Creatinine 1.01 Estimated GFR > 60.0 BUN/Creatinine Ratio 23.8 H Glucose 184 H Lactate Calcium 8.7 Total Bilirubin AST ALT Alkaline Phosphatase Ammonia Total Creatine Kinase CK-MB (CK-2) CK-MB (CK-2) Rel Index Troponin I Total Protein Albumin Globulin Albumin/Globulin Ratio Lipase Procalcitonin Urine Color Urine Appearance Urine pH Ur Specific [place] Urine Protein Urine Glucose (UA) Urine Ketones Urine Occult Blood Urine Nitrate Urine Bilirubin Ur Bilirubin Confirm Urine Urobilinogen Ur Leukocyte Esterase Urine RBC Urine WBC Urine Bacteria Ur Culture Indicated? Nasal Screen MRSA (PCR) U Opiates 300ng/mL cut Ur Oxycodone Screen Urine Methadone Screen Ur Barbiturates Screen U Tricyclic Antidepress Ur Phencyclidine Scrn Ur Amphetamines Screen U Methamphetamines Scrn Ur MDMA Scrn (Ecstasy) U Benzodiazepines Scrn Urine Cocaine Screen U Marijuana (THC) Screen Ethyl Alcohol SARS-CoV-2 (PCR) Blood Type Antibody Screen Exam Vital Signs (past 8 hours): - 08/22/21 07:56 08/22/21 11:30 Temperature 97.8 F 97.7 F Pulse Rate 63 77 Respiratory Rate 18 18 Blood Pressure 101/59 L 104/71 Pulse Oximetry 94 95 Oxygen Delivery Method Nasal Cannula Oxygen Flow Rate 2 Narrative Exam Narrative: surrogate for exam is primary team Assessment & Plan Assessment & Plan narrative: 1. Strangulated Umbilical Hernia s/p small bowel resection and repair - Would repeat lactate, ensure clearance - NPO/diet per surgery recs - Cautious with mIVF in setting of Cirrhosis and volume overload, goal euvolemia in the post-operative setting - Agreed with empiric Zosyn, follow up ascitic fluid studies/cultures - PPI IV 2. Alcohol Cirrhosis c/b ascites, esophageal varices.? Liver lesion noted on CT, at risk for HCC - Home Spironolactone/Lasix held in setting of OR, may need to resume in coming days - Would monitor LFTs/coags daily - If AMS develops, consider hepatic encephalopathy (ammonia elevated) - Recommend further workup of liver lesion, likely as an outpatient 3. Right pleural effusion, noted on admission CT of abdomen. Most likely hepatic hydrothorax. - Volume overload management - Recommend CXR to further assess/establish baseline 4. History of Alcohol Abuse, last drink was 5 days ago - Monitor for e/o withdrawal. If concerning symptoms, would initiate CIWA Protocol 5. Thrombocytopenia - likely related to cirrhosis. Unless bleeding would not trasnfuse unless less than 10K Initiate VTE med prophylaxis when cleared by surgery. Time Spent With Patient Critical Care time: I spent a total of [] minutes of critical care time on this patient's care today; this time is exclusive of procedural time.
[2021-08-22 12:51] LABS: INR 1.6 (0.9-1.3); Prothrombin Time 18.4 SECONDS (10.1-12.7)
--- NOTE | 2021-08-22 16:00 | CM.DANOTE ---
DCP/Assessment: Reviewed chart. Patient is a 56yr old male admitted to [facility].. with abdominal pain. Patient currently POD#1 from small bowel resection. Patient up in chair at time of RELIGIOUS LEADER visit. Patient reports that he is completely I with all ADL's. Patient does not anticipate any d/c planning needs. Currently patient on clear liquid diet. RN hopes that increases within the next few days. Notified patient that CM team would continue to follow if needs were to arise. P: Anticipate home when medically stable. KJS Discharge Planning/Care Management CM Discharge Assessment Start: 08/22/21 15:58 Freq: Status: Active Protocol: Document 08/22/21 15:58 KJS (Rec: 08/22/21 16:00 KJ [id number]) Discharge Planning Assessment Assigned Cheesemaking Laborer Ginette Yoon MSW Contact Information Amara Álvarezlucindaowen ( Mother) ph# [phone] Advance Directives? No Advance Directives on File No History Provided By Patient,Medical Record Prior Living Arrangements House Household Members family,none Type of transporation used prior to Drives own vehicle admit Independent with ADL's Yes Is patient alert and oriented? Yes Barriers to Discharge No Comment Patient confirmed that he has assistance from his parents if needed. Discharge Plan Home Transportation Arrangement Family Whiteboard Updated in Patient Room with Yes name and ext. # of Cheesemaking Laborer Review Status In Process Next Review Type Continued Stay Review
--- NOTE | 2021-08-22 17:19 | PC.NURSE ---
Day Shift Note Patient transferred from room 227 to room 208 at this time. All belongings with patient including clothing and cell phone. Report given to LIZBETH Queen. Dressing to abdomen saturated with serosanguinous fluid and fluid running down pt's legs, reinforcement attempted without success. Dr. Lieberman updated and order received to change dressing as needed. This was done prior to pt transfer. Shell in place and incision edges well-approximated with serosanguinous drainage noted at distal end of incision. Super sponges placed at incision site and several ABD pads placed over that and taped in place. Abdominal binder placed. Pt tolerated well. Patient alert and oriented x3, using call light appropriately to make needs known. Tolerating ice chips and apple juice without issue.
--- NOTE | 2021-08-22 17:33 | PC.NURSE ---
Pt transferred to room 208 via w/c and then into room chair. Pt states he is comfortable-denies need for pain meds and denies nausea. Abdominal binder in place and checked dsg underneath which is cdi. Pt oriented to room, call light, has the same bed, and knows he needs to call for assistance as needed.
[2021-08-23] MEDS: SODIUM CHLORIDE 0.9% 1,000 ML 125 ML IV ×2 (01:01→09:17)
[2021-08-23 05:00] VITALS: BP 100/61; PULSE 62; RESP 16; TEMP 36.5; O2SAT 93
[2021-08-23] MEDS: PIPERACILLIN/TAZO 3.375 GM in SODIUM CHLORIDE 0.9% 100 ML 25 ML IV (05:33)
[2021-08-23 07:41] LABS: Alanine Aminotransferase 20 IU/L (<50); Albumin 2.7 g/dL (3.5-5.0); Albumin Globulin Ratio 0.5 (1.0-2.8); Alkaline Phosphatase 62 U/L (38-126); Aspartate Aminotransferase 52 IU/L (17-59); BUN Creatinine Ratio 29.2 (6-22); Bilirubin Total 2.6 mg/dL (0.2-1.3); Blood Urea Nitrogen 21 mg/dL (9-20); Calcium 8.5 mg/dL (8.4-10.2); Carbon Dioxide 28 mmol/L (22-32); Chloride 105 mmol/L (98-107); Estimated Glomerular Filt Rate > 60.0 mL/min (>60); Glucose 142 mg/dL (70-100); HEMOLYSIS 16 (0-50); Potassium 4.1 mmol/L (3.4-5.1); Sodium 135 mmol/L (137-145); Total Protein 7.7 g/dL (6.3-8.2)
[2021-08-23 07:50] VITALS: O2SAT 92
[2021-08-23 07:59] LABS: Add Manual Diff / Slide Review NO; Basophils Absolute Auto 0 /uL (0-100); Basophils Percent Auto 0.1 % (0-2); Eosinophils Absolute Auto 0 /uL (0-450); Hematocrit 27.6 % (41-53); Hemoglobin 9.5 g/dL (13.5-17.5); Lymphocytes Absolute Auto 500 /uL (1100-4500); Lymphocytes Percent Auto 5.7 % (25-40); Mean Corpuscular HGB Conc 34.3 % (30-36); Mean Corpuscular Hemoglobin 38.1 PG (26-34); Mean Corpuscular Volume 111.1 fL (80-100); Monocytes Absolute Auto 900 /uL (0-900); Monocytes Percent Auto 9.9 % (3-14); Neutrophils Absolute Auto 7800 /uL (1500-7000); Neutrophils Percent Auto 84.3 % (50-75); Platelet Count 56 X10^3/uL (150-400); Red Blood Cell Count 2.48 X10^6/uL (4.5-5.9); Red Cell Distribution Width 15.2 % (11.6-14.8); White Blood Cell Count 9.2 X10^3/uL (4.5-11.0)
[2021-08-23 08:10] VITALS: BP 121/72; PULSE 84; RESP 20; TEMP 36.3; O2SAT 90
[2021-08-23 08:30] LABS: Anisocytosis 2+
[2021-08-23] MEDS: PANTOPRAZOLE 40 MG VIAL 20 MG IV (09:18)
[2021-08-23] MEDS: NICOTINE 21 MG PATCH TOP (09:18)
[2021-08-23] MEDS: MORPHINE 4 MG/ML INJ IV (10:52)
[2021-08-23 11:15] VITALS: BP 100/63; PULSE 75; RESP 20; TEMP 36.4; O2SAT 94
--- NOTE | 2021-08-23 11:43 | PM.PNPO.1 ---
Subjective Subjective Date Patient Seen: 08/23/21 Time Patient Seen: 16:47 Interval history: No acute events. +Flatus no BM pain well controlled. Exam Vital Signs (past 8 hours): - 08/23/21 05:00 08/23/21 07:50 08/23/21 08:10 Temperature 97.7 F 97.4 F L Pulse Rate 62 84 Respiratory Rate 16 20 Blood Pressure 100/61 121/72 Pulse Oximetry 93 92 90 L 08/23/21 11:15 Temperature 97.6 F Pulse Rate 75 Respiratory Rate 20 Blood Pressure 100/63 Pulse Oximetry 94 Oxygen Delivery Method Room Air Oxygen Flow Rate 0 Narrative Exam Narrative: Gen-Adult man alert and oriented no distress Chest-non labored resp Abdomen-soft midline incision clean intact acities drainage. Objective Labs Result Diagrams: 08/23/21 06:30 08/23/21 06:30 Labs: Laboratory Results - last 24 hr 08/22/21 08/23/21 08/23/21 12:40 06:30 06:30 WBC 9.2 RBC 2.48 L Hgb 9.5 L Hct 27.6 L MCV 111.1 H MCH 38.1 H MCHC 34.3 RDW 15.2 H Plt Count 56 L Neut % (Auto) 84.3 H Lymph % (Auto) 5.7 L Hubbard % (Auto) 9.9 Eos % (Auto) 0.0 L Baso % (Auto) 0.1 Neut # (Auto) 7800 H Lymph # (Auto) 500 L Hubbard # (Auto) 900 Eos # (Auto) 0 Baso # (Auto) 0 RBC Morphology Not Reportable Anisocytosis 2+ H PT 18.4 H INR 1.6 H Sodium 135 L Potassium 4.1 Chloride 105 Carbon Dioxide 28 BUN 21 H Creatinine 0.72 Estimated GFR > 60.0 BUN/Creatinine Ratio 29.2 H Glucose 142 H Calcium 8.5 Total Bilirubin 2.6 H AST 52 ALT 20 Alkaline Phosphatase 62 D Total Protein 7.7 Albumin 2.7 L Globulin 5.0 H Albumin/Globulin Ratio 0.5 L PFSH Medical History Alcoholism Ankle pain Anxiety Blindness Cataracts, bilateral Cirrhosis Closed left ankle fracture Elevated serum protein level Esophageal varices Foot pain GERD (gastroesophageal reflux disease) H/O deep venous thrombosis Hearing loss Hepatitis C Lower extremity edema Macrocytic anemia Peripheral vascular disease Portal vein thrombosis Postoperative wound infection Shoulder pain Skin problem Sleep apnea Thrombocytopenia Umbilical hernia Venous stasis Vertigo Vision disorder Wound infection Surgical History Anesthesia H/O neck surgery History of surgery History of surgery of liver (~2018) S/P cataract extraction Family History Mother Cancer Hyperlipidemia Grandfather CVA (cerebral vascular accident) Grandfather Cancer Father Heart disease Hypertension Brother Hyperlipidemia Grandmother Liver disease Social History household members: family and none Smoking Status: Current every day smoker Tobacco: How many years used: 42 quit status: not considering quitting alcohol intake: current substance use type: does not use Assessment & Plan Post-op Postoperative Procedures: Procedures Operation Date: 08/21/21 17:30 Actual Procedure Side Surgeon p Exploratory Laparotomy GEN with small bowel resection Pedro Lieberman MD Postoperative status narrative: 56-year-old man postoperative day 2 status post exploratory laparotomy small-bowel resection for E incarcerated in the hernia. Progressing appropriately. -regular diet -DC IV fluids -DC antibiotics -PT/OT -SCDs only
--- NOTE | 2021-08-23 16:21 | PM.PN.1 ---
Subjective Subjective Date Patient Seen: 08/23/21 Interval history: 56-year-old male status post exploratory laparotomy, small-bowel resection, for a strangulated umbilical hernia. Patient continues to have significant oozing from his surgical site. He has significant abdominal ascites. He has no significant complaints of pain. He is on a clear liquid diet, he is tolerating this well. Exam Vital Signs (past 8 hours): - 08/23/21 11:15 Temperature 97.6 F Pulse Rate 75 Respiratory Rate 20 Blood Pressure 100/63 Pulse Oximetry 94 Oxygen Delivery Method Room Air Oxygen Flow Rate 0 Narrative Exam Narrative: Ill-appearing male sitting in a chair Resp Other: Lungs decreased breath sounds but clear to auscultation Cardio Other: Cardiac exam: Regular rate and rhythm normal S1-S2 GI Other: Abdomen: Distended, 3+ ascites, shelley in place, no erythema. clear fluid draining Extrem Other: 2+ edema Objective Labs Result Diagrams: 08/23/21 06:30 08/23/21 06:30 Labs: Laboratory Results - last 24 hr 08/23/21 08/23/21 06:30 06:30 WBC 9.2 RBC 2.48 L Hgb 9.5 L Hct 27.6 L MCV 111.1 H MCH 38.1 H MCHC 34.3 RDW 15.2 H Plt Count 56 L Neut % (Auto) 84.3 H Lymph % (Auto) 5.7 L [place] % (Auto) 9.9 Eos % (Auto) 0.0 L Baso % (Auto) 0.1 Neut # (Auto) 7800 H Lymph # (Auto) 500 L [place] # (Auto) 900 Eos # (Auto) 0 Baso # (Auto) 0 RBC Morphology Not Reportable Anisocytosis 2+ H Sodium 135 L Potassium 4.1 Chloride 105 Carbon Dioxide 28 BUN 21 H Creatinine 0.72 Estimated GFR > 60.0 BUN/Creatinine Ratio 29.2 H Glucose 142 H Calcium 8.5 Total Bilirubin 2.6 H AST 52 ALT 20 Alkaline Phosphatase 62 D Total Protein 7.7 Albumin 2.7 L Globulin 5.0 H Albumin/Globulin Ratio 0.5 L PFSH Medical History Alcoholism Ankle pain Anxiety Blindness Cataracts, bilateral Cirrhosis Closed left ankle fracture Elevated serum protein level Esophageal varices Foot pain GERD (gastroesophageal reflux disease) H/O deep venous thrombosis Hearing loss Hepatitis C Lower extremity edema Macrocytic anemia Peripheral vascular disease Portal vein thrombosis Postoperative wound infection Shoulder pain Skin problem Sleep apnea Thrombocytopenia Umbilical hernia Venous stasis Vertigo Vision disorder Wound infection Surgical History Anesthesia H/O neck surgery History of surgery History of surgery of liver (~2018) S/P cataract extraction Family History Mother Cancer Hyperlipidemia Grandfather CVA (cerebral vascular accident) Grandfather Cancer Father Heart disease Hypertension Brother Hyperlipidemia Grandmother Liver disease Social History household members: family and none Smoking Status: Current every day smoker Tobacco: How many years used: 42 quit status: not considering quitting alcohol intake: current substance use type: does not use Assessment & Plan Assessment & Plan narrative: This is a 56-year-old male with an incarcerated umbilical hernia.? He is at high risk for strangulation/gangrene so was taken for emergent surgery on the day of admission.? He also has alcoholic cirrhosis/end-stage liver disease, a possible hepatocellular carcinoma, alcoholism and peripheral vascular disease. Incarcerated umbilical hernia, present on admission.? Active.? -ammonia level 111, lactic acid level 2.8, white blood count 13.1.? -umbilical hernia surgery with resection of ischemic area small bowel done on 08/[address] Lieberman.? -he has been in the intensive care unit for the 1st postoperative day and has done very well. -patient is recovering nicely, IV fluids will be discontinued, diet will be advanced, will discontinue Reeves catheter Small-bowel obstruction caused by incarcerated umbilical hernia, present on admission.? Active.? -status post umbilical hernia repair with excision of ischemic small bowel section. -advanced diet per surgery End-stage liver disease secondary to alcoholism, present on admission.? Active.? -no significant ascites on exam or on CT scan but 1.5 L was found on opening of his abdomen. -holding spironolactone and furosemide pending resumption of oral intake -will resume spironolactone and furosemide Alcoholism, present on admission.? Active.? -alcohol level less than 10. Abdominal ascites, present on admission.? Active.? -Prior CT scan 1 month ago showed a more significant level of ascites than the current CT scan.? This is likely related to decreased oral intake of acute bowel obstruction.? -despite the CT findings of only mild ascites 1.5 L was found on opening of his abdomen Right pleural effusion, present on admission.? Active.? -Likely a reaction to the cirrhosis and current bowel obstruction symptoms.? Esophageal varices, present on admission.? Chronic.? -Recent successful banding with GI Peripheral vascular disease, present on admission.? Chronic.? -the patient describes a vascular graft in the left leg ?to treat a big DVT. ?? I am not familiar with venous grafts but that is what he seems to think he has.? Nicotine addiction, present on admission.? Chronic.? -requesting nicotine patch of 21 mg to manage his 2 pack per day addiction. Continue SCD and begin enoxaparin when risk of bleeding from surgery is reasonable. I have utilized all available methods to review update and confirm the patient's current medications. Time Spent With Patient Critical Care time: I spent a total of [] minutes of critical care time on this patient's care today; this time is exclusive of procedural time.
[2021-08-23 17:00] VITALS: BP 115/81; PULSE 94; RESP 19; TEMP 36.1; O2SAT 94
--- NOTE | 2021-08-23 17:57 | PC.NURSE ---
Pt sitting up in chair. Has voided since krishna was removed. Had dsg to abdomen changed at 1035, 1421, and 1730. Dsg quite saturated from serous fluid that is leaking from the bottom staple of the abdominal incision secondary to ascites. Dr. Lieberman has seen the dressing changes and is aware. Pt up to br to have a loose bm with dark stool. Dr. Lieberman is aware. Pt states he is feeling much better and generally is having pain when he coughs and moves around. Binder is in place as ordered. Pt able to eat a general diet for dinner and tolerated meal well. Pt denies needs at this time.
[2021-08-23 19:54] VITALS: BP 111/68; PULSE 79; RESP 16; TEMP 36.7; O2SAT 97
[2021-08-23] MEDS: MELATONIN 3 MG TABLET 6 MG PO (20:52)
[2021-08-24 04:00] VITALS: BP 134/75; PULSE 70; RESP 16; TEMP 36.4; O2SAT 92
[2021-08-24 04:57] LABS: Basophils Absolute Auto 0 /uL (0-100); Basophils Percent Auto 0.1 % (0-2); Eosinophils Absolute Auto 100 /uL (0-450); Eosinophils Percent Auto 0.6 % (2-4); Hematocrit 31.7 % (41-53); Hemoglobin 10.8 g/dL (13.5-17.5); Lymphocytes Absolute Auto 900 /uL (1100-4500); Lymphocytes Percent Auto 9.7 % (25-40); Mean Corpuscular HGB Conc 33.9 % (30-36); Mean Corpuscular Hemoglobin 37.4 PG (26-34); Mean Corpuscular Volume 110.4 fL (80-100); Monocytes Absolute Auto 800 /uL (0-900); Monocytes Percent Auto 9.6 % (3-14); Neutrophils Absolute Auto 7000 /uL (1500-7000); Platelet Count 79 X10^3/uL (150-400); Red Blood Cell Count 2.87 X10^6/uL (4.5-5.9); White Blood Cell Count 8.7 X10^3/uL (4.5-11.0)
[2021-08-24 05:02] LABS: Add Manual Diff / Slide Review SLIDE REVIEW; Alanine Aminotransferase 28 IU/L (<50); Albumin Globulin Ratio 0.5 (1.0-2.8); Alkaline Phosphatase 102 U/L (38-126); Aspartate Aminotransferase 71 IU/L (17-59); Bilirubin Total 2.1 mg/dL (0.2-1.3); Blood Urea Nitrogen 19 mg/dL (9-20); Carbon Dioxide 29 mmol/L (22-32); Chloride 103 mmol/L (98-107); Estimated Glomerular Filt Rate > 60.0 mL/min (>60); Globulin 5.6 g/dL (1.7-4.1); Glucose 139 mg/dL (70-100); HEMOLYSIS < 15 (0-50); Sodium 135 mmol/L (137-145); Total Protein 8.6 g/dL (6.3-8.2)
[2021-08-24 07:17] LABS: Macrocytosis 2+
[2021-08-24 07:56] VITALS: BP 104/70; PULSE 81; RESP 16; TEMP 36.7; O2SAT 96
[2021-08-24 08:18] VITALS: O2SAT 95
[2021-08-24] MEDS: PANTOPRAZOLE DR 20 MG TABLET PO (08:54)
[2021-08-24] MEDS: FUROSEMIDE 40 MG TABLET PO (08:54)
[2021-08-24] MEDS: SPIRONOLACTONE 25 MG TABLET 100 MG PO (08:54)
[2021-08-24] MEDS: NICOTINE 21 MG PATCH TOP (08:59)
--- NOTE | 2021-08-24 10:23 | P.DS_ITS ---
History of Present Illness History of Present Illness Date Patient Seen: 08/24/21 Time Patient Seen: 10:23 Chief complaint: no sleep in 5 days, hernia, severe pain, vomiting Narrative: This is a 56-year-old male with end-stage alcoholic liver disease, recurrent asc ites, alcoholism, esophageal varices, peripheral vascular disease and anxiety who presents to the emergency department with an incarcerated umbilical hernia causing a small bowel obstruction.? This umbilical hernia has been present for at least the last year and has been consistently reducible when he lies down but in the last 4 days it has become incarcerated and he has been unable to reduce it.? He has been vomiting and becoming weaker.? His most recent medical interaction was for esophageal banding which went well, with Dr. Nunes.? He lives in a trailer on his parent's property.? His mother comes in with him today.? He had just seen Dr. Miller for this a week ago and they had made cinthia ns to defer surgery while he underwent alcohol dependency treatment as his hernia was still reducible.? He now presents with a lactic acid level of 4 dropping to 2.8 with IV fluid resuscitation.? The ALT is 35 with an AST of 101.? The white blood count is 13.1 with an ammonia level of 111 and a protein level of 11.1.? His alcohol level is less than 10.? He is mildly jaundiced.? His ascites is unremarkably good control currently, likely due to the decreased oral intake of his bowel obstruction.? He is normally on spironolactone and furosemide.? His MCV is 109.? The CT scan shows a possible hepatocellular carcinoma with a 6 cm dome of the liver lesion and a mild sized right pleural effusion.? He also has a relatively new T10 compression fracture. Discharge Providers Provider Date of admission: 08/21/21 17:04 Discharge Date: 08/24/21 Primary care physician: Mert Miller DO Consults: 08/21/21 17:19 Consult to Tele-communications attendant Routine Comment: Consulting Provider: Giovanni [employer] Reason for consultation: Relationship Consultant services Discharge provider: Litzy Hammer MD Summary Hospital Course Discharge Diagnosis: 1. Strangulated umbilical hernia, status post exploratory laparotomy and small- bowel resection 2. Small-bowel obstruction 3. End-stage liver disease 4. Recurrent ascites 5. Alcohol dependence 6. History of esophageal varices 7. Peripheral vascular disease 8. Anxiety Hospital Course: Patient was admitted to the hospital for a strangulated umbilical hernia. He was seen in consultation with General surgery. Patient was taken to the operating room where he underwent exploratory laparotomy and small-bowel resection. Patient with known recurrent ascites. He was treated with IV antibiotics. Patient's diet was advanced which he tolerated. He continued to have a significant oozing from his surgical site related to his ascites. He was placed back on his Lasix and spironolactone. He made slow but steady cover recovery. Patient was deemed appropriate for discharge with plans to discharge home. He will follow-up with his primary care provider Dr. Miller next week. He will follow-up with Dr. Lieberman in 2 weeks for staple removal. The patient will need to continue abstinence from alcohol. He is encouraged to discontinue smoking as well. Status at Discharge Cognitive/behavioral status at discharge: oriented Functional status at discharge: independent ambulation Overall status at discharge: patient is progressing back to baseline Exam Vital Signs (past 8 hours): - 08/24/21 04:00 08/24/21 07:56 08/24/21 08:18 Temperature 97.5 F L 98.0 F Pulse Rate 70 81 Respiratory Rate 16 16 Blood Pressure 134/75 104/70 Pulse Oximetry 92 96 95 Oxygen Delivery Method Room Air Oxygen Flow Rate 0 Narrative Exam Narrative: Pleasant gentleman sitting in a chair in no obvious distress Eyes Other: Patient is jaundice Resp Other: Lungs decreased breath sounds but clear to auscultation Cardio Other: Cardiac exam: Regular rate and rhythm normal S1-S2 GI Other: Abdomen: Id, mild oozing at the surgical site, shelley in place, wound is clean without erythema Extrem Other: Extremities: 1+ edema Objective Labs Result Diagrams: 08/24/21 04:27 08/24/21 04:27 Labs: Laboratory Results - last 24 hr 08/24/21 08/24/21 04:27 04:27 WBC 8.7 RBC 2.87 L Hgb 10.8 L Hct 31.7 L MCV 110.4 H MCH 37.4 H MCHC 33.9 RDW 15.0 H Plt Count 79 L Neut % (Auto) 80.0 H Lymph % (Auto) 9.7 L [place] % (Auto) 9.6 Eos % (Auto) 0.6 L Baso % (Auto) 0.1 Neut # (Auto) 7000 Lymph # (Auto) 900 L [place] # (Auto) 800 Eos # (Auto) 100 Baso # (Auto) 0 RBC Morphology See below Macrocytosis 2+ H Sodium 135 L Potassium 4.0 Chloride 103 Carbon Dioxide 29 BUN 19 Creatinine 0.76 Estimated GFR > 60.0 BUN/Creatinine Ratio 25.0 H Glucose 139 H Calcium 9.0 Total Bilirubin 2.1 H AST 71 H ALT 28 Alkaline Phosphatase 102 Total Protein 8.6 H Albumin 3.0 L Globulin 5.6 H Albumin/Globulin Ratio 0.5 L PFSH Medical History Alcoholism Ankle pain Anxiety Blindness Cataracts, bilateral Cirrhosis Closed left ankle fracture Elevated serum protein level Esophageal varices Foot pain GERD (gastroesophageal reflux disease) H/O deep venous thrombosis Hearing loss Hepatitis C Lower extremity edema Macrocytic anemia Peripheral vascular disease Portal vein thrombosis Postoperative wound infection Shoulder pain Skin problem Sleep apnea Thrombocytopenia Umbilical hernia Venous stasis Vertigo Vision disorder Wound infection Surgical History Anesthesia H/O neck surgery History of surgery History of surgery of liver (~2018) S/P cataract extraction Family History Mother Cancer Hyperlipidemia Grandfather CVA (cerebral vascular accident) Grandfather Cancer Father Heart disease Hypertension Brother Hyperlipidemia Grandmother Liver disease Social History household members: family and none Smoking Status: Current every day smoker Tobacco: How many years used: 42 quit status: not considering quitting alcohol intake: current substance use type: does not use Discharge Assessment & Plan Assessment and Plan Assessment: Strangulated umbilical hernia, status post exploratory laparotomy and small- bowel resection 2. Small-bowel obstruction 3. End-stage liver disease 4. Recurrent ascites 5. Alcohol dependence 6. History of esophageal varices 7. Peripheral vascular disease 8. Anxiety Plan of Treatment: Follow-up with Dr. Miller in 1 week Follow-up with Dr. Lieberman 2 weeks for suture removal Medications as prescribed Discharge Plan Discharge Plan Patient Disposition: Home Discharge orders & Medications Prescriptions: New oxycodone 5 mg Tablet 5 mg PO Q4HR PRN (Reason: Pain, Moderate (4-6)) 15 Days 0RF Continued omeprazole 20 mg capsule,delayed release(DR/EC) 20 mg PO DAILY 0RF Rx Instructions: 20mg capsule PO every morning 30 minutes prior to meal gabapentin 300 mg capsule 300 mg PO TID Qty: 100 1RF multivitamin with folic acid [Tab-A-Gretchen] 400 mcg tablet 1 tab PO DAILY Qty: 30 5RF fluticasone propionate 50 mcg/actuation spray,suspension 1 spray NASAL DAILY Qty: 16 12RF furosemide 40 mg tablet 40 mg PO DAILY 0RF Label Comments: TAKE 1 TABLET BY MOUTH ONCE DAILY spironolactone 100 mg tablet 100 mg PO DAILY 0RF Label Comments: TAKE 1 TABLET BY MOUTH ONCE DAILY Follow up/Referrals: Mert Miller DO [Primary Care Provider] - Pedro Lieberman MD [Physician] - (2 weeks for suture removal) Discharge Health Status Multidrug resistant organism: No MDRO Diet/Activity/Treatments Diet: Diet as Tolerated and Low-sodium Skin/Wound/Dressing Care Report to your healthcare provider any signs of infection, such as:: chills, fever and increased pain Discharge Data Primary Care Provider: Mert Miller
[2021-08-24 12:00] VITALS: BP 116/74; PULSE 80; RESP 20; TEMP 36.6; O2SAT 93
--- NOTE | 2021-08-24 13:01 | PC.NURSE ---
Day shift - Pt d/c to ride via wheelchair w/[employer]. Pt mother giving ride home. Pt had all belongings. Went over D/C w/ pt and he verbalized understanding of medications and wound care, and his follow up appt.
== END 2021-08-24 13:04 | disposition home or self-care (01) | DRG 330 ==
LOC: ED 13:44 → AC 17:06 → ICU 08-22 10:04 → AC 08-23 08:06
PROVIDERS: Nurse Practitioner Family; Surgery; Admitting Provider Family Medicine; Emergency Provider Emergency Medicine; PCP Family Medicine; Referring Provider Emergency Medicine; Visit Provider Family Medicine
PROC: 0DB80ZZ Excision of Small Intestine, Open Approach (ICD-10-PCS; CPT 49000; principal; 2021-08-21 17:30)
DX: K42.1 Umbilical hernia with gangrene (principal); J90 Pleural effusion, not elsewhere classified; K70.31 Alcoholic cirrhosis of liver with ascites; K72.10 Chronic hepatic failure without coma; F10.20 Alcohol dependence, uncomplicated; Y90.0 Blood alcohol level of less than 20 mg/100 ml; F17.210 Nicotine dependence, cigarettes, uncomplicated; Z20.822 Contact with and (suspected) exposure to COVID-19
CPT/HCPCS: 36415; 74177; 80048; 80053; 80305; 80320; 81001; 82140; 82550; 83605; 83690; 84145; 84484; 85025; 85610; 85730; 86850; 86900; 86901; 87040; 87070; 87075; 87205; 87635; 87797; 93005; 94760; 94762; 96361; 96365; 96375; 99285; 99291; C9803; C9113; J0330; J0690; J1100; J1170; J1885; J2250; J2270; J2405; J2543; J2704; J3010; J7613; Q9967

== ENCOUNTER 2021-08-30 12:04 | Inpatient (IN) | payer MEDICARE, SELFPAY ==
[2021-08-24 11:18] VITALS: BMI 30.4
[2021-08-30] VITALS (22 sets, daily range): BP systolic 89–132; BP diastolic 57–77; PULSE 72–95; RESP 12–20; TEMP 36.7–37.3; O2SAT 94–99; BMI 28.4; BMI 28.3
--- NOTE | 2021-08-30 12:52 | ED.ABDPAIN ---
HPI - Abdominal Pain General Chief Complaint: Abdominal Pain Stated Complaint: Umbillical Hernia, Sent From [facility] Time Seen by Provider: 08/30/21 12:51 History of Present Illness HPI narrative: Patient is a 56-year-old male with known alcoholism, cirrhosis with ascites. He presented here 08/21/21 with an incarcerated umbilical hernia. He underwent surgery. It is noted that there was 1.5 L of peritoneal fluid leaking from the surgical site due to the ascites. About 5 days ago, the surgical site open. The hernia protruded once again. He was seen in primary care, it was felt the hernia was easily reducible. No other care was sought. He return to walk-in clinic today, who promptly for him here. He has abdominal hernia protruding. He has mild pain. He has no nausea vomiting. He last ate this morning. He has no fever or chills. There is no leakage from the site. There is no bleeding. He has developed erythema in the surgical area. Related Data Home Medications Medication Instructions Recorded Confirmed omeprazole 20 mg capsule,delayed 20 mg PO DAILY cap 03/10/21 08/30/21 release furosemide 40 mg tablet 40 mg PO DAILY 08/22/21 08/30/21 spironolactone 100 mg tablet 100 mg PO DAILY 08/22/21 08/30/21 gabapentin 300 mg capsule 300 mg PO TID 08/30/21 08/30/21 Previous Rx's Medication Instructions Recorded multivitamin with folic acid 400 1 tab PO DAILY #30 tab 05/07/21 mcg tablet (Tab-A-Gretchen) fluticasone propionate 50 1 spray NASAL DAILY #16 g 08/04/21 mcg/actuation nasal spray,suspension oxycodone 5 mg capsule 5 mg PO Q6H PRN #20 cap 08/25/21 Allergies Allergy/AdvReac Type Severity Reaction Status Date / Time nadolol Allergy Mild Hives Verified 08/30/21 12:47 propranolol Allergy Mild Hives Verified 08/30/21 12:47 Review of Systems Constitutional Constitutional: Denies chills, Denies fever(s) and Denies headache(s) ENT Ears, Nose, Mouth, and Throat: Denies vertigo, Denies dizziness and Denies headache(s) Cardiovascular Cardiovascular: Denies chest pain, Denies rapid heart rate, Denies edema and Denies dyspnea Respiratory Respiratory: Denies chest congestion, Denies cough and Denies dyspnea Gastrointestinal Comments: See HPI. Genitourinary Comments: No urinary complaints. Musculoskeletal Musculoskeletal: Denies back pain Comments: No lower extremity edema. Integumentary/Breasts Comments: Erythema on abdomen is noted above. Neurologic Neurologic: Denies confusion, Denies vertigo, Denies dizziness and Denies headache(s) Psychiatric Psychiatric: Denies confusion Hematologic/Lymphatic On Anticoagulants: No Patient History Medical History Alcoholism Ankle pain Anxiety Blindness Cataracts, bilateral Cirrhosis Closed left ankle fracture Elevated serum protein level Esophageal varices Foot pain GERD (gastroesophageal reflux disease) H/O deep venous thrombosis Hearing loss Hepatitis C Lower extremity edema Macrocytic anemia Peripheral vascular disease Portal vein thrombosis Postoperative wound infection Shoulder pain Skin problem Sleep apnea Thrombocytopenia Umbilical hernia Venous stasis Vertigo Vision disorder Wound infection Surgical History Anesthesia H/O neck surgery History of surgery History of surgery of liver (~2017) S/P cataract extraction Family History Mother Cancer Hyperlipidemia Grandfather CVA (cerebral vascular accident) Grandfather Cancer Father Heart disease Hypertension Brother Hyperlipidemia Grandmother Liver disease Social History household members: none Smoking Status: Current every day smoker Tobacco: How many years used: 42 quit status: not considering quitting alcohol intake: current substance use type: does not use Smoking Status: Current every day smoker alcohol intake frequency: 3 or more drinks per day Alcohol type: beer Substance Use Type: marijuana Exam Initial Vital Signs Initial Vital Signs: Vital Signs Temperature 98.1 F 08/30/21 12:30 Pulse Rate 94 H 08/30/21 12:30 Respiratory Rate 18 08/30/21 12:30 Blood Pressure 122/68 08/30/21 12:30 Pulse Oximetry 98 08/30/21 12:30 Const General: cooperative, comfortable and No ill appearing HENMT Head: normocephalic and atraumatic Eyes Conjunctivae: conjunctivae normal Sclera: sclerae normal Cornea: corneas normal Resp Effort & Inspection: normal respiratory effort Auscultation: clear to auscultation bilaterally Cardio Rate: regular rate Rhythm: regular rhythm Heart Sounds: S1 normal, S2 normal, no click and no murmurs GI Other: Distended abdomen. 2 cm hernia protruding from the umbilicus site. The hernia is moderate firm, I did not attempt to reduce it. Surgical shleley are still present. There is erythema around the site. There is no guarding or rebound. Back/Spine/Pelvis Back: normal to inspection Skin Other: As noted on abdominal exam. Neuro General: patient alert, patient awake and patient oriented x3 Extrem General: normal to inspection and full ROM Psych Mental Status: mental status grossly normal Course Course Course Narrative: The patient has wound dehiscence with slight cellulitic changes. His initial given Ancef. He is afebrile with little tenderness. He does have subtle elevation to WBC. Lactic acid was later obtained. His lactic acid is elevated, he is given normal saline and Zosyn. His vitals remained stable. Surgery, Dr. Kaba, was consulted. It is noted he is not original surgeon. He was suggesting consultation to [facility]. I contacted [facility], due to other advance in the ER there was delay in communication. I eventually discussed the situation with the on-call [facility] surgeon. He felt surgery should be conducted here right away, they could help in aftermath as needed. Dr. Kaba was again contacted has agreed to admit the patient. He intends to do surgery in the morning. Orders Ordered: ED Orders 08/30/21 20:50 Urine Drug Screen, Rapid Stat Hydromorphone HCl (Hydromorphone 0.5 Mg Inj) 0.5 mg IV Q2H PRN PRN Reason: Pain, Severe (7-10) Sodium Chloride (Normal Saline 0.9%) 1,000 mls @ 150 mls/hr IV CONT MO Last Infusion: 08/30/21 21:31 Dose: 0 mls/hr Documented by: Admin: 08/30/21 13:26 Dose: 150 mls/hr Documented by: LIYA Piperacillin Sod/Tazobactam (Sod 3.375 gm/ Sodium Chloride) 100 mls @ 25 mls/hr IV Q8H MO Last Admin: 08/30/21 22:11 Dose: 25 mls/hr Documented by: DELIO Discontinued Medications Cefazolin Sodium/Dextrose (Cefazolin 2 Gm/20 Ml Syringe) 2 gm IV NOW ONE Stop: 08/30/21 16:32 Last Admin: 08/30/21 18:50 Dose: 2 gm Documented by: LIYA Piperacillin Sod/Tazobactam (Sod 4.5 gm/ Sodium Chloride) 100 mls @ 200 mls/hr IV NOW ONE Stop: 08/30/21 19:43 Last Infusion: 08/30/21 21:21 Dose: 0 mls/hr Documented by: Admin: 08/30/21 20:45 Dose: 200 mls/hr Documented by: DE Sodium Chloride (Normal Saline 0.9%) 1,000 mls @ 1,000 mls/hr IV BOLUS ONE Stop: 08/30/21 20:41 Last Admin: 08/30/21 22:11 Dose: 1,000 mls/hr Documented by: DELIO Nicotine (Nicotine 21 Mg Patch) 21 mg TOP NOW ONE Stop: 08/30/21 20:36 Last Admin: 08/30/21 21:15 Dose: 21 mg Documented by: ANDREW Nicotine (Nicotine 21 Mg Patch) 21 mg TOP NOW ONE Stop: 08/30/21 21:01 Last Admin: 08/30/21 22:14 Dose: Not Given Documented by: DELIO Nicotine (Nicotine 21 Mg Patch) 21 mg TOP NOW ONE Stop: 08/30/21 22:19 Vital Signs Vital signs: Vital Signs - 8 hr 08/30/21 15:00 08/30/21 15:30 08/30/21 16:00 Pulse Rate 86 83 78 Respiratory Rate 12 13 15 Blood Pressure 108/69 100/63 100/61 Pulse Oximetry 97 95 94 08/30/21 16:30 08/30/21 17:00 08/30/21 17:02 Pulse Rate 74 75 83 Respiratory Rate 15 14 20 Blood Pressure 97/64 89/60 L 91/63 Pulse Oximetry 95 95 94 08/30/21 17:30 08/30/21 18:00 08/30/21 18:30 Pulse Rate 76 75 72 Respiratory Rate 20 12 13 Blood Pressure 100/64 97/63 91/57 L Pulse Oximetry 95 96 99 08/30/21 19:00 08/30/21 19:30 08/30/21 20:00 Pulse Rate 80 81 79 Respiratory Rate 16 14 15 Blood Pressure 103/58 L 106/60 101/62 Pulse Oximetry 95 95 97 08/30/21 20:30 Pulse Rate 77 Respiratory Rate 14 Blood Pressure 100/58 L Pulse Oximetry 94 MDM - Abdominal Pain Lab Data Result diagrams: 08/30/21 12:35 08/30/21 12:35 Labs: Lab Results 08/30/21 08/30/21 08/30/21 Range/Units 12:35 12:35 12:35 WBC 11.4 H (4.5-11.0) X10^3/uL RBC 2.83 L (4.5-5.9) X10^6/uL Hgb 10.6 L (13.5-17.5) g/dL Hct 31.3 L (41-53) % MCV 110.7 H (80-100) fL MCH 37.4 H (26-34) PG MCHC 33.8 (30-36) % RDW 15.2 H (11.6-14.8) % Plt Count 114 L (150-400) X10^3/uL Neut % (Auto) 81.7 H (50-75) % Lymph % (Auto) 6.5 L (25-40) % [place] % (Auto) 11.3 (3-14) % Eos % (Auto) 0.2 L (2-4) % Baso % (Auto) 0.3 (0-2) % Neut # (Auto) 9300 H (3450-7269) /uL Lymph # (Auto) 700 L (3598-1636) /uL [place] # (Auto) 1300 H (0-900) /uL Eos # (Auto) 0 (0-450) /uL Baso # (Auto) 0 (0-100) /uL RBC Morphology Not Reportable Anisocytosis 2+ H PT 15.5 H (10.1-12.7) SECONDS INR 1.4 H (0.9-1.3) APTT 32 (26.4-36.2) SECONDS Sodium 128 L (137-145) mmol/L Potassium 5.2 H D (3.4-5.1) mmol/L Chloride 97 L (98-107) mmol/L Carbon Dioxide 23 (22-32) mmol/L BUN 12 (9-20) mg/dL Creatinine 0.85 (0.66-1.25) mg/dL Estimated GFR > 60.0 (>60) mL/min BUN/Creatinine Ratio 14.1 (6-22) Glucose 154 H (70-100) mg/dL Lactate (0.7-2.1) mmol/L Calcium 8.4 (8.4-10.2) mg/dL Magnesium (1.6-2.3) mg/dL Total Bilirubin 3.2 H (0.2-1.3) mg/dL AST 103 H (17-59) IU/L ALT 39 (<50) IU/L Alkaline Phosphatase 123 (38-126) U/L Total Protein 8.8 H (6.3-8.2) g/dL Albumin 3.3 L (3.5-5.0) g/dL Globulin 5.5 H (1.7-4.1) g/dL Albumin/Globulin Ratio 0.6 L (1.0-2.8) Lipase 179 (23-300) U/L U Opiates 300ng/mL cut (Negative) Ur Oxycodone Screen (Negative) Urine Methadone Screen (Negative) Ur Barbiturates Screen (Negative) U Tricyclic Antidepress (Negative) Ur Phencyclidine Scrn (Negative) Ur Amphetamines Screen (Negative) U Methamphetamines Scrn (Negative) Ur MDMA Scrn (Ecstasy) (Negative) U Benzodiazepines Scrn (Negative) Urine Cocaine Screen (Negative) U Marijuana (THC) Screen (Negative) Ethyl Alcohol ( - 10) mg/dL SARS-CoV-2 (PCR) (Negative) 08/30/21 08/30/21 08/30/21 Range/Units 12:35 12:35 12:35 WBC (4.5-11.0) X10^3/uL RBC (4.5-5.9) X10^6/uL Hgb (13.5-17.5) g/dL Hct (41-53) % MCV (80-100) fL MCH (26-34) PG MCHC (30-36) % RDW (11.6-14.8) % Plt Count (150-400) X10^3/uL Neut % (Auto) (50-75) % Lymph % (Auto) (25-40) % [place] % (Auto) (3-14) % Eos % (Auto) (2-4) % Baso % (Auto) (0-2) % Neut # (Auto) (9901-8715) /uL Lymph # (Auto) (2682-9129) /uL [place] # (Auto) (0-900) /uL Eos # (Auto) (0-450) /uL Baso # (Auto) (0-100) /uL RBC Morphology Anisocytosis PT (10.1-12.7) SECONDS INR (0.9-1.3) APTT (26.4-36.2) SECONDS Sodium (137-145) mmol/L Potassium (3.4-5.1) mmol/L Chloride (98-107) mmol/L Carbon Dioxide (22-32) mmol/L BUN (9-20) mg/dL Creatinine (0.66-1.25) mg/dL Estimated GFR (>60) mL/min BUN/Creatinine Ratio (6-22) Glucose (70-100) mg/dL Lactate 4.7 H* (0.7-2.1) mmol/L Calcium (8.4-10.2) mg/dL Magnesium 1.7 (1.6-2.3) mg/dL Total Bilirubin (0.2-1.3) mg/dL AST (17-59) IU/L ALT (<50) IU/L Alkaline Phosphatase (38-126) U/L Total Protein (6.3-8.2) g/dL Albumin (3.5-5.0) g/dL Globulin (1.7-4.1) g/dL Albumin/Globulin Ratio (1.0-2.8) Lipase (23-300) U/L U Opiates 300ng/mL cut (Negative) Ur Oxycodone Screen (Negative) Urine Methadone Screen (Negative) Ur Barbiturates Screen (Negative) U Tricyclic Antidepress (Negative) Ur Phencyclidine Scrn (Negative) Ur Amphetamines Screen (Negative) U Methamphetamines Scrn (Negative) Ur MDMA Scrn (Ecstasy) (Negative) U Benzodiazepines Scrn (Negative) Urine Cocaine Screen (Negative) U Marijuana (THC) Screen (Negative) Ethyl Alcohol 28 H ( - 10) mg/dL SARS-CoV-2 (PCR) Negative (Negative) 08/30/21 Range/Units 20:50 WBC (4.5-11.0) X10^3/uL RBC (4.5-5.9) X10^6/uL Hgb (13.5-17.5) g/dL Hct (41-53) % MCV (80-100) fL MCH (26-34) PG MCHC (30-36) % RDW (11.6-14.8) % Plt Count (150-400) X10^3/uL Neut % (Auto) (50-75) % Lymph % (Auto) (25-40) % [place] % (Auto) (3-14) % Eos % (Auto) (2-4) % Baso % (Auto) (0-2) % Neut # (Auto) (1927-5093) /uL Lymph # (Auto) (9246-3023) /uL [place] # (Auto) (0-900) /uL Eos # (Auto) (0-450) /uL Baso # (Auto) (0-100) /uL RBC Morphology Anisocytosis PT (10.1-12.7) SECONDS INR (0.9-1.3) APTT (26.4-36.2) SECONDS Sodium (137-145) mmol/L Potassium (3.4-5.1) mmol/L Chloride (98-107) mmol/L Carbon Dioxide (22-32) mmol/L BUN (9-20) mg/dL Creatinine (0.66-1.25) mg/dL Estimated GFR (>60) mL/min BUN/Creatinine Ratio (6-22) Glucose (70-100) mg/dL Lactate (0.7-2.1) mmol/L Calcium (8.4-10.2) mg/dL Magnesium (1.6-2.3) mg/dL Total Bilirubin (0.2-1.3) mg/dL AST (17-59) IU/L ALT (<50) IU/L Alkaline Phosphatase (38-126) U/L Total Protein (6.3-8.2) g/dL Albumin (3.5-5.0) g/dL Globulin (1.7-4.1) g/dL Albumin/Globulin Ratio (1.0-2.8) Lipase (23-300) U/L U Opiates 300ng/mL cut Negative (Negative) Ur Oxycodone Screen Positive H (Negative) Urine Methadone Screen Negative (Negative) Ur Barbiturates Screen Negative (Negative) U Tricyclic Antidepress Negative (Negative) Ur Phencyclidine Scrn Negative (Negative) Ur Amphetamines Screen Negative (Negative) U Methamphetamines Scrn Negative (Negative) Ur MDMA Scrn (Ecstasy) Negative (Negative) U Benzodiazepines Scrn Negative (Negative) Urine Cocaine Screen Negative (Negative) U Marijuana (THC) Screen Negative (Negative) Ethyl Alcohol ( - 10) mg/dL SARS-CoV-2 (PCR) (Negative) Imaging Data CT scan - abdomen/pelvis: Radiologist's Impression: 16 Nurse/Allied HealthMedicationsProvider NotesDiagnostics History & ProblemsAdministrativeOther Clinical SummaryActivityFlowsheetsUniversity Of [facility] Diagnostics Subcategory All Activity ??:?? All Time ??:?? All Subcategories Filter Laboratory Imaging Microbiology Pathology Blood Bank Tests Cardiovascular Other Specialty DATE TYPE STATUS REF RANGE/AUTHOR Hx Today 13:17 Abdomen/Pelvis CT Signed Que Leonardo 08/21/21 14:05 Abdomen/Pelvis CT Signed Jeremias Hi 08/03/21 10:01 Abdomen/Pelvis CT Addendum Félix Sánchezn 07/15/21 00:00 Abdomen Ultrasound Signed Santosh Amor 05/17/21 00:00 Vascular Ultrasound Signed Dara Ulloa 05/10/21 00:00 Abdomen Ultrasound Signed Nori Henson 03/16/21 12:04 Vascular Ultrasound Signed Dara Ulloa 12/23/20 00:[address] Signed Marco Anaya 09/25/20 21:46 Vascular Ultrasound Signed Jayme Burdick 09/25/20 21:46 Ankle X-Ray Signed Jayme Burdick 09/01/20 19:28 Tibia/Fibula X-Ray Signed Dara Ulloa 09/01/20 19:[address] Signed Dara Ulloa 09/01/20 19:[address] Signed Dara Ulloa 09/01/20 19:28 Ankle X-Ray Signed Dara Ulloa 05/19/20 00:00 Abdomen Ultrasound Signed Marco Anaya 05/05/20 14:57 DI Result [facility], Ankle Brachial Index/Toe Brachial Index 02/15/20 10:46 Foot X-Ray Signed Jeremias Hi 11/28/19 13:38 Abdomen/Pelvis CT Signed Antonio Rand 12/25/18 08:19 Abdomen Ultrasound Signed Dara Ulloa John K ED 56, M?1965 MRN#? [id number] ADM IN,?Main ED??? 177.8cm 89.5kg BMI: 28.3kg/m? Acc#? [id number] Resus Status Not Ordered Hx Avail Special Indicators No Data to Display Home Meds Confirmed Prescription Monitoring Program Total 30 MME/Day MEDICATIONS (INSTRUCTIONS) LAST TAKEN Active fluticasone propionate 50 mcg/actuation nasal spray,suspension 1 sprayNASALDAILY#16 g Unknown furosemide 40 mgPODAILY Unknown gabapentin 300 mgPOTID Unknown multivitamin with folic acid 400 mcg tablet 1 tabPODAILY#30 tab Unknown omeprazole 20 mg capsule,delayed release 20 mgPODAILY?cap Unknown oxycodone 5 cgETS2KPXY#20 cap Unknown 30 MME/Day spironolactone 100 mgPODAILY Unknown Allergies nadolol Hives propranolol Hives Problems ? ONSET Evisceration of bowel End stage liver disease Sepsis Strangulated umbilical hernia Esophageal varices Portal vein thrombosis GERD (gastroesophageal reflux disease) Umbilical hernia Elevated serum protein level Macrocytic anemia Lower extremity edema Thrombocytopenia History of ankle surgery Post-operative infection Alcohol abuse Postoperative wound infection Closed left ankle fracture Wound infection Wound of foot Peripheral vascular disease Venous stasis Alcoholism Cirrhosis Hepatitis C Cataracts, bilateral H/O deep venous thrombosis Vital Signs Today 21:56 BP 110/65? Pulse 77? Resp 18? Temp 99.1 F? O2 Sat 96? Diagnostics Reports Santi Colindres??56??M??1965 ? Allergy/Adv: nadolol, propranolol (More??) Close Abdomen/Pelvis CT (Signed) Que Leonardo - 08/30/21 Abdomen/Pelvis CT (Signed) Jeremias Hi - 08/21/21 Abdomen/Pelvis CT (Addendum) Juan Jose Sánchezwn - 08/03/21 Abdomen Ultrasound (Signed) Santosh Amor - 07/15/21 Vascular Ultrasound (Signed) Dara Ulloa - 05/17/21 Abdomen Ultrasound (Signed) Nori Henson - 05/10/21 Vascular Ultrasound (Signed) Dara Ulloa - 03/16/[address] (Signed) Marco Anaya - 12/23/20 Vascular Ultrasound (Signed) Jayme Burdick - 09/25/20 Ankle X-Ray (Signed) Jayme Burdick - 09/25/20 Tibia/Fibula X-Ray (Signed) Dara Ulloa - 09/01/[address] (Signed) Dara Ulloa - 09/01/[address] (Signed) Dara Ulloa - 09/01/20 Ankle X-Ray (Signed) Dara Ulloa - 09/01/20 Abdomen Ultrasound (Signed) Marco Anaya - 05/19/20 DI Result CC 05/05/20 Foot X-Ray (Signed) Jeremias Hi - 02/15/20 Abdomen/Pelvis CT (Signed) Antonio Rand - 11/28/19 Abdomen Ultrasound (Signed) Dara Ulloa - 12/25/18 Launch?[place] [address] CT Scan Report Signed Patient: Santi Colindres MR#: [id number] : 1965 Acct:[id number] Age/Sex: 56 / M Date of Service: 08/30/21 Loc: ED Accession Number: [id number] ?? Procedure: CT abdomen pelvis w con Ordering Provider: Everardo Ibarra MD PROCEDURE:? CT ABDOMEN PELVIS W CON ? INDICATIONS:? Wound dehiscence.? S/P umbilical hernia repair. ? TECHNIQUE:? After the administration of intravenous contrast, axial sections acquired from the lung bases to the pubic symphysis.? Coronal and sagittal reformats were performed.? For radiation dose reduction, the following was used:? automated exposure control, adjustment of mA and/or kV according to patient size.? ? COMPARISON:? [facility], CT, CT ABDOMEN PELVIS W CON, 08/21/2021, 14:26. ? FINDINGS:? Image quality:? Excellent.? ? Lung bases:? Moderate right pleural effusion is seen with near complete atelectasis of right lower lobe and subsegmental atelectasis in posterior aspect of right middle lobe and upper lobe. Heart:? No significant findings. ? ABDOMEN: Liver:? Again noted is cirrhotic appearing liver.? Ill-defined hypodense area involving anterior aspect of right hepatic dome remains unchanged in size and appearance.? Recanalized umbilical vein is again seen and unchanged. Gallbladder:? Gallbladder is distended.? No calcified gallstone is seen.? No definite gallbladder wall thickening . Biliary ducts:? Unremarkable.? ? Pancreas:? Unremarkable.? ? Spleen:? Unremarkable.? ? Adrenal Glands:? Unremarkable.? ? Kidneys and Ureters:? Unremarkable.? ? ? Stomach and Bowel:? Patient is status post interval ventral hernia repair with postsurgical changes.? No evidence of bowel obstruction.? Post partial bowel resection is noted in left lower quadrant with grossly intact surgical anastomosis.? No definite abnormal bowel wall thickening is seen although evaluation is slightly limited due to lack of oral contrast. Peritoneum:? Ascites fluid is noted in abdomen and pelvis.? No gross free air. ? Ventral Wall: ? There is interval surgical repair of previously noted ventral hernia with multiple midline skin shelley.? There is recurrent of ventral hernia with short segment of small bowel loop extending into ventral herniation sac.? Questionable thickening of the small bowel loop within herniation sac is seen. Abdominal Nodes:? No retroperitoneal or mesenteric adenopathy by size criteria.? Vessels:? Aorta and inferior vena cava are normal in size.? ? PELVIS: Pelvic Organs:? Unremarkable.? ? Bladder:? Unremarkable.? ? Pelvic Nodes: No enlarged lymph nodes.? Miscellaneous: No hernias are seen. ? ? ? Bones:? No suspicious bony lesion.? Degenerative disc disease throughout lumbar spine is seen more prominent at L4-5 and L5-S1 levels. ? ? IMPRESSION:? 1.? Postsurgical changes from ventral hernia repair with multiple skin shelley.? There is suggestion of wound dehiscence with recurrent of small ventral hernia containing a short segment of small bowel loop.? Questionable small bowel wall thickening within herniation sac, early incarceration cannot be excluded. 2. No evidence of bowel obstruction.? No peritoneal free air.? No other area of abnormal bowel wall thickening. 3. Cirrhosis with moderate amount of ascites fluid.? Hypodense area involving right hepatic lobe remains unchanged. ? ? Dictated by: Que Leonardo M.D. on 08/30/2021 at 13:37 ? ? Approved by: Que Leonardo M.D. on 08/30/2021 at 13:46?? ECG Data Attestation: I personally reviewed and interpreted this ECG as follows: (Normal sinus rhythm, rate 85 beats per minute. No ectopy. Normal intervals. No acute ST T wave changes.) Critical Care Time Critical Care Time Critical Care Time: Yes Total Critical Care Time: 75 Attestation: Evaluation included the initial patient assessment, review of medical records, and review of EKG, lab and radiology data. Multiple conversations were done between myself, the surgical elastic knitter outside this hospital, as well as our general surgeon. The patient was informed of the clinical process and the eventual treatment plan. Discharge Plan Departure Patient Disposition: Admitted As Inpatient Clinical Impression: Abdominal wound dehiscence, Hernia, umbilical, Alcoholic cirrhosis of liver with ascites Admit Date/Time: 08/30/21 20:50 Admit Provider: Praveen Kaba
[2021-08-30 13:02] LABS: INR 1.4 (0.9-1.3); Prothrombin Time 15.5 SECONDS (10.1-12.7)
[2021-08-30 13:04] LABS: PTT Partial Thromboplastin Tim 32 SECONDS (26.4-36.2)
[2021-08-30 13:07] LABS: Add Manual Diff / Slide Review NO; Basophils Absolute Auto 0 /uL (0-100); Basophils Percent Auto 0.3 % (0-2); Eosinophils Absolute Auto 0 /uL (0-450); Eosinophils Percent Auto 0.2 % (2-4); Hematocrit 31.3 % (41-53); Hemoglobin 10.6 g/dL (13.5-17.5); Lymphocytes Absolute Auto 700 /uL (1100-4500); Lymphocytes Percent Auto 6.5 % (25-40); Mean Corpuscular HGB Conc 33.8 % (30-36); Mean Corpuscular Hemoglobin 37.4 PG (26-34); Mean Corpuscular Volume 110.7 fL (80-100); Monocytes Absolute Auto 1300 /uL (0-900); Monocytes Percent Auto 11.3 % (3-14); Neutrophils Absolute Auto 9300 /uL (1500-7000); Neutrophils Percent Auto 81.7 % (50-75); Platelet Count 114 X10^3/uL (150-400); Red Blood Cell Count 2.83 X10^6/uL (4.5-5.9); Red Cell Distribution Width 15.2 % (11.6-14.8); White Blood Cell Count 11.4 X10^3/uL (4.5-11.0)
[2021-08-30 13:08] LABS: Alanine Aminotransferase 39 IU/L (<50); Albumin 3.3 g/dL (3.5-5.0); Albumin Globulin Ratio 0.6 (1.0-2.8); Alkaline Phosphatase 123 U/L (38-126); Aspartate Aminotransferase 103 IU/L (17-59); BUN Creatinine Ratio 14.1 (6-22); Bilirubin Total 3.2 mg/dL (0.2-1.3); Blood Urea Nitrogen 12 mg/dL (9-20); Calcium 8.4 mg/dL (8.4-10.2); Carbon Dioxide 23 mmol/L (22-32); Chloride 97 mmol/L (98-107); Estimated Glomerular Filt Rate > 60.0 mL/min (>60); Globulin 5.5 g/dL (1.7-4.1); Glucose 154 mg/dL (70-100); Lipase 179 U/L (23-300); Potassium 5.2 mmol/L (3.4-5.1); Sodium 128 mmol/L (137-145); Total Protein 8.8 g/dL (6.3-8.2)
[2021-08-30 13:10] LABS: COVID19 -Nasal RAPID Negative (Negative)
[2021-08-30 13:14] LABS: HEMOLYSIS 127 (0-50)
--- NOTE | 2021-08-30 13:17 | DI.CT.S_ITS ---
PROCEDURE: CT ABDOMEN PELVIS W CON INDICATIONS: Wound dehiscence. S/P umbilical hernia repair. TECHNIQUE: After the administration of intravenous contrast, axial sections acquired from the lung bases to the pubic symphysis. Coronal and sagittal reformats were performed. For radiation dose reduction, the following was used: automated exposure control, adjustment of mA and/or kV according to patient size. COMPARISON: [facility], CT, CT ABDOMEN PELVIS W CON, 08/21/2021, 14:26. FINDINGS: Image quality: Excellent. Lung bases: Moderate right pleural effusion is seen with near complete atelectasis of right lower lobe and subsegmental atelectasis in posterior aspect of right middle lobe and upper lobe. Heart: No significant findings. ABDOMEN: Liver: Again noted is cirrhotic appearing liver. Ill-defined hypodense area involving anterior aspect of right hepatic dome remains unchanged in size and appearance. Recanalized umbilical vein is again seen and unchanged. Gallbladder: Gallbladder is distended. No calcified gallstone is seen. No definite gallbladder wall thickening . Biliary ducts: Unremarkable. Pancreas: Unremarkable. Spleen: Unremarkable. Adrenal Glands: Unremarkable. Kidneys and Ureters: Unremarkable. Stomach and Bowel: Patient is status post interval ventral hernia repair with postsurgical changes. No evidence of bowel obstruction. Post partial bowel resection is noted in left lower quadrant with grossly intact surgical anastomosis. No definite abnormal bowel wall thickening is seen although evaluation is slightly limited due to lack of oral contrast. Peritoneum: Ascites fluid is noted in abdomen and pelvis. No gross free air. Ventral Wall: There is interval surgical repair of previously noted ventral hernia with multiple midline skin shelley. There is recurrent of ventral hernia with short segment of small bowel loop extending into ventral herniation sac. Questionable thickening of the small bowel loop within herniation sac is seen. Abdominal Nodes: No retroperitoneal or mesenteric adenopathy by size criteria. Vessels: Aorta and inferior vena cava are normal in size. PELVIS: Pelvic Organs: Unremarkable. Bladder: Unremarkable. Pelvic Nodes: No enlarged lymph nodes. Miscellaneous: No hernias are seen. Bones: No suspicious bony lesion. Degenerative disc disease throughout lumbar spine is seen more prominent at L4-5 and L5-S1 levels. IMPRESSION: 1. Postsurgical changes from ventral hernia repair with multiple skin shelley. There is suggestion of wound dehiscence with recurrent of small ventral hernia containing a short segment of small bowel loop. Questionable small bowel wall thickening within herniation sac, early incarceration cannot be excluded. 2. No evidence of bowel obstruction. No peritoneal free air. No other area of abnormal bowel wall thickening. 3. Cirrhosis with moderate amount of ascites fluid. Hypodense area involving right hepatic lobe remains unchanged. Dictated by: Que Leonardo M.D. on 08/30/2021 at 13:37 Approved by: Que Leonardo M.D. on 08/30/2021 at 13:46
[2021-08-30 13:23] LABS: Anisocytosis 2+
[2021-08-30] MEDS: SODIUM CHLORIDE 0.9% 1,000 ML 150 ML IV (13:26)
[2021-08-30 16:25] LABS: Ethanol (ETOH) 28 mg/dL; Magnesium 1.7 mg/dL (1.6-2.3)
[2021-08-30] MEDS: CEFAZOLIN 2 GM/20 ML SYRINGE IV (18:50)
--- NOTE | 2021-08-30 18:59 | P.CONS_ITS ---
History of Present Illness Consult details Date Patient Seen: 08/30/21 Time Patient Seen: 18:59 Chief complaint: Umbillical Hernia, Sent From [facility] Narrative: Santi is a 56-year-old man who had surgery on August [address] Lieberman for an incarcerated umbilical hernia causing a small-bowel obstruction. A small-bowel resection was performed in hernia was repaired primarily with Ethibond suture. At some point last week he developed a recurrence and likely an evisceration of a loop of bowel. He states that the appearance of his surgical site is unchanged since last which is 4 days ago now. Incredibly, he has not had any signs of a bowel obstruction since this time. He had breakfast today consisting of 2 donuts and a can of Pepsi. He had appointment with his primary care doctor today who saw the unusual appearance of the surgical site and sent him straight to the ER. A CT scan shows there is likely a loop of small bowel incarcerated in the hernia without any signs of obstruction. Meds Home Medications and Allergies Home Medications Medication Instructions Recorded Confirmed Type omeprazole 20 mg capsule,delayed 20 mg PO DAILY cap 03/10/21 08/30/21 History release gabapentin 300 mg capsule 300 mg PO TID #100 cap 04/16/21 08/30/21 Rx multivitamin with folic acid 400 1 tab PO DAILY #30 tab 05/07/21 08/30/21 Rx mcg tablet (Tab-A-Gretchen) fluticasone propionate 50 1 spray NASAL DAILY #16 g 08/04/21 08/30/21 Rx mcg/actuation nasal spray,suspension furosemide 40 mg tablet 40 mg PO DAILY 08/22/21 08/30/21 History spironolactone 100 mg tablet 100 mg PO DAILY 08/22/21 08/30/21 History oxycodone 5 mg capsule 5 mg PO Q6H PRN #20 cap 08/25/21 08/30/21 Rx Allergies Allergy/AdvReac Type Severity Reaction Status Date / Time nadolol Allergy Mild Hives Verified 08/30/21 12:47 propranolol Allergy Mild Hives Verified 08/30/21 12:47 Exam Vital Signs (past 8 hours): - 08/30/21 12:30 08/30/21 12:32 08/30/21 13:00 Temperature 98.1 F Pulse Rate 94 H 95 H 88 Respiratory Rate 18 Blood Pressure 122/68 113/62 Pulse Oximetry 98 98 98 08/30/21 13:30 08/30/21 14:00 08/30/21 14:26 Temperature Pulse Rate 91 H 85 90 Respiratory Rate 17 13 18 Blood Pressure 132/77 Pulse Oximetry 98 97 94 08/30/21 14:30 08/30/21 15:00 08/30/21 15:30 Temperature Pulse Rate 86 86 83 Respiratory Rate 18 12 13 Blood Pressure 118/76 108/69 100/63 Pulse Oximetry 98 97 95 08/30/21 16:00 08/30/21 16:30 08/30/21 17:00 Temperature Pulse Rate 78 74 75 Respiratory Rate 15 15 14 Blood Pressure 100/61 97/64 89/60 L Pulse Oximetry 94 95 95 08/30/21 17:02 08/30/21 17:30 Temperature Pulse Rate 83 76 Respiratory Rate 20 20 Blood Pressure 91/63 100/64 Pulse Oximetry 94 95 Oxygen Delivery Method Room Air Const General: No acute distress Resp Effort & Inspection: normal respiratory effort GI Other: There is a midline incision with shelley and some erythema of the surrounding skin There is a 4-5 cm mass protruding through the surgical incision which appears to be a loop of bowel with exudate of slough covering the tissue. Objective Labs Result Diagrams: 08/30/21 12:35 08/30/21 12:35 Labs: Laboratory Results - last 24 hr 08/30/21 08/30/21 08/30/21 12:35 12:35 12:35 WBC 11.4 H RBC 2.83 L Hgb 10.6 L Hct 31.3 L MCV 110.7 H MCH 37.4 H MCHC 33.8 RDW 15.2 H Plt Count 114 L Neut % (Auto) 81.7 H Lymph % (Auto) 6.5 L [place] % (Auto) 11.3 Eos % (Auto) 0.2 L Baso % (Auto) 0.3 Neut # (Auto) 9300 H Lymph # (Auto) 700 L [place] # (Auto) 1300 H Eos # (Auto) 0 Baso # (Auto) 0 RBC Morphology Not Reportable Anisocytosis 2+ H PT 15.5 H INR 1.4 H APTT 32 Sodium 128 L Potassium 5.2 H D Chloride 97 L Carbon Dioxide 23 BUN 12 Creatinine 0.85 Estimated GFR > 60.0 BUN/Creatinine Ratio 14.1 Glucose 154 H Calcium 8.4 Magnesium Total Bilirubin 3.2 H AST 103 H ALT 39 Alkaline Phosphatase 123 Total Protein 8.8 H Albumin 3.3 L Globulin 5.5 H Albumin/Globulin Ratio 0.6 L Lipase 179 Ethyl Alcohol SARS-CoV-2 (PCR) 08/30/21 08/30/21 12:35 12:35 WBC RBC Hgb Hct MCV MCH MCHC RDW Plt Count Neut % (Auto) Lymph % (Auto) [place] % (Auto) Eos % (Auto) Baso % (Auto) Neut # (Auto) Lymph # (Auto) [place] # (Auto) Eos # (Auto) Baso # (Auto) RBC Morphology Anisocytosis PT INR APTT Sodium Potassium Chloride Carbon Dioxide BUN Creatinine Estimated GFR BUN/Creatinine Ratio Glucose Calcium Magnesium 1.7 Total Bilirubin AST ALT Alkaline Phosphatase Total Protein Albumin Globulin Albumin/Globulin Ratio Lipase Ethyl Alcohol 28 H SARS-CoV-2 (PCR) Negative PFSH Medical History Alcoholism Ankle pain Anxiety Blindness Cataracts, bilateral Cirrhosis Closed left ankle fracture Elevated serum protein level Esophageal varices Foot pain GERD (gastroesophageal reflux disease) H/O deep venous thrombosis Hearing loss Hepatitis C Lower extremity edema Macrocytic anemia Peripheral vascular disease Portal vein thrombosis Postoperative wound infection Shoulder pain Skin problem Sleep apnea Thrombocytopenia Umbilical hernia Venous stasis Vertigo Vision disorder Wound infection Surgical History Anesthesia H/O neck surgery History of surgery History of surgery of liver (~2018) S/P cataract extraction Family History Mother Cancer Hyperlipidemia Grandfather CVA (cerebral vascular accident) Grandfather Cancer Father Heart disease Hypertension Brother Hyperlipidemia Grandmother Liver disease Social History household members: family and none Tobacco & Substance Use Smoking Status: Current every day smoker Tobacco: How many years used: 42 quit status: not considering quitting alcohol intake: current substance use type: does not use Assessment & Plan Assessment and plan (1) End stage liver disease: Status: Acute (2) Evisceration of bowel: Status: Acute Plan Given his end-stage liver disease I recommend we attempt transfer to [facility] or [facility] for hepatology consultation. If it is not possible to transfer him he should be admitted to a hospitalist and we will follow along. Given that he has no clear obstructive or ischemic signs or symptoms and the duration of the evisceration is at least 4 days old there is no indication to ace to the operating room tonight. Time Spent With Patient Critical Care time: I spent a total of [] minutes of critical care time on this patient's care today; this time is exclusive of procedural time.
[2021-08-30 19:37] LABS: Lactate (Lactic Acid) 4.7 mmol/L (0.7-2.1)
[2021-08-30] MEDS: PIPERACILLIN/TAZO 4.5 GM in SODIUM CHLORIDE 0.9% 100 ML 200 ML IV (20:45)
[2021-08-30 20:59] LABS: UR Morphine/Opiate cutoff 300 Negative (Negative); Ur Creatinine Normal (Normal); Ur Specific Gravity Normal (Normal); Urine Amphetamines Negative (Negative); Urine Barbiturates Negative (Negative); Urine Benzodiazepines Negative (Negative); Urine Cocaine Negative (Negative); Urine MDMA Negative (Negative); Urine Methadone Negative (Negative); Urine Methamphetamines Negative (Negative); Urine Oxycodone Positive (Negative); Urine Phencyclidine Negative (Negative); Urine Tetrahydrocannabinol Negative (Negative); Urine Tricyclic Antidepressant Negative (Negative); Urine pH Normal (Normal)
[2021-08-30 21:01] LABS: Reflexed Lactate in 2 Hours Y
[2021-08-30] MEDS: NICOTINE 21 MG PATCH TOP (21:15)
[2021-08-30] MEDS: SODIUM CHLORIDE 0.9% 1,000 ML 1000 ML IV (22:11)
[2021-08-30] MEDS: PIPERACILLIN/TAZO 3.375 GM in SODIUM CHLORIDE 0.9% 100 ML 25 ML IV (22:11)
[2021-08-30] MEDS: HYDROMORPHONE 0.5 MG INJ IV (23:35)
[2021-08-31] VITALS (15 sets, daily range): BP systolic 93–135; BP diastolic 52–79; PULSE 70–97; RESP 11–21; TEMP 36.3–37.6; O2SAT 92–98; BMI 28.3
--- NOTE | 2021-08-31 | PATH_ITS ---
[facility] Accession Number: [id number] . 01 Material submitted: . small bowel - SMALL BOWEL . 02 Diagnosis: Small Bowel, Segmental Resection: 1. Marked serositis with dense inflammatory exudate and scattered fragments of embedded foreign material. Please see comment. 2. Patchy denuded mucosa with patchy erosions, consistent with ischemia-type changes. 3. Negative for dysplasia or malignancy. MRV 09/03/2021 1428 Local . 02 Comment: There is scattered foreign material, including nonpolarizable foreign material as well as keratin flakes embedded within the inflammatory exudate. This could be consistent with the reported clinical history of recurrent umbilical incarcerated hernia, prior procedure, or perforation. However, no gross or microscopic evidence of perforation is identified in the tissue examined. . 02 Electronically signed: . Cassi Thurman MD, Pathologist NPI- [id number] . 01 Gross description: . Specimen is received in formalin labeled with the patient's name and small bowel, is composed of a portion of small bowel, received unoriented and stapled at both ends. The specimen measures 5.0 cm along the length of the bowel and approximately 2.5 cm in diameter. The serosal surface is ames-pink with focal area of hemorrhage. The attached adipose tissue is yellow, smooth, and unremarkable and measures 3.0 x 2.0 cm. Present at one serosal edge is a rounded, yellow area likely representing exudate and measuring 4.5 x 3.5 cm. It appears to be adherent to the serosal aspect and is surrounded by areas of hemorrhage. The bowel is opened to reveal ames-pink unremarkable mucosa which extends into the yellow protrusion previously described. The lumen is filled with hemorrhagic and fecal material. Focally within the protrusion, the mucosa appears flattened. The wall thickness is 0.5 cm. Shuttler Car sections are submitted. Grossly, it appears that the yellow area is an out-pouching of the mucosa with overlying exudate. A definite perforation is not identified. . Summary of sections: A1 - shave of one resection margin. A2 - shave of the other resection margin. A3-A5 - labor service representative sections of the out-pouched mucosa with underlying exudate-type material. A6 - labor service representative section of the mucosa with underlying hemorrhagic adipose tissue and possible exudate material on the serosal surface. A7 - labor service representative sections of mucosa elsewhere. ([id number]) /FRR 09/01/2021 1828 Local . 02 Pathologist provided ICD-10: K42.0 . 02 CPT . 192624 Specimen Comment: A courtesy copy of this report has been sent to [phone] Performed at: 01 [facility] [address] [id number] MD Antonio Florentino MD Phone: [phone] Performed at: 02 [facility] [id number] [place] [id number] MD Cassi Thurman MD Phone: [phone]
[2021-08-31 00:11] LABS: Lactate 2HR (Lactic Acid Rflx) 1.6 mmol/L (0.7-2.1)
[2021-08-31] MEDS: SODIUM CHLORIDE 0.9% 1,000 ML 150 ML IV ×2 (01:52→09:54)
--- NOTE | 2021-08-31 02:30 | PC.NURSE ---
Admit/Noc Shift Note- Patient arrived to room via stretcher from ER at 2130. Admit questiuons done, medications, physical assessment done, and skin check completed. seizure pads placed as ordered. CIWA done with score of 1 at this time. Dressing to abdomin changed due to saturation. pictures taken of wound. Patient oriented to bed and bed controls, room, lights, phone, menu, bathroom, and call valdes/TV remote. safety measures in place. bed alarm activated. Patient agrees to call for assistance. Call valdes and phone within reach. Will continue to monitor.
[2021-08-31] MEDS: PIPERACILLIN/TAZO 3.375 GM in SODIUM CHLORIDE 0.9% 100 ML 25 ML IV ×2 (05:49→13:26)
--- NOTE | 2021-08-31 14:43 | PC.NURSE ---
Patient picked up for surgery at this time.
--- NOTE | 2021-08-31 15:19 | CM.IDA ---
Initial DCP Assessment Note Pt is a 56 yo male, resident of [place], arrives w/ a dehiscence if his surgical site/wound, patient had a hernia repair recently, admitted 2.26-3.1 and discharged home w.assist from family and recommendation for close outpatient f/u PCP: Mert Miller Payer: [facility] Reviewed chart, pt discussed in multidisciplinary rounds this morning. Patient arrives w/ a BAL of 28, PMH includes alcoholism. Patient was initially considered for transfer d/t his end-stage liver disease; unsure if patient is still being considered for transfer? Meanwhile, patient scheduled in the OR this afternoon for repair of hernia; ventral bowel involved per surgical notes Met w/patient and his mother Amara, introduced role. Patient appears agitated and ill; states he only drank two beers last week. Patient denies needs from this DIETET[facility] [employer]N CM team will plan to follow closely; will remain available for any DC needs or concerns arise. Patient denies a problem w/ ETOH use at this time, if this changes...DIETET[facility] INTERN can offer SUSI treatment resources DARREN Draper Discharge Planning/Care Management CM Discharge Assessment Start: 08/31/21 15:13 Freq: Status: Active Protocol: Document 08/31/21 15:13 BRANDEN (Rec: 08/31/21 15:19 BRANDEN [id number]) Discharge Planning Assessment Assigned Canine Deputy DARREN Fong DPOA/Assigned Designee Name Amara Colindres mother Contact Information [phone], Advance Directives? No Advance Directives on File No History Provided By Patient,Family Member,Medical Record Has Patient been admitted in last 30 Yes days? Comment Here 2.26-3.1 for Hernia repair, returns w/dehiscence and abd ascites; now scheduled for the OR this afternoon w/ Dr Kaba for a hernia repair ventral bowel involvement Prior Living Arrangements RV Household Members none Type of transporation used prior to Drives own vehicle admit Independent with ADL's Yes Is patient alert and oriented? Yes Comment Patient confirmed that he has assistance from his parents if needed. Discharge Plan Home Transportation Arrangement Family Referrals Initiated None needed Additional Comment No referral needed at this time, following closely
--- NOTE | 2021-08-31 15:57 | PM.PREOP ---
Pre-operative Note COVID-19 COVID-19 status: Negative Result date/Date tested (Pos, Neg/Pending): 08/30/21 Interval Note History & Physical reviewed/Exam performed by Physician: Yes Changes to H&P: Yes H&P completed within 30 days and has changed as indicated here:: Will plan to perform an open recurrent umbilical hernia repair with mesh today with possible resection of bowel or omentum depending on what we find in the hernia itself. ASA Class (for procedural sedation): III
--- NOTE | 2021-08-31 16:17 | SUR.OPER ---
Addendum entered by Magi Novak R.N. 08/31/21 16:52: pillow under his knees Original Note: Supine on padded OR bed, head on pillow, arms secured on padded arm boards at <90 degrees abduction, legs uncrossed, safety belt at thigh, tape over blanket over lower legs.
[2021-08-31] MEDS: BUPIVACAINE 0.25% (PF) VIAL 30 ML INJ (16:45)
--- NOTE | 2021-08-31 17:39 | P.OP_ITS ---
Operative Date/Time/Diagnoses Date of procedure: 08/31/21 Time of procedure: 17:39 Pre-op diagnosis: Incarcerated recurrent umbilical hernia Post-op diagnosis: same Procedure & Clinicians Procedure: Ventral hernia repair with mesh Same procedure as scheduled: Yes Surgeon: Praveen Kaba Special Events Manager: Pedro Lieberman Anesthesia Type: General Operative Notes Procedure in detail: The patient was on Zosyn. The patient was brought to the operating room, placed on the table in the supine position and general endotracheal anesthesia was induced. The skin shelley were removed. The abdomen was prepped and draped in the usual fashion. A time-out was performed. The old skin incision was completely opened with scalpel. The Ethibond sutures in the fascia were cut and removed. We entered the abdominal cavity and suctionrd some ascites. The tissu e that was incarcerated and eviscerated appeared to be attached to the anti mesenteric border of a loop of healthy small bowel. This was suspicious for a Meckel's diverticulum that had managed to eviscerate through a small defect in the fascia and skin. Small-bowel was healthy and viable with no evidence of obstruction. We did perform a small-bowel resection to remove the segment with the presumed Meckel's diverticulum. We performed a [id number] functional end-to-end anastomosis using the 75 mm linear cutting stapler with blue loads. The staple line was imbricated with 3-0 silk pop offs. But the mesenteric defect was closed with a running 2-0 Vicryl. We then changed gloves and proceeded with the closure. We trimmed back some of the ragged segments of the anterior sheath in the right upper segment which is presumably where a suture pulled through. We then closed the anterior sheath with a running 2-0 PDS suture. Next, we dissected the subcutaneous adipose tissue off of the anterior sheath 2 cm in all directions and trimmed a piece of Bard polypropylene mesh to fit over the fascia as an onlay. The onlay was fixed to the fascia with fibrin glue and allowed to dry. Once the Tisseel was dried the subcutaneous adipose tissue was closed with interrupted 3-0 Vicryl sutures. The skin was closed with 2-0 nylon sutures in an abdominal binder was applied. Post-operative Condition: stable Disposition: PACU
--- NOTE | 2021-08-31 18:01 | SUR.PHASEI ---
Patient to OR with anesthesia and OR nursing staff in stable condition; placed on monitor; placed on oxygen at 2 liters via nasal cannula; large abdominal dressing with abdominal binder noted to be clean, dry and intact. Expiratory wheezing noted. No distress at this time. Patient alert to place and time and situation; following all commands.
[2021-08-31] MEDS: HYDROMORPHONE 2 MG INJ IV (18:10)
--- NOTE | 2021-08-31 18:58 | PC.NURSE ---
Patient received from PACU back to room 219. VSS, on 2L NC. States pain is better, only mild right now. Tolerating ice chips. Abdominal binder in place, bulky dressing to abdomen is CDI. Urinal placed within reach. Bed alarm active.
[2021-08-31] MEDS: SODIUM CHLORIDE 0.45% 1,000 ML 100 ML IV (19:01)
[2021-08-31] MEDS: GABAPENTIN 300 MG CAPSULE PO (22:07)
[2021-08-31] MEDS: ONDANSETRON 4 MG/2 ML INJ IV (22:07)
[2021-08-31] MEDS: OXYCODONE IR 5 MG TABLET PO (22:07)
[2021-08-31] MEDS: IBUPROFEN 600 MG TABLET PO (22:08)
[2021-09-01] VITALS (7 sets, daily range): BP systolic 90–112; BP diastolic 60–75; PULSE 77–92; RESP 15–18; TEMP 36.3–36.8; O2SAT 93–100
[2021-09-01 05:07] LABS: Add Manual Diff / Slide Review NO; Basophils Absolute Auto 0 /uL (0-100); Basophils Percent Auto 0.3 % (0-2); Eosinophils Absolute Auto 300 /uL (0-450); Eosinophils Percent Auto 2.4 % (2-4); Hematocrit 28.7 % (41-53); Hemoglobin 9.7 g/dL (13.5-17.5); Lymphocytes Absolute Auto 600 /uL (1100-4500); Lymphocytes Percent Auto 6.1 % (25-40); Mean Corpuscular HGB Conc 33.8 % (30-36); Mean Corpuscular Hemoglobin 37.9 PG (26-34); Mean Corpuscular Volume 112.2 fL (80-100); Monocytes Absolute Auto 800 /uL (0-900); Monocytes Percent Auto 7.6 % (3-14); Neutrophils Absolute Auto 8700 /uL (1500-7000); Neutrophils Percent Auto 83.6 % (50-75); Platelet Count 80 X10^3/uL (150-400); Red Blood Cell Count 2.56 X10^6/uL (4.5-5.9); Red Cell Distribution Width 15.1 % (11.6-14.8); White Blood Cell Count 10.5 X10^3/uL (4.5-11.0)
[2021-09-01 05:14] LABS: Alanine Aminotransferase 24 IU/L (<50); Albumin 2.4 g/dL (3.5-5.0); Albumin Globulin Ratio 0.5 (1.0-2.8); Alkaline Phosphatase 87 U/L (38-126); Aspartate Aminotransferase 53 IU/L (17-59); Bilirubin Total 3.7 mg/dL (0.2-1.3); Blood Urea Nitrogen 17 mg/dL (9-20); Calcium 8.1 mg/dL (8.4-10.2); Carbon Dioxide 25 mmol/L (22-32); Chloride 104 mmol/L (98-107); Estimated Glomerular Filt Rate > 60.0 mL/min (>60); Globulin 4.8 g/dL (1.7-4.1); Glucose 114 mg/dL (70-100); HEMOLYSIS < 15 (0-50); Potassium 3.9 mmol/L (3.4-5.1); Sodium 132 mmol/L (137-145); Total Protein 7.2 g/dL (6.3-8.2)
[2021-09-01] MEDS: ONDANSETRON 4 MG/2 ML INJ IV (05:26)
[2021-09-01] MEDS: IBUPROFEN 600 MG TABLET PO (05:26)
[2021-09-01] MEDS: OXYCODONE IR 5 MG TABLET PO ×2 (05:26→12:43)
[2021-09-01 05:39] LABS: Anisocytosis 1+; Macrocytosis 2+
[2021-09-01] MEDS: GABAPENTIN 300 MG CAPSULE PO ×3 (07:57→21:12)
[2021-09-01] MEDS: PANTOPRAZOLE DR 20 MG TABLET PO (07:57)
[2021-09-01] MEDS: FUROSEMIDE 40 MG TABLET PO ×2 (08:00→16:02)
[2021-09-01] MEDS: MULTIVITAMIN 1 TABLET 1 TAB PO (08:00)
[2021-09-01] MEDS: FLUTICASONE 120 SPRAY/16 GM SPRAY.SUSP NASAL (08:00)
[2021-09-01] MEDS: SPIRONOLACTONE 25 MG TABLET 100 MG PO (08:01)
[2021-09-01] MEDS: NICOTINE 21 MG PATCH TOP (09:05)
--- NOTE | 2021-09-01 13:53 | PC.NURSE ---
Day Shift Note Pt up to chair SBA, steady on feet. Abdominal binder in place, dressing C/D/I. BTs 4, passing flatus. Tolearting full liquid diet this afternoon, encouraged to take in POs slowly. Oxycodone administered for pain 5/10 to abdomen. Call light within reach, using appropriately to make needs known.
--- NOTE | 2021-09-01 15:51 | PM.CN ---
History of Present Illness Consult details Date Patient Seen: 09/01/21 Time Patient Seen: 15:51 Chief complaint: Umbillical Hernia, Sent From [facility] Narrative: This is a 56-year-old male with end-stage alcoholic liver disease, recurrent ascites, alcoholism, esophageal varices, peripheral vascular disease and anxiety who is admitted after a recurrence of his incarcerated hernia and required small bowel resection yesterday with general surgery. Medicine was asked for assistance with medical management given his medical co-morbidities. He denies complaints currently, has no shortness of breath, nausea, vomiting. He is already tolerating a full liquid diet. Meds Home Medications and Allergies Home Medications Medication Instructions Recorded Confirmed Type omeprazole 20 mg capsule,delayed 20 mg PO DAILY cap 03/10/21 08/30/21 History release multivitamin with folic acid 400 1 tab PO DAILY #30 tab 05/07/21 08/30/21 Rx mcg tablet (Tab-A-Gretchen) fluticasone propionate 50 1 spray NASAL DAILY #16 g 08/04/21 08/30/21 Rx mcg/actuation nasal spray,suspension furosemide 40 mg tablet 40 mg PO DAILY 08/22/21 08/30/21 History spironolactone 100 mg tablet 100 mg PO DAILY 08/22/21 08/30/21 History oxycodone 5 mg capsule 5 mg PO Q6H PRN #20 cap 08/25/21 08/30/21 Rx gabapentin 300 mg capsule 300 mg PO TID 08/30/21 08/30/21 History Allergies Allergy/AdvReac Type Severity Reaction Status Date / Time nadolol Allergy Mild Hives Verified 08/30/21 12:47 propranolol Allergy Mild Hives Verified 08/30/21 12:47 Review of Systems Review of Systems Narrative: All other systems reviewed with the patient and are negative unless otherwise stated. Exam Vital Signs (past 8 hours): - 09/01/21 08:46 09/01/21 13:29 09/01/21 15:39 Temperature 98.0 F 98.3 F Pulse Rate 77 86 Respiratory Rate 17 18 Blood Pressure 108/70 90/61 Pulse Oximetry 94 95 94 Oxygen Delivery Method Room Air Oxygen Flow Rate 0 Narrative Exam Narrative: He is alert and oriented x3.? No apparent distress.? Heart is regular rate and rhythm without murmur Lungs are clear to auscultation bilaterally Extremities have no edema but there are chronic venous stasis changes. Abdomen has a binder which was note removed. He has the appropriate amount of postoperative tenderness.? Ascites appears to be moderate but he remains soft. Objective Labs Result Diagrams: 09/01/21 04:41 09/01/21 04:41 Labs: Laboratory Results - last 24 hr 09/01/21 09/01/21 04:41 04:41 WBC 10.5 RBC 2.56 L Hgb 9.7 L Hct 28.7 L MCV 112.2 H MCH 37.9 H MCHC 33.8 RDW 15.1 H Plt Count 80 L Neut % (Auto) 83.6 H Lymph % (Auto) 6.1 L [place] % (Auto) 7.6 Eos % (Auto) 2.4 Baso % (Auto) 0.3 Neut # (Auto) 8700 H Lymph # (Auto) 600 L [place] # (Auto) 800 Eos # (Auto) 300 Baso # (Auto) 0 RBC Morphology See below Anisocytosis 1+ H Macrocytosis 2+ H Sodium 132 L Potassium 3.9 D Chloride 104 Carbon Dioxide 25 BUN 17 Creatinine 1.06 Estimated GFR > 60.0 BUN/Creatinine Ratio 16.0 Glucose 114 H Calcium 8.1 L Total Bilirubin 3.7 H AST 53 ALT 24 Alkaline Phosphatase 87 Total Protein 7.2 Albumin 2.4 L Globulin 4.8 H Albumin/Globulin Ratio 0.5 L PFSH Medical History Alcoholism Ankle pain Anxiety Blindness Cataracts, bilateral Cirrhosis Closed left ankle fracture Elevated serum protein level Esophageal varices Foot pain GERD (gastroesophageal reflux disease) H/O deep venous thrombosis Hearing loss Hepatitis C Lower extremity edema Macrocytic anemia Peripheral vascular disease Portal vein thrombosis Postoperative wound infection Shoulder pain Skin problem Sleep apnea Thrombocytopenia Umbilical hernia Venous stasis Vertigo Vision disorder Wound infection Surgical History Anesthesia H/O neck surgery History of surgery History of surgery of liver (~2018) S/P cataract extraction Family History Mother Cancer Hyperlipidemia Grandfather CVA (cerebral vascular accident) Grandfather Cancer Father Heart disease Hypertension Brother Hyperlipidemia Grandmother Liver disease Social History household members: none Tobacco & Substance Use Smoking Status: Current every day smoker Tobacco: How many years used: 42 quit status: not considering quitting alcohol intake: current substance use type: does not use Assessment & Plan Assessment & Plan narrative: This is a 56-year-old male with an incarcerated umbilical hernia.?He also has alcoholic cirrhosis/end-stage liver disease, a possible hepatocellular carcinoma, alcoholism and peripheral vascular disease. Recurrent Incarcerated umbilical hernia, present on admission.? Active.? -status post recurrent umbilical hernia repair with excision of ischemic small bowel section again on 08/31/21 with general surgery. -advanced diet per surgery -will diurese aggressively for now to try and reduce ascites. End-stage liver disease secondary to alcoholism, present on admission.? Active.? -okay for up to 2g daily of tylenol -avoid NSAID use, ibuprofen discontinued. -current labs appear similar to baseline. Alcoholism, present on admission.?chronic Abdominal ascites, present on admission.? Active.? -secondary to cirrhosis -will increase diuretic given good kidney function currently. No current indication for paracentesis. -increase furosemide to 80 mg daily, continue aldactone. Esophageal varices, present on admission.? Chronic.? -Recent successful banding with GI. avoid NSAID. Peripheral vascular disease, present on admission.? Chronic.? Nicotine addiction, present on admission.? Chronic.? Continue SCD and begin enoxaparin when risk of bleeding from surgery is reasonable. INR around baseline currently. I have utilized all available methods to review update and confirm the patient's current medications. Code: Full, surrogate decision maker he states is his mother. I have utilized all available immediate resources to obtain, update, or review the patient's current medications. Time Spent With Patient Critical Care time: I spent a total of [] minutes of critical care time on this patient's care today; this time is exclusive of procedural time.
[2021-09-01] MEDS: ACETAMINOPHEN 325 MG TABLET 650 MG PO (16:02)
--- NOTE | 2021-09-01 16:32 | P.PN_ITS ---
Subjective Subjective Date Patient Seen: 09/01/21 Interval history: No complaints. Tolerating liquid diet Exam Vital Signs (past 8 hours): - 09/01/21 08:46 09/01/21 13:29 09/01/21 15:39 Temperature 98.0 F 98.3 F Pulse Rate 77 86 Respiratory Rate 17 18 Blood Pressure 108/70 90/61 Pulse Oximetry 94 95 94 Oxygen Delivery Method Room Air Oxygen Flow Rate 0 Narrative Exam Narrative: Abdomen soft Incision is intact with minimal drainage Objective Labs Result Diagrams: 09/01/21 04:41 09/01/21 04:41 Labs: Laboratory Results - last 24 hr 09/01/21 09/01/21 04:41 04:41 WBC 10.5 RBC 2.56 L Hgb 9.7 L Hct 28.7 L MCV 112.2 H MCH 37.9 H MCHC 33.8 RDW 15.1 H Plt Count 80 L Neut % (Auto) 83.6 H Lymph % (Auto) 6.1 L [place] % (Auto) 7.6 Eos % (Auto) 2.4 Baso % (Auto) 0.3 Neut # (Auto) 8700 H Lymph # (Auto) 600 L [place] # (Auto) 800 Eos # (Auto) 300 Baso # (Auto) 0 RBC Morphology See below Anisocytosis 1+ H Macrocytosis 2+ H Sodium 132 L Potassium 3.9 D Chloride 104 Carbon Dioxide 25 BUN 17 Creatinine 1.06 Estimated GFR > 60.0 BUN/Creatinine Ratio 16.0 Glucose 114 H Calcium 8.1 L Total Bilirubin 3.7 H AST 53 ALT 24 Alkaline Phosphatase 87 Total Protein 7.2 Albumin 2.4 L Globulin 4.8 H Albumin/Globulin Ratio 0.5 L PFSH Medical History Alcoholism Ankle pain Anxiety Blindness Cataracts, bilateral Cirrhosis Closed left ankle fracture Elevated serum protein level Esophageal varices Foot pain GERD (gastroesophageal reflux disease) H/O deep venous thrombosis Hearing loss Hepatitis C Lower extremity edema Macrocytic anemia Peripheral vascular disease Portal vein thrombosis Postoperative wound infection Shoulder pain Skin problem Sleep apnea Thrombocytopenia Umbilical hernia Venous stasis Vertigo Vision disorder Wound infection Surgical History Anesthesia H/O neck surgery History of surgery History of surgery of liver (~2017) S/P cataract extraction Family History Mother Cancer Hyperlipidemia Grandfather CVA (cerebral vascular accident) Grandfather Cancer Father Heart disease Hypertension Brother Hyperlipidemia Grandmother Liver disease Social History household members: none Smoking Status: Current every day smoker Tobacco: How many years used: 42 quit status: not considering quitting alcohol intake: current substance use type: does not use Assessment & Plan Assessment and plan (1) Postoperative examination: Status: Acute Plan Will advance diet Time Spent With Patient Critical Care time: I spent a total of [] minutes of critical care time on this patient's care today; this time is exclusive of procedural time. Quality VTE Deep Vein Thrombosis/Pulmonary Embolism Present on Admission: No
[2021-09-01] MEDS: HYDROMORPHONE 2 MG TABLET PO ×2 (17:16→22:48)
[2021-09-02] VITALS (7 sets, daily range): BP systolic 91–120; BP diastolic 53–68; PULSE 53–90; RESP 16–19; TEMP 36.2–36.8; O2SAT 93–97
[2021-09-02 05:56] LABS: Add Manual Diff / Slide Review NO; Basophils Absolute Auto 0 /uL (0-100); Basophils Percent Auto 0.2 % (0-2); Eosinophils Absolute Auto 300 /uL (0-450); Eosinophils Percent Auto 2.9 % (2-4); Hematocrit 28.1 % (41-53); Hemoglobin 9.7 g/dL (13.5-17.5); Lymphocytes Absolute Auto 600 /uL (1100-4500); Lymphocytes Percent Auto 6.2 % (25-40); Mean Corpuscular HGB Conc 34.4 % (30-36); Mean Corpuscular Hemoglobin 37.7 PG (26-34); Mean Corpuscular Volume 109.6 fL (80-100); Monocytes Absolute Auto 900 /uL (0-900); Monocytes Percent Auto 8.8 % (3-14); Neutrophils Absolute Auto 8300 /uL (1500-7000); Neutrophils Percent Auto 81.9 % (50-75); Platelet Count 70 X10^3/uL (150-400); Red Blood Cell Count 2.56 X10^6/uL (4.5-5.9); Red Cell Distribution Width 14.8 % (11.6-14.8); White Blood Cell Count 10.2 X10^3/uL (4.5-11.0)
[2021-09-02 05:59] LABS: INR 1.5 (0.9-1.3); Prothrombin Time 16.6 SECONDS (10.1-12.7)
[2021-09-02 06:05] LABS: Alanine Aminotransferase 23 IU/L (<50); Albumin 2.5 g/dL (3.5-5.0); Albumin Globulin Ratio 0.5 (1.0-2.8); Alkaline Phosphatase 96 U/L (38-126); Aspartate Aminotransferase 59 IU/L (17-59); BUN Creatinine Ratio 17.1 (6-22); Bilirubin Total 2.9 mg/dL (0.2-1.3); Blood Urea Nitrogen 18 mg/dL (9-20); Calcium 8.1 mg/dL (8.4-10.2); Carbon Dioxide 26 mmol/L (22-32); Chloride 101 mmol/L (98-107); Estimated Glomerular Filt Rate > 60.0 mL/min (>60); Globulin 4.6 g/dL (1.7-4.1); Glucose 102 mg/dL (70-100); HEMOLYSIS < 15 (0-50); Potassium 4.3 mmol/L (3.4-5.1); Sodium 131 mmol/L (137-145); Total Protein 7.1 g/dL (6.3-8.2)
[2021-09-02] MEDS: PANTOPRAZOLE DR 20 MG TABLET PO (06:08)
--- NOTE | 2021-09-02 09:04 | PM.PN.1 ---
Subjective Subjective Date Patient Seen: 09/02/21 Time Patient Seen: 09:04 Interval history: No complaints. Tolerating full liquid diet. Passing plenty of gas. He would like to start regular diet. Exam Vital Signs (past 8 hours): - 09/02/21 05:04 Temperature 97.4 F L Pulse Rate 86 Respiratory Rate 18 Blood Pressure 93/57 L Pulse Oximetry 93 Oxygen Delivery Method Room Air Oxygen Flow Rate 0 Const General: comfortable Resp Effort & Inspection: normal respiratory effort GI Other: Abdomen soft. Incision is intact with no drainage. Objective Labs Result Diagrams: 09/02/21 05:30 09/02/21 05:30 Labs: Laboratory Results - last 24 hr 09/02/21 09/02/21 09/02/21 05:30 05:30 05:30 WBC 10.2 RBC 2.56 L Hgb 9.7 L Hct 28.1 L MCV 109.6 H MCH 37.7 H MCHC 34.4 RDW 14.8 Plt Count 70 L Neut % (Auto) 81.9 H Lymph % (Auto) 6.2 L [place] % (Auto) 8.8 Eos % (Auto) 2.9 Baso % (Auto) 0.2 Neut # (Auto) 8300 H Lymph # (Auto) 600 L [place] # (Auto) 900 Eos # (Auto) 300 Baso # (Auto) 0 PT 16.6 H INR 1.5 H Sodium 131 L Potassium 4.3 Chloride 101 Carbon Dioxide 26 BUN 18 Creatinine 1.05 Estimated GFR > 60.0 BUN/Creatinine Ratio 17.1 Glucose 102 H Calcium 8.1 L Total Bilirubin 2.9 H AST 59 ALT 23 Alkaline Phosphatase 96 Total Protein 7.1 Albumin 2.5 L Globulin 4.6 H Albumin/Globulin Ratio 0.5 L PFSH Medical History Alcoholism Ankle pain Anxiety Blindness Cataracts, bilateral Cirrhosis Closed left ankle fracture Elevated serum protein level Esophageal varices Foot pain GERD (gastroesophageal reflux disease) H/O deep venous thrombosis Hearing loss Hepatitis C Lower extremity edema Macrocytic anemia Peripheral vascular disease Portal vein thrombosis Postoperative wound infection Shoulder pain Skin problem Sleep apnea Thrombocytopenia Umbilical hernia Venous stasis Vertigo Vision disorder Wound infection Surgical History Anesthesia H/O neck surgery History of surgery History of surgery of liver (~2018) S/P cataract extraction Family History Mother Cancer Hyperlipidemia Grandfather CVA (cerebral vascular accident) Grandfather Cancer Father Heart disease Hypertension Brother Hyperlipidemia Grandmother Liver disease Social History household members: none Smoking Status: Current every day smoker Tobacco: How many years used: 42 quit status: not considering quitting alcohol intake: current substance use type: does not use Assessment & Plan Assessment and plan (1) Postoperative examination: Status: Acute Plan Tolerating diet and having flatus. Will advance diet to regular. Dr. Lieberman will cover tomorrow. Time Spent With Patient Critical Care time: I spent a total of [] minutes of critical care time on this patient's care today; this time is exclusive of procedural time. Quality VTE Deep Vein Thrombosis/Pulmonary Embolism Present on Admission: No
[2021-09-02] MEDS: NICOTINE 21 MG PATCH TOP (09:25)
[2021-09-02] MEDS: MULTIVITAMIN 1 TABLET 1 TAB PO (09:25)
[2021-09-02] MEDS: FUROSEMIDE 40 MG TABLET 80 MG PO (09:26)
[2021-09-02] MEDS: GABAPENTIN 300 MG CAPSULE PO ×3 (09:26→20:12)
[2021-09-02] MEDS: FLUTICASONE 120 SPRAY/16 GM SPRAY.SUSP NASAL (09:29)
--- NOTE | 2021-09-02 16:12 | PM.PN.1 ---
Subjective Subjective Date Patient Seen: 09/02/21 Time Patient Seen: 16:12 Interval history: 56-year-old male status post exploratory laparotomy, small-bowel resection, for a strangulated umbilical hernia.?Doing well today, tolerating a regular diet. Pain is well controlled and tolerable. No fever, chills, shortness of breath, or chest pain. Exam Vital Signs (past 8 hours): - 09/02/21 10:00 09/02/21 14:00 Temperature 97.3 F L 97.3 F L Pulse Rate 90 84 Respiratory Rate 19 19 Blood Pressure 91/56 L 91/53 L Pulse Oximetry 93 95 Oxygen Delivery Method Room Air Oxygen Flow Rate 0 Narrative Exam Narrative: He is alert and oriented x3.? No apparent distress.?Silghtly jaundiced. Heart is regular rate and rhythm without murmur Lungs are clear to auscultation bilaterally Extremities have no edema but there are chronic venous stasis changes. Abdomen has a binder. He has the appropriate amount of postoperative tenderness.? Ascites appears to be moderate but he remains soft. No drainage from surgical incision, minimal erythema surrounding without induration or warmth. Objective Labs Result Diagrams: 09/02/21 05:30 09/02/21 05:30 Labs: Laboratory Results - last 24 hr 09/02/21 09/02/21 09/02/21 05:30 05:30 05:30 WBC 10.2 RBC 2.56 L Hgb 9.7 L Hct 28.1 L MCV 109.6 H MCH 37.7 H MCHC 34.4 RDW 14.8 Plt Count 70 L Neut % (Auto) 81.9 H Lymph % (Auto) 6.2 L [place] % (Auto) 8.8 Eos % (Auto) 2.9 Baso % (Auto) 0.2 Neut # (Auto) 8300 H Lymph # (Auto) 600 L [place] # (Auto) 900 Eos # (Auto) 300 Baso # (Auto) 0 PT 16.6 H INR 1.5 H Sodium 131 L Potassium 4.3 Chloride 101 Carbon Dioxide 26 BUN 18 Creatinine 1.05 Estimated GFR > 60.0 BUN/Creatinine Ratio 17.1 Glucose 102 H Calcium 8.1 L Total Bilirubin 2.9 H AST 59 ALT 23 Alkaline Phosphatase 96 Total Protein 7.1 Albumin 2.5 L Globulin 4.6 H Albumin/Globulin Ratio 0.5 L PFSH Medical History Alcoholism Ankle pain Anxiety Blindness Cataracts, bilateral Cirrhosis Closed left ankle fracture Elevated serum protein level Esophageal varices Foot pain GERD (gastroesophageal reflux disease) H/O deep venous thrombosis Hearing loss Hepatitis C Lower extremity edema Macrocytic anemia Peripheral vascular disease Portal vein thrombosis Postoperative wound infection Shoulder pain Skin problem Sleep apnea Thrombocytopenia Umbilical hernia Venous stasis Vertigo Vision disorder Wound infection Surgical History Anesthesia H/O neck surgery History of surgery History of surgery of liver (~2017) S/P cataract extraction Family History Mother Cancer Hyperlipidemia Grandfather CVA (cerebral vascular accident) Grandfather Cancer Father Heart disease Hypertension Brother Hyperlipidemia Grandmother Liver disease Social History household members: none Smoking Status: Current every day smoker Tobacco: How many years used: 42 quit status: not considering quitting alcohol intake: current substance use type: does not use Assessment & Plan Assessment & Plan narrative: This is a 56-year-old male with an incarcerated umbilical hernia.?He also has alcoholic cirrhosis/end-stage liver disease, a possible hepatocellular carcinoma, alcoholism and peripheral vascular disease. Recurrent Incarcerated umbilical hernia, present on admission.? Active.? -status post recurrent umbilical hernia repair with excision of ischemic small bowel section again on 08/31/21 with general surgery. -advanced diet per surgery -will diurese aggressively for now to try and reduce ascites. Can discharge on usual dose of home diuretic. End-stage liver disease secondary to alcoholism, present on admission.? Active.? -okay for up to 2g daily of tylenol -avoid NSAID use, ibuprofen discontinued. -current labs appear similar to baseline. No need to continue to follow at this time unless clinical change. Alcoholism, present on admission.?chronic Abdominal ascites, present on admission.? Active.? -secondary to cirrhosis -will increase diuretic given good kidney function currently. No current indication for paracentesis. -increase furosemide to 80 mg daily, continue aldactone. Esophageal varices, present on admission.? Chronic.? -Recent successful banding with GI. avoid NSAID. Peripheral vascular disease, present on admission.? Chronic.? Nicotine addiction, present on admission.? Chronic.? Continue SCD and begin enoxaparin when risk of bleeding from surgery is reasonable. INR around baseline currently. I have utilized all available methods to review update and confirm the patient's current medications. Code: Full, surrogate decision maker he states is his mother. I have utilized all available immediate resources to obtain, update, or review the patient's current medications. Time Spent With Patient Critical Care time: I spent a total of [] minutes of critical care time on this patient's care today; this time is exclusive of procedural time. Quality VTE Deep Vein Thrombosis/Pulmonary Embolism Present on Admission: No
[2021-09-02] MEDS: HYDROMORPHONE 2 MG TABLET PO (19:55)
[2021-09-03] MEDS: HYDROMORPHONE 2 MG TABLET PO (00:09)
[2021-09-03] MEDS: PANTOPRAZOLE DR 20 MG TABLET PO (05:55)
[2021-09-03 06:00] VITALS: BP 96/54; PULSE 97; RESP 18; TEMP 37.2; O2SAT 92
[2021-09-03 07:58] VITALS: BP 98/64; PULSE 104; RESP 16; TEMP 37.3; O2SAT 90
[2021-09-03] MEDS: MULTIVITAMIN 1 TABLET 1 TAB PO (08:53)
[2021-09-03] MEDS: GABAPENTIN 300 MG CAPSULE PO (08:53)
[2021-09-03] MEDS: FLUTICASONE 120 SPRAY/16 GM SPRAY.SUSP NASAL (08:53)
[2021-09-03] MEDS: FUROSEMIDE 40 MG TABLET 80 MG PO (08:53)
[2021-09-03] MEDS: NICOTINE 21 MG PATCH TOP (08:54)
[2021-09-03 11:00] VITALS: BP 116/54; PULSE 98; RESP 20; TEMP 37.2; O2SAT 92
--- NOTE | 2021-09-03 12:52 | PC.NURSE ---
Pt A&Ox3, VSS, afebrile. Noted SOB with exertion. Lung sounds diminished. He is weaned to RA with 02 sats in the low 90's. Spiranolactone held this a.m. for decreased BP, he does take 80mg lasix with good effect. Good urine output in his krishna, clear cinthya colored. Gracey to abdomen intact with zero drainage. Surrounding redness to shelley, blanchable. Abdomen distended, yet pt having bowel movements and passing gas. No noted edema to BLE's. He is expressing wanting to go home and to have his catheter removed. Krishna dc'd at 0930 per MD orders and patient is able to void at noon. He is able to move about independently in the room and is cleared for discharge home. His mother arrived shortly after to assisst with his discharge home. They both verbalize understanding of medications, activity restrictions, diet, site care, s/sx of worsening symptoms and infection as well as follow up appointments. He is escorted via wheel chair to private vehicle with his mother with all of his belongings at 1250 pm.
--- NOTE | 2021-09-03 13:47 | P.DS_ITS ---
History of Present Illness History of Present Illness Date Patient Seen: 09/03/21 Time Patient Seen: 13:48 Chief complaint: Umbillical Hernia, Sent From [facility] Narrative: 56 y.o man with end stage liver disease secondary to alcoholism who is admitted with a recurrent incarcerated umbilical hernia. Underwent a emergent umbilical hernia repair of strangulated bowel 2 weeks ago with bowel resection and primary closure. Since as had issues with ascities drainage through the wound with subsequent deheiscence. Discharge Providers Provider Date of admission: 08/30/21 20:50 Discharge Date: 09/03/21 Primary care physician: Mert Miller DO Consults: 08/31/21 14:54 Consult to Respiratory Therapy Evaluate & Treat Comment: Physician Instructions: Evaluate and treat Consult to Pit Recorder Routine Comment: 09/01/21 11:37 Consult to Hospitalist Service Routine Comment: Consulting Provider: Javon Benitez Reason for consultation: medical management of liver disease Discharge provider: Pedro Lieberman MD Summary Hospital Course Discharge Diagnosis: incacerated umbilical hernia end stage liver disease Hospital Course: Undewent oepn umbilical hernia repair, small bowel resection and ventral hernia repair with mesh 08/31. The ventral hernia repaired failed and a Meckl's diverticulum was found strangulated within hernia defect. A small bowel resection was performed the hernia was repaired with mesh. Tolerated the operation well and had appropriate return of bowel function by discharge. Exam Vital Signs (past 8 hours): - 09/03/21 06:00 09/03/21 07:58 09/03/21 11:00 Temperature 98.9 F 99.2 F 98.9 F Pulse Rate 97 H 104 H 98 H Respiratory Rate 18 16 20 Blood Pressure 96/54 L 98/64 116/54 L Pulse Oximetry 92 90 L 92 Oxygen Delivery Method Nasal Cannula Oxygen Flow Rate 2.5 Narrative Exam Narrative: general adult male alert oriented no acute distress Chest nonlabored respirations Abdomen soft moderately distended incision clean dry intact no drainage Objective Labs Result Diagrams: 09/02/21 05:30 09/02/21 05:30 [facility] Medical History Alcoholism Ankle pain Anxiety Blindness Cataracts, bilateral Cirrhosis Closed left ankle fracture Elevated serum protein level Esophageal varices Foot pain GERD (gastroesophageal reflux disease) H/O deep venous thrombosis Hearing loss Hepatitis C Lower extremity edema Macrocytic anemia Peripheral vascular disease Portal vein thrombosis Postoperative wound infection Shoulder pain Skin problem Sleep apnea Thrombocytopenia Umbilical hernia Venous stasis Vertigo Vision disorder Wound infection Surgical History Anesthesia H/O neck surgery History of surgery History of surgery of liver (~2018) S/P cataract extraction Family History Mother Cancer Hyperlipidemia Grandfather CVA (cerebral vascular accident) Grandfather Cancer Father Heart disease Hypertension Brother Hyperlipidemia Grandmother Liver disease Social History household members: none Smoking Status: Current every day smoker Tobacco: How many years used: 42 quit status: not considering quitting alcohol intake: current substance use type: does not use Discharge Plan Discharge Plan Patient Disposition: Home Provider Discharge Comment: -Okay to shower today -Do not submerge wounds in water until seen in follow-up. -No lifting >20 lbs x 4 weeks. -Walking only for exercise for 4 weeks. -No driving while taking narcotics. Discharge orders & Medications Prescriptions: New furosemide 80 mg tablet 80 mg PO DAILY Qty: 30 0RF oxycodone 5 mg tablet See Rx Instructions .Route .COMPLEX PRN (Reason: pain) Qty: 30 0RF Rx Instructions: 1-2 tabs every 6 hrs as needed for pain Continued omeprazole 20 mg capsule,delayed release(DR/EC) 20 mg PO DAILY 0RF Rx Instructions: 20mg capsule PO every morning 30 minutes prior to meal multivitamin with folic acid [Tab-A-Gretchen] 400 mcg tablet 1 tab PO DAILY Qty: 30 5RF fluticasone propionate 50 mcg/actuation spray,suspension 1 spray NASAL DAILY Qty: 16 12RF spironolactone 100 mg tablet 100 mg PO DAILY 0RF Label Comments: TAKE 1 TABLET BY MOUTH ONCE DAILY oxycodone 5 mg capsule 5 mg PO Q6H PRN (Reason: pain) Qty: 20 0RF gabapentin 300 mg capsule 300 mg PO TID 0RF Discontinued furosemide 40 mg tablet 40 mg PO DAILY 0RF Label Comments: TAKE 1 TABLET BY MOUTH ONCE DAILY Follow up/Referrals: Praveen Kaba MD [Physician] - 2 Weeks Miller,Mert T, DO [Primary Care Provider] - Diet/Activity/Treatments Diet: Diet as Tolerated Discharge Data Primary Care Provider: Mert Miller VTE Deep Vein Thrombosis/Pulmonary Embolism Present on Admission: No
== END 2021-09-03 12:50 | disposition home or self-care (01) | DRG 330 ==
LOC: ED 15:07 → AC 20:51
PROVIDERS: Internal Medicine; Admitting Provider Surgery; Emergency Provider Emergency Medicine; PCP Family Medicine; Referring Provider Emergency Medicine; Visit Provider Surgery
PROC: 0WUF0JZ Supplement Abdominal Wall with Synthetic Substitute, Open Approach (ICD-10-PCS; principal; 2021-08-31 15:45)
DX: K42.0 Umbilical hernia with obstruction, without gangrene (principal); T81.31XA Disruption of external operation (surgical) wound, not elsewhere classified, initial encounter; K55.9 Vascular disorder of intestine, unspecified; K72.10 Chronic hepatic failure without coma; Q43.0 Meckel's diverticulum (displaced) (hypertrophic); F10.20 Alcohol dependence, uncomplicated; Y90.1 Blood alcohol level of 20-39 mg/100 ml; K70.31 Alcoholic cirrhosis of liver with ascites; F17.200 Nicotine dependence, unspecified, uncomplicated; K21.9 Gastro-esophageal reflux disease without esophagitis; Z20.822 Contact with and (suspected) exposure to COVID-19
CPT/HCPCS: 36415; 49561; 49568; 74177; 80053; 80305; 80320; 81003; 83605; 83690; 83735; 85025; 85610; 85730; 87635; 93005; 93010; 96365; 96375; 99232; 99284; 99291; 99292; 99406; C9803; J0330; J0690; J1170; J2250; J2405; J2543; J2704; J3010; J7050

== ENCOUNTER 2021-09-04 15:30 | Emergency (ER) | payer MEDICARE, SELFPAY ==
[2021-08-30 21:34] VITALS: BMI 28.3
[2021-09-04] VITALS (97 sets, daily range): BP systolic 58–120; BP diastolic 32–84; PULSE 85–113; RESP 20–53; TEMP 36.3–37.9; O2SAT 79–100; BMI 30.5
--- NOTE | 2021-09-04 15:37 | DI.RAD.S_ITS ---
PROCEDURE: XR CHEST 1V INDICATIONS: chest pain TECHNIQUE: One view of the chest was acquired. COMPARISON: [facility], CT, CT ABDOMEN PELVIS W CON, 08/30/2021, 13:19. FINDINGS: Surgical changes and devices: None. Lungs and pleura: Moderate to large right pleural effusion is seen with near complete atelectasis of right middle and lower lobe. Hazy airspace opacities are noted throughout left lung field concerning for extensive left-sided pulmonary infiltrates. No gross pneumothorax. Mediastinum: Mediastinal contours appear normal. Heart size is normal. Bones and chest wall: No suspicious bony lesions. Overlying soft tissues appear unremarkable. IMPRESSION: Moderate to large right pleural effusion and right middle and lower lobe atelectasis. Suggestion of extensive left-sided pulmonary infiltrates. No gross pneumothorax. Dictated by: Que Leonardo M.D. on 09/04/2021 at 15:49 Approved by: Que Leonardo M.D. on 09/04/2021 at 15:50
--- NOTE | 2021-09-04 16:03 | ED_ITS ---
HPI - SOB/Dyspnea <Everardo Ibarra MD - Last Filed: 09/05/21 08:55> General Chief Complaint: Shortness of Breath/Dyspnea Stated Complaint: difficulty breathing Time Seen by Provider: 09/04/21 15:45 Source: patient and EMS Mode of arrival: EMS Limitations: no limitations History of Present Illness HPI Narrative: The patient arrives to the ER by EMS, complaining of dyspnea. O2 sats at his home or in 60s. He was released from this hospital yesterday. He has a history of alcoholic cirrhosis with ascites. He recently underwent repair of a umbilical hernia, but developed dehiscence and recurrence of the hernia. He required repeat surgery, and was admitted 5 days ago, discharged yesterday. He is a cigarette smoker. He does not have a history of COPD. He is not on inhalers. He has ascites, no peripheral edema. He has no history of CHF. He does noted from his prior to ER visit is that he has a substantial pleural effusion. These were noted on abdominal CT. He is not having fever chills. He denies chest pain. O2 sats up the 90s with nasal cannula oxygen prior to arrival. He has ascites, he is postop. He is not having substantial abdominal pain. Related Data Home Medications Medication Instructions Recorded Confirmed omeprazole 20 mg capsule,delayed 20 mg PO DAILY cap 03/10/21 08/30/21 release spironolactone 100 mg tablet 100 mg PO DAILY 08/22/21 08/30/21 gabapentin 300 mg capsule 300 mg PO TID 08/30/21 08/30/21 Previous Rx's Medication Instructions Recorded multivitamin with folic acid 400 1 tab PO DAILY #30 tab 05/07/21 mcg tablet (Tab-A-Gretchen) fluticasone propionate 50 1 spray NASAL DAILY #16 g 08/04/21 mcg/actuation nasal spray,suspension oxycodone 5 mg capsule 5 mg PO Q6H PRN #20 cap 08/25/21 furosemide 80 mg tablet 80 mg PO DAILY #30 tab 09/03/21 oxycodone 5 mg tablet See Rx Instructions .ROUTE 09/03/21 .COMPLEX PRN #30 tab Allergies Allergy/AdvReac Type Severity Reaction Status Date / Time nadolol Allergy Mild Hives Verified 09/04/21 15:38 propranolol Allergy Mild Hives Verified 09/04/21 15:38 Review of Systems <Everardo Ibarra MD - Last Filed: 09/05/21 08:55> Constitutional Constitutional: Denies body ache(s), Denies chills, Reports fatigue and Denies fever(s) Eyes Eyes: Denies change in vision ENT Ears, Nose, Mouth, and Throat: Denies vertigo, Denies dizziness, Denies neck pain, Denies sinus pain, Denies sinus pressure and Denies sore throat Cardiovascular Cardiovascular: Denies chest pain, Denies syncope, Denies rapid heart rate, Denies pedal edema and Reports dyspnea Respiratory Respiratory: Denies cough, Denies hemoptysis and Reports dyspnea Gastrointestinal Gastrointestinal: Reports as per HPI, Denies melena, Denies nausea and Denies vomiting Genitourinary Genitourinary: Denies dysuria Musculoskeletal Musculoskeletal: Denies back pain and Denies neck pain Comments: No lower extremity edema. Integumentary/Breasts Skin/Breast: Reports change in pigmentation and Denies rash Neurologic Neurologic: Denies confusion, Denies vertigo, Denies dizziness and Denies syncope Psychiatric Psychiatric: Denies confusion Endocrine Endocrine: Reports fatigue Hematologic/Lymphatic On Anticoagulants: No Patient History <Everardo Ibarra MD - Last Filed: 09/05/21 08:55> Medical History (Updated 09/05/21 @ 07:17 by Evie Gatica MD) Abdominal wound dehiscence Alcoholism Ankle pain Anxiety Blindness Cataracts, bilateral Cirrhosis Closed left ankle fracture Elevated serum protein level Esophageal varices Foot pain GERD (gastroesophageal reflux disease) H/O deep venous thrombosis Hearing loss Hepatitis C Lower extremity edema Macrocytic anemia Peripheral vascular disease Portal vein thrombosis Postoperative wound infection Shoulder pain Skin problem Sleep apnea Thrombocytopenia Umbilical hernia Venous stasis Vertigo Vision disorder Wound infection Surgical History (Updated 09/04/21 @ 18:49 by Everardo Ibarra MD) Anesthesia H/O neck surgery H/O umbilical hernia repair History of surgery History of surgery of liver (~2018) S/P cataract extraction Family History Mother Cancer Hyperlipidemia Grandfather CVA (cerebral vascular accident) Grandfather Cancer Father Heart disease Hypertension Brother Hyperlipidemia Grandmother Liver disease Social History household members: none Smoking Status: Current every day smoker Tobacco: How many years used: 42 quit status: not considering quitting alcohol intake: current substance use type: does not use Smoking Status: Current every day smoker alcohol intake frequency: 3 or more drinks per day Alcohol type: beer Substance Use Type: does not use Exam <Everardo Ibarra MD - Last Filed: 09/05/21 08:55> Initial Vital Signs Initial Vital Signs: Vital Signs Pulse Rate 110 H 09/04/21 15:33 Pulse Oximetry 96 09/04/21 15:33 Const General: cooperative, in distress and ill appearing [facility] Head: normocephalic and atraumatic Mouth: oral mucosae normal Throat: posterior oropharynx normal Eyes Pupils: PERRL EOM: EOM intact bilaterally and No nystagmus Other: Icterus is present. Neck Neck: supple and No JVD Chest Chest: normal inspection of the chest Resp Other: Loss of breath sounds in the right base. Wheezes and rhonchi throughout the left side. Cardio Rate: regular rate Rhythm: regular rhythm Heart Sounds: S1 normal and S2 normal GI Other: Postop umbilical surgery. Steri-Strips and shelley are in place. No erythema. No drainage. Distended abdomen consistent with ascites. No significant tenderness. No guarding. Normal bowel sounds. Back/Spine/Pelvis Back: No CVA tenderness Skin General: jaundice Lesions: no lesions Rashes: no rashes Neuro Cranial Nerves: No nystagmus Extrem General: normal to inspection, full ROM, no pedal edema and no calf tenderness Psych Mental Status: mental status grossly normal <Evie Gatica MD - Last Filed: 09/05/21 07:17> Initial Vital Signs Initial Vital Signs: Vital Signs Pulse Rate 110 H 09/04/21 15:33 Pulse Oximetry 96 09/04/21 15:33 <Evie Gatica MD - Last Filed: 09/05/21 07:17> Central Line Placement Right IJ: Time of procedure: 07:30 Time Out Performed: No Patient Placed on Monitor/Pulse Ox: Yes Prep: mask, gown and gloves Central Line Prep: Chlorhexidine scrub and sterile drapes applied Local Anesthetic: lidocaine 1% Amount of anesthesia used (mL): 3 Ultrasound Used for Placement: Yes Central Line Lumen Inserted: triple Post Procedure: sutured in place, good blood return, all ports aspirated, flushed, capped and sterile dressing applied Post Procedure X-Ray: tip of catheter in good position and no pneumothorax seen Patient Tolerated Procedure: Well Complications: none Intubation Time of Intubation: 05:32 Time out performed: Yes sedative: Ketamine Mg Given: 500 paralytic: Succinylcholine Mg Given: 100 Laryngoscope: fiber optic video scope ET Tube Size: 8 ET Tube Uncuffed: No Tube Secured Depth (cm): 26 Tube Secured Location: teeth Tube Placement Confirmation: Visualized tube passing through cords, Equal breath sounds bilaterally, No breath sounds over epigastrium, Confirmation by capnome try and Chest Xray Patient Tolerated Procedure: Well Intubation Complications: none Misc Procedure Name of Procedure: Thoracentesis Side (if applicable): right Location: Large pleural effusion Ultrasound guidance used Time out performed: Yes Technique/Description of procedure performed: Using sterile technique under ultrasound guidance needle was placed in to the right pleural cavity with approximately 3500cc of serosanguineous fluid aspi rated. Additional Comments: Patient began to become hypotensive after sitting for the time needed to drain the pleural cavity. There is still quite a bit of fluid easily draining however the patient needed to be lay down. Drain was removed sterile dressing was placed and patient was placed into Trendelenburg position with improvement of blood pressure. Significant improvement of oxygenation as lung re-expanded. Postprocedure x-ray did not suggest pneumothorax in did show significant improvement in lung expansion and diminished pleural fluid. Fluid was sent for studies as well as cytology given the slightly bloody appearance. Course <Everardo Ibarra MD - Last Filed: 09/05/21 08:55> Course Course Narrative: The patient was given IV fluids and Zosyn after arrival. Evaluation is consistent with facility acquired pneumonia. Vancomycin is added. The large pleural effusion has been present on other recent evaluations, but now he has respiratory distress. He require thoracentesis, diagnostic in likely therap eutic. The case has been discussed with the incoming ER physician, Dr. Gatica. She was assume care at change of shift. Orders Ordered: ED Orders 09/05/21 05:25 Chest [XR chest 1V] Stat 09/05/21 06:15 CBC Auto Diff [Complete Blood Count AUTO DIFF] Stat CMP [Comprehensive Metabolic Panel] Stat 09/05/21 06:30 Body Fluid Culture Stat Gram Stain Stat Vancomycin HCl/Dextrose (Vancomycin) 2,000 mg in 400 mls @ 200 mls/hr IV Q12H MO Last Infusion: 09/05/21 07:37 Dose: 0 mls/hr Documented by: Admin: 09/05/21 07:21 Dose: 200 mls/hr Documented by: SHELL NOREPINEPHRINE BITARTRATE/D5W (Levophed) 4 mg in 250 mls @ 30 mls/hr IV TITRATE MO; Protocol Last Titration: 09/05/21 07:37 Dose: 0 mcg/min, 0 mls/hr Documented by: Titration: 09/05/21 06:27 Dose: 9 mcg/min, 33.75 mls/hr Documented by: Titration: 09/04/21 23:28 Dose: 6 mcg/min, 22.5 mls/hr Documented by: Titration: 09/04/21 22:07 Dose: 8 mcg/min, 30 mls/hr Documented by: Admin: 09/04/21 22:06 Dose: 5 mcg/min, 18.75 mls/hr Documented by: ATAYLOR Piperacillin Sod/Tazobactam (Sod 3.375 gm/ Sodium Chloride) 100 mls @ 25 mls/hr IV Q8H MO Last Infusion: 09/05/21 06:43 Dose: 0 mls/hr Documented by: Admin: 09/05/21 01:30 Dose: 25 mls/hr Documented by: PAOLA Sodium Chloride (Normal Saline 0.9%) 1,000 mls @ 150 mls/hr IV CONT MO Last Infusion: 09/05/21 07:38 Dose: 0 mls/hr Documented by: Admin: 09/05/21 01:31 Dose: 150 mls/hr Documented by: PAOLA Fentanyl 1,000 mcg/ Dextrose 250 mls @ 16.908 mls/hr IV TITRATE MO Last Infusion: 09/05/21 07:37 Dose: 0 mcg/kg/hr, 0 mls/hr Documented by: Infusion: 09/05/21 06:27 Dose: 0.72 mcg/kg/hr, 17.5 mls/hr Documented by: Admin: 09/05/21 05:33 Dose: 0.7 mcg/kg/hr, 16.908 mls/hr Documented by: PAOLA Propofol (Propofol) 1,000 mg in 100 mls @ 2.898 mls/hr IV TITRATE MO; Protocol Last Titration: 09/05/21 07:36 Dose: 0 mcg/kg/min, 0 mls/hr Documented by: Admin: 09/05/21 06:15 Dose: 5 mcg/kg/min, 2.898 mls/hr Documented by: PAOLA Pantoprazole Sodium (Pantoprazole 40 Mg Vial) 40 mg IV DAILY MO Succinylcholine Chloride (Succinylcholine 200 Mg/10 Ml Vial) 100 mg IV TITRATE MO Last Admin: 09/05/21 05:23 Dose: 100 mg Documented by: PAOLA Discontinued Medications Albuterol/Ipratropium (Albuterol/Ipratropium 3 Ml Ampul) 3 ml INH NOW ONE Stop: 09/04/21 16:06 Last Admin: 09/04/21 18:56 Dose: Not Given Documented by: JEANNINE Piperacillin Sod/Tazobactam (Sod 4.5 gm/ Sodium Chloride) 100 mls @ 200 mls/hr IV NOW ONE Stop: 09/04/21 16:16 Last Infusion: 09/04/21 17:30 Dose: 0 mls/hr Documented by: Admin: 09/04/21 16:52 Dose: 200 mls/hr Documented by: DAVID Sodium Chloride (Normal Saline 0.9%) 1,000 mls @ 1,000 mls/hr IV BOLUS ONE Stop: 09/04/21 17:59 Last Infusion: 09/04/21 18:13 Dose: 0 mls/hr Documented by: Admin: 09/04/21 17:00 Dose: 1,000 mls/hr Documented by: LEO Vancomycin HCl/Dextrose (Vancomycin) 2,000 mg in 400 mls @ 200 mls/hr IV NOW ONE Stop: 09/04/21 20:59 Last Infusion: 09/04/21 21:10 Dose: 0 mls/hr Documented by: Admin: 09/04/21 18:59 Dose: 200 mls/hr Documented by: LEO Sodium Chloride (Normal Saline 0.9%) 1,000 mls @ 1,000 mls/hr IV BOLUS ONE Stop: 09/04/21 20:29 Last Infusion: 09/04/21 22:55 Dose: 0 mls/hr Documented by: Infusion: 09/04/21 20:06 Dose: 0 mls/hr Documented by: Admin: 09/04/21 19:30 Dose: 1,000 mls/hr Documented by: LEO Sodium Chloride (Normal Saline 0.9%) 1,000 mls @ 1,000 mls/hr IV BOLUS ONE Stop: 09/04/21 22:02 Last Infusion: 09/04/21 22:08 Dose: 0 mls/hr Documented by: Admin: 09/04/21 21:15 Dose: 1,000 mls/hr Documented by: DAVID Lidocaine HCl (Lidocaine 2% (Glydo) 6 Ml Gel) 6 ml TOP NOW ONE Stop: 09/04/21 18:15 Last Admin: 09/04/21 18:20 Dose: 6 ml Documented by: DAVID Vancomycin HCl (Vancomycin Per Pharmacy) 1 request MISC NOW ONE Stop: 09/04/21 18:26 Last Admin: 09/04/21 18:59 Dose: Not Given Documented by: LEO Vancomycin HCl (Vancomycin Per Pharmacy) 1 request MISC NOW ONE Stop: 09/05/21 00:52 Last Admin: 09/05/21 01:31 Dose: Not Given Documented by: PAOLA Vital Signs Vital signs: Vital Signs - 8 hr 09/05/21 00:00 09/05/21 00:05 09/05/21 00:10 Pulse Rate 92 H 92 H 92 H Respiratory Rate 23 27 H 24 Blood Pressure 83/52 L 82/45 L 104/64 Pulse Oximetry 96 98 97 09/05/21 00:15 09/05/21 00:20 09/05/21 00:25 Pulse Rate 92 H 88 90 Respiratory Rate 24 22 22 Blood Pressure 107/62 106/63 107/62 Pulse Oximetry 99 100 100 09/05/21 00:30 09/05/21 00:35 09/05/21 00:40 Pulse Rate 90 92 H 92 H Respiratory Rate 24 29 H 26 H Blood Pressure 110/66 118/60 107/57 L Pulse Oximetry 100 97 98 09/05/21 00:45 09/05/21 00:50 09/05/21 00:55 Pulse Rate 90 98 H 91 H Respiratory Rate 24 31 H 23 Blood Pressure 108/59 L 96/52 L 99/56 L Pulse Oximetry 100 98 100 09/05/21 01:00 09/05/21 01:05 09/05/21 01:10 Pulse Rate 91 H 90 92 H Respiratory Rate 25 H 25 H 28 H Blood Pressure 102/59 L 107/65 106/63 Pulse Oximetry 98 100 92 09/05/21 01:15 09/05/21 01:20 09/05/21 01:25 Pulse Rate 86 84 84 Respiratory Rate 22 Blood Pressure 108/58 L 107/59 L 103/60 Pulse Oximetry 100 100 100 09/05/21 01:30 09/05/21 01:40 09/05/21 01:50 Pulse Rate 84 83 83 Respiratory Rate 22 25 H 24 Blood Pressure 102/57 L Pulse Oximetry 100 100 100 09/05/21 01:59 09/05/21 03:00 09/05/21 03:01 Pulse Rate 84 83 Respiratory Rate 27 H 27 H Blood Pressure 101/55 L Pulse Oximetry 100 100 09/05/21 03:10 09/05/21 03:20 09/05/21 03:30 Pulse Rate 83 83 83 Respiratory Rate 32 H 26 H 25 H Blood Pressure 107/59 L Pulse Oximetry 100 100 100 09/05/21 03:40 09/05/21 03:50 09/05/21 04:00 Pulse Rate 84 85 89 Respiratory Rate 26 H 26 H 26 H Blood Pressure 107/56 L Pulse Oximetry 100 100 99 09/05/21 04:10 09/05/21 04:20 09/05/21 04:30 Pulse Rate 91 H 92 H 86 Respiratory Rate 25 H 29 H 22 Blood Pressure 111/57 L Pulse Oximetry 98 99 100 09/05/21 04:40 09/05/21 04:50 09/05/21 05:00 Pulse Rate 85 88 84 Respiratory Rate 21 26 H 20 Blood Pressure 103/62 Pulse Oximetry 100 100 100 09/05/21 05:10 09/05/21 05:20 09/05/21 05:30 Pulse Rate 88 87 85 Respiratory Rate 23 25 H 24 Blood Pressure 114/68 Pulse Oximetry 100 100 95 03/13/22 05:40 09/05/21 05:50 09/05/21 06:00 Pulse Rate 94 H 83 86 Respiratory Rate 25 H 29 H 34 H Blood Pressure Pulse Oximetry 96 88 L 94 09/05/21 06:04 09/05/21 06:10 09/05/21 06:12 Pulse Rate 91 H 93 H 92 H Respiratory Rate 30 H 24 24 Blood Pressure 105/58 L 86/51 L Pulse Oximetry 97 99 98 09/05/21 06:15 09/05/21 06:20 09/05/21 06:25 Pulse Rate 92 H 95 H 97 H Respiratory Rate 24 25 H 24 Blood Pressure 100/65 128/79 135/82 Pulse Oximetry 97 99 99 09/05/21 06:30 09/05/21 06:35 09/05/21 06:40 Pulse Rate 99 H 101 H 102 H Respiratory Rate 24 24 24 Blood Pressure 130/81 131/83 136/84 Pulse Oximetry 99 98 99 09/05/21 06:45 09/05/21 06:50 09/05/21 06:55 Pulse Rate 102 H 104 H 105 H Respiratory Rate 24 24 24 Blood Pressure 140/84 140/85 144/85 H Pulse Oximetry 98 99 99 09/05/21 07:00 09/05/21 07:05 09/05/21 07:10 Pulse Rate 109 H 113 H 113 H Respiratory Rate 24 24 24 Blood Pressure 148/87 H 156/92 H 151/92 H Pulse Oximetry 98 98 97 09/05/21 07:15 09/05/21 07:20 09/05/21 07:25 Pulse Rate 113 H 113 H 115 H Respiratory Rate 24 24 24 Blood Pressure 151/91 H 151/88 H 121/73 Pulse Oximetry 97 97 97 09/05/21 07:30 09/05/21 07:35 09/05/21 07:40 Pulse Rate 116 H 117 H 114 H Respiratory Rate 24 24 24 Blood Pressure 127/78 125/78 Pulse Oximetry 96 96 96 <Evie Gatica MD - Last Filed: 09/05/21 07:17> Orders Ordered: ED Orders 09/05/21 05:25 Chest [XR chest 1V] Stat 09/05/21 06:15 CBC Auto Diff [Complete Blood Count AUTO DIFF] Stat CMP [Comprehensive Metabolic Panel] Stat 09/05/21 06:30 Body Fluid Culture Stat Gram Stain Stat Vancomycin HCl/Dextrose (Vancomycin) 2,000 mg in 400 mls @ 200 mls/hr IV Q12H MO Last Infusion: 09/05/21 07:37 Dose: 0 mls/hr Documented by: Admin: 09/05/21 07:21 Dose: 200 mls/hr Documented by: SHELL NOREPINEPHRINE BITARTRATE/D5W (Levophed) 4 mg in 250 mls @ 30 mls/hr IV TITRATE MO; Protocol Last Titration: 09/05/21 07:37 Dose: 0 mcg/min, 0 mls/hr Documented by: Titration: 09/05/21 06:27 Dose: 9 mcg/min, 33.75 mls/hr Documented by: Titration: 09/04/21 23:28 Dose: 6 mcg/min, 22.5 mls/hr Documented by: Titration: 09/04/21 22:07 Dose: 8 mcg/min, 30 mls/hr Documented by: Admin: 09/04/21 22:06 Dose: 5 mcg/min, 18.75 mls/hr Documented by: ATAYLOR Piperacillin Sod/Tazobactam (Sod 3.375 gm/ Sodium Chloride) 100 mls @ 25 mls/hr IV Q8H MO Last Infusion: 09/05/21 06:43 Dose: 0 mls/hr Documented by: Admin: 09/05/21 01:30 Dose: 25 mls/hr Documented by: PAOLA Sodium Chloride (Normal Saline 0.9%) 1,000 mls @ 150 mls/hr IV CONT MO Last Infusion: 09/05/21 07:38 Dose: 0 mls/hr Documented by: Admin: 09/05/21 01:31 Dose: 150 mls/hr Documented by: PAOLA Fentanyl 1,000 mcg/ Dextrose 250 mls @ 16.908 mls/hr IV TITRATE MO Last Infusion: 09/05/21 07:37 Dose: 0 mcg/kg/hr, 0 mls/hr Documented by: Infusion: 09/05/21 06:27 Dose: 0.72 mcg/kg/hr, 17.5 mls/hr Documented by: Admin: 09/05/21 05:33 Dose: 0.7 mcg/kg/hr, 16.908 mls/hr Documented by: PAOLA Propofol (Propofol) 1,000 mg in 100 mls @ 2.898 mls/hr IV TITRATE MO; Protocol Last Titration: 09/05/21 07:36 Dose: 0 mcg/kg/min, 0 mls/hr Documented by: Admin: 09/05/21 06:15 Dose: 5 mcg/kg/min, 2.898 mls/hr Documented by: PAOLA Pantoprazole Sodium (Pantoprazole 40 Mg Vial) 40 mg IV DAILY MO Succinylcholine Chloride (Succinylcholine 200 Mg/10 Ml Vial) 100 mg IV TITRATE MO Last Admin: 09/05/21 05:23 Dose: 100 mg Documented by: PAOLA Discontinued Medications Albuterol/Ipratropium (Albuterol/Ipratropium 3 Ml Ampul) 3 ml INH NOW ONE Stop: 09/04/21 16:06 Last Admin: 09/04/21 18:56 Dose: Not Given Documented by: DEZOJO Piperacillin Sod/Tazobactam (Sod 4.5 gm/ Sodium Chloride) 100 mls @ 200 mls/hr IV NOW ONE Stop: 09/04/21 16:16 Last Infusion: 09/04/21 17:30 Dose: 0 mls/hr Documented by: Admin: 09/04/21 16:52 Dose: 200 mls/hr Documented by: DAVID Sodium Chloride (Normal Saline 0.9%) 1,000 mls @ 1,000 mls/hr IV BOLUS ONE Stop: 09/04/21 17:59 Last Infusion: 09/04/21 18:13 Dose: 0 mls/hr Documented by: Admin: 09/04/21 17:00 Dose: 1,000 mls/hr Documented by: LEO Vancomycin HCl/Dextrose (Vancomycin) 2,000 mg in 400 mls @ 200 mls/hr IV NOW O NE Stop: 09/04/21 20:59 Last Infusion: 09/04/21 21:10 Dose: 0 mls/hr Documented by: Admin: 09/04/21 18:59 Dose: 200 mls/hr Documented by: LEO Sodium Chloride (Normal Saline 0.9%) 1,000 mls @ 1,000 mls/hr IV BOLUS ONE Stop: 09/04/21 20:29 Last Infusion: 09/04/21 22:55 Dose: 0 mls/hr Documented by: Infusion: 09/04/21 20:06 Dose: 0 mls/hr Documented by: Admin: 09/04/21 19:30 Dose: 1,000 mls/hr Documented by: LEO Sodium Chloride (Normal Saline 0.9%) 1,000 mls @ 1,000 mls/hr IV BOLUS ONE Stop: 09/04/21 22:02 Last Infusion: 09/04/21 22:08 Dose: 0 mls/hr Documented by: Admin: 09/04/21 21:15 Dose: 1,000 mls/hr Documented by: DAVID Lidocaine HCl (Lidocaine 2% (Glydo) 6 Ml Gel) 6 ml TOP NOW ONE Stop: 09/04/21 18:15 Last Admin: 09/04/21 18:20 Dose: 6 ml Documented by: DAVID Vancomycin HCl (Vancomycin Per Pharmacy) 1 request MISC NOW ONE Stop: 09/04/21 18:26 Last Admin: 09/04/21 18:59 Dose: Not Given Documented by: LEO Vancomycin HCl (Vancomycin Per Pharmacy) 1 request MISC NOW ONE Stop: 09/05/21 00:52 Last Admin: 09/05/21 01:31 Dose: Not Given Documented by: PAOLA Vital Signs Vital signs: Vital Signs - 8 hr 09/05/21 00:00 09/05/21 00:05 09/05/21 00:10 Pulse Rate 92 H 92 H 92 H Respiratory Rate 23 27 H 24 Blood Pressure 83/52 L 82/45 L 104/64 Pulse Oximetry 96 98 97 09/05/21 00:15 09/05/21 00:20 09/05/21 00:25 Pulse Rate 92 H 88 90 Respiratory Rate 24 22 22 Blood Pressure 107/62 106/63 107/62 Pulse Oximetry 99 100 100 09/05/21 00:30 09/05/21 00:35 09/05/21 00:40 Pulse Rate 90 92 H 92 H Respiratory Rate 24 29 H 26 H Blood Pressure 110/66 118/60 107/57 L Pulse Oximetry 100 97 98 09/05/21 00:45 09/05/21 00:50 09/05/21 00:55 Pulse Rate 90 98 H 91 H Respiratory Rate 24 31 H 23 Blood Pressure 108/59 L 96/52 L 99/56 L Pulse Oximetry 100 98 100 09/05/21 01:00 09/05/21 01:05 09/05/21 01:10 Pulse Rate 91 H 90 92 H Respiratory Rate 25 H 25 H 28 H Blood Pressure 102/59 L 107/65 106/63 Pulse Oximetry 98 100 92 09/05/21 01:15 09/05/21 01:20 09/05/21 01:25 Pulse Rate 86 84 84 Respiratory Rate 22 Blood Pressure 108/58 L 107/59 L 103/60 Pulse Oximetry 100 100 100 09/05/21 01:30 09/05/21 01:40 09/05/21 01:50 Pulse Rate 84 83 83 Respiratory Rate 22 25 H 24 Blood Pressure 102/57 L Pulse Oximetry 100 100 100 09/05/21 01:59 09/05/21 03:00 09/05/21 03:01 Pulse Rate 84 83 Respiratory Rate 27 H 27 H Blood Pressure 101/55 L Pulse Oximetry 100 100 09/05/21 03:10 09/05/21 03:20 09/05/21 03:30 Pulse Rate 83 83 83 Respiratory Rate 32 H 26 H 25 H Blood Pressure 107/59 L Pulse Oximetry 100 100 100 09/05/21 03:40 09/05/21 03:50 09/05/21 04:00 Pulse Rate 84 85 89 Respiratory Rate 26 H 26 H 26 H Blood Pressure 107/56 L Pulse Oximetry 100 100 99 09/05/21 04:10 09/05/21 04:20 09/05/21 04:30 Pulse Rate 91 H 92 H 86 Respiratory Rate 25 H 29 H 22 Blood Pressure 111/57 L Pulse Oximetry 98 99 100 09/05/21 04:40 09/05/21 04:50 09/05/21 05:00 Pulse Rate 85 88 84 Respiratory Rate 21 26 H 20 Blood Pressure 103/62 Pulse Oximetry 100 100 100 09/05/21 05:10 09/05/21 05:20 09/05/21 05:30 Pulse Rate 88 87 85 Respiratory Rate 23 25 H 24 Blood Pressure 114/68 Pulse Oximetry 100 100 95 09/05/21 05:40 09/05/21 05:50 09/05/21 06:00 Pulse Rate 94 H 83 86 Respiratory Rate 25 H 29 H 34 H Blood Pressure Pulse Oximetry 96 88 L 94 09/05/21 06:04 09/05/21 06:10 09/05/21 06:12 Pulse Rate 91 H 93 H 92 H Respiratory Rate 30 H 24 24 Blood Pressure 105/58 L 86/51 L Pulse Oximetry 97 99 98 09/05/21 06:15 09/05/21 06:20 09/05/21 06:25 Pulse Rate 92 H 95 H 97 H Respiratory Rate 24 25 H 24 Blood Pressure 100/65 128/79 135/82 Pulse Oximetry 97 99 99 09/05/21 06:30 09/05/21 06:35 09/05/21 06:40 Pulse Rate 99 H 101 H 102 H Respiratory Rate 24 24 24 Blood Pressure 130/81 131/83 136/84 Pulse Oximetry 99 98 99 09/05/21 06:45 09/05/21 06:50 09/05/21 06:55 Pulse Rate 102 H 104 H 105 H Respiratory Rate 24 24 24 Blood Pressure 140/84 140/85 144/85 H Pulse Oximetry 98 99 99 09/05/21 07:00 09/05/21 07:05 09/05/21 07:10 Pulse Rate 109 H 113 H 113 H Respiratory Rate 24 24 24 Blood Pressure 148/87 H 156/92 H 151/92 H Pulse Oximetry 98 98 97 09/05/21 07:15 09/05/21 07:20 09/05/21 07:25 Pulse Rate 113 H 113 H 115 H Respiratory Rate 24 24 24 Blood Pressure 151/91 H 151/88 H 121/73 Pulse Oximetry 97 97 97 09/05/21 07:30 09/05/21 07:35 09/05/21 07:40 Pulse Rate 116 H 117 H 114 H Respiratory Rate 24 24 24 Blood Pressure 127/78 125/78 Pulse Oximetry 96 96 96 MDM - SOB/Dyspnea <Everardo Ibarra MD - Last Filed: 09/05/21 08:55> Lab Data Result diagrams: 09/05/21 06:15 09/05/21 06:15 Labs: Lab Results 09/04/21 09/04/21 09/04/21 Range/Units 15:37 15:39 16:00 WBC 10.6 (4.5-11.0) X10^3/uL RBC 2.49 L (4.5-5.9) X10^6/uL Hgb 9.6 L (13.5-17.5) g/dL Hct 27.8 L (41-53) % MCV 111.5 H (80-100) fL MCH 38.5 H (26-34) PG MCHC 34.5 (30-36) % RDW 15.5 H (11.6-14.8) % Plt Count 91 L (150-400) X10^3/uL Neut % (Auto) 86.8 H (50-75) % Lymph % (Auto) 3.7 L (25-40) % [place] % (Auto) 7.9 (3-14) % Eos % (Auto) 0.4 L (2-4) % Baso % (Auto) 1.2 (0-2) % Neut # (Auto) 9200 H (1958-8148) /uL Lymph # (Auto) 400 L (2365-4584) /uL [place] # (Auto) 800 (0-900) /uL Eos # (Auto) 0 (0-450) /uL Baso # (Auto) 100 (0-100) /uL Total Counted Seg Neutrophils % (38-70) % Band Neutrophils % (3-7) % Lymphocytes % (Manual) (25-45) % Monocytes % (Manual) (2-11) % Eosinophils % (Manual) (2-4) % Neutrophils # (Manual) (7220-3071) /uL RBC Morphology Not Reportable Polychromasia Hypochromasia Anisocytosis 1+ H Macrocytosis 2+ H PT 17.2 H (10.1-12.7) SECONDS INR 1.5 H (0.9-1.3) APTT 33 (26.4-36.2) SECONDS D-Dimer 4534 H (<230) ng/mL ABG pH (7.35-7.45) ABG pCO2 (35-45) mmHg ABG pO2 (80-100) mmHg ABG HCO3 (22-26) mmol/L ABG Total CO2 (21-31) mmol/L ABG O2 Saturation (95-100) % ABG Base Excess (-2-2) mmol/L VBG pH (7.33-7.43) VBG pCO2 (45-50) mmHg VBG pO2 (35-45) mmHg VBG HCO3 (23-28) mmol/L VBG Total CO2 (24-29) mmol/L VBG O2 Saturation (70-75) % VBG Base Excess (0-4) mmol/L FiO2 Sodium (137-145) mmol/L Potassium (3.4-5.1) mmol/L Chloride (98-107) mmol/L Carbon Dioxide (22-32) mmol/L BUN (9-20) mg/dL Creatinine (0.66-1.25) mg/dL Estimated GFR (>60) mL/min BUN/Creatinine Ratio (6-22) Glucose (70-100) mg/dL Lactate (0.7-2.1) mmol/L Calcium (8.4-10.2) mg/dL Magnesium (1.6-2.3) mg/dL Total Bilirubin (0.2-1.3) mg/dL AST (17-59) IU/L ALT (<50) IU/L Alkaline Phosphatase (38-126) U/L Ammonia (9-30) umol/L Total Creatine Kinase (55-170) U/L CK-MB (CK-2) CK-MB (CK-2) Rel Index Troponin I (0.01-0.034) ng/mL NT-Pro-B Natriuret Pep (<125) pg/mL Total Protein (6.3-8.2) g/dL Albumin (3.5-5.0) g/dL Globulin (1.7-4.1) g/dL Albumin/Globulin Ratio (1.0-2.8) Lipase (23-300) U/L Procalcitonin (<0.5) ng/mL Urine Color Urine Appearance Urine pH (4.5-8.0) Ur Specific [place] (1.000-1.035) Urine Protein (Negative) Urine Glucose (UA) (Negative) g/dL Urine Ketones (NEGATIVE) Urine Occult Blood (Negative) Urine Nitrate (Negative) Urine Bilirubin (NEGATIVE) Urine Urobilinogen (0.2) E.U./dL Ur Leukocyte Esterase (NEGATIVE) Urine RBC (0-5/HPF) Urine WBC (0-5/HPF) Urine Bacteria Ur Culture Indicated? Fluid Color Fluid Appearance Fluid pH pH Fluid RBC /uL Fld Tot Nucleated Cell /uL Fluid Polynuclear WBCs % Fluid Mononuclear WBCs % Fluid Eosinophils Fluid Other Cells % Body Fluid Clot Fluid Glucose mg/dL Fluid Total Protein g/dL Fluid Albumin g/dL Fluid LDH U/L Ethyl Alcohol ( - 10) mg/dL SARS-CoV-2 (PCR) Negative (Negative) 09/04/21 09/04/21 09/04/21 Range/Units 16:00 16:00 16:00 WBC (4.5-11.0) X10^3/uL RBC (4.5-5.9) X10^6/uL Hgb (13.5-17.5) g/dL Hct (41-53) % MCV (80-100) fL MCH (26-34) PG MCHC (30-36) % RDW (11.6-14.8) % Plt Count (150-400) X10^3/uL Neut % (Auto) (50-75) % Lymph % (Auto) (25-40) % [place] % (Auto) (3-14) % Eos % (Auto) (2-4) % Baso % (Auto) (0-2) % Neut # (Auto) (0138-0475) /uL Lymph # (Auto) (2865-4044) /uL [place] # (Auto) (0-900) /uL Eos # (Auto) (0-450) /uL Baso # (Auto) (0-100) /uL Total Counted Seg Neutrophils % (38-70) % Band Neutrophils % (3-7) % Lymphocytes % (Manual) (25-45) % Monocytes % (Manual) (2-11) % Eosinophils % (Manual) (2-4) % Neutrophils # (Manual) (0810-4051) /uL RBC Morphology Polychromasia Hypochromasia Anisocytosis Macrocytosis PT (10.1-12.7) SECONDS INR (0.9-1.3) APTT (26.4-36.2) SECONDS D-Dimer (<230) ng/mL ABG pH (7.35-7.45) ABG pCO2 (35-45) mmHg ABG pO2 (80-100) mmHg ABG HCO3 (22-26) mmol/L ABG Total CO2 (21-31) mmol/L ABG O2 Saturation (95-100) % ABG Base Excess (-2-2) mmol/L VBG pH (7.33-7.43) VBG pCO2 (45-50) mmHg VBG pO2 (35-45) mmHg VBG HCO3 (23-28) mmol/L VBG Total CO2 (24-29) mmol/L VBG O2 Saturation (70-75) % VBG Base Excess (0-4) mmol/L FiO2 Sodium 132 L (137-145) mmol/L Potassium 4.7 (3.4-5.1) mmol/L Chloride 101 (98-107) mmol/L Carbon Dioxide 23 (22-32) mmol/L BUN 26 H (9-20) mg/dL Creatinine 0.98 (0.66-1.25) mg/dL Estimated GFR > 60.0 (>60) mL/min BUN/Creatinine Ratio 26.5 H (6-22) Glucose 138 H (70-100) mg/dL Lactate 4.8 H* (0.7-2.1) mmol/L Calcium 8.8 (8.4-10.2) mg/dL Magnesium 1.7 (1.6-2.3) mg/dL Total Bilirubin 3.7 H (0.2-1.3) mg/dL AST 106 H (17-59) IU/L ALT 33 (<50) IU/L Alkaline Phosphatase 133 H (38-126) U/L Ammonia 59 H (9-30) umol/L Total Creatine Kinase 53 L (55-170) U/L CK-MB (CK-2) TNP CK-MB (CK-2) Rel Index TNP Troponin I < 0.012 (0.01-0.034) ng/mL NT-Pro-B Natriuret Pep (<125) pg/mL Total Protein 8.5 H (6.3-8.2) g/dL Albumin 3.0 L (3.5-5.0) g/dL Globulin 5.5 H (1.7-4.1) g/dL Albumin/Globulin Ratio 0.5 L (1.0-2.8) Lipase 80 D (23-300) U/L Procalcitonin 0.36 (<0.5) ng/mL Urine Color Urine Appearance Urine pH (4.5-8.0) Ur Specific [place] (1.000-1.035) Urine Protein (Negative) Urine Glucose (UA) (Negative) g/dL Urine Ketones (NEGATIVE) Urine Occult Blood (Negative) Urine Nitrate (Negative) Urine Bilirubin (NEGATIVE) Urine Urobilinogen (0.2) E.U./dL Ur Leukocyte Esterase (NEGATIVE) Urine RBC (0-5/HPF) Urine WBC (0-5/HPF) Urine Bacteria Ur Culture Indicated? Fluid Color Fluid Appearance Fluid pH pH Fluid RBC /uL Fld Tot Nucleated Cell /uL Fluid Polynuclear WBCs % Fluid Mononuclear WBCs % Fluid Eosinophils Fluid Other Cells % Body Fluid Clot Fluid Glucose mg/dL Fluid Total Protein g/dL Fluid Albumin g/dL Fluid LDH U/L Ethyl Alcohol ( - 10) mg/dL SARS-CoV-2 (PCR) (Negative) 09/04/21 09/04/21 09/04/21 Range/Units 16:05 16:06 16:09 WBC (4.5-11.0) X10^3/uL RBC (4.5-5.9) X10^6/uL Hgb (13.5-17.5) g/dL Hct (41-53) % MCV (80-100) fL MCH (26-34) PG MCHC (30-36) % RDW (11.6-14.8) % Plt Count (150-400) X10^3/uL Neut % (Auto) (50-75) % Lymph % (Auto) (25-40) % [place] % (Auto) (3-14) % Eos % (Auto) (2-4) % Baso % (Auto) (0-2) % Neut # (Auto) (2449-2883) /uL Lymph # (Auto) (2617-9052) /uL [place] # (Auto) (0-900) /uL Eos # (Auto) (0-450) /uL Baso # (Auto) (0-100) /uL Total Counted Seg Neutrophils % (38-70) % Band Neutrophils % (3-7) % Lymphocytes % (Manual) (25-45) % Monocytes % (Manual) (2-11) % Eosinophils % (Manual) (2-4) % Neutrophils # (Manual) (1914-9139) /uL RBC Morphology Polychromasia Hypochromasia Anisocytosis Macrocytosis PT (10.1-12.7) SECONDS INR (0.9-1.3) APTT (26.4-36.2) SECONDS D-Dimer (<230) ng/mL ABG pH 7.51 H (7.35-7.45) ABG pCO2 28.4 L (35-45) mmHg ABG pO2 52 L (80-100) mmHg ABG HCO3 23 (22-26) mmol/L ABG Total CO2 24 (21-31) mmol/L ABG O2 Saturation 90 L (95-100) % ABG Base Excess 0.0 (-2-2) mmol/L VBG pH (7.33-7.43) VBG pCO2 (45-50) mmHg VBG pO2 (35-45) mmHg VBG HCO3 (23-28) mmol/L VBG Total CO2 (24-29) mmol/L VBG O2 Saturation (70-75) % VBG Base Excess (0-4) mmol/L FiO2 34 Sodium (137-145) mmol/L Potassium (3.4-5.1) mmol/L Chloride (98-107) mmol/L Carbon Dioxide (22-32) mmol/L BUN (9-20) mg/dL Creatinine (0.66-1.25) mg/dL Estimated GFR (>60) mL/min BUN/Creatinine Ratio (6-22) Glucose (70-100) mg/dL Lactate (0.7-2.1) mmol/L Calcium (8.4-10.2) mg/dL Magnesium (1.6-2.3) mg/dL Total Bilirubin (0.2-1.3) mg/dL AST (17-59) IU/L ALT (<50) IU/L Alkaline Phosphatase (38-126) U/L Ammonia (9-30) umol/L Total Creatine Kinase (55-170) U/L CK-MB (CK-2) CK-MB (CK-2) Rel Index Troponin I (0.01-0.034) ng/mL NT-Pro-B Natriuret Pep 1290 H (<125) pg/mL Total Protein (6.3-8.2) g/dL Albumin (3.5-5.0) g/dL Globulin (1.7-4.1) g/dL Albumin/Globulin Ratio (1.0-2.8) Lipase (23-300) U/L Procalcitonin (<0.5) ng/mL Urine Color Urine Appearance Urine pH (4.5-8.0) Ur Specific [place] (1.000-1.035) Urine Protein (Negative) Urine Glucose (UA) (Negative) g/dL Urine Ketones (NEGATIVE) Urine Occult Blood (Negative) Urine Nitrate (Negative) Urine Bilirubin (NEGATIVE) Urine Urobilinogen (0.2) E.U./dL Ur Leukocyte Esterase (NEGATIVE) Urine RBC (0-5/HPF) Urine WBC (0-5/HPF) Urine Bacteria Ur Culture Indicated? Fluid Color Fluid Appearance Fluid pH pH Fluid RBC /uL Fld Tot Nucleated Cell /uL Fluid Polynuclear WBCs % Fluid Mononuclear WBCs % Fluid Eosinophils Fluid Other Cells % Body Fluid Clot Fluid Glucose mg/dL Fluid Total Protein g/dL Fluid Albumin g/dL Fluid LDH U/L Ethyl Alcohol < 10 ( - 10) mg/dL SARS-CoV-2 (PCR) (Negative) 09/04/21 09/04/21 09/04/21 Range/Units 18:35 19:15 21:18 WBC (4.5-11.0) X10^3/uL RBC (4.5-5.9) X10^6/uL Hgb (13.5-17.5) g/dL Hct (41-53) % MCV (80-100) fL MCH (26-34) PG MCHC (30-36) % RDW (11.6-14.8) % Plt Count (150-400) X10^3/uL Neut % (Auto) (50-75) % Lymph % (Auto) (25-40) % [place] % (Auto) (3-14) % Eos % (Auto) (2-4) % Baso % (Auto) (0-2) % Neut # (Auto) (0704-2725) /uL Lymph # (Auto) (5310-9255) /uL [place] # (Auto) (0-900) /uL Eos # (Auto) (0-450) /uL Baso # (Auto) (0-100) /uL Total Counted Seg Neutrophils % (38-70) % Band Neutrophils % (3-7) % Lymphocytes % (Manual) (25-45) % Monocytes % (Manual) (2-11) % Eosinophils % (Manual) (2-4) % Neutrophils # (Manual) (8747-3137) /uL RBC Morphology Polychromasia Hypochromasia Anisocytosis Macrocytosis PT (10.1-12.7) SECONDS INR (0.9-1.3) APTT (26.4-36.2) SECONDS D-Dimer (<230) ng/mL ABG pH (7.35-7.45) ABG pCO2 (35-45) mmHg ABG pO2 (80-100) mmHg ABG HCO3 (22-26) mmol/L ABG Total CO2 (21-31) mmol/L ABG O2 Saturation (95-100) % ABG Base Excess (-2-2) mmol/L VBG pH (7.33-7.43) VBG pCO2 (45-50) mmHg VBG pO2 (35-45) mmHg VBG HCO3 (23-28) mmol/L VBG Total CO2 (24-29) mmol/L VBG O2 Saturation (70-75) % VBG Base Excess (0-4) mmol/L FiO2 Sodium (137-145) mmol/L Potassium (3.4-5.1) mmol/L Chloride (98-107) mmol/L Carbon Dioxide (22-32) mmol/L BUN (9-20) mg/dL Creatinine (0.66-1.25) mg/dL Estimated GFR (>60) mL/min BUN/Creatinine Ratio (6-22) Glucose (70-100) mg/dL Lactate 3.1 H (0.7-2.1) mmol/L Calcium (8.4-10.2) mg/dL Magnesium (1.6-2.3) mg/dL Total Bilirubin (0.2-1.3) mg/dL AST (17-59) IU/L ALT (<50) IU/L Alkaline Phosphatase (38-126) U/L Ammonia (9-30) umol/L Total Creatine Kinase (55-170) U/L CK-MB (CK-2) CK-MB (CK-2) Rel Index Troponin I (0.01-0.034) ng/mL NT-Pro-B Natriuret Pep (<125) pg/mL Total Protein (6.3-8.2) g/dL Albumin (3.5-5.0) g/dL Globulin (1.7-4.1) g/dL Albumin/Globulin Ratio (1.0-2.8) Lipase (23-300) U/L Procalcitonin (<0.5) ng/mL Urine Color Yellow Urine Appearance Clear Urine pH 5.0 (4.5-8.0) Ur Specific [place] 1.010 (1.000-1.035) Urine Protein Negative (Negative) Urine Glucose (UA) Negative (Negative) g/dL Urine Ketones Negative (NEGATIVE) Urine Occult Blood Trace-intact (Negative) Urine Nitrate Negative (Negative) Urine Bilirubin Negative (NEGATIVE) Urine Urobilinogen 0.2 (0.2) E.U./dL Ur Leukocyte Esterase Negative (NEGATIVE) Urine RBC 0-1/hpf (0-5/HPF) Urine WBC 0-1/hpf (0-5/HPF) Urine Bacteria Not Reportable Ur Culture Indicated? Cult not indicated Fluid Color Yellow Fluid Appearance Slightly cloudy Fluid pH 8 pH Fluid RBC 32437 /uL Fld Tot Nucleated Cell 366 /uL Fluid Polynuclear WBCs 2 % Fluid Mononuclear WBCs 30 % Fluid Eosinophils Not Reportable Fluid Other Cells 68 % Body Fluid Clot No clots present Fluid Glucose 128 mg/dL Fluid Total Protein 2.7 g/dL Fluid Albumin < 1.0 g/dL Fluid LDH 279 U/L Ethyl Alcohol ( - 10) mg/dL SARS-CoV-2 (PCR) (Negative) 09/04/21 09/04/21 09/04/21 Range/Units 21:18 21:18 21:30 WBC 8.4 (4.5-11.0) X10^3/uL RBC 2.01 L (4.5-5.9) X10^6/uL Hgb 7.7 L (13.5-17.5) g/dL Hct 22.5 L (41-53) % MCV 112.2 H (80-100) fL MCH 38.2 H (26-34) PG MCHC 34.0 (30-36) % RDW 15.1 H (11.6-14.8) % Plt Count 75 L (150-400) X10^3/uL Neut % (Auto) 84.2 H (50-75) % Lymph % (Auto) 6.6 L (25-40) % [place] % (Auto) 7.8 (3-14) % Eos % (Auto) 0.9 L (2-4) % Baso % (Auto) 0.5 (0-2) % Neut # (Auto) 7000 (9411-7866) /uL Lymph # (Auto) 600 L (6609-8249) /uL [place] # (Auto) 700 (0-900) /uL Eos # (Auto) 100 (0-450) /uL Baso # (Auto) 0 (0-100) /uL Total Counted Seg Neutrophils % (38-70) % Band Neutrophils % (3-7) % Lymphocytes % (Manual) (25-45) % Monocytes % (Manual) (2-11) % Eosinophils % (Manual) (2-4) % Neutrophils # (Manual) (0781-2079) /uL RBC Morphology See below Polychromasia 1+ H Hypochromasia 1+ H Anisocytosis 1+ H Macrocytosis 2+ H PT (10.1-12.7) SECONDS INR (0.9-1.3) APTT (26.4-36.2) SECONDS D-Dimer (<230) ng/mL ABG pH (7.35-7.45) ABG pCO2 (35-45) mmHg ABG pO2 (80-100) mmHg ABG HCO3 (22-26) mmol/L ABG Total CO2 (21-31) mmol/L ABG O2 Saturation (95-100) % ABG Base Excess (-2-2) mmol/L VBG pH 7.50 H (7.33-7.43) VBG pCO2 27.1 L (45-50) mmHg VBG pO2 40 (35-45) mmHg VBG HCO3 21 L (23-28) mmol/L VBG Total CO2 22 L (24-29) mmol/L VBG O2 Saturation 81 H (70-75) % VBG Base Excess -2.0 L (0-4) mmol/L FiO2 Sodium 133 L (137-145) mmol/L Potassium 4.4 (3.4-5.1) mmol/L Chloride 106 (98-107) mmol/L Carbon Dioxide 24 (22-32) mmol/L BUN 23 H (9-20) mg/dL Creatinine 0.90 (0.66-1.25) mg/dL Estimated GFR > 60.0 (>60) mL/min BUN/Creatinine Ratio 25.6 H (6-22) Glucose 130 H (70-100) mg/dL Lactate (0.7-2.1) mmol/L Calcium 7.7 L (8.4-10.2) mg/dL Magnesium (1.6-2.3) mg/dL Total Bilirubin 3.1 H (0.2-1.3) mg/dL AST 74 H (17-59) IU/L ALT 24 (<50) IU/L Alkaline Phosphatase 85 (38-126) U/L Ammonia (9-30) umol/L Total Creatine Kinase (55-170) U/L CK-MB (CK-2) CK-MB (CK-2) Rel Index Troponin I (0.01-0.034) ng/mL NT-Pro-B Natriuret Pep (<125) pg/mL Total Protein 6.1 L (6.3-8.2) g/dL Albumin 2.1 L (3.5-5.0) g/dL Globulin 4.0 (1.7-4.1) g/dL Albumin/Globulin Ratio 0.5 L (1.0-2.8) Lipase (23-300) U/L Procalcitonin (<0.5) ng/mL Urine Color Urine Appearance Urine pH (4.5-8.0) Ur Specific [place] (1.000-1.035) Urine Protein (Negative) Urine Glucose (UA) (Negative) g/dL Urine Ketones (NEGATIVE) Urine Occult Blood (Negative) Urine Nitrate (Negative) Urine Bilirubin (NEGATIVE) Urine Urobilinogen (0.2) E.U./dL Ur Leukocyte Esterase (NEGATIVE) Urine RBC (0-5/HPF) Urine WBC (0-5/HPF) Urine Bacteria Ur Culture Indicated? Fluid Color Fluid Appearance Fluid pH pH Fluid RBC /uL Fld Tot Nucleated Cell /uL Fluid Polynuclear WBCs % Fluid Mononuclear WBCs % Fluid Eosinophils Fluid Other Cells % Body Fluid Clot Fluid Glucose mg/dL Fluid Total Protein g/dL Fluid Albumin g/dL Fluid LDH U/L Ethyl Alcohol ( - 10) mg/dL SARS-CoV-2 (PCR) (Negative) 09/05/21 09/05/21 Range/Units 06:15 06:15 WBC 11.8 H (4.5-11.0) X10^3/uL RBC 2.23 L (4.5-5.9) X10^6/uL Hgb 8.5 L (13.5-17.5) g/dL Hct 24.8 L (41-53) % MCV 111.3 H (80-100) fL MCH 37.9 H (26-34) PG MCHC 34.1 (30-36) % RDW 15.4 H (11.6-14.8) % Plt Count 115 L (150-400) X10^3/uL Neut % (Auto) Not Reportable (50-75) % Lymph % (Auto) Not Reportable (25-40) % [place] % (Auto) Not Reportable (3-14) % Eos % (Auto) Not Reportable (2-4) % Baso % (Auto) Not Reportable (0-2) % Neut # (Auto) (9752-9402) /uL Lymph # (Auto) Not Reportable (8446-3008) /uL [place] # (Auto) Not Reportable (0-900) /uL Eos # (Auto) (0-450) /uL Baso # (Auto) Not Reportable (0-100) /uL Total Counted 100 Seg Neutrophils % 91.0 H (38-70) % Band Neutrophils % 1.0 L (3-7) % Lymphocytes % (Manual) 3.0 L (25-45) % Monocytes % (Manual) 3.0 (2-11) % Eosinophils % (Manual) 2.0 (2-4) % Neutrophils # (Manual) 64662 H (5754-9312) /uL RBC Morphology Not Reportable Polychromasia Hypochromasia Anisocytosis 2+ H Macrocytosis 1+ H PT (10.1-12.7) SECONDS INR (0.9-1.3) APTT (26.4-36.2) SECONDS D-Dimer (<230) ng/mL ABG pH (7.35-7.45) ABG pCO2 (35-45) mmHg ABG pO2 (80-100) mmHg ABG HCO3 (22-26) mmol/L ABG Total CO2 (21-31) mmol/L ABG O2 Saturation (95-100) % ABG Base Excess (-2-2) mmol/L VBG pH (7.33-7.43) VBG pCO2 (45-50) mmHg VBG pO2 (35-45) mmHg VBG HCO3 (23-28) mmol/L VBG Total CO2 (24-29) mmol/L VBG O2 Saturation (70-75) % VBG Base Excess (0-4) mmol/L FiO2 Sodium 136 L (137-145) mmol/L Potassium 4.3 (3.4-5.1) mmol/L Chloride 106 (98-107) mmol/L Carbon Dioxide 23 (22-32) mmol/L BUN 20 (9-20) mg/dL Creatinine 0.88 (0.66-1.25) mg/dL Estimated GFR > 60.0 (>60) mL/min BUN/Creatinine Ratio 22.7 H (6-22) Glucose 147 H (70-100) mg/dL Lactate (0.7-2.1) mmol/L Calcium 7.6 L (8.4-10.2) mg/dL Magnesium (1.6-2.3) mg/dL Total Bilirubin 3.6 H (0.2-1.3) mg/dL AST 82 H (17-59) IU/L ALT 28 (<50) IU/L Alkaline Phosphatase 93 (38-126) U/L Ammonia (9-30) umol/L Total Creatine Kinase (55-170) U/L CK-MB (CK-2) CK-MB (CK-2) Rel Index Troponin I (0.01-0.034) ng/mL NT-Pro-B Natriuret Pep (<125) pg/mL Total Protein 6.7 (6.3-8.2) g/dL Albumin 2.3 L (3.5-5.0) g/dL Globulin 4.4 H (1.7-4.1) g/dL Albumin/Globulin Ratio 0.5 L (1.0-2.8) Lipase (23-300) U/L Procalcitonin (<0.5) ng/mL Urine Color Urine Appearance Urine pH (4.5-8.0) Ur Specific [place] (1.000-1.035) Urine Protein (Negative) Urine Glucose (UA) (Negative) g/dL Urine Ketones (NEGATIVE) Urine Occult Blood (Negative) Urine Nitrate (Negative) Urine Bilirubin (NEGATIVE) Urine Urobilinogen (0.2) E.U./dL Ur Leukocyte Esterase (NEGATIVE) Urine RBC (0-5/HPF) Urine WBC (0-5/HPF) Urine Bacteria Ur Culture Indicated? Fluid Color Fluid Appearance Fluid pH pH Fluid RBC /uL Fld Tot Nucleated Cell /uL Fluid Polynuclear WBCs % Fluid Mononuclear WBCs % Fluid Eosinophils Fluid Other Cells % Body Fluid Clot Fluid Glucose mg/dL Fluid Total Protein g/dL Fluid Albumin g/dL Fluid LDH U/L Ethyl Alcohol ( - 10) mg/dL SARS-CoV-2 (PCR) (Negative) Imaging Data Chest x-ray: Radiologist's Impression: Moderate to large right pleural effusion with right middle and lower lobe atelectasis. Left-sided pulmonary infiltrates. No pneumothorax. Chest CTA: Radiologist's Impression: Increased right pleural effusion. Atelectasis to the right middle lobe, lower lobe and posterior aspect of the right lobe. Mediastinal lymphadenopathy. Small hiatal hernia. Ascites. Compression deformity at T10. ECG Data Attestation: I personally reviewed and interpreted this ECG as follows: (Sinus tachycardia rate 111 beats per minute. Low voltage. Motion artifact. Neuro complexes. No acute ST-T wave changes.) <Evie Gatica MD - Last Filed: 09/05/21 07:17> Lab Data Labs: Lab Results 09/04/21 09/04/21 09/04/21 Range/Units 15:37 15:39 16:00 WBC 10.6 (4.5-11.0) X10^3/uL RBC 2.49 L (4.5-5.9) X10^6/uL Hgb 9.6 L (13.5-17.5) g/dL Hct 27.8 L (41-53) % MCV 111.5 H (80-100) fL MCH 38.5 H (26-34) PG MCHC 34.5 (30-36) % RDW 15.5 H (11.6-14.8) % Plt Count 91 L (150-400) X10^3/uL Neut % (Auto) 86.8 H (50-75) % Lymph % (Auto) 3.7 L (25-40) % [place] % (Auto) 7.9 (3-14) % Eos % (Auto) 0.4 L (2-4) % Baso % (Auto) 1.2 (0-2) % Neut # (Auto) 9200 H (8558-0452) /uL Lymph # (Auto) 400 L (0011-7460) /uL [place] # (Auto) 800 (0-900) /uL Eos # (Auto) 0 (0-450) /uL Baso # (Auto) 100 (0-100) /uL Total Counted Seg Neutrophils % (38-70) % Band Neutrophils % (3-7) % Lymphocytes % (Manual) (25-45) % Monocytes % (Manual) (2-11) % Eosinophils % (Manual) (2-4) % Neutrophils # (Manual) (2008-9829) /uL RBC Morphology Not Reportable Polychromasia Hypochromasia Anisocytosis 1+ H Macrocytosis 2+ H PT 17.2 H (10.1-12.7) SECONDS INR 1.5 H (0.9-1.3) APTT 33 (26.4-36.2) SECONDS D-Dimer 4534 H (<230) ng/mL ABG pH (7.35-7.45) ABG pCO2 (35-45) mmHg ABG pO2 (80-100) mmHg ABG HCO3 (22-26) mmol/L ABG Total CO2 (21-31) mmol/L ABG O2 Saturation (95-100) % ABG Base Excess (-2-2) mmol/L VBG pH (7.33-7.43) VBG pCO2 (45-50) mmHg VBG pO2 (35-45) mmHg VBG HCO3 (23-28) mmol/L VBG Total CO2 (24-29) mmol/L VBG O2 Saturation (70-75) % VBG Base Excess (0-4) mmol/L FiO2 Sodium (137-145) mmol/L Potassium (3.4-5.1) mmol/L Chloride (98-107) mmol/L Carbon Dioxide (22-32) mmol/L BUN (9-20) mg/dL Creatinine (0.66-1.25) mg/dL Estimated GFR (>60) mL/min BUN/Creatinine Ratio (6-22) Glucose (70-100) mg/dL Lactate (0.7-2.1) mmol/L Calcium (8.4-10.2) mg/dL Magnesium (1.6-2.3) mg/dL Total Bilirubin (0.2-1.3) mg/dL AST (17-59) IU/L ALT (<50) IU/L Alkaline Phosphatase (38-126) U/L Ammonia (9-30) umol/L Total Creatine Kinase (55-170) U/L CK-MB (CK-2) CK-MB (CK-2) Rel Index Troponin I (0.01-0.034) ng/mL NT-Pro-B Natriuret Pep (<125) pg/mL Total Protein (6.3-8.2) g/dL Albumin (3.5-5.0) g/dL Globulin (1.7-4.1) g/dL Albumin/Globulin Ratio (1.0-2.8) Lipase (23-300) U/L Procalcitonin (<0.5) ng/mL Urine Color Urine Appearance Urine pH (4.5-8.0) Ur Specific [place] (1.000-1.035) Urine Protein (Negative) Urine Glucose (UA) (Negative) g/dL Urine Ketones (NEGATIVE) Urine Occult Blood (Negative) Urine Nitrate (Negative) Urine Bilirubin (NEGATIVE) Urine Urobilinogen (0.2) E.U./dL Ur Leukocyte Esterase (NEGATIVE) Urine RBC (0-5/HPF) Urine WBC (0-5/HPF) Urine Bacteria Ur Culture Indicated? Fluid Color Fluid Appearance Fluid pH pH Fluid RBC /uL Fld Tot Nucleated Cell /uL Fluid Polynuclear WBCs % Fluid Mononuclear WBCs % Fluid Eosinophils Fluid Other Cells % Body Fluid Clot Fluid Glucose mg/dL Fluid Total Protein g/dL Fluid Albumin g/dL Fluid LDH U/L Ethyl Alcohol ( - 10) mg/dL SARS-CoV-2 (PCR) Negative (Negative) 09/04/21 09/04/21 09/04/21 Range/Units 16:00 16:00 16:00 WBC (4.5-11.0) X10^3/uL RBC (4.5-5.9) X10^6/uL Hgb (13.5-17.5) g/dL Hct (41-53) % MCV (80-100) fL MCH (26-34) PG MCHC (30-36) % RDW (11.6-14.8) % Plt Count (150-400) X10^3/uL Neut % (Auto) (50-75) % Lymph % (Auto) (25-40) % [place] % (Auto) (3-14) % Eos % (Auto) (2-4) % Baso % (Auto) (0-2) % Neut # (Auto) (3454-1571) /uL Lymph # (Auto) (1524-2921) /uL [place] # (Auto) (0-900) /uL Eos # (Auto) (0-450) /uL Baso # (Auto) (0-100) /uL Total Counted Seg Neutrophils % (38-70) % Band Neutrophils % (3-7) % Lymphocytes % (Manual) (25-45) % Monocytes % (Manual) (2-11) % Eosinophils % (Manual) (2-4) % Neutrophils # (Manual) (0632-2627) /uL RBC Morphology Polychromasia Hypochromasia Anisocytosis Macrocytosis PT (10.1-12.7) SECONDS INR (0.9-1.3) APTT (26.4-36.2) SECONDS D-Dimer (<230) ng/mL ABG pH (7.35-7.45) ABG pCO2 (35-45) mmHg ABG pO2 (80-100) mmHg ABG HCO3 (22-26) mmol/L ABG Total CO2 (21-31) mmol/L ABG O2 Saturation (95-100) % ABG Base Excess (-2-2) mmol/L VBG pH (7.33-7.43) VBG pCO2 (45-50) mmHg VBG pO2 (35-45) mmHg VBG HCO3 (23-28) mmol/L VBG Total CO2 (24-29) mmol/L VBG O2 Saturation (70-75) % VBG Base Excess (0-4) mmol/L FiO2 Sodium 132 L (137-145) mmol/L Potassium 4.7 (3.4-5.1) mmol/L Chloride 101 (98-107) mmol/L Carbon Dioxide 23 (22-32) mmol/L BUN 26 H (9-20) mg/dL Creatinine 0.98 (0.66-1.25) mg/dL Estimated GFR > 60.0 (>60) mL/min BUN/Creatinine Ratio 26.5 H (6-22) Glucose 138 H (70-100) mg/dL Lactate 4.8 H* (0.7-2.1) mmol/L Calcium 8.8 (8.4-10.2) mg/dL Magnesium 1.7 (1.6-2.3) mg/dL Total Bilirubin 3.7 H (0.2-1.3) mg/dL AST 106 H (17-59) IU/L ALT 33 (<50) IU/L Alkaline Phosphatase 133 H (38-126) U/L Ammonia 59 H (9-30) umol/L Total Creatine Kinase 53 L (55-170) U/L CK-MB (CK-2) TNP CK-MB (CK-2) Rel Index TNP Troponin I < 0.012 (0.01-0.034) ng/mL NT-Pro-B Natriuret Pep (<125) pg/mL Total Protein 8.5 H (6.3-8.2) g/dL Albumin 3.0 L (3.5-5.0) g/dL Globulin 5.5 H (1.7-4.1) g/dL Albumin/Globulin Ratio 0.5 L (1.0-2.8) Lipase 80 D (23-300) U/L Procalcitonin 0.36 (<0.5) ng/mL Urine Color Urine Appearance Urine pH (4.5-8.0) Ur Specific [place] (1.000-1.035) Urine Protein (Negative) Urine Glucose (UA) (Negative) g/dL Urine Ketones (NEGATIVE) Urine Occult Blood (Negative) Urine Nitrate (Negative) Urine Bilirubin (NEGATIVE) Urine Urobilinogen (0.2) E.U./dL Ur Leukocyte Esterase (NEGATIVE) Urine RBC (0-5/HPF) Urine WBC (0-5/HPF) Urine Bacteria Ur Culture Indicated? Fluid Color Fluid Appearance Fluid pH pH Fluid RBC /uL Fld Tot Nucleated Cell /uL Fluid Polynuclear WBCs % Fluid Mononuclear WBCs % Fluid Eosinophils Fluid Other Cells % Body Fluid Clot Fluid Glucose mg/dL Fluid Total Protein g/dL Fluid Albumin g/dL Fluid LDH U/L Ethyl Alcohol ( - 10) mg/dL SARS-CoV-2 (PCR) (Negative) 09/04/21 09/04/21 09/04/21 Range/Units 16:05 16:06 16:09 WBC (4.5-11.0) X10^3/uL RBC (4.5-5.9) X10^6/uL Hgb (13.5-17.5) g/dL Hct (41-53) % MCV (80-100) fL MCH (26-34) PG MCHC (30-36) % RDW (11.6-14.8) % Plt Count (150-400) X10^3/uL Neut % (Auto) (50-75) % Lymph % (Auto) (25-40) % [place] % (Auto) (3-14) % Eos % (Auto) (2-4) % Baso % (Auto) (0-2) % Neut # (Auto) (5142-9996) /uL Lymph # (Auto) (0475-9586) /uL [place] # (Auto) (0-900) /uL Eos # (Auto) (0-450) /uL Baso # (Auto) (0-100) /uL Total Counted Seg Neutrophils % (38-70) % Band Neutrophils % (3-7) % Lymphocytes % (Manual) (25-45) % Monocytes % (Manual) (2-11) % Eosinophils % (Manual) (2-4) % Neutrophils # (Manual) (2116-5968) /uL RBC Morphology Polychromasia Hypochromasia Anisocytosis Macrocytosis PT (10.1-12.7) SECONDS INR (0.9-1.3) APTT (26.4-36.2) SECONDS D-Dimer (<230) ng/mL ABG pH 7.51 H (7.35-7.45) ABG pCO2 28.4 L (35-45) mmHg ABG pO2 52 L (80-100) mmHg ABG HCO3 23 (22-26) mmol/L ABG Total CO2 24 (21-31) mmol/L ABG O2 Saturation 90 L (95-100) % ABG Base Excess 0.0 (-2-2) mmol/L VBG pH (7.33-7.43) VBG pCO2 (45-50) mmHg VBG pO2 (35-45) mmHg VBG HCO3 (23-28) mmol/L VBG Total CO2 (24-29) mmol/L VBG O2 Saturation (70-75) % VBG Base Excess (0-4) mmol/L FiO2 34 Sodium (137-145) mmol/L Potassium (3.4-5.1) mmol/L Chloride (98-107) mmol/L Carbon Dioxide (22-32) mmol/L BUN (9-20) mg/dL Creatinine (0.66-1.25) mg/dL Estimated GFR (>60) mL/min BUN/Creatinine Ratio (6-22) Glucose (70-100) mg/dL Lactate (0.7-2.1) mmol/L Calcium (8.4-10.2) mg/dL Magnesium (1.6-2.3) mg/dL Total Bilirubin (0.2-1.3) mg/dL AST (17-59) IU/L ALT (<50) IU/L Alkaline Phosphatase (38-126) U/L Ammonia (9-30) umol/L Total Creatine Kinase (55-170) U/L CK-MB (CK-2) CK-MB (CK-2) Rel Index Troponin I (0.01-0.034) ng/mL NT-Pro-B Natriuret Pep 1290 H (<125) pg/mL Total Protein (6.3-8.2) g/dL Albumin (3.5-5.0) g/dL Globulin (1.7-4.1) g/dL Albumin/Globulin Ratio (1.0-2.8) Lipase (23-300) U/L Procalcitonin (<0.5) ng/mL Urine Color Urine Appearance Urine pH (4.5-8.0) Ur Specific [place] (1.000-1.035) Urine Protein (Negative) Urine Glucose (UA) (Negative) g/dL Urine Ketones (NEGATIVE) Urine Occult Blood (Negative) Urine Nitrate (Negative) Urine Bilirubin (NEGATIVE) Urine Urobilinogen (0.2) E.U./dL Ur Leukocyte Esterase (NEGATIVE) Urine RBC (0-5/HPF) Urine WBC (0-5/HPF) Urine Bacteria Ur Culture Indicated? Fluid Color Fluid Appearance Fluid pH pH Fluid RBC /uL Fld Tot Nucleated Cell /uL Fluid Polynuclear WBCs % Fluid Mononuclear WBCs % Fluid Eosinophils Fluid Other Cells % Body Fluid Clot Fluid Glucose mg/dL Fluid Total Protein g/dL Fluid Albumin g/dL Fluid LDH U/L Ethyl Alcohol < 10 ( - 10) mg/dL SARS-CoV-2 (PCR) (Negative) 09/04/21 09/04/21 09/04/21 Range/Units 18:35 19:15 21:18 WBC (4.5-11.0) X10^3/uL RBC (4.5-5.9) X10^6/uL Hgb (13.5-17.5) g/dL Hct (41-53) % MCV (80-100) fL MCH (26-34) PG MCHC (30-36) % RDW (11.6-14.8) % Plt Count (150-400) X10^3/uL Neut % (Auto) (50-75) % Lymph % (Auto) (25-40) % [place] % (Auto) (3-14) % Eos % (Auto) (2-4) % Baso % (Auto) (0-2) % Neut # (Auto) (7685-4780) /uL Lymph # (Auto) (0723-2427) /uL [place] # (Auto) (0-900) /uL Eos # (Auto) (0-450) /uL Baso # (Auto) (0-100) /uL Total Counted Seg Neutrophils % (38-70) % Band Neutrophils % (3-7) % Lymphocytes % (Manual) (25-45) % Monocytes % (Manual) (2-11) % Eosinophils % (Manual) (2-4) % Neutrophils # (Manual) (6042-2599) /uL RBC Morphology Polychromasia Hypochromasia Anisocytosis Macrocytosis PT (10.1-12.7) SECONDS INR (0.9-1.3) APTT (26.4-36.2) SECONDS D-Dimer (<230) ng/mL ABG pH (7.35-7.45) ABG pCO2 (35-45) mmHg ABG pO2 (80-100) mmHg ABG HCO3 (22-26) mmol/L ABG Total CO2 (21-31) mmol/L ABG O2 Saturation (95-100) % ABG Base Excess (-2-2) mmol/L VBG pH (7.33-7.43) VBG pCO2 (45-50) mmHg VBG pO2 (35-45) mmHg VBG HCO3 (23-28) mmol/L VBG Total CO2 (24-29) mmol/L VBG O2 Saturation (70-75) % VBG Base Excess (0-4) mmol/L FiO2 Sodium (137-145) mmol/L Potassium (3.4-5.1) mmol/L Chloride (98-107) mmol/L Carbon Dioxide (22-32) mmol/L BUN (9-20) mg/dL Creatinine (0.66-1.25) mg/dL Estimated GFR (>60) mL/min BUN/Creatinine Ratio (6-22) Glucose (70-100) mg/dL Lactate 3.1 H (0.7-2.1) mmol/L Calcium (8.4-10.2) mg/dL Magnesium (1.6-2.3) mg/dL Total Bilirubin (0.2-1.3) mg/dL AST (17-59) IU/L ALT (<50) IU/L Alkaline Phosphatase (38-126) U/L Ammonia (9-30) umol/L Total Creatine Kinase (55-170) U/L CK-MB (CK-2) CK-MB (CK-2) Rel Index Troponin I (0.01-0.034) ng/mL NT-Pro-B Natriuret Pep (<125) pg/mL Total Protein (6.3-8.2) g/dL Albumin (3.5-5.0) g/dL Globulin (1.7-4.1) g/dL Albumin/Globulin Ratio (1.0-2.8) Lipase (23-300) U/L Procalcitonin (<0.5) ng/mL Urine Color Yellow Urine Appearance Clear Urine pH 5.0 (4.5-8.0) Ur Specific [place] 1.010 (1.000-1.035) Urine Protein Negative (Negative) Urine Glucose (UA) Negative (Negative) g/dL Urine Ketones Negative (NEGATIVE) Urine Occult Blood Trace-intact (Negative) Urine Nitrate Negative (Negative) Urine Bilirubin Negative (NEGATIVE) Urine Urobilinogen 0.2 (0.2) E.U./dL Ur Leukocyte Esterase Negative (NEGATIVE) Urine RBC 0-1/hpf (0-5/HPF) Urine WBC 0-1/hpf (0-5/HPF) Urine Bacteria Not Reportable Ur Culture Indicated? Cult not indicated Fluid Color Yellow Fluid Appearance Slightly cloudy Fluid pH 8 pH Fluid RBC 79094 /uL Fld Tot Nucleated Cell 366 /uL Fluid Polynuclear WBCs 2 % Fluid Mononuclear WBCs 30 % Fluid Eosinophils Not Reportable Fluid Other Cells 68 % Body Fluid Clot No clots present Fluid Glucose 128 mg/dL Fluid Total Protein 2.7 g/dL Fluid Albumin < 1.0 g/dL Fluid LDH 279 U/L Ethyl Alcohol ( - 10) mg/dL SARS-CoV-2 (PCR) (Negative) 09/04/21 09/04/21 09/04/21 Range/Units 21:18 21:18 21:30 WBC 8.4 (4.5-11.0) X10^3/uL RBC 2.01 L (4.5-5.9) X10^6/uL Hgb 7.7 L (13.5-17.5) g/dL Hct 22.5 L (41-53) % MCV 112.2 H (80-100) fL MCH 38.2 H (26-34) PG MCHC 34.0 (30-36) % RDW 15.1 H (11.6-14.8) % Plt Count 75 L (150-400) X10^3/uL Neut % (Auto) 84.2 H (50-75) % Lymph % (Auto) 6.6 L (25-40) % [place] % (Auto) 7.8 (3-14) % Eos % (Auto) 0.9 L (2-4) % Baso % (Auto) 0.5 (0-2) % Neut # (Auto) 7000 (0886-8865) /uL Lymph # (Auto) 600 L (5753-7724) /uL [place] # (Auto) 700 (0-900) /uL Eos # (Auto) 100 (0-450) /uL Baso # (Auto) 0 (0-100) /uL Total Counted Seg Neutrophils % (38-70) % Band Neutrophils % (3-7) % Lymphocytes % (Manual) (25-45) % Monocytes % (Manual) (2-11) % Eosinophils % (Manual) (2-4) % Neutrophils # (Manual) (6338-0151) /uL RBC Morphology See below Polychromasia 1+ H Hypochromasia 1+ H Anisocytosis 1+ H Macrocytosis 2+ H PT (10.1-12.7) SECONDS INR (0.9-1.3) APTT (26.4-36.2) SECONDS D-Dimer (<230) ng/mL ABG pH (7.35-7.45) ABG pCO2 (35-45) mmHg ABG pO2 (80-100) mmHg ABG HCO3 (22-26) mmol/L ABG Total CO2 (21-31) mmol/L ABG O2 Saturation (95-100) % ABG Base Excess (-2-2) mmol/L VBG pH 7.50 H (7.33-7.43) VBG pCO2 27.1 L (45-50) mmHg VBG pO2 40 (35-45) mmHg VBG HCO3 21 L (23-28) mmol/L VBG Total CO2 22 L (24-29) mmol/L VBG O2 Saturation 81 H (70-75) % VBG Base Excess -2.0 L (0-4) mmol/L FiO2 Sodium 133 L (137-145) mmol/L Potassium 4.4 (3.4-5.1) mmol/L Chloride 106 (98-107) mmol/L Carbon Dioxide 24 (22-32) mmol/L BUN 23 H (9-20) mg/dL Creatinine 0.90 (0.66-1.25) mg/dL Estimated GFR > 60.0 (>60) mL/min BUN/Creatinine Ratio 25.6 H (6-22) Glucose 130 H (70-100) mg/dL Lactate (0.7-2.1) mmol/L Calcium 7.7 L (8.4-10.2) mg/dL Magnesium (1.6-2.3) mg/dL Total Bilirubin 3.1 H (0.2-1.3) mg/dL AST 74 H (17-59) IU/L ALT 24 (<50) IU/L Alkaline Phosphatase 85 (38-126) U/L Ammonia (9-30) umol/L Total Creatine Kinase (55-170) U/L CK-MB (CK-2) CK-MB (CK-2) Rel Index Troponin I (0.01-0.034) ng/mL NT-Pro-B Natriuret Pep (<125) pg/mL Total Protein 6.1 L (6.3-8.2) g/dL Albumin 2.1 L (3.5-5.0) g/dL Globulin 4.0 (1.7-4.1) g/dL Albumin/Globulin Ratio 0.5 L (1.0-2.8) Lipase (23-300) U/L Procalcitonin (<0.5) ng/mL Urine Color Urine Appearance Urine pH (4.5-8.0) Ur Specific [place] (1.000-1.035) Urine Protein (Negative) Urine Glucose (UA) (Negative) g/dL Urine Ketones (NEGATIVE) Urine Occult Blood (Negative) Urine Nitrate (Negative) Urine Bilirubin (NEGATIVE) Urine Urobilinogen (0.2) E.U./dL Ur Leukocyte Esterase (NEGATIVE) Urine RBC (0-5/HPF) Urine WBC (0-5/HPF) Urine Bacteria Ur Culture Indicated? Fluid Color Fluid Appearance Fluid pH pH Fluid RBC /uL Fld Tot Nucleated Cell /uL Fluid Polynuclear WBCs % Fluid Mononuclear WBCs % Fluid Eosinophils Fluid Other Cells % Body Fluid Clot Fluid Glucose mg/dL Fluid Total Protein g/dL Fluid Albumin g/dL Fluid LDH U/L Ethyl Alcohol ( - 10) mg/dL SARS-CoV-2 (PCR) (Negative) 09/05/21 09/05/21 Range/Units 06:15 06:15 WBC 11.8 H (4.5-11.0) X10^3/uL RBC 2.23 L (4.5-5.9) X10^6/uL Hgb 8.5 L (13.5-17.5) g/dL Hct 24.8 L (41-53) % MCV 111.3 H (80-100) fL MCH 37.9 H (26-34) PG MCHC 34.1 (30-36) % RDW 15.4 H (11.6-14.8) % Plt Count 115 L (150-400) X10^3/uL Neut % (Auto) Not Reportable (50-75) % Lymph % (Auto) Not Reportable (25-40) % [place] % (Auto) Not Reportable (3-14) % Eos % (Auto) Not Reportable (2-4) % Baso % (Auto) Not Reportable (0-2) % Neut # (Auto) (8793-9995) /uL Lymph # (Auto) Not Reportable (3930-5679) /uL [place] # (Auto) Not Reportable (0-900) /uL Eos # (Auto) (0-450) /uL Baso # (Auto) Not Reportable (0-100) /uL Total Counted 100 Seg Neutrophils % 91.0 H (38-70) % Band Neutrophils % 1.0 L (3-7) % Lymphocytes % (Manual) 3.0 L (25-45) % Monocytes % (Manual) 3.0 (2-11) % Eosinophils % (Manual) 2.0 (2-4) % Neutrophils # (Manual) 74296 H (0584-7846) /uL RBC Morphology Not Reportable Polychromasia Hypochromasia Anisocytosis 2+ H Macrocytosis 1+ H PT (10.1-12.7) SECONDS INR (0.9-1.3) APTT (26.4-36.2) SECONDS D-Dimer (<230) ng/mL ABG pH (7.35-7.45) ABG pCO2 (35-45) mmHg ABG pO2 (80-100) mmHg ABG HCO3 (22-26) mmol/L ABG Total CO2 (21-31) mmol/L ABG O2 Saturation (95-100) % ABG Base Excess (-2-2) mmol/L VBG pH (7.33-7.43) VBG pCO2 (45-50) mmHg VBG pO2 (35-45) mmHg VBG HCO3 (23-28) mmol/L VBG Total CO2 (24-29) mmol/L VBG O2 Saturation (70-75) % VBG Base Excess (0-4) mmol/L FiO2 Sodium 136 L (137-145) mmol/L Potassium 4.3 (3.4-5.1) mmol/L Chloride 106 (98-107) mmol/L Carbon Dioxide 23 (22-32) mmol/L BUN 20 (9-20) mg/dL Creatinine 0.88 (0.66-1.25) mg/dL Estimated GFR > 60.0 (>60) mL/min BUN/Creatinine Ratio 22.7 H (6-22) Glucose 147 H (70-100) mg/dL Lactate (0.7-2.1) mmol/L Calcium 7.6 L (8.4-10.2) mg/dL Magnesium (1.6-2.3) mg/dL Total Bilirubin 3.6 H (0.2-1.3) mg/dL AST 82 H (17-59) IU/L ALT 28 (<50) IU/L Alkaline Phosphatase 93 (38-126) U/L Ammonia (9-30) umol/L Total Creatine Kinase (55-170) U/L CK-MB (CK-2) CK-MB (CK-2) Rel Index Troponin I (0.01-0.034) ng/mL NT-Pro-B Natriuret Pep (<125) pg/mL Total Protein 6.7 (6.3-8.2) g/dL Albumin 2.3 L (3.5-5.0) g/dL Globulin 4.4 H (1.7-4.1) g/dL Albumin/Globulin Ratio 0.5 L (1.0-2.8) Lipase (23-300) U/L Procalcitonin (<0.5) ng/mL Urine Color Urine Appearance Urine pH (4.5-8.0) Ur Specific [place] (1.000-1.035) Urine Protein (Negative) Urine Glucose (UA) (Negative) g/dL Urine Ketones (NEGATIVE) Urine Occult Blood (Negative) Urine Nitrate (Negative) Urine Bilirubin (NEGATIVE) Urine Urobilinogen (0.2) E.U./dL Ur Leukocyte Esterase (NEGATIVE) Urine RBC (0-5/HPF) Urine WBC (0-5/HPF) Urine Bacteria Ur Culture Indicated? Fluid Color Fluid Appearance Fluid pH pH Fluid RBC /uL Fld Tot Nucleated Cell /uL Fluid Polynuclear WBCs % Fluid Mononuclear WBCs % Fluid Eosinophils Fluid Other Cells % Body Fluid Clot Fluid Glucose mg/dL Fluid Total Protein g/dL Fluid Albumin g/dL Fluid LDH U/L Ethyl Alcohol ( - 10) mg/dL SARS-CoV-2 (PCR) (Negative) Imaging Data Chest x-ray: Radiologist's Impression: Moderate to large right pleural effusion with right middle and lower lobe atelectasis. Left-sided pulmonary infiltrates. No pneumothorax. Post thoracentesis FINDINGS:? ? Surgical changes and devices:? None.? ? Lungs and pleura:? There is interval significant decrease in amount of right- sided pleural effusion and re-expansion of right middle and lower lobes.? Small to moderate residual right pleural effusion is seen.? Extensive airspace opacities are again noted in right lung field.? No obvious pneumothorax is seen. ? Mediastinum:? Mediastinal contours appear normal.? Heart size is normal.? ? Bones and chest wall:? No suspicious bony lesions.? Overlying soft tissues appear unremarkable.? ? IMPRESSION:? Post right thoracentesis with interval significant decrease in amount of right-sided pleural effusion and improved right lung aeration.? No obvious pneumothorax.? Persistent airspace opacities throughout left lung field. ? ? Dictated by: Que Leonardo M.D. on 09/04/2021 at 19:45 ? ? Post central line placement FINDINGS:? ? Surgical changes and devices:? Interval placement of right internal jugular catheter with catheter tip projecting over the superior cavoatrial junction. ? Lungs and pleura:? Diffuse left lung opacities and mild right lung opacities are redemonstrated, which are suboptimally visualized on the current exam.? No significant residual right pleural effusion identified.? No pneumothorax. ? Mediastinum:? Mediastinal contours appear normal.? Heart size is normal.? ? Bones and chest wall:? No suspicious bony lesions.? Overlying soft tissues appear unremarkable.? ? IMPRESSION:? Right internal jugular catheter in satisfactory position. ? ? Dictated by: Lev Watts M.D. on 09/04/2021 at 22:09 ? ? [facility] Narrative Medical decision making narrative: Care is assumed this 56-year-old gentleman with alcohol use disorder, ascites, incarcerated inguinal hernia with sepsis on August 21 complicated by wound dehiscence on August 31 with discharge from the hospital on September 03 presenting with increasing respiratory distress and progressive right pleural effusion. Hypotensive, concern for developing pneumonia. Abdominal wound seems to be healing nicely. 3.5 L of pleural fluid, serosanguineous were removed with initial significant improvement in respiratory status. Antibiotics including Zosyn and vancomycin were initiated after blood cultures were obtained. Central line placed fluid resuscitation initiated. Lactic acid does seem to be coming down however his oxygenation needs are increasing I am concerned that he is developing an ARDS type picture. Multiple attempts have been made to transfer this gentleman to higher level of care and no beds are immediately available. CT scan of the abdomen pelvis does show or ascites as well as the seroma. Clinically his abdomen is not particularly tender. Attempts were not made to aspirate the seroma or remove ascites fluid. He has remained in the emergency room over the evening of September 04 with c ontinued ongoing critical care in the emergency department [address] [place] [address] in [place] has an ICU bed available. Spoke with Dr. Carr, chocolate finisher operator who accepted the patient. He did ask the patient be intubated prior to transport for safety which is entirely appropriate and will be facilitated. Will make sure that all imaging studies are available 530am Intubated successfully. Transport called. All records (recent H&Ps, D/C summaries, disc with all imaging done today) available. 715 am Transport here. Mother has been updated on transfer to [facility] as well as critical nature of his care including intubation. Critical Care Time <Everardo Ibarra MD - Last Filed: 09/05/21 08:55> Critical Care Time Critical Care Time: Yes Total Critical Care Time: 50 Attestation: Critical care time includes the initial patient assessment, review of past medical records, review of Radiology, cardiac monitoring, and lab data. Multiple clinical decisions have been acquired. Patient is aware the situation. Case was discussed with him and the incoming physician. <Evie Gatica MD - Last Filed: 09/05/21 07:17> Critical Care Time Total Critical Care Time: 132 Attestation: Critical care time includes the initial patient assessment, review of past medical records, review of Radiology, cardiac monitoring, and lab data. Multiple clinical decisions have been acquired. Patient is aware the situation. Case was discussed with him and the incoming physician. 0044 worsening clinical condition. Chest x-ray is concerning for developing ARDS after thoracentesis. Central line is in place fluid resuscitation as well as Levophed have been initiated. He has received antibiotics. Currently remains on high-flow oxygen with initially decreased oxygenation needs down to 50% but now back up to 100%. Multiple attempts to transfer patient were unsuccessful with beds not available anywhere in [facility] this evening. Multiple discussion with transfer centers Discharge Plan Departure Patient Disposition: Xfer Acute Care Hospital Clinical Impression: Alcoholic cirrhosis of liver with ascites, Pleural effusion on right, Status post umbilical hernia repair, follow-up exam, Anemia in chronic illness, Seroma after procedure, Facility-acquired pneumonia Respiratory failure Qualifiers: Chronicity: acute Respiratory failure complication: hypoxia Qualified Code(s): J96.01 - Acute respiratory failure with hypoxia Prescriptions: No Action omeprazole 20 mg capsule,delayed release(DR/EC) 20 mg PO DAILY 0RF Rx Instructions: 20mg capsule PO every morning 30 minutes prior to meal multivitamin with folic acid [Tab-A-Gretchen] 400 mcg tablet 1 tab PO DAILY Qty: 30 5RF fluticasone propionate 50 mcg/actuation spray,suspension 1 spray NASAL DAILY Qty: 16 12RF spironolactone 100 mg tablet 100 mg PO DAILY 0RF Label Comments: TAKE 1 TABLET BY MOUTH ONCE DAILY oxycodone 5 mg capsule 5 mg PO Q6H PRN (Reason: pain) Qty: 20 0RF gabapentin 300 mg capsule 300 mg PO TID 0RF furosemide 80 mg tablet 80 mg PO DAILY Qty: 30 0RF oxycodone 5 mg tablet See Rx Instructions .Route .COMPLEX PRN (Reason: pain) Qty: 30 0RF Rx Instructions: 1-2 tabs every 6 hrs as needed for pain Referrals: Mert Miller DO [Primary Care Provider] -
--- NOTE | 2021-09-04 16:08 | DI.CT.S_ITS ---
PROCEDURE: CT ANGIO CHEST PE PROTOCOL INDICATIONS: Postop abdominal surgery. Dyspnea with hypoxia. TECHNIQUE: After the administration of intravenous contrast, 2 mm thick sections acquired from the pulmonary apices to the posterior costophrenic angles. 3-dimensional maximum intensity projection (MIP) coronal and sagittal reformats were then acquired through the thorax. For radiation dose reduction, the following was used: automated exposure control, adjustment of mA and/or kV according to patient size. COMPARISON: [facility], CT, CT ABDOMEN PELVIS W CON, 08/30/2021, 13:19. FINDINGS: Image quality: Excellent. Pulmonary arteries: Pulmonary arteries are normal in size, and demonstrate no intraluminal filling defects to suggest central pulmonary embolism. Lungs and pleura: Large right pleural effusion is seen with complete atelectasis of right middle and lower lobe and segmental atelectasis in posterior aspect of right upper lobe. Trace left pleural effusion is also noted. Hazy ground-glass opacities are noted scattered in bilateral aerated lung bower suggestive of interval development of patchy infiltrate/pneumonitis. This is a new finding since 08/30/2021 study. Central and peripheral airways are patent. Mediastinum: Heart size is normal, without pericardial effusion. No mediastinal or hilar adenopathy. Subcentimeter lymph nodes are seen scattered in mediastinum measures up to 9 mm in size in right paratracheal space series 2, image 51. Thoracic aorta is normal in caliber and enhancement. Esophagus is normal in caliber, with a small hiatal hernia. Bones and chest wall: No suspicious bony lesions. Chronic appearing anterior wedge compression deformity involving superior endplate of T10 is again seen unchanged from prior study. Thyroid gland is within normal limits. No axillary or supraclavicular adenopathy. Abdomen: Cirrhotic appearing liver is seen with ascites fluid seen in visualized portion of upper abdomen. IMPRESSION: 1. No evidence of pulmonary emboli. 2. Interval increase in the amount of right-sided pleural effusion with complete atelectasis of right middle and lower lobe and segmental atelectasis in posterior aspect of right upper lobe. Interval development of extensive ground-glass opacities in bilateral aerated lung bower suggestive of extensive pulmonary infiltrates/pneumonitis. No pneumothorax. Trace left pleural effusion. 3. Subcentimeter lymph nodes seen in mediastinum. Small hiatal hernia. 4. Ascites fluid seen in visualized upper abdomen with cirrhotic appearing liver unchanged from prior studies. 5. Chronic appearing superior endplate anterior wedge compression deformity at T10 level unchanged from prior studies. Dictated by: Que Leonardo M.D. on 09/04/2021 at 17:24 Approved by: Que Leonardo M.D. on 09/04/2021 at 17:31
--- NOTE | 2021-09-04 16:10 | DI.CT.S_ITS ---
PROCEDURE: CT ABDOMEN PELVIS W CON INDICATIONS: Postop hernia repair. Hypoxia. TECHNIQUE: After the administration of intravenous contrast, axial sections acquired from the lung bases to the pubic symphysis. Coronal and sagittal reformats were performed. For radiation dose reduction, the following was used: automated exposure control, adjustment of mA and/or kV according to patient size. COMPARISON: [facility], CT, CT ABDOMEN PELVIS W CON, 08/30/2021, 13:19. FINDINGS: Image quality: Excellent. Lung bases: Large right pleural effusion is seen. Trace left pleural effusion is also noted. Please refer to CT chest findings. Heart: No significant findings. ABDOMEN: Liver: Cirrhotic liver is again seen not significantly changed in size and appearance from previous study. Previously described ill-defined hypodensity involving superior anterior right hepatic lobe remains unchanged in size and appearance. Gallbladder: No gross abnormality is seen in gallbladder. Biliary ducts: Unremarkable. Pancreas: Unremarkable. Spleen: Unremarkable. Adrenal Glands: Unremarkable. Kidneys and Ureters: Unremarkable. Stomach and Bowel: There is no bowel obstruction or abnormal bowel wall thickening. Fecal stasis throughout the colon is seen. Postsurgical changes in mid abdomen is again seen unchanged from prior study. No discrete drainable abscess collection is noted. Peritoneum: Moderate amount of ascites fluid in abdomen and pelvis is seen. No gross free air. Ventral Wall: Interval surgical repair of previously noted recurrent ventral hernia. Fluid collection in anterior abdominal wall deep to the skin shelley is seen measures approximately 8.7 x 2.6 x 8.9 cm in size series 5, image 56 and series 6, image 8 likely represent postsurgical seroma. No ventral hernia is seen on the current study. High Abdominal Nodes: No retroperitoneal or mesenteric adenopathy by size criteria. Vessels: Aorta and inferior vena cava are normal in size. PELVIS: Pelvic Organs: Unremarkable. Bladder: Unremarkable. Pelvic Nodes: No enlarged lymph nodes. Miscellaneous: No hernias are seen. Bones: No suspicious intraosseous lesion. Degenerative disc disease throughout lumbar spine is again seen most prominent at L4-5 and L5-S1 levels. IMPRESSION: 1. Post ventral hernia repair with postsurgical changes in anterior abdominal wall and possible postsurgical seroma in anterior abdominal wall soft tissue as described above. No recurrent hernia is seen. 2. Ascites fluid in abdomen and pelvis. Cirrhotic appearing liver. No peritoneal free air. 3. No gross abnormal bowel wall thickening or bowel obstruction. Mild constipation. 4. Please refer to CT angiogram of chest study for evaluation of bilateral lung bower. Dictated by: Que Leonardo M.D. on 09/04/2021 at 17:35 Approved by: Que Leonardo M.D. on 09/04/2021 at 17:44
[2021-09-04 16:20] LABS: Fractionated Inspired Oxygen 34; HCO3 ABG 23 mmol/L (22-26); Oxygen Saturation ABG 90 % (95-100); PCO2 ABG 28.4 mmHg (35-45); PO2 ABG 52 mmHg (80-100); TCO2 ABG 24 mmol/L (21-31); pH ABG 7.51 (7.35-7.45)
[2021-09-04 16:30] LABS: Ammonia (NH3) 59 umol/L (9-30)
[2021-09-04 16:31] LABS: Alanine Aminotransferase 33 IU/L (<50); Albumin Globulin Ratio 0.5 (1.0-2.8); Alkaline Phosphatase 133 U/L (38-126); Aspartate Aminotransferase 106 IU/L (17-59); BUN Creatinine Ratio 26.5 (6-22); Bilirubin Total 3.7 mg/dL (0.2-1.3); Blood Urea Nitrogen 26 mg/dL (9-20); Calcium 8.8 mg/dL (8.4-10.2); Carbon Dioxide 23 mmol/L (22-32); Chloride 101 mmol/L (98-107); Creatine Kinase 53 U/L (55-170); Estimated Glomerular Filt Rate > 60.0 mL/min (>60); Globulin 5.5 g/dL (1.7-4.1); Glucose 138 mg/dL (70-100); HEMOLYSIS 29 (0-50); Lipase 80 U/L (23-300); Magnesium 1.7 mg/dL (1.6-2.3); Potassium 4.7 mmol/L (3.4-5.1); Sodium 132 mmol/L (137-145); Total Protein 8.5 g/dL (6.3-8.2)
[2021-09-04 16:33] LABS: INR 1.5 (0.9-1.3); Prothrombin Time 17.2 SECONDS (10.1-12.7)
[2021-09-04 16:36] LABS: Lactate (Lactic Acid) 4.8 mmol/L (0.7-2.1); PTT Partial Thromboplastin Tim 33 SECONDS (26.4-36.2)
[2021-09-04 16:43] LABS: Troponin I < 0.012 ng/mL (0.01-0.034)
[2021-09-04 16:47] LABS: Procalcitonin 0.36 ng/mL (<0.5)
[2021-09-04 16:52] LABS: COVID19 -Nasal RAPID Negative (Negative)
[2021-09-04] MEDS: PIPERACILLIN/TAZO 4.5 GM in SODIUM CHLORIDE 0.9% 100 ML 200 ML IV (16:52)
[2021-09-04 16:53] LABS: D Dimer 4534 ng/mL (<230)
[2021-09-04] MEDS: SODIUM CHLORIDE 0.9% 1,000 ML 1000 ML IV ×3 (17:00→21:15)
[2021-09-04 17:03] LABS: Add Manual Diff / Slide Review NO; Basophils Absolute Auto 100 /uL (0-100); Basophils Percent Auto 1.2 % (0-2); Eosinophils Absolute Auto 0 /uL (0-450); Eosinophils Percent Auto 0.4 % (2-4); Hematocrit 27.8 % (41-53); Hemoglobin 9.6 g/dL (13.5-17.5); Lymphocytes Absolute Auto 400 /uL (1100-4500); Lymphocytes Percent Auto 3.7 % (25-40); Mean Corpuscular HGB Conc 34.5 % (30-36); Mean Corpuscular Hemoglobin 38.5 PG (26-34); Mean Corpuscular Volume 111.5 fL (80-100); Monocytes Absolute Auto 800 /uL (0-900); Monocytes Percent Auto 7.9 % (3-14); Neutrophils Absolute Auto 9200 /uL (1500-7000); Neutrophils Percent Auto 86.8 % (50-75); Platelet Count 91 X10^3/uL (150-400); Red Blood Cell Count 2.49 X10^6/uL (4.5-5.9); Red Cell Distribution Width 15.5 % (11.6-14.8); White Blood Cell Count 10.6 X10^3/uL (4.5-11.0)
[2021-09-04 17:24] LABS: Ethanol (ETOH) < 10 mg/dL
[2021-09-04 17:29] LABS: NT-proBNP (BNP-Adult 18+) 1290 pg/mL (<125)
[2021-09-04 18:10] LABS: Reflexed Lactate in 2 Hours Y
[2021-09-04] MEDS: LIDOCAINE 2% (GLYDO) 6 ML GEL TOP (18:20)
[2021-09-04 18:26] LABS: Anisocytosis 1+; Macrocytosis 2+
[2021-09-04 18:51] LABS: Appearance Urine UA CLEAR; Bilirubin Urine UA NEGATIVE (NEGATIVE); Color Urine UA YELLOW; Glucose Urine UA NEGATIVE (Negative); Ketones Urine UA NEGATIVE (NEGATIVE); Leukocyte Esterase Urine UA NEGATIVE (NEGATIVE); Nitrite Urine UA NEGATIVE (Negative); Occult Blood Urine UA TRACE-INTACT (Negative); Protein Urine UA NEGATIVE (Negative); Urobilinogen Urine UA 0.2 E.U./dL (0.2)
[2021-09-04 18:58] LABS: RBC Urine 0-1/HPF (0-5/HPF); WBC Urine 0-1/HPF (0-5/HPF)
[2021-09-04 18:59] LABS: Culture Indicated Urine Cult Not Indicated
[2021-09-04] MEDS: VANCOMYCIN 2,000 MG/400 ML PIGGYBACK 200 MG IV (18:59)
--- NOTE | 2021-09-04 19:33 | DI.RAD.S_ITS ---
PROCEDURE: XR CHEST 1V INDICATIONS: post thoracentisis of right side, see prior angio p.e. ct TECHNIQUE: One view of the chest was acquired. COMPARISON: [facility], , XR CHEST 1V, 09/04/2021, 15:42. FINDINGS: Surgical changes and devices: None. Lungs and pleura: There is interval significant decrease in amount of right-sided pleural effusion and re-expansion of right middle and lower lobes. Small to moderate residual right pleural effusion is seen. Extensive airspace opacities are again noted in right lung field. No obvious pneumothorax is seen. Mediastinum: Mediastinal contours appear normal. Heart size is normal. Bones and chest wall: No suspicious bony lesions. Overlying soft tissues appear unremarkable. IMPRESSION: Post right thoracentesis with interval significant decrease in amount of right-sided pleural effusion and improved right lung aeration. No obvious pneumothorax. Persistent airspace opacities throughout left lung field. Dictated by: Que Leonardo M.D. on 09/04/2021 at 19:45 Approved by: Que Leonardo M.D. on 09/04/2021 at 19:47
[2021-09-04] MEDS: LIDOCAINE 2% INJ MDV 20 ML (19:51)
--- NOTE | 2021-09-04 21:31 | DI.RAD.S_ITS ---
PROCEDURE: XR CHEST 1V INDICATIONS: Flu like symptoms TECHNIQUE: One view of the chest was acquired. COMPARISON: [facility], CT, CT ANGIO CHEST PE PROTOCOL, 09/04/2021, 17:07. [facility], CR, XR CHEST 1V, 09/04/2021, 19:32. FINDINGS: Surgical changes and devices: Interval placement of right internal jugular catheter with catheter tip projecting over the superior cavoatrial junction. Lungs and pleura: Diffuse left lung opacities and mild right lung opacities are redemonstrated, which are suboptimally visualized on the current exam. No significant residual right pleural effusion identified. No pneumothorax. Mediastinum: Mediastinal contours appear normal. Heart size is normal. Bones and chest wall: No suspicious bony lesions. Overlying soft tissues appear unremarkable. IMPRESSION: Right internal jugular catheter in satisfactory position. Dictated by: Lev Watts M.D. on 09/04/2021 at 22:09 Approved by: Lev Watts M.D. on 09/04/2021 at 22:11
[2021-09-04 21:45] LABS: Lactate 2HR (Lactic Acid Rflx) 3.1 mmol/L (0.7-2.1)
[2021-09-04 21:46] LABS: Alanine Aminotransferase 24 IU/L (<50); Albumin 2.1 g/dL (3.5-5.0); Albumin Globulin Ratio 0.5 (1.0-2.8); Alkaline Phosphatase 85 U/L (38-126); Aspartate Aminotransferase 74 IU/L (17-59); BUN Creatinine Ratio 25.6 (6-22); Bilirubin Total 3.1 mg/dL (0.2-1.3); Blood Urea Nitrogen 23 mg/dL (9-20); Calcium 7.7 mg/dL (8.4-10.2); Carbon Dioxide 24 mmol/L (22-32); Chloride 106 mmol/L (98-107); Estimated Glomerular Filt Rate > 60.0 mL/min (>60); Glucose 130 mg/dL (70-100); HEMOLYSIS < 15 (0-50); Potassium 4.4 mmol/L (3.4-5.1); Total Protein 6.1 g/dL (6.3-8.2)
[2021-09-04 21:48] LABS: Sodium 133 mmol/L (137-145)
[2021-09-04 21:49] LABS: PCO2 VBG 27.1 mmHg (45-50)
[2021-09-04 21:50] LABS: HCO3 VBG 21 mmol/L (23-28); Oxygen Saturation VBG 81 % (70-75); PO2 VBG 40 mmHg (35-45); Total CO2 VBG 22 mmol/L (24-29)
[2021-09-04] MEDS: NOREPINEPHRINE BITARTRATE/D5W 4 MG/250 ML PLAST..BAG 18.75 MG IV (22:06)
[2021-09-04 22:18] LABS: Add Manual Diff / Slide Review NO; Basophils Absolute Auto 0 /uL (0-100); Basophils Percent Auto 0.5 % (0-2); Eosinophils Absolute Auto 100 /uL (0-450); Eosinophils Percent Auto 0.9 % (2-4); Hematocrit 22.5 % (41-53); Hemoglobin 7.7 g/dL (13.5-17.5); Lymphocytes Absolute Auto 600 /uL (1100-4500); Lymphocytes Percent Auto 6.6 % (25-40); Mean Corpuscular Hemoglobin 38.2 PG (26-34); Mean Corpuscular Volume 112.2 fL (80-100); Monocytes Absolute Auto 700 /uL (0-900); Monocytes Percent Auto 7.8 % (3-14); Neutrophils Absolute Auto 7000 /uL (1500-7000); Neutrophils Percent Auto 84.2 % (50-75); Platelet Count 75 X10^3/uL (150-400); Red Blood Cell Count 2.01 X10^6/uL (4.5-5.9); Red Cell Distribution Width 15.1 % (11.6-14.8); White Blood Cell Count 8.4 X10^3/uL (4.5-11.0)
[2021-09-04 22:26] LABS: Body Fluid Red Blood Cells 13867 /uL; Body Fluid Tot Nucleated Cells 366 /uL
[2021-09-04 22:44] LABS: Body Fluid Color YELLOW
[2021-09-04 22:45] LABS: Body Fluid Appearance SLIGHTLY CLOUDY; Body Fluid Clotted? NO CLOTS PRESENT
[2021-09-04 22:49] LABS: pH Body Fluid 8 pH
[2021-09-04 23:22] LABS: Anisocytosis 1+; Hypochromasia 1+; Macrocytosis 2+; Polychromasia 1+
[2021-09-05] VITALS (64 sets, daily range): BP systolic 82–156; BP diastolic 45–92; PULSE 83–117; RESP 20–34; O2SAT 88–100
[2021-09-05 00:53] LABS: Mononuclear WBC Body Fluid 30 %; Polynuclear WBC Body Fluid 2 %
[2021-09-05 00:56] LABS: Other Cells Body Fluid 68 %
[2021-09-05] MEDS: PIPERACILLIN/TAZO 3.375 GM in SODIUM CHLORIDE 0.9% 100 ML 25 ML IV (01:30)
[2021-09-05] MEDS: SODIUM CHLORIDE 0.9% 1,000 ML 150 ML IV (01:31)
[2021-09-05] MEDS: KETAMINE 500 MG/5 ML INJ (05:20)
[2021-09-05] MEDS: SUCCINYLCHOLINE 200 MG/10 ML VIAL 100 MG IV (05:23)
--- NOTE | 2021-09-05 05:25 | DI.RAD.S_ITS ---
PROCEDURE: XR CHEST 1V INDICATIONS: check et tube placement TECHNIQUE: One view of the chest was acquired. COMPARISON: [facility], CR, XR CHEST 1V, 09/04/2021, 21:36. [facility], CR, XR CHEST 1V, 09/04/2021, 19:32. FINDINGS: Surgical changes and devices: -Endotracheal tube in the lower trachea. -The orogastric tube is located in the distal esophagus please advance approximately 7 cm for the tip to terminate in the proximal stomach. -Right IJ central venous line with the catheter tip projecting at the cavoatrial junction. Lungs and pleura: Diffuse airspace opacity bilaterally appears similar. No pleural effusions or pneumothorax. Mediastinum: Mediastinal contours appear similar. Heart size is normal. Bones and chest wall: No suspicious bony lesions. Overlying soft tissues appear unremarkable. IMPRESSION: 1. Enteric tube terminates in the distal esophagus. Advance 7 cm for the tip to terminate in the proximal stomach. 2. Endotracheal tube and right IJ are in satisfactory position. 3. Diffuse airspace opacity bilaterally most consistent with pneumonia is similar. This report is concordant with the overnight preliminary interpretation. Dictated by: Rk Sánchez M.D. on 09/05/2021 at 6:59 Approved by: Rk Sánchez M.D. on 09/05/2021 at 7:04
[2021-09-05] MEDS: fentaNYL 1,000 MCG in DEXTROSE 5% IN WATER 230 ML 16.908 ML IV (05:33)
[2021-09-05] MEDS: propofoL 1,000 MG/100 ML VIAL 2.898 MG IV (06:15)
--- NOTE | 2021-09-05 06:29 | PC.NURSE ---
pt intubated with RT MD nelsonf RN x2 with 500mg ketamine and 100mg succinylcholine with 8.0 ETT OG placed verified by CXR, post intubation pt became restless, 100mg propofol x 2 admin by MD, fentanyl drip started at 70mcg/h norepi increased to 9mcg/h pt still restless 100mg rocuronium given by , propofiol drip ordered by
[2021-09-05 06:30] LABS: Hematocrit 24.8 % (41-53); Hemoglobin 8.5 g/dL (13.5-17.5); Mean Corpuscular HGB Conc 34.1 % (30-36); Mean Corpuscular Hemoglobin 37.9 PG (26-34); Mean Corpuscular Volume 111.3 fL (80-100); Platelet Count 115 X10^3/uL (150-400); Red Blood Cell Count 2.23 X10^6/uL (4.5-5.9); Red Cell Distribution Width 15.4 % (11.6-14.8); White Blood Cell Count 11.8 X10^3/uL (4.5-11.0)
[2021-09-05 06:32] LABS: Add Manual Diff / Slide Review YES
[2021-09-05 07:05] LABS: Neutrophils Absolute Manual 10856 /uL (3000-5900); Total Cells Counted 100
[2021-09-05 07:06] LABS: Anisocytosis 2+; Macrocytosis 1+
[2021-09-05] MEDS: VANCOMYCIN 2,000 MG/400 ML PIGGYBACK 200 MG IV (07:21)
--- NOTE | 2021-09-05 07:22 | PC.NURSE ---
reportcalled to richa CCU RN at [facility]
[2021-09-05 08:06] LABS: Alanine Aminotransferase 28 IU/L (<50); Albumin 2.3 g/dL (3.5-5.0); Albumin Globulin Ratio 0.5 (1.0-2.8); Alkaline Phosphatase 93 U/L (38-126); Aspartate Aminotransferase 82 IU/L (17-59); BUN Creatinine Ratio 22.7 (6-22); Bilirubin Total 3.6 mg/dL (0.2-1.3); Blood Urea Nitrogen 20 mg/dL (9-20); Calcium 7.6 mg/dL (8.4-10.2); Carbon Dioxide 23 mmol/L (22-32); Chloride 106 mmol/L (98-107); Estimated Glomerular Filt Rate > 60.0 mL/min (>60); Globulin 4.4 g/dL (1.7-4.1); Glucose 147 mg/dL (70-100); HEMOLYSIS < 15 (0-50); Potassium 4.3 mmol/L (3.4-5.1); Sodium 136 mmol/L (137-145); Total Protein 6.7 g/dL (6.3-8.2)
[2021-09-05 08:40] LABS: Albumin Body Fluid < 1.0 g/dL; Glucose Body Fluid 128 mg/dL; LDH Body Fluid 279 U/L; Total Protein Body Fluid 2.7 g/dL
== END 2021-09-05 08:00 | disposition short-term general hospital (02) ==
PROVIDERS: Emergency Medicine; Emergency Provider Emergency Medicine; PCP Family Medicine
DX: J96.01 Acute respiratory failure with hypoxia (principal); K70.31 Alcoholic cirrhosis of liver with ascites; J90 Pleural effusion, not elsewhere classified; L76.34 Postprocedural seroma of skin and subcutaneous tissue following other procedure; F17.210 Nicotine dependence, cigarettes, uncomplicated; J18.9 Pneumonia, unspecified organism; Y95 Nosocomial condition; D63.8 Anemia in other chronic diseases classified elsewhere; F10.20 Alcohol dependence, uncomplicated; Z20.822 Contact with and (suspected) exposure to COVID-19; Y90.0 Blood alcohol level of less than 20 mg/100 ml
CPT/HCPCS: 36415; 36556; 36600; 71045; 71275; 74177; 80053; 80320; 81001; 82042; 82140; 82550; 82805; 82945; 83605; 83615; 83690; 83735; 83880; 83986; 84145; 84157; 84484; 85007; 85025; 85379; 85610; 85730; 87040; 87070; 87075; 87205; 87635; 89051; 93005; 93010; 94002; 96361; 96365; 96366; 96367; 96368; 99285; 99291; 99292; C9803; J0330; J2543; J2704; J3010